=== PATIENT | female | born 1990 | race Two or more races ===

== ENCOUNTER 2023-12-20 14:30 | Outpatient (OUT) | payer OTHER, SELFPAY | END 2023-12-20 14:31 | disposition home or self-care (01) | LOC: PST 14:31 | PROVIDERS: Visit Provider Obstetrics & Gynecology | DX: Z01.818 Encounter for other preprocedural examination (principal); D21.9 Benign neoplasm of connective and other soft tissue, unspecified; R10.2 Pelvic and perineal pain ==

== ENCOUNTER 2023-12-29 10:31 | Outpatient (RCR) | payer OTHER, SELFPAY ==
[2023-12-29 11:22] LABS: HCG Quantitative 17 mIU/mL
[2023-12-31 11:37] LABS: HCG Quantitative 23 mIU/mL
[2024-01-02 11:33] LABS: HCG Quantitative 19 mIU/mL
== END 2024-01-08 23:59 | disposition home or self-care (01) ==
LOC: LAB 10:31
PROVIDERS: Visit Provider Obstetrics & Gynecology
DX: N92.6 Irregular menstruation, unspecified (principal)
CPT/HCPCS: 36415; 84702

== ENCOUNTER 2024-02-15 12:28 | Outpatient (OUT) | payer OTHER, SELFPAY ==
--- OUTSIDE RECORDS SUMMARY | 2024-02-15 12:33 | XMS_ITS | CCD ---
Author Organization [facility] Care Team Providers Care Tuft Machine Operator Name Role Phone Raquel Odell Primary Care Provider YANCY LAMBERT Admitting Unavailable YANCY LAMBERT Attending Unavailable RAQUEL ODELL Primary Care Unavailable SABA DELGADO Admitting Unavailable SABA DELGADO Attending Unavailable RAQUEL ODELL Primary Care Unavailable SABA DELGADO Attending Unavailable SABA DELGADO Referring Unavailable DOYLE MARLEY Attending Unavailable SABA DELGADO Referring Unavailable DOYLE MARLEY Attending Unavailable Medications Current Medications Medication Drug Class(es) Dates Sig (Normalized) Sig (Original) acetaminophen 500 mg oral tablet (2 sources) Start: 09-27-2022 1,000 mg, Oral, EVERY 8 HOURS PRN, Starting on Tue09/27/22 at 2232, Until Discontinued, Other, Pain (1-10) Give in addition to any other pain medication ordered at same time for any pain indication.&nbsp ; Maximum dose of acetaminophen is 4000mg from all sources in 24 hours. Alternate ibuprofen and acetaminophen every 4 hours. Start: 09-27-2022 End: 09-27-2022 acetaminophen (TYLENOL) tabl et 650 mg calcium chloride 0.0014 meq/ ml / potassium chloride 0.004 meq/ml / sodium chloride 0.103 meq/ml / sodium lactate 0.028 meq/ml injectable solution (2 sources) Start: 09-27-2022 IntraVENous, a t 125 mL/hr, CONTINUOUS, Starting on Tue09/27/22 at 2300, Start: 09-27-2022 End: 09-27-2022 lactated ringers IV soln inf usion ibuprofen 800 mg oral tablet (2 sources) Nonsteroidal Anti-inflammatory Drug Start: 09-28-2022 End: 10-02-2022 take 1 tablet by mouth every eight hours as needed for pain ibuprofen (ADVIL;MOTRIN) 800 MG tablet Take 1 tablet by mouth every 8 hours as needed for Pain 60 tablet 1 09/29/2022 10/02/2022 Active lanolin 1000 mg/ml topical cream (1 source) Start: 09-27-2022 Topical, EVERY 1 HOUR PRN, Dry Skin, nipple discomfort, Starting on Tue09/27/22 at 2232, Post-op oxyCODONE hydrochloride 5 mg oral tablet (2 sources) Opioid Agonist Start: 09-29-2022 End: 10-02-2022 take 1 tablet by mouth every six hours as needed for pain oxyCODONE (ROXICODONE) 5 MG immediate release tablet Indications: delivery delivered Take 1 tablet by mouth every 6 hours as needed for Pain for up to 3 days. Max Daily Amount: 20 mg 12 tablet 0 09/29/2022 10/02/2022 Active Start: 09-27-2022 oxyCODONE (AYANNA ICODONE) immediate release tablet 5 mg Vit-Fe Fumarate-FA ( VITAMIN) 27-1 MG TABS tablet (1 source) Start: 09-30-2022 take 1 tablet by mouth once daily Vit-Fe Fumarate-FA ( VITAMIN) 27-1 MG TABS tablet Take 1 tablet by mouth daily 30 tablet 0 09/30/2022 Active 1000 ml sodium chloride 9 mg/ml injection (3 sources) Start: 09-27-2022 IntraVENous, a t 5-250 mL/hr, PRN, if patient receiving piggyback infusions and maintenance fluids are not ordered OR KVO fluids to protect IV site / prevent frequent line interruptions/ long duration, Starting on Tue09/27/22 at 2232 For piggyback infusion, administer at same rate as piggyback for a total of 25 mL. Enter 25 mL into dose field and piggyback rate into rate field of order. If piggyback is infusing at a rate less than 100 mL/hr, enter 25 mL into dose field and 100 mL/hr into rate field of order. For KVO fluids, enter rate of 20 mL/hr or less into rate field of order. Start: 09-27-2022 take 1 dose intraven ously twice daily 5-40 mL, IntraVENous, EVERY 12 HOURS SCHEDULED (2 times per day), First dose on Tue09/27/22 at 2300, Until Discontinued For Line Patency: Peripheral IV = 5 mL; Midline or Central Line = 10 mL/lumen. If following IV push medication, administer flush at same rate as the IV push. Flush volume is determined by type of infusion therapy being given. For non-viscous solutions use: Peripheral IV = 5 mL Midline or Central Line = 10 mL/lumen For viscous solutions (i.e. blood components, parenteral nutrition, contrast media, or after obtaining blood sample) use: Peripheral IV = 10 mL Midline or Central Line = 20 mL/lumen Start: 09-27-2022 take 5-40 mL intrave nously once as needed 5-40 mL, IntraVENous, PRN, Starting on Tue09/27/22 at 2232, Until Discontinued, Line Care, After every IV line use For Line Patency: Peripheral IV = 5 mL; Midline or Central Line = 10 mL/lumen. If following IV push medication, administer flush at same rate as the IV push. Flush volume is determined by type of infusion therapy being given. For non-viscous solutions use: Peripheral IV = 5 mL Midline or Central Line = 10 mL/lumen For viscous solutions (i.e. blood components, parenteral nutrition, contrast media, or after obtaining blood sample) use: Peripheral IV = 10 mL Midline or Central Line = 20 mL/lumen Completed/Discontinued Medications Medication Drug Class(es) Dates Sig (Normalized) Sig (Original) 1 ml carboprost 0.25 mg/ml injection (1 source) Prostaglandin Analog Start: 09-27-2022 250 mcg, IntraMUSCular, PRN, Starting on Tue09/27/22 at 2232, Until Discontinued, bleeding May repeat every 15 minutes up to a cumulative maximum dose of 1000 mcg, at physician's request. Post-op citric acid 66.8 mg/ml / sodium citrate 100 mg/ml oral solution (1 source) Calculi Dissolution Agent, Anti-coagulant Start: 09-27-2022 End: 09-27-2022 citric acid-sodium citrate (BICITRA) solution 30 mL Start: 09-27-2022 End: 09-27-2022 citric acid-sodium citrate ( BICITRA) solution 30 mL 1 ml diphenhydrAMINE hydrochloride 50 mg/ml cartridge (1 source) Histamine-1 Receptor Antagonist Start: 09-27-2022 25 mg, IntraVENous, EVERY 6 HOURS PRN, Starting on Tue09/27/22 at 2232, Until Discontinued, Itching, Hives, docusate sodium 100 mg oral capsule (1 source) Start: 09-27-2022 take 100 mg by mouth twice daily 100 mg, Oral, 2 TIMES DAILY, First dose on Tue09/27/22 at 2300, Until Discontinued Do not crush or break. docusate sodium 50 mg / sennosides, assisted 8.6 mg oral tablet (1 source) Start: 09-27-2022 take 1 tablet by mouth once daily as needed 1 tablet, Oral, DAILY PRN, Starting on Tue09/27/22 at 2232, Until Discontinued, Constipation, 0.4 ml enoxaparin sodium 100 mg/ml prefilled syringe (1 source) Low Molecular Weight Heparin Start: 09-28-2022 inject 40 mg by subcutaneous injection every twenty-four hours 40 mg, SubCUTAneous, EVERY 24 HOURS, First dose on Tue09/28/22 at 0915, Until Discontinued Indication of Use: Prophylaxis-DVT/P E famotidine (PEPCID) 20 mg in sodium chloride (PF) 0.9 % 10 mL injection (1 source) Start: 09-27-2022 End: 09-27-2022 famotidine (PEPCID) 20 mg in sodium chloride (PF) 0.9 % 10 mL injection 1 ml ketorolac tromethamine 30 mg/ml cartridge (1 source) Nonsteroidal Anti-inflammatory Drug, Cyclooxygenase Inhibitor Start: 09-28-2022 End: 09-29-2022 30 mg, IntraVENous, EVERY 6 HOURS, 5 doses, First dose on Tue09/28/22 at 0515, Last dose on Tue09/29/22 at 0515 Give in addition to any other pain medication ordered at same time for any pain indication. Discontinue when able to take PO ibuprofen. F irst dose given in OR - please calculate second dose off of first dose give 1 ml methylergonovine maleate 0.2 mg/ml injection (1 source) Ergot Derivative Start: 09-27-2022 200 mcg, IntraMUSCular, PRN, Starting on Tue09/27/22 at 2232, Until Discontinued, Bleeding PRN for post- hemorrhage, if not hypertensive. 2 ml metoclopramide 5 mg/ml prefilled syringe (1 source) Dopamine-2 Receptor Antagonist Start: 09-27-2022 End: 09-27-2022 metoclopramide (REGLAN) injection 10 mg Start: 09-27-2022 End: 09-27-2022 metoclopramide (REGLAN) inje ction 10 mg miSOPROStol 0.1 mg oral tablet (1 source) Prostaglandin E1 Analog Start: 09-27-2022 800 mcg, Rectal, PRN, 1 dose, Starting on Tue09/27/22 at 2232, Until Discontinued, Post- Hemorrhage Notify Physician prior to administration. Post-op 1 ml nalbuphine hydrochloride 10 mg/ml injection (1 source) Opioid Agonist/Antagonist Start: 09-27-2022 10 mg, IntraVENous, EVERY 4 HOURS PRN, Starting on Tue09/27/22 at 2232, Until Discontinued, or itching, Post-op 1 ml naloxone hydrochloride 0.4 mg/ml injection (1 source) Opioid Antagonist Start: 09-27-2022 0.4 mg, IntraVENous, PRN, Starting on Tue09/27/22 at 2232, Until Discontinued, Opioid Reversal, Post-op 2 ml ondansetron 2 mg/ml injection (1 source) Serotonin-3 Receptor Antagonist Start: 09-27-2022 4 mg, IntraVENous, EVERY 6 HOURS PRN, Starting on Tue09/27/22 at 2232, Until Discontinued, Nausea, nausea, oxytocin (PITOCIN) 30 units in 500 mL infusion (1 source) Start: 09-27-2022 End: 09-27-2022 oxytocin (PITOCIN) 30 units in 500 mL infusion vitamin 27-1 MG tablet 1 tablet (1 source) Start: 09-28-2022 take 1 tablet by mouth once daily 1 tablet, Oral, DAILY, First dose on Tue09/28/22 at 0900, Until Discontinued Begin when normal bowel activity resumes. 200 ml ropivacaine hydrochloride 2 mg/ml injection (1 source) Amide Local Anesthetic Start: 09-27-2022 End: 09-27-2022 ropivacaine (NAROPIN) 0.2% injection 0.2% simethicone 80 mg chewable tablet (1 source) Start: 09-27-2022 take 80 mg by mouth every six hours as needed 80 mg, Oral, EVERY 6 HOURS PRN, Starting on Tue09/27/22 at 2232, Until Discontinued, Cramping, Flatulence, Problems Problem Classification Problem Date Documented Date Episodic/Chronic distress and abnormal forces of labor (2 sources) Failure to progress in labor; Translations: [Other uterine inertia] Onset: 09-27-2022 Episodic Other complications of ; puerperium affecting management of mother (3 sources) Deliveries by ; Translations: [Encounter for delivery without indication] Onset: 09-28-2022 Episodic Other complications of ; puerperium affecting management of mother (1 source) Encounter for delivery without indication; Translations: [Encounter for delivery without indication] Onset: 09-28-2022 Episodic Other and delivery including normal (4 sources) Normal labor; Translations: [Encounter for full-term uncomplicated delivery] Onset: 09-27-2022 Episodic Polyhydramnios and other problems of amniotic cavity (5 sources) Premature rupture of membranes; Translations: [Premature rupture of membranes, unspecified as to length of time between rupture and onset of labor, unspecified weeks of gestation] Onset: 08-19-2022 Episodic Residual codes; unclassified (2 sources) Gestation period, 40 weeks; Translations: [40 weeks gestation of ] Onset: 09-27-2022 Episodic Results Test Name Value Interpretation Reference Range Facil ity US PELVIS TRANSVAGINALon US PELVIS TRANSVAGINAL FINDINGS: Uterus: 9.4 x 6.0 x 4.2 cm Endometrium 9 mm Right Ovary Not seen Left Ovary Not seen Minimal uterine body/fundal anteversion. Posterior heterogeneous hypoechogenic area, 3.5 x 2.5 x 2.0 cm likely intramural fibroid resulting in anterior displacement of the otherwise normal appearing endometrium. No pelvic fluid. Neither ovary visualized. No adnexal mass. IMPRESSION: Posterior uterine body findings most consistent with a 2.0 x 3.5 cm intramural fibroid. TRANSCRIBED BY: ELECTRONICALLY SIGNED BY: Cole Mckeon MD Normal Not Available Hemoglobinon 09-28-2022 Hemoglobin (Bld) [Mass/Vol] 10.7 g/dL Low 11.9-15.1 [facility] Comment on above: Performed By: #### H GB #### [facility] [address] [place] [address] Outdoor Pursuits Instructor: Deven Kumar MD Hemoglobin (Bld) [Mass/Vol] 10.7 g/dL Low 11.9 - 15.1 g/dL [facility] Interpretation and review of laboratory results Abnormal [facility] CBC auto differentialon 09-09 Absolute Eos # 0.05 [place] [facility] Absolute Immature Granulocyte 0.05 [facility] Absolute Lymph # 2.59 [facility] SECO URS [facility] Absolute Richardson # [facility] Basophils Absolute [place] [facility] COURS [facility] Basophils/100 WBC (Bld) 0 % 0 - 2 % [facility] Eosinophils/100 WBC (Bld) 1 % 1 - 4 % [facility] Hematocrit (Bld) [Volume fraction] 35.9 % Low 36.3 - 47.1 % [facility] Hemoglobin (Bld) [Mass/Vol] 11.9 g/dL 11.9 - 15.1 g/dL [facility] Immature granulocytes/100 WBC (Bld) 1 % High 0 [facility] Interpretation and review of laboratory results Abnormal [facility] Lymphocytes/100 WBC (Bld) 27 % 24 - 43 % [facility] MCH (RBC) [Entitic mass] 29.7 pg 25.2 - 33.5 pg [facility] MCHC (RBC) [Mass/Vol] 33.1 g/dL 28.4 - 34.8 g/dL [facility] MCV (RBC) [Entitic vol] 89.5 fL 82.6 - 102.9 fL [facility] Monocytes/100 WBC (Bld) 7 % 3 - 12 % [facility] NRBC Automated 0.0 0.0 per 100 WBC [facility] Platelet distribution width (Bld) [Ratio] 14.5 % High 11.8 - 14.4 % [facility] Platelet mean volume (Bld) [Entitic vol] 11.7 fL 8.1 - 13.5 fL [facility] Platelets (Bld) [#/Vol] 223 10*3/uL [facility] RBC (Bld) [#/Vol] 4.01 10*6/uL 3.95 - 5.1 1 m/uL [facility] Segmented neutrophils/100 WBC (Bld) 64 % 36 - 65 % [facility] Segs Absolute 6.36 [facility] WBC (Bld) [#/Vol] 9.8 10*3/uL [facility] SE COURS [facility] CBC with Diffon 09-27-2022 Abs. Basophil <0.03 Normal 0.00-0.20 [facility] Comment on above: Performed By: #### C DP #### [facility] [address] [place] [address] [place] [address] Outdoor Pursuits Instructor: eDven Kumar MD Abs.Imm.Granulocyte 0.05 k/uL Normal 0.00-0.30 [facility] Comment on above: Performed By: #### C DP #### [facility] [address] [place] [address] [place] [address] Outdoor Pursuits Instructor: Deven Kumar MD Abs.Neutrophil (Seg) 6.36 k/uL Normal 1.50-8.10 [facility] Comment on above: Performed By: #### C DP #### [facility] [address] [place] [address] Outdoor Pursuits Instructor: Deven Kumar MD Basophils/100 WBC (Bld) 0 % Normal 0-2 [facility] Comment on above: Performed By: #### C DP #### [facility] [address] [place] [address] Dr. [place], [facility]83 Outdoor Pursuits Instructor: Deven Kumar MD Eosinophils (Bld) [#/Vol] 0.05 10*3/uL Normal 0.00-0.44 [facility] Comment on above: Performed By: #### C DP #### [address] [place], [facility]83 Outdoor Pursuits Instructor: Deven Kumar MD Eosinophils/100 WBC (Bld) 1 % Normal 1-4 [facility] Comment on above: Performed By: #### C DP #### [address] [place] [address] Outdoor Pursuits Instructor: Deven Kumar MD Erythrocyte distribution width (RBC) [Ratio] 14.5 % High 11.8-14.4 [facility] Comment on above: Performed By: #### C DP #### [address] [place], [facility]83 Outdoor Pursuits Instructor: Deven Kumar MD Hematocrit (Bld) [Volume fraction] 35.9 % Low 36.3-47.1 [facility] Comment on above: Performed By: #### C DP #### [address] [place], [facility]83 Outdoor Pursuits Instructor: Deven Kumar MD Hemoglobin (Bld) [Mass/Vol] 11.9 g/dL Normal 11.9-15.1 [facility] Comment on above: Performed By: #### C DP #### [address] [place], [facility] Outdoor Pursuits Instructor: Deven Kumar MD Immature granulocytes/100 WBC (Bld) 1 % High 0 [facility] Comment on above: Performed By: #### C DP #### [address] [place], [facility]83 Outdoor Pursuits Instructor: Deven Kumar MD Lymphocytes (Bld) [#/Vol] 2.59 10*3/uL Normal 1.10-3.70 [facility] Comment on above: Performed By: #### C DP #### [facility] [address] [place], [facility]83 Outdoor Pursuits Instructor: Deven Kumar MD Lymphocytes/100 WBC (Bld) 27 % Normal 24-43 [facility] Comment on above: Performed By: #### C DP #### [facility] [address] [place], [facility]83 Outdoor Pursuits Instructor: Deven Kumar MD MCH (RBC) [Entitic mass] 29.7 pg Normal 25.2-33.5 [facility] Comment on above: Performed By: #### C DP #### [facility] [address] [place], [facility]83 Outdoor Pursuits Instructor: Deven Kumar MD MCHC (RBC) [Mass/Vol] 33.1 g/dL Normal 28.4-34.8 [facility] Comment on above: Performed By: #### C DP #### [facility] [address] [place], [facility]83 Outdoor Pursuits Instructor: Deven Kumar MD MCV (RBC) [Entitic vol] 89.5 fL Normal 82.6-102.9 [facility] Comment on above: Performed By: #### C DP #### [address] [place], [place] [address] Outdoor Pursuits Instructor: Deven Kumar MD Monocytes (Bld) [#/Vol] 0.69 10*3/uL Normal 0.10-1.20 [facility] Comment on above: Performed By: #### C DP #### [facility] [address] [place], [place] [id number] Outdoor Pursuits Instructor: Deven Kumar MD Monocytes/100 WBC (Bld) 7 % Normal 3-12 [facility] Comment on above: Performed By: #### C DP #### [facility] [address] [place], [place] [id number] Outdoor Pursuits Instructor: Deven Kumar MD Neutrophil (Seg) 64 % Normal 36-65 [facility] Comment on above: Performed By: #### C DP #### [facility] [address] [place], [place] [id number] Outdoor Pursuits Instructor: Deven Kumar MD NRBC Automated 0.0 per 100 WBC Normal 0.0 [facility] Comment on above: Performed By: #### C DP #### [facility] [address] [place], [place] [id number] Outdoor Pursuits Instructor: Deven Kumar MD Platelet mean volume (Bld) [Entitic vol] 11.7 fL Normal 8.1-13.5 [facility] Comment on above: Performed By: #### C DP #### [facility] [address] [place] [address] Dr. [place], [place] [id number] Outdoor Pursuits Instructor: Deven Kumar MD Platelets (Bld) [#/Vol] 223 10*3/uL Normal 138-453 [facility] Comment on above: Performed By: #### C DP #### [address] [place], [place] [id number] Outdoor Pursuits Instructor: Deven Kumar MD RBC (Bld) [#/Vol] 4.01 10*6/uL Normal 3.95-5.11 [facility] Comment on above: Performed By: #### C DP #### [facility] [address] [place], [place] [id number] Outdoor Pursuits Instructor: Deven Kumar MD WBC (Bld) [#/Vol] 9.8 10*3/uL Normal 3.5-11.3 [facility] Comment on above: Performed By: #### C DP #### [facility] [address] [place] [address] Outdoor Pursuits Instructor: Deven Kumar MD DRUG SCREEN MULTI URINEon Amphetamine Screen, Ur Negative NEGATIVE [facility] Comment on above: (Positive cutoff 1000 ng/mL) Barbiturate Screen, Ur Negative NEGATIVE [facility] Comment on above: (Positive cutoff 200 ng/mL) Benzodiazepine Screen, Urine Negative NEGATIVE [facility] Comment on above: (Positive cutoff 200 ng/mL) Buprenorphine Urine Negative NEGATIVE [facility] Comment on above: (Positive cutoff 5 ng/ml) Cannabinoid Scrn, Ur Negative NEGATIVE [facility] Comment on above: (Positive cutoff 50 ng/mL) Cocaine Metabolite, Urine Negative NEGATIVE [facility] Comment on above: (Positive cutoff 300 ng/mL) Fentanyl, Ur Negative NEGATIVE [facility] Comment on above: (Positive cutoff 5 ng/ml) Methadone Screen, Urine Negative NEGATIVE [facility] Comment on above: (Positive cutoff 300 ng/mL) Opiates, Urine Negative [facility] Comment on above: (Positive cutoff 300 ng/mL) Oxycodone Screen, Ur Negative NEGATIVE [facility] Comment on above: (Positive cutoff 100 ng/mL) Phencyclidine, Urine Negative NEGATIVE [facility] Comment on above: (Positive cutoff 25 ng/mL) [facility] Drug Scr, Abuse, Uron 2022 Amphetamine(s),Ur Negative Normal NEG [facility] Comment on above: Result Comment: (Positive cutoff 1000 ng/mL) Performed By: #### D AU #### [address] [place] [address] Outdoor Pursuits Instructor: Deven Kumar MD Barbiturate(s),Ur Negative Normal NEG [facility] Comment on above: Result Comment: (Positive cutoff 200 ng/mL) Performed By: #### D AU #### [address] [place] [address] Outdoor Pursuits Instructor: Deven Kumar MD Benzodiazepine(s) Negative Normal NEG [facility] Comment on above: Result Comment: (Positive cutoff 200 ng/mL) Performed By: #### D AU #### [facility] [address] [place] [address] Dr[place], [place] [id number] Outdoor Pursuits Instructor: Deven Kumar MD Buprenorphrine, Ur Negative Normal NEG [facility] Comment on above: Result Comment: (Positive cutoff 5 ng/ml) Performed By: #### D AU #### [address] [place], [place] [id number] Outdoor Pursuits Instructor: Deven Kumar MD Cannabinoid(s),Ur Negative Normal NEG [facility] Comment on above: Result Comment: (Positive cutoff 50 ng/mL) Performed By: #### D AU #### [address] [place], [place] [id number] Outdoor Pursuits Instructor: Deven Kumar MD Cocaine Metabolite Negative Normal [facility] Comment on above: Result Comment: (Positive cutoff 300 ng/mL) Performed By: #### D AU #### [address] [place], [place] [id number] Outdoor Pursuits Instructor: Deven Kumar MD Fentanyl, Urine Negative Normal [facility] Comment on above: Result Comment: (Positive cutoff 5 ng/ml) Performed By: #### D AU #### [address] [place], [place] [id number] Outdoor Pursuits Instructor: Deven Kumar MD Methadone Ql (U) Negative Normal NEG [facility] Comment on above: Result Comment: (Positive cutoff 300 ng/mL) Performed By: #### D AU #### [address] [place], [place] [phone] Outdoor Pursuits Instructor: Deven Kumar MD Opiate(s), Ur Negative Normal NEG [facility] Comment on above: Result Comment: (Positive cutoff 300 ng/mL) Performed By: #### D AU #### [address] [place], [place] [id number] Outdoor Pursuits Instructor: Deven Kumar MD Oxycodone, Urine Negative Normal NEG [facility] Comment on above: Result Comment: (Positive cutoff 100 ng/mL) Performed By: #### D AU #### [facility] [address] [place] [address] Outdoor Pursuits Instructor: Deven Kumar MD Phencyclidine, Ur Negative Normal [facility] Comment on above: Result Comment: (Positive cutoff 25 ng/mL) Performed By: #### D AU #### [facility] [address] [place] [address] Outdoor Pursuits Instructor: Deven Kumar MD TYPE AND SCREENon 09-27-2022 ABO/Rh Positive [facility] Arm Band Number [id number] [facility] Expiration Date 09/30/2022,2359 [facility] Type + Screenon 09-27-2022 Type + Screen Sample Expiration 09/30/2022,2359 Arm Band Number [id number] ABO/Rh(D) O POSITIVE Antibody Screen NEGATIVE Normal [facility] Comment on above: Performed By: #### T YS #### [address] [place] [address] Outdoor Pursuits Instructor: Deven Kumar MD No Panel Informationon 08-24 GBS, External Result Negative [facility] Work Phone: [facility] Work Phone: Cult,Urineon 08-21-2022 Cult,Urine Specimen Description .CLEAN CATCH URINE Culture NO SIGNIFICANT GROWTH Report Status FINAL 08/21/2022 Normal [facility] Comment on above: Performed By: #### U RC #### [facility] [address] [place] [address] Outdoor Pursuits Instructor: Jesus Hill MD [facility] [facility] [address] [place] [address] [place] [address] Outdoor Pursuits Instructor: Deven Kumar MD US OB 14 PLUS WEEKS SINGLE O R FIRST GESTATIONon 08-20-2022 US OB 14 PLUS WEEKS SINGLE OR FIRST GESTATION EXAMINATION: TRANSABDOMINAL SECOND/THIRD TRIMESTER OBSTETRIC PELVIC ULTRASOUND WITH COLOR DOPPLER FLOW 08/20/2022 1:07 am TECHNIQUE: TRANSABDOMINAL PELVIC ULTRASOUND WITH COLOR DOPPLER FLOW COMPARISON: None HISTORY: ORDERING SYSTEM PROVIDED HISTORY: R/O ROM; cervical length, MASHA, BPP TECHNOLOGIST PROVIDED HISTORY: R/O ROM; cervical length, MASHA, BPP FINDINGS: GENERAL OBSERVATIONS: Single intrauterine gestation. heart rate at 139 beats per minute. Amniotic fluid index measures 17 cm. ANATOMY: Not assessed ESTIMATED AGE: Not assessed MEASUREMENTS: Not assessed IMPRESSION: 1. Single intrauterine gestation. 2. Amniotic fluid index of 17 cm within normal limits. 3. heart rate of 139 beats per minute. Interpreted by: Deven Vaughan MD Signed by: Deven Vaughan MD 08/20/22 Final result Normal [facility] Urinalysis, Routineon 2022 Bilirubin, SemiQt,Ur Negative Normal NEG [facility] Comment on above: Performed By: #### U A, VALENTEICAO #### [facility] [address] [place] [address] Outdoor Pursuits Instructor: Deven Kumar MD Blood, Urine Negative Normal NEG [facility] Comment on above: Performed By: #### U A, UMICAO #### [facility] [address] [place] [address] Outdoor Pursuits Instructor: Deven Kumar MD Clarity (U) Clear Normal CLEAR [facility] Comment on above: Performed By: #### U A, UMICAO #### [facility] [address] [place] [address] Outdoor Pursuits Instructor: Deven Kumar MD Color (U) Yellow Normal YEL [facility] Comment on above: Performed By: #### U A, UMICAO #### [facility] [address] [place] [address] Outdoor Pursuits Instructor: Deven Kumar MD Glucose Ql (U) Negative Normal NEG [facility] Comment on above: Performed By: #### U A, UMICAO #### [facility] [address] [place], [place] [id number] Outdoor Pursuits Instructor: Deven Kumar MD Ketones Ql (U) TRACE Abnormal NEG [facility] Comment on above: Performed By: #### U A, UMICAO #### [facility] [address] [place] [address] [place]. [place], [place] [id number] Outdoor Pursuits Instructor: Deven Kumar MD Leukocyte esterase Test strip Ql (U) MODERATE Abnormal NEG [facility] Comment on above: Performed By: #### U A, UMICAO #### [facility] [address] [place] [address] [place]. [place], [place] [id number] Outdoor Pursuits Instructor: Deven Kumar MD Nitrite,Ur Negative Normal NEG [facility] Comment on above: Performed By: #### U A, UMICAO #### [facility] [address] [place] [address] [place], [place] [id number] Outdoor Pursuits Instructor: Deven Kumar MD PH,Ur 6.0 Normal 5.0-9.0 [facility] Comment on above: Performed By: #### U A, UMICAO #### [facility] [address] [place] [address] [place] [address] Outdoor Pursuits Instructor: Deven Kumar MD Protein Ql (U) Negative Normal NEG [facility] Comment on above: Performed By: #### U A, UMICAO #### [facility] [address] [place] [address] [place] [address] Outdoor Pursuits Instructor: Deven Kumar MD Spec. [place],Ur >1.030 High 1.010-1.[address] [facility] Comment on above: Performed By: #### U A, UMICAO #### [facility] [address] [place] [address] [place]. [place], [place] [phone] Outdoor Pursuits Instructor: Deven Kumar MD Urobilinogen,Ur Normal Normal NORM [facility] Comment on above: Performed By: #### U A, UMICAO #### [facility] [address] [place], [place] [id number] Outdoor Pursuits Instructor: Deven Kumar MD Urinalysis,Microon 3 Epithelial cells LM Ql (Urine sed) 5 TO 10 Normal 0-25 [facility] Comment on above: Performed By: #### U A, UMICAO #### [facility] [address] [place], [place] [id number] Outdoor Pursuits Instructor: Deven Kumar MD Mucus Strands 3+ Abnormal NONE [facility] Comment on above: Performed By: #### U A, UMICAO #### [facility] [address] [place], [place] [id number] Outdoor Pursuits Instructor: Deven Kumar MD Urine RBC's None Normal 0-2 [facility] Comment on above: Performed By: #### U A, UMICAO #### [facility] [address] [place], [place] [phone] Outdoor Pursuits Instructor: Deven Kumar MD Urine WBC's 50 TO 100 Normal 0-5 [facility] Comment on above: Performed By: #### U A, UMICAO #### [facility] [address] [place], [place] [phone] Outdoor Pursuits Instructor: Deven Kumar MD Microscopic Urinalysison Epithelial Cells UA 5 TO 10 [facility] Interpretation and review of laboratory results Abnormal [facility] Mucus, UA 3+ Abnormal None [facility] RBC clumps Auto (Urine sed) [#/Area] None [facility] WBC, UA 50 TO 100 [facility] Urinalysison 08-19-2022 Bilirubin Urine Negative NEGATIVE [facility] Color, UA Yellow Yellow [facility] Glucose Auto test strip (U) [Mass/Vol] Negative NEGATIVE [facility] Interpretation and review of laboratory results Abnormal [facility] Ketones (U) [Mass/Vol] TRACE Abnormal NE[facility]IVE [facility] Leukocyte esterase Auto test strip Ql (U) MODERATE Abnormal NEGATIVE [facility] Nitrite Auto test strip Ql (U) Negative NEGATIVE [facility] Protein (U) [Mass/Vol] 6.0 mg/dL 5.0 - 9.0 [facility] Protein (U) [Mass/Vol] Negative NEGATIVE [facility] Specific [place], UA High 1.010 - 1.020 [facility] Turbidity UA Clear Clear [facility] Urine Hgb Negative NEGATIVE [facility] Urobilinogen, Urine Normal Normal [email or web address] US OB 2nd/3rd Trimesteron OB 2nd/3rd Trimester FINDINGS: Comparison made with prior examination of February 16, 2022 delivery at that time was September 25, 2021. A single, live intrauterine is present with normal cardiac rate of 145 beats per minute. Normal activity and amniotic fluid volume. Amniotic fluid index is 12.0 cm. Morphology is grossly normal. The cervix is long and closed, 3.6 cm. The placenta is posterior Grade 1, not associated with the cervical os. The current sonographic age is 19 weeks and 3 days, based on the following measurements: BPD 4.6 cm (20 weeks, 0 days) Head Circumference 16.8 cm (19 weeks, 3 days) Abdominal Circumference 13.8 cm (19 weeks, 1 days) Femur Length 2.9cm (19 weeks, 0 days) Presentation Cephalic Placenta Posterior Grade I Weight by percentile 29.5% These measurements result in an estimated date of delivery of September 25, 2022. The current estimated weight is 276 grams +/- grams ( pound, 10 ounces). IMPRESSION: Single, live intrauterine , current sonographic age of 19 weeks and 3 days, with an estimated date of delivery of September 25, 2022. 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 Trachomatis, External Res bubba 03-04-2022 C. Trachomatis, External Result Negative [facility] [employer] Work Phone: HIV, External Resulton 03-04 HIV, External Result Non-Reactive [facility] [employer] Phone: Hepatitis B, External Result on 03-04-2022 Hep B, External Result Non-Reactive [employer] Phone: N. Gonorrhoeae, External Res ulton 03-04-2022 N. Gonorrhoeae, External Result Negative [employer] Phone: No Panel Informationon 03-04 ABO, External Result O [employer] Phone: [employer] Phone: [employer] Phone: RPR, External Labon 03-04-20 RPR, External Result Non-Reactive REJI N [employer] Phone: Rh Factor, External Resulton 03-04-2022 Rh Factor, External Result Positive [employer] Phone: Rubella Titer, External Resu lton 03-04-2022 Rubella Titer, External Result immune [employer] Phone: US OB 1ST Trimesteron 2021 US OB 1ST Trimester FINDINGS: A single intrauterine gestational sac is present without significant subchorionic hemorrhage. A single pole is present, cardiac heart rate identified (165 beats per minute). Yolk sac also is seen. Current sonographic age is 8 weeks and 3 days based on the crown-rump length measurement of 1.9 cm. Based on this age, current estimated date of delivery is September 25, 2022. No pelvic fluid or worrisome adnexal mass lesions are seen. IMPRESSION: Findings consistent with an early intrauterine gestational , current sonographic age of 8 weeks and 3 days resulting in an estimated date of delivery of September 25, 2022. 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 Vital Signs Date Time Vital Sign Value Performing Clinician Faci lity 09-29-2022 14:15-0400 Body temperature 98.1 [degF] Saba Delgado APRN - CNM Work Phone: [employer] 09-29-2022 14:15-0400 Diastolic blood pressure 67 mm[Hg] Saba Delgado APRN - CNMarcie Work Phone: [employer] [facility] 09-29-2022 14:15-0400 Heart rate 103 /min Saba Delgado APRN - CNM Work Phone: [employer] 09-29-2022 14:15-0400 Respiratory rate 16 /min Saba Delgado APRN - CNM Work Phone: [employer] 09-29-2022 14:15-0400 Systolic blood pressure 122 mm[Hg] Saba Delgado APRN - CNM Work Phone: [employer] 09-28-2022 00:23-0400 SaO2% (BldA) [Mass fraction] 98 % Saba Delgado APRN - CNMarcie Work Phone: [employer] 09-27-2022 02:20-0400 Body height 154.9 cm Saba Delgado APRN - CNMarcie Work Phone: [employer] 09-27-2022 02:20-0400 Body mass index (BMI) [Ratio] 38.73 kg/m2 Saba Delgado APRN - CNMarcie Work Phone: [employer] 09-27-2022 02:20-0400 Body weight 92.99 kg Saba Delgado APRN - CNM Work Phone: [employer] 08-19-2022 22:36-0500 Diastolic blood pressure 71 mm[Hg] Yancy Pool SPRAGGER - CNM Work Phone: [employer] 08-19-2022 22:36-0500 Heart rate 97 /min Yancy Pool SPRAGGER - CNM Work Phone: [employer] 08-19-2022 22:36-0500 Systolic blood pressure 118 mm[Hg] Yancy Hua SPRAGGER - CNM Work Phone: [facility] Encounters Encounter Date Encounter Type Care Provider Facility Start: 12-15-2023 End: 12-15-2023 ambulatory DOYLE AYAKA Not Available Start: 12-08-2023 End: 12-08-2023 ambulatory DOYLE AYAKA Not Available Start: 11-10-2023 End: 11-10-2023 ambulatory SABA L FLORO Not Available Start: 11-09-2023 End: 11-09-2023 ambulatory SABA L FLORO Not Available Start: 09-27-2022 End: 09-29-2022 [facility] Start: 09-27-2022 End: 09-29-2022 Evaluation and management of inpatient Saba Delgado SPRAGGER CN Work Phone: [facility] Labor and Delivery Comment on above: delivery de livered (Primary Dx) Start: 08-20-2022 End: 08-20-2022 ambulatory [facility] Start: 08-19-2022 End: 08-20-2022 Subsequent hospital visit by physician Yancy Lambert APRN - CN Work Phone: [facility] Labor and Delivery Start: 07-15-2020 End: 07-15-2020 Subsequent hospital visit by physician [facility] Covid Screening Schedule [facility] Covid Screening Comment on above: Arrived Procedures Date Procedure Procedure Detail Performing Clinician Start: 09-28-2022 Blood count hemoglobin Lauren F Walter Pinedo DO Work Phone: Start: 09-27-2022 Antibody screen Saba Delgado SPRAGGER - CNM Work Phone: Start: 09-27-2022 Blood count complete auto&auto difrntl wbc Saba Delgado SPRAGGER - CNM Work Phone: Start: 09-27-2022 End: 09-27-2022 Blood typing serologic abo Saba Delgado SPRAGGER - CNM Work Phone: Start: 08-24-2022 GBS, EXTERNAL RESULT Hi claudine Provider Start: 08-19-2022 Urinalysis microscop ic only Yancy Lambert [facility] Work Phone: Start: 08-19-2022 Urnls dip stick/tabl et rgnt auto w/o microscopy Yancy Moore Hua SPRAGGER [facility] Work Phone: Start: 03-04-2022 ABO, EXTERNAL RESULT Hi storical Provider Start: 03-04-2022 C. TRACHOMATIS, EXTE RNAL RESULT Historical Provider Start: 03-04-2022 HEPATITIS B, EXTERNA L RESULT Historical Provider Start: 03-04-2022 HIV, EXTERNAL RESULT Hi shabanaical Provider Start: 03-04-2022 N. GONORRHOEAE, EXTE RNAL RESULT Historical Provider Start: 03-04-2022 RH FACTOR, EXTERNAL RESULT Historical Provider Start: 03-04-2022 RPR, EXTERNAL RESULT Hi storical Provider Start: 03-04-2022 RUBELLA TITER, EXTER NAL RESULT Historical Provider Plan of Treatment Date Care Activity Detail Author Start: 2022 Influenza vaccination Flu vaccine (# 1) [facility] Start: 2021 Screening for malign ant neoplasm of cervix [facility] Start: 03-11-2020 Influenza vaccination Flu vaccine (# 1) [place], [place] Start: 02-09-2012 Screening for malign ant neoplasm of cervix [facility] Start: 2010 DTaP/Tdap/Td vaccine (1 - Tdap) DTaP/Tdap/Td vaccine (1 - Tdap) [facility] Start: 2009 Hepatitis C screening Hepatitis C sc reen [facility] Start: 2006 HIV screening HIV screen [facility] Start: 2003 Depression Screen Depression Screen [facility] Start: 02-09-1992 Varicella vaccine (1 of 2 - 2-dose childhood series) Varicella vaccine (1 of 2 - 2-dose childhood series) [facility] Start: 1991 COVID-19 Vaccine (#1) COVID-19 Vacci ne (#1) [employer] Start: 1991 Hepatitis C screening Hepatitis C sc [facility] [place] [place] End: 08-19-2022 Bacteria identified in Urine by Culture Urine culture Microbiology Routine One Time for 1 Occurrences starting 08/19/2022 until 08/19/2022 [employer] Phone: Comment on above: One Time for 1 Occur rences starting 08/19/2022 until 08/19/2022 End: 07-15-2020 COVID-19 COVID-19 Lab Routine Once for 1 Occurrences starting 07/15/2020 until 07/15/2020 [place] Comment on above: Once for 1 Occurrenc es starting 07/15/2020 until 07/15/2020 COVID-19 COVID-19 Lab Rou sourav 07/15/2020 9:05 AM EST [place] nonstress test nonst ress test OB Routine Daily until discontinued starting 08/20/2022 [employer] Phone: Comment on above: Daily until disconti nued starting 08/20/2022 Nonrebreather mask oxygen Nonreb reather mask oxygen Respiratory Care Routine As directed - RT (PRN) until discontinued starting 08/19/2022 [employer] Phone: Comment on above: As directed - RT (NM N) until discontinued starting 08/19/2022 Oxygen therapy [[facility] Data Set] Initiate Oxygen Therapy Protocol Respiratory Care Routine As Needed until discontinued starting 09/27/2022 [employer] Phone: Comment on above: As Needed until disc ontinued starting 09/27/2022 End: 09-27-2022 RHOGAM INJECTION ONLY RHOGAM INJECTION ONLY Blood Bank Routine One Time for 1 Occurrences starting 09/27/2022 until 09/27/2022 [employer] Phone: Comment on above: One Time for 1 Occur rences starting 09/27/2022 until 09/27/2022 Spirometry panel Incentive jessica metry Respiratory Care Routine Every 2hr while awake until discontinued starting 09/28/2022 [employer] Phone: Comment on above: Every 2hr while awak e until discontinued starting 09/28/2022 End: 08-19-2022 SVE SVE Point of Care Testing Routine One Time for 1 Occurrences starting 08/19/2022 until 08/19/2022 [employer] Phone: Comment on above: One Time for 1 Occur rences starting 08/19/2022 until 08/19/2022 End: 08-20-2022 US OB 14 PLUS WEEKS SINGLE OR FIRST GESTATION US OB 14 PLUS WEEKS SINGLE OR FIRST GESTATION Imaging STAT Once for 1 Occurrences starting 08/20/2022 until 08/20/2022 [employer] Phone: Comment on above: Once for 1 Occurrenc es starting 08/20/2022 until 08/20/2022 US OB 14 PLUS WEEKS SINGLE OR FIRST GESTATION US OB 14 PLUS WEEKS SINGLE OR FIRST GESTATION Imaging STAT 08/20/2022 1:07 AM EST [employer] Phone: Immunizations Immunization Date Immunization Notes Care Provider Fa cili 09-27-2022 diphtheria, tetanus toxoids and acellular pertussis vaccine, unspecified formulation Saba Delgado [employer] Work Phone: [employer] Phone: 09-27-2022 measles, mumps and rubella virus vaccine Saba Delgado [employer] Work Phone: [employer] Phone: Payers Date Payer Category Payer Unknown [id number] 2022 Unknown [id number] 2014 Unknown [facility] [id number] 2014-Present [phone] [address] [address] [place] [address] [id number] 1991 Unknown [id number] 1991 Unknown [id number] 1991 Unknown [id number] 1991 Unknown [id number] 1991 Unknown [id number] 9 1991 Unknown [id number] Social History Date Type Detail Facility Tobacco smoking stat [facility] Unknown if ever smoked [employer] Start: 1991 [facility]igned [facility] Start: 08-19-2022 Tobacco smoking stat [facility] Ex-smoker [employer] Phone: History of tobacco use Current smoker [employer] Phone: History of tobacco use Cigarette Smoker B ON [employer] Phone: Start: 08-19-2022 Cigarettes smoked current (pack per day) - Reported 0.3 [employer] Phone: History of tobacco use Passive smoker [employer] Phone: Start: 08-19-2022 Tobacco use and exposure Smoke less tobacco non-user [employer] Phone: Start: 08-19-2022 End: 09-28-2022 Alcohol intake Ex-drinker (finding) [employer] Phone: Start: 08-09-2022 End: 09-27-2022 Exposure to SARS-CoV-2 (event) Not sure MARISSA P[facility] Work Phone: Hospital Discharge instructions 09-29-2022 Discharge Instructions Note Date & Type Note Facility 09-29-2022 Hospital Discharg e instructions Jose Perez RN - 09/29/2022 1:09 PM EDT Follow-up with your OB doctor as specified. [facility] OB Department phone: Dr. Adarsh Lambert CNM Dr. Chencho Matta CNM [address] [facility] [address] [facility] [address] [address] [place] [address] Chencho Viveros CNM [address] [facility] [address] [phone] Mona Delgado, MSN, SPRAGGER, CNM [facility] [address] [facility] [address] [address] [facility] [address] Celia Rosario CNM [address] [place] [place] [address] [place] [address] Piedad Wiley CNM [address] [place] [address] [place] [address] [phone] DIET Eat a well balanced diet focusing on foods high in fiber and protein. Drink plenty of fluids especially water. To avoid constipation you may take a mild stool softener as recommended by your doctor or legal officer. ACTIVITY Gradually increase your activity. Resume exercise regimen only after advice by your doctor or legal officer. Avoid lifting anything heavier than a gallon of milk for SIX weeks. Avoid driving until your doctor or legal officer has given their approval. Rise slowly from a lying to sitting and then a standing position. Climb stairs one at a time. Use caution when carrying your baby up and down the stairs. NO SEXUAL Activity for 4-6 weeks or until advised by your doctor; Nothing in vagina: intercourse, tampons, or douching. Be prepared to discuss family planning at your follow-up OB visit. You may feel tired or have a lack of energy. You may continue your vitamin to replenish nutrients post delivery. Nap when baby naps to catch up on sleep. EMOTIONS You may feel richey, sad, teary, & overwhelmed. Contact your OB provider if you feel you may be showing signs of depression, or have thoughts of harming yourself or your infant. If infant will not stop crying, contact another adult for help or place in their crib on their back and take a break. NEVER shake your infant. BLEEDING Vaginal bleeding will decrease in amount over the next few weeks. You will notice that as your activity increases, your flow may increase. This is your body's way of telling you, you need to take things easier and rest more often. Call your care provider if you are saturating more than one maxi pad in an hour & resting does not help. BREAST CARE Take medications as recommended by your doctor or legal officer for pain If you develop a warm, red, tender area on your breast or develop a fever contact your OB provider. For moms: If you become engorged, feeding may be more difficult or painful for 1-2 days. You may find it helpful to hand express some milk so that the can latch on more easily. While , continue to take your vitamins as directed by your doctor or legal officer. Refer to the booklet in the folder/binder for more information. If you feel you need more assistance or have questions, please call Rose Boyce IBCLC, business consultant, at or the OB department to schedule an appointment or phone consultation. For more FREE help, visit the Support Group on Tuesday evenings at 7 pm in the OB department. For NON- moms: You may apply ice packs to your breasts over your bra for twenty minutes at a time for comfort. Avoid stimulation to your breasts, when showering allow the water to strike your back not your breasts. Wear a good fitting bra until your milk dries, such as a sports bra. INCISIONAL CARE / ABDIRAHMAN CARE If you have an acticoat dressing in place after your please leave your dressing in place for one week until you follow up with your provider. They will remove this dressing in the office when you see them. If you have a KAYLIN negative pressure wound dressing please leave the dressing in place for 7 days after delivery. Your health care provider will remove the dressing at your one week incisional check. You may shower with your KAYLIN dressing, however the KAYLIN pump should be disconnected and placed in a safe location where it will not get wet. To disconnect the pump from the dressing, press the orange button to pause the therapy, unscrew the two part connector, and place the pump somewhere safe. While disconnected, ensure the end of the tubing attached to the dressing is facing downward so that water does not enter the tubing. Then re-connect the pump after your shower is complete. If your dressing starts to peel up or becomes soiled prior to your appointment with your provider, you may remove the dressing and clean your incision as directed below. Clean your incision in the shower with mild soap. After shower pat the incision area dry and allow the area open to air. If used, Steri-strips should be completely removed by 2 weeks but you may remove them as they become loose or soiled. If used, [place] should be removed by your care provider. If used/ordered, an abdominal binder may provide support for your incision. Use the abdirahman-bottle after toileting until bleeding stops. Cleanse your perineum from front to back If used, stitches will dissolve in 4-6 weeks. You may use a sitz bath or soak in a clean tub as needed for comfort. Kegel exercises will help restore bladder control. SWELLING Try to keep your legs elevated when you are sitting. When lying down keep your legs elevated. When wearing stocking or socks, make sure they are not too tight. WHEN TO CALL THE DOCTOR If you have a temp of 100.6 or more. If your bleeding has increased and you are saturating a pad in an hour. Your abdomen is tender to touch. You are passing blood clots bigger than the size of a lemon. If you are experiencing extreme weakness or dizziness. If you are having flu-like symptoms such as achy muscles or joints. There is a foul smell or a green color to your vaginal bleeding. If you have pain that cannot be relieved. You have persistent burning or frequency with urination. Call if you have concerns about your well-being. You are unable to sleep, eat, or are having thoughts of harming yourself or your baby. You have swelling, bleeding, drainage, foul odor, redness, or warmth in/around your incision or stitches. You have a red, warm, tender area in your calf. documented in this encounter [facility] [employer] Phone: Hospital course Narrative 09-29-2022 KASIE López CNM - 09/29/2022 10:58 AM EDT Note Date & Type Note Facility 09-29-2022 Hospital course Narrative Obstetrical Discharge Form Gestational Age:40w3d Antepartum complications: none Date of Delivery: 09/27/22 Type of Delivery: P C/S Delivered By: Dr. Watson Assisted By:Haresh Delgado APRN, CNM} Baby: male Anesthesia: epidural Intrapartum complications: FTP Feeding method: both breast and bottle Blood type: O POSITIVE Rubella: No results found for: RUBG T. Pallidium, IGG: No results found for: TREPG Hepatitis B Surface Antigen: No results found for: HEPBSAG HIV: No results found for: HIVAG/AB Results for orders placed or performed during the hospital encounter of 09/27/22 GBS, External Result Result Value Ref Range GBS, External Result negative GBS, External Result Result Value Ref Range GBS, External Result negative C. Trachomatis, External Result Result Value Ref Range C. Trachomatis, External Result negative N. Gonorrhoeae, External Result Result Value Ref Range N. Gonorrhoeae, External Result negative GBS, External Result Result Value Ref Range GBS, External Result negative DRUG SCREEN MULTI URINE Result Value Ref Range Amphetamine Screen, Ur NEGATIVE NEGATIVE Barbiturate Screen, Ur NEGATIVE NEGATIVE Benzodiazepine Screen, Urine NEGATIVE NEGATIVE Cocaine Metabolite, Urine NEGATIVE NEGATIVE Methadone Screen, Urine NEGATIVE NEGATIVE Opiates, Urine NEGATIVE NEGATIVE Phencyclidine, Urine NEGATIVE NEGATIVE Cannabinoid Scrn, Ur NEGATIVE NEGATIVE Oxycodone Screen, Ur NEGATIVE NEGATIVE Fentanyl, Ur NEGATIVE NEGATIVE Buprenorphine Urine NEGATIVE NEGATIVE CBC auto differential Result Value Ref Range WBC 9.8 3.5 - 11.3 k/uL RBC 4.01 3.95 - 5.11 m/uL Hemoglobin 11.9 11.9 - 15.1 g/dL Hematocrit 35.9 (L) 36.3 - 47.1 % MCV 89.5 82.6 - 102.9 fL MCH 29.7 25.2 - 33.5 pg MCHC 33.1 28.4 - 34.8 g/dL RDW 14.5 (H) 11.8 - 14.4 % Platelets 223 138 - 453 k/uL MPV 11.7 8.1 - 13.5 fL NRBC Automated 0.0 0.0 per 100 WBC Seg Neutrophils 64 36 - 65 % Lymphocytes 27 24 - 43 % Monocytes 7 3 - 12 % Eosinophils % 1 1 - 4 % Basophils 0 0 - 2 % Immature Granulocytes 1 (H) 0 % Segs Absolute 6.36 1.50 - 8.10 k/uL Absolute Lymph # 2.59 1.10 - 3.70 k/uL Absolute Richardson # 0.69 0.10 - 1.20 k/uL Absolute Eos # 0.05 0.00 - 0.44 k/uL Basophils Absolute <0.03 0.00 - 0.20 k/uL Absolute Immature Granulocyte 0.05 0.00 - 0.30 k/uL HIV, External Result Result Value Ref Range HIV, External Result non-reactive RPR, External Lab Result Value Ref Range RPR, External Result non-reactive Hepatitis B, External Result Result Value Ref Range Hep B, External Result non-reactive Rubella Titer, External Result Result Value Ref Range Rubella Titer, External Result immune Hemoglobin Result Value Ref Range Hemoglobin 10.7 (L) 11.9 - 15.1 g/dL TYPE AND SCREEN Result Value Ref Range Expiration Date 09/30/2022,2359 Arm Band Number [id number] ABO/Rh O POSITIVE Antibody Screen NEGATIVE ABO, External Result Result Value Ref Range ABO, External Result O Rh Factor, External Result Result Value Ref Range Rh Factor, External Result positive ABO, External Result Result Value Ref Range ABO, External Result O complications: none Discharge Medication: Medication List START taking these medications ibuprofen 800 MG tablet Commonly known as: ADVIL;MOTRIN Take 1 tablet by mouth every 8 hours as needed for Pain oxyCODONE 5 MG immediate release tablet Commonly known as: ROXICODONE Take 1 tablet by mouth every 6 hours as needed for Pain for up to 3 days. Max Daily Amount: 20 mg vitamin 27-1 MG Tabs tablet Take 1 tablet by mouth daily Start taking on: September 30, 2022 Where to Get Your Medications These medications were sent to [facility] [address] [place] [address] - [address] - P [phone] - F [phone] [place] [address] ibuprofen 800 MG tablet oxyCODONE 5 MG immediate release tablet vitamin 27-1 MG Tabs tablet Admit date: 09/27/2022 2:01 AM Discharge Date: 09/29/2022 Discharged to: Home in stable condition Plan: Follow upwith Mona Delgado CNM in 1 wk documented in this encounter [facility] [employer] Phone: History of Present illness Narrative 09-29-2022 KASIE López CNM - 09/29/2022 10:48 AM EDTSKASIE Lanier CNM - 09/28/2022 5:59 AM EDTKASIE Sosa CNM - 09/27/2022 10:08 PM EDT Note Date & Type Note Facility 09-29-2022 History of Present illness Narrative C/S Labor and Delivery Post Progress Note Flatus:+ Bm:no Diet: Tolerating regular diet Ambulation: Ambulates OBJECTIVE: Vitals: VSS ABDOMEN: NT INCISION: C/D NSI GENITAL/URINARY: normal Cor: RRR no Murmurs Pulmonary: clear to auscultation anterior and posterior Extremities: emliy pedal edema DATA: ASSESSMENT: S/P C/S post op day # 2 PLAN: Home today C/S Labor and Delivery Post Progress Note SUBJECTIVE: 1st day s/p for FTP Flatus:Present BM:no Diet: Tolerating regular diet Ambulation: Ambulateswithout difficulty OBJECTIVE: Vitals: BP 127/74 Pulse (!) 108 Temp 97.3 F (36.3 C) (Oral) Resp 16 Ht 5' 1 (1.549 m) Wt 205 lb (93 kg) LMP 12/17/2021 SpO2 98% Unknown BMI 38.73 kg/m Patient Vitals for the past 24 hrs: BP Temp Temp src Pulse Resp SpO2 09/28/22 0023 127/74 -- -- (!) 108 -- 98 % 09/28/228 -- -- -- -- -- 99 % 09/28/223 -- -- -- -- -- 99 % 09/28/22 0008 125/67 -- -- 92 -- 100 % 09/28/222 -- -- -- -- -- 100 % 09/27/222357 -- -- -- -- -- 100 % 09/27/222352 125/77 -- -- 96 -- 100 % 09/27/222347 -- -- -- -- -- 100 % 09/27/222342 -- -- -- -- -- 100 % 09/27/222338 (!) 135/90 -- -- 98 -- -- 09/27/222337 -- -- -- -- -- 100 % 09/27/222332 -- -- -- -- -- 100 % 09/27/222327 -- -- -- -- -- 100 % 09/27/222322 119/70 -- -- 99 -- 100 % 09/27/222317 -- -- -- -- -- 100 % 09/27/222316 -- -- -- -- -- 93 % 09/27/222312 -- -- -- -- -- 95 % 09/27/222307 122/76 -- -- 96 -- 95 % 09/27/222302 -- -- -- -- -- 95 % 09/27/222257 -- -- -- -- -- 96 % 09/27/222252 129/70 -- -- 88 -- 95 % 09/27/222236 116/78 -- -- 79 -- 100 % 09/27/222221 (!) 108/56 97.3 F (36.3 C) Oral 81 16 99 % 09/27/222101 (!) 108/56 -- -- 95 -- -- 09/27/222058 (!) 107/59 -- -- 97 -- -- 09/27/222034 125/70 -- -- 97 -- 98 % 09/27/222029 -- -- -- -- -- 98 % 09/27/222024 -- -- -- -- -- 98 % 09/27/222020 132/74 -- -- (!) 109 -- -- 09/27/222019 132/74 -- -- (!) 109 -- 98 % 09/27/222014 -- -- -- -- -- 94 % 09/27/222013 -- -- -- -- -- 93 % 09/27/222009 -- -- -- -- -- 98 % 09/27/222004 123/68 -- -- 83 -- 97 % 09/27/221999 123/68 -- -- -- 16 98 % 09/27/221954 -- -- -- -- -- 98 % 09/27/221949 123/67 -- -- 93 -- 98 % 09/27/221944 -- -- -- -- -- 98 % 09/27/221939 -- -- -- -- -- 98 % 09/27/221935 116/61 -- -- 88 -- -- 09/27/221924 -- -- -- -- -- 98 % 09/27/221920 116/60 -- -- 87 -- -- 09/27/221919 -- -- -- -- -- 98 % 09/27/221914 -- -- -- -- -- 99 % 09/27/221909 -- -- -- -- -- 100 % 09/27/221905 (!) 108/57 97.5 F (36.4 C) Oral 96 -- -- 09/27/221904 -- -- -- -- -- 99 % 09/27/221899 -- -- -- -- -- 99 % 09/27/221858 -- -- -- -- -- 99 % 09/27/221856 115/62 -- -- 84 -- -- 09/27/221854 -- -- -- -- -- 99 % 09/27/221849 -- -- -- -- -- 98 % 09/27/221836 129/60 -- -- 94 16 -- 09/27/221834 -- -- -- -- -- 100 % 09/27/221829 -- -- -- -- -- 99 % 09/27/221824 -- -- -- -- -- 99 % 09/27/221820 131/63 -- -- 96 18 -- 09/27/221819 -- -- -- -- -- 99 % 09/27/221814 -- -- -- -- -- 99 % 09/27/221809 -- -- -- -- -- 99 % 09/27/221804 120/78 -- -- (!) 106 16 99 % 09/27/221758 -- -- -- -- -- 99 % 09/27/221754 -- -- -- -- -- 99 % 09/27/221749 (!) 100/54 -- -- 74 18 98 % 09/27/221744 -- -- -- -- -- 98 % 09/27/221739 -- -- -- -- -- 97 % 09/27/221735 (!) 97/54 -- -- 78 16 -- 09/27/221724 -- -- -- -- -- 98 % 09/27/221719 (!) 106/51 -- -- 99 16 99 % 09/27/22 171 -- -- -- -- -- 97 % 09/27/221708 -- -- -- -- -- 97 % 09/27/221704 117/78 -- -- 100 16 -- 09/27/22 170 -- -- -- -- -- 99 % 09/27/221658 -- -- -- -- -- 99 % 03/20/23 1654 -- -- -- -- -- 98 % 09/27/22 1649 -- -- -- -- -- 98 % 09/27/22 1644 -- -- -- -- -- 99 % 09/27/22 1639 -- -- -- -- -- 98 % 09/27/22 1635 115/66 -- -- (!) 110 16 -- 09/27/22 1634 -- -- -- -- -- 98 % 09/27/22 1629 -- -- -- -- -- 98 % 09/27/22 1624 -- -- -- -- -- 98 % 09/27/22 1620 123/65 -- -- 92 16 -- 09/27/22 1619 -- -- -- -- -- 98 % 09/27/22 1614 -- -- -- -- -- 98 % 09/27/22 1609 -- -- -- -- -- 98 % 09/27/22 1606 114/61 -- -- 75 18 -- 09/27/22 1604 -- -- -- -- -- 98 % 09/27/22 1559 -- -- -- -- -- 98 % 09/27/22 1554 -- -- -- -- -- 98 % 09/27/22 1553 -- -- -- -- -- 98 % 09/27/22 1551 (!) 112/ -- -- 79 18 99 % 09/27/22 1549 -- -- -- -- -- 98 % 09/27/22 1544 -- -- -- -- -- 98 % 09/27/22 1539 -- -- -- -- -- 98 % 09/27/22 1536 (!) 116/58 -- -- 95 16 -- 09/27/22 1534 -- -- -- -- -- 99 % 09/27/22 1529 -- -- -- -- -- 98 % 09/27/22 1524 -- -- -- -- -- 98 % 09/27/22 1520 (!) 125/58 -- -- 94 18 -- 09/27/22 1519 -- -- -- -- -- 98 % 09/27/22 1505 (!) 123/59 -- -- 91 16 -- 09/27/22 1504 -- -- -- -- -- 98 % 09/27/22 1451 -- -- -- -- -- (!) 88 % 09/27/22 1450 (!) 120/59 -- -- 89 16 95 % 09/27/22 1446 -- -- -- -- -- 96 % 09/27/22 1444 -- -- -- -- -- 93 % 09/27/22 1441 -- -- -- -- -- 95 % 09/27/22 1436 124/60 -- -- 86 18 96 % 09/27/22 1431 -- -- -- -- -- 96 % 09/27/22 1426 -- -- -- -- -- 100 % 09/27/22 1421 -- -- -- -- -- 100 % 09/27/22 1420 115/66 -- -- 93 18 98 % 09/27/22 1416 -- -- -- -- -- 99 % 09/27/22 1411 -- -- -- -- -- 100 % 09/27/22 1406 -- -- -- -- -- 99 % 09/27/22 1405 125/74 -- -- (!) 103 16 -- 09/27/22 1401 -- -- -- -- -- 100 % 09/27/22 1356 -- -- -- -- -- 99 % 09/27/22 1347 -- -- -- -- -- 92 % 09/27/22 1340 -- -- -- -- -- 95 % 09/27/22 1336 115/70 -- -- 78 16 97 % 09/27/22 1335 -- -- -- -- -- 96 % 09/27/22 1330 -- -- -- -- -- 96 % 09/27/22 1325 -- -- -- -- -- 95 % 09/27/22 1321 105/70 98.5 F (36.9 C) Oral 90 16 96 % 09/27/22 1320 -- -- -- -- -- 97 % 09/27/22 1315 -- -- -- -- -- 97 % 09/27/22 1310 -- -- -- -- -- 100 % 09/27/22 1306 ([employer]) 113/ -- -- 86 18 -- 09/27/22 1305 -- -- -- -- -- 99 % 09/27/22 1255 -- -- -- -- -- 99 % 09/27/22 1251 106/63 -- -- 92 16 100 % 09/27/22 1246 -- -- -- -- -- 92 % 09/27/22 1245 -- -- -- -- -- 97 % 09/27/22 1241 -- -- -- -- -- 99 % 09/27/22 1236 108/73 -- -- 91 18 99 % 09/27/22 1231 -- -- -- -- -- 99 % 09/27/22 1221 (!) 108/55 -- -- 96 18 100 % 09/27/22 1216 -- -- -- -- -- 100 % 09/27/22 1211 -- -- -- -- -- 100 % 09/27/22 1206 -- -- -- -- -- 99 % 09/27/22 1205 109/68 -- -- 85 16 -- 09/27/22 1201 -- -- -- -- -- 100 % 09/27/22 1151 116/68 -- -- 97 16 -- 09/27/22 1149 -- -- -- -- -- 100 % 09/27/22 1144 -- -- -- -- -- 100 % 09/27/22 1137 -- -- -- -- -- 100 % 09/27/22 1132 -- -- -- -- -- 99 % 09/27/22 1121 [employer]) 107/59 -- -- 86 18 100 % 09/27/22 1115 -- -- -- -- -- 100 % 09/27/22 1111 -- -- -- -- -- 100 % 09/27/22 1110 121/83 98 F (36.7 C) Oral 95 16 100 % 09/27/22 1108 -- -- -- -- -- 100 % 09/27/22 1106 -- -- -- -- -- 100 % 09/27/22 1101 -- -- -- -- -- 100 % 09/27/22 1056 -- -- -- -- -- 100 % 09/27/22 1051 -- -- -- -- -- 100 % 09/27/22 1050 (!) 112/59 -- -- 70 16 -- 09/27/22 1046 -- -- -- -- -- 100 % 09/27/22 1041 -- -- -- -- -- 100 % 09/27/22 1036 -- -- -- -- -- 98 % 09/27/22 1035 125/67 -- -- 77 16 98 % 09/27/22 1031 -- -- -- -- -- 99 % 09/27/22 1030 118/73 -- -- 85 16 -- 09/27/22 1021 -- -- -- -- -- 99 % 09/27/22 1019 119/78 -- -- 90 18 98 % 09/27/22 1016 -- -- -- -- -- 99 % 09/27/22 1013 123/70 -- -- (!) 103 18 98 % 09/27/22 1011 116/73 -- -- 100 16 99 % 09/27/22 1009 129/82 -- -- (!) 107 16 -- 09/27/22 1007 124/82 -- -- (!) 108 18 -- 09/27/22 1006 -- -- -- -- -- 99 % 09/27/22 1001 -- -- -- -- -- 99 % 09/27/22 0956 -- -- -- -- -- 100 % 09/27/22 0931 128/75 97.9 F (36.6 C) Oral 74 16 -- 09/27/22 0832 120/66 -- -- 87 16 -- 09/27/22 0802 138/60 -- -- 94 16 -- 09/27/22 0732 121/69 -- -- 81 16 -- 09/27/22 0718 (!) 109/55 97.8 F (36.6 C) Oral 88 16 -- 09/27/22 0700 111/70 -- -- 80 16 -- 09/27/22 0600 -- 97.4 F (36.3 C) Oral -- -- -- ABDOMEN: No scars, normal bowel sounds, soft, non-distended, non-tender, no masses palpated, no hepatosplenomegally INCISION: dressing in place, clean, dry, and intact GENITAL/URINARY: External Genitalia: General appearance; normal, Hair distribution; normal, Lesions absent Cor: RRR no Murmurs Pulmonary: clear to auscultation anterior and posterior Extremities: no Clubbing cyanosis or ecchymosis DATA: CBC: Lab Results Component Value Date/Time WBC 9.8 09/27/2022 02:50 AM RBC 4.01 09/27/2022 02:50 AM HGB 11.9 09/27/2022 02:50 AM HCT 35.9 09/27/2022 02:50 AM MCV 89.5 09/27/2022 02:50 AM MCH 29.7 09/27/2022 02:50 AM MCHC 33.1 09/27/2022 02:50 AM RDW 14.5 09/27/2022 02:50 AM PLT 223 09/27/2022 02:50 AM MPV 11.7 09/27/2022 02:50 AM Pending today's hgb ASSESSMENT: Principal Problem: Normal labor Plan: ftp Active Problems: Term Plan: delivered Failure to progress in labor Plan: 40 weeks gestation of Plan delivered delivery delivered S/P C/S post op day # 1 PLAN: Routine instructions and orders Door Assembler Note: I first assisted Dr Watson with primary section for arrest of dilation. I assisted as directed by physician. I independently closed the SQ layer with 4-0 vicryl without difficulty. I then independently closed the skin incision with 3-0 vicryl on a Hosea needle. Hemostasis noted at the end of closure and patient tolerated procedure well. Department of Obstetrics and Gynecology Progress Note SUBJECTIVE: resting in bed watching tv OBJECTIVE: Vitals: 09/27/22192409/27/22 1950 09/27/22195409/27/221999 BP: 123/67 Pulse: 93 Resp: 16 Temp: TempSrc: SpO2: 98% 98% 98% Weight: Height: heart rate: Baseline Heart Rate: 145 Accelerations: present Care Home Variability: moderate Decelerations: absent Contraction frequency: 4-5 minutes Membranes: Ruptured clear fluid Cervix: Dilation: 7 cm Effacement: 90 Station: 0 Position: mid ASSESSMENT & PLAN: Patient has arrest of descent. She has been 7 cm for several hours with no cervical change. Pitocin has been infusing at low rate all day and Dc'd and restarted due to variables. Patient has not made cervical change. Cervix remains at 7/90/0 . Patient is s/p LEEP. Spoke with Dr Watson and report given and decision made mutually to do a primary section. Patient has been ruptured for 18 hours, afebrile and category 1 tracing. Discussion with patient and she is in agreement to proceed with section. CNM at bedside at this time. Updated on unchanged SVE. CNM states to increase pitocin infusion at 1845. CNM reviewed the strip. To room to assess patient. Category 1 EFM tracing. Continue to increase pitocin as long as EFM tracing remains category 1. I also discussed with patient that she is not progressing as I would like to see. She has been 6-7 cm for a while but we have also had the pitocin turned off and rested her for a while. We can continue the pitocin as long as the EFM is satisfactory and remains cat 1. I did discuss with the patient she is also s/p LEEP and sometimes this happens with LEEP procedures the cervix may not dilate. I also did discuss the possibility of a section due to time of ruptured membranes, and slow progress. Patient states she does not want a C/S and she would like more time to see if she gets to 10 . I told her I would give her more time as long as the EFM tracing and she and the baby were ok. I will report to Dr Watson when she calls back Dr. Zuñiga, marine rigger, in unit and was updated on maternal history, labor process including recurrent variable decelerations. Normal orders received and he states to call him if he is needed to attend delivery. Department of Obstetrics and Gynecology Progress Note SUBJECTIVE: not feeling any pain or contractions, resting quietly in bed. Repositioning occurring often, every 20-30 mins OBJECTIVE: Vitals: 09/27/22 1654 09/27/22 1659 09/27/22 1704 09/27/22 1705 BP: 117/78 Pulse: 100 Resp: Temp: TempSrc: SpO2: 98% 99% 99% Weight: Height: Cervix: Dilation: 6-7 Effacement: 90 Station: 0 Position: mid ASSESSMENT & PLAN: Continue routine labor orders Continue repositioning patient Continue pitocin orders at this time Message left for Dr Watson to call me and I will give her updated report and progress on the patient. FHTs normal with moderate variability noted and early decels noted with contractions, variables with contraction and FHR to baseline when contraction has ended. Director Of Accreditation and Haresh Delgado CNM at bedside at this time. MICHELINE performs SVE, 7-8/90-0. CNM at bedside for variable deceleration at 1702 and again at 1706. CNM states to continue to increase pitocin infusion. Pt placed on left side with pillow between her legs. Strip reviewed with CNM. Haresh Delgado CNM states she will come perform SVE. Director Of Accreditation at bedside repositioning patient to right side with pillow between her legs. Contraction palpated at 1644. CNM in unit reviewing strip, states to continue to restart pitocin infusion at 2milli/units. Haresh Delgado CNM in unit and updated on SVE. Strip reviewed with CNM. Orders to start pitocin infusion at 2milli/units at this time. Haresh Delgado CNM at patient bedside reviewing POC. Pt and her verbalize understanding. CNM remains in unit reviewing strip. Haresh Delgado in unit. Made aware pitocin infusion was stopped at 1456 due to continued variable decelerations and all interventions reviewed with CNM. No new orders received at this time. CARROLM states to leave pitocin infusion off for a while and watch FHR. Pt placed in hands and knees at this time with help from additional RN's. Pt tolerated well. Variable deceleration into the 70's noted in hands an knees. Pitocin infusion stopped at this time Additional variable deceleration into the 70's again noted. Pt placed back in semi fowlers and SVE performed. 5-6/90-0. FHR baseline 140, moderate variability and accelerations noted before freelance writer left the room. Director Of Accreditation at bedside to reposition patient. Pt placed on her left side with peanut ball at 1345. Variable deceleration noted into the 70's, pt placed on right side with peanut ball at 1355 Variable deceleration continue with contractions, pt placed in , tailor sitting at 1400. Director Of Accreditation called Haresh Delgado CNM to updated on SVE, contraction pattern and FHR with continued variable decelerations. No orders received at this time by MICHELINE. MICHELINE states she plans to head to the hospital after 1400. Pt updated on POC. MICHELINE phones unit at this time. MICHELINE was able to review strip on her computer and states to increase pitocin infusion if FHR does not decelerate again. Director Of Accreditation phones Haresh Delgado CNM at this time. Updated on FHR with variable decelerations and one late deceleration noted with all interventions that were done. Informed that pitocin infusion has not been increased since 929 due to decelerations. VS, contraction pattern and SVE reviewed. Orders to leave pitocin infusion where it is and continue to perform frequent position changes. Later deceleration noted, pt placed in hands and knees from [id number]. Director Of Accreditation hand held ultrasound to trace FHR, intermittently head in the 140's-150's. Pt reports she had 2 contraptions while in hands and knees. Variable decelerations noted with contractions. SVE performed and patient 4-5/80/-2. Pt positioned to left side with Pillow between her legs. [place] and ultrasound adjusted. Contractions palpated by freelance writer and are tracing inverted on EFM starting at 1040. 0947- M. Breiding RADIO/TV TECHNICIAN at bedside at this time. Pt alert and oriented. supportive at bedside. 0850- Consent forms signed at this time. Director Of Accreditation witnessed 0952- Timeout performed, all agree 0955-epidural placement begins at this time 1006-test dose administered per RADIO/TV TECHNICIAN, no side effects reported from patient 1015-epidural placement complete and patient laid back with right side tilt. Haresh Delgado CNM phones unit back at this time. Update provided on unchanged SVE, contraction pattern, FHR and variable noted with contraction. CNMarcie also updated on pitocin infusion rate and pt's request for an epidural. No further orders received at this time. Director Of Accreditation called Haresh Delgado CNM at this time. No answer. Message left to phone unit back when available. IV fluids for pre epidural placement bolus started at 0912. Anesthesia notified at 0919. M. Ivana MANZANARES states he will be over in roughly 20 minutes. Director Of Accreditation at bedside palpating contractions. [place] adjusted to properly trace contraction pattern. Pt asks questions regarding epidural. Pt educated on epidural placement and POC after placement. Pt verbalizes understanding. Pt currently rates contractions a 4/10 and decides to hold off on epidural placement at present time. RN at bedside receiving report. Pt alert and oriented x3, with SO at bedside. Pt reports she is unsure if she woud like the epidural or not. POC of the day reviewed with patient and her SO. No further questions at present time. Pt denies any further needs. [facility] this [facility]: History of Present illness Narrative 08-20-2022 Itzel Hudson RN - 08/20/2022 2:13 AM Kim Hudson RN - 08/20/2022 1:45 AM Kim Hudson RN - 08/20/2022 12:55 AM Kim Hudson RN - 08/20/2022 12:06 AM EST Note Date & Type Note Facility 08-20-2022 History of Present illness Narrative Pres[facility] called in to [facility] for Macrobid 100 mg po BID x 7 days as provider requested/ordered. Discharge instructions given to pt. Pt agreeable with POC and denies further questions/concerns at this time. Wheelchair offered to pt, pt denies need. Pt and FOB left unit ambulatory at this time. Ultrasound at bedside at this time. Radiology phoned with verification for lead technical architect to be called from Dr. Saavedra with [facility]. Tech states she will call director of retail operations tech at this time. documented in this encounter [employer] Phone: Hospital Discharge instructions 08-20-2022 Discharge Instructions Note Date & Type Note Facility 08-20-2022 Hospital Discharg e instructions Itzel Hudson RN - 08/20/2022 1:41 AM EST OUTPATIENT DISCHARGE Dr. Adarsh Lambert [facility] Dr. Chencho Matta [address] or [place] ACTIVITY LIMITATIONS: ( x )Up and about as desired and tolerated ( )Up to bathroom only ( )Lay on either side ( )Avoid heavy lifting or exercise ( )No sex ( )No nipple stimulation ( )Complet bedrest ( )Avoid using stairs ( x )Increase fluids DRINK AT LEAST eight-8oz. Glasses of water daily. Call your Doctor if: ( x )Contractions are every 5 minutes apart (from start of one to the start of the next contraction) lasting 60 seconds for at least 1 hour, strong enough you can not walk or talk through the contraction and regular. ( x )Bag of water breaks ( x )Vaginal bleeding ( x )Unusual pain occurs ( x )Decreased movement ( x ) labor: If you have 4 contractions in an hour Keep your scheduled follow up appointment. flight superintendent [facility] [place] [facility] in am and take as prescribed IN CASE OF EMERGENCY CONTACT LABOR AND DELIVERY . documented in this encounter [employer] Phone: Evaluation note Note Date & Type Note Facility Evaluation note Diagnosis PROM (premature rupture of membranes)- Primary Premature rupture of membranes in , unspecified as to episode of care documented in this encounter [facility] [employer] Phone: Evaluation note Note Date & Type Note Facility Evaluation note Diagnosis Normal labor- Primary delivery delivered delivery, without mention of indication, delivered, with or without mention of antepartum condition Term Failure to progress in labor Other and unspecified uterine inertia, unspecified as to episode of care 40 weeks gestation of state, incidental delivery delivered delivery, without mention of indication, delivered, with or without mention of antepartum condition documented in this encounter [employer]: Summary Purpose Family History No Family History Records FoundNo Family History Records FoundNo Family History Records Found Advance Directives No Advanced Directives Records FoundLatest Code Status on File Code Status Date Activated Date Inactivated Comments Full Code 08/19/2022 10:51 PM Latest Code Status on File Code Status Date Activated Date Inactivated Comments Full Code 09/27/2022 2:43 AM 09/27/2022 10:32 PM Full Code 08/19/2022 10:51 PM 08/20/2022 4:18 AM Additional Source Comments INFORMATION SOURCE (unrecogn ized section and content) DATE CREATED AUTHOR 05/05/2022 [facility] dical Specialist DATE CREATED AUTHOR AUTHOR'S ORGANIZ ATION 09/30/2022 [facility] DATE CREATED AUTHOR AUTHOR'S ORGANIZ ATION 12/16/2023 [facility] dical Specialists EPIC Care Teams (unrecognized sec tion and content) Tuft Machine Operator Relationship Specialty Start Date End Date Raquel Odell [address] [place] [address] PCP - General Nurse Practitioner 07/14/20 Tuft Machine Operator Relationship Specialty Start Date End Date Raquel Odell [address] [place] [address] PCP - General Nurse Practitioner 07/14/20 Reason for Visit (unrecogniz ed section and content) Reason Comments Rupture of Membranes Pt states she felt a gush around 12 a.m. Specialty Diagnoses / Procedures Referred By Contcharley t Referred To Contact Diagnoses Normal labor Term Failure to progress in labor Saba Delgado APRN - MICHELINE [address] [place] [address] [facility] [address] [place] [address] Referral ID Status Reason Start Date Expiration Date Visits Re quested Visits Authorized [id number] 1 1 Ordered Prescriptions (unrec ognized section and content) Prescription Sig Dispensed Refills Start Date End Da te Vit-Fe Fumarate-FA ( VITAMIN) 27-1 MG TABS tablet Take 1 tablet by mouth daily 30 tablet 0 09/30/2022 ibuprofen (ADVIL;MOTRIN) 800 MG tablet Take 1 tablet by mouth every 8 hours as needed for Pain 60 tablet 1 09/29/2022 10/02/2022 oxyCODONE (ROXICODONE) 5 MG immediate release tabletIndications:Cesarea n delivery delivered Take 1 tablet by mouth every 6 hours as needed for Pain for up to 3 days. Max Daily Amount: 20 mg 12 tablet 0 09/29/2022 10/02/2022 Scheduled Active and Recently Administ ered Medications (unrecognized section and content) Medication Order 09/27/2022 09/28/2022 09/29/2022 cefOXitin (MEFOXIN) 2,000 mg in sodium chloride 0.9 % 50 mL IVPB (mini-bag) (COMPLETED) 2,000 mg, IntraVENous, RETORT FIRER TO O.R., 1 dose, On Tue09/27/22 at 2044, Antimicrobial Indications: Surgical Prophylaxis, Administer within 1 hour of incision., Labor and Delivery 2102 (New Bag - Provider: Bel Matta APRN - RADIO/TV TECHNICIAN) citric acid-sodium citrate (BICITRA) solution 30 mL (COMPLETED) 30 mL, Oral, ONCE, 1 dose, On Tue09/27/22 at 2044, Give prior to epidural placement., Labor and Delivery 2030 (Given - Provider: Carin Arvizu RN) docusate sodium (COLACE) capsule 100 mg 100 mg, Oral, 2 TIMES DAILY, First dose on Tue09/27/22 at 2300, Until Discontinued, Do not crush or break., 0158 (Not Given - Provider: Carin Arvizu RN - Reason: Patient/family refused - Comment: Pt requests to take at a later time)903 (Given - Provider: Suzanna Menjivar RN)2044 (Given - Provider: Sindhu Muñoz, RN) 0814 (Given - Provider: Jose Perez, RN)2100 (Due) enoxaparin (LOVENOX) injection 40 mg 40 mg, SubCUTAneous, EVERY 24 HOURS, First dose on Tue09/28/22 at 0915, Until Discontinued, Indication of Use: Prophylaxis-DVT/PE, 903 (Given - Provider: Suzanna Menjivar RN) 1021 (Given - Provider: Jose Perez RN) famotidine (PEPCID) 20 mg in sodium chloride (PF) 0.9 % 10 mL injection (COMPLETED) 20 mg, IntraVENous, ONCE, 1 dose, On Tue09/27/22 at 2044, Give 60 minutes before surgery., Labor and Delivery 2031 (Given - Provider: Carin Arvizu RN) ketorolac (TORADOL) injection 30 mg 30 mg, IntraVENous, EVERY 6 HOURS, 5 doses, First dose on Tue09/28/22 at 0515, Last dose on Tue09/29/22 at 0515, Give in addition to any other pain medication ordered at same time for any pain indication. Discontinue when able to take PO ibuprofen. First dose given in OR - please calculate second dose off of first dose give, 0457 (Given - Provider: Lynn Pollack RN)1139 (Given - Provider: Suzanna Menjivar RN)1735 (Given - Provider: Suzanna Menjivar, ITZEL)2343 (Given - Provider: Sindhu Muñoz, ITZEL) 0515 (Due) metoclopramide (REGLAN) injection 10 mg (COMPLETED) 10 mg, IntraVENous, ONCE, 1 dose, On Tue09/27/22 at 2044, Give 60 minutes before surgery., Labor and Delivery 2031 (Given - Provider: Carin Arvizu RN) vitamin 27-1 MG tablet 1 tablet 1 tablet, Oral, DAILY, First dose on Tue09/28/22 at 0900, Until Discontinued, Begin when normal bowel activity resumes., 0903 (Given - Provider: Suzanna Menjivar RN) 0814 (Given - Provider: Jose Perez RN) sodium chloride flush 0.9 % injection 5-40 mL 5-40 mL, IntraVENous, EVERY 12 HOURS SCHEDULED (2 times per day), First dose on Tue09/27/22 at 2300, Until Discontinued, For Line Patency: Peripheral IV = 5 mL; Midline or Central Line = 10 mL/lumen. If following IV push medication, administer flush at same rate as the IV push. Flush volume is determined by type of infusion therapy being given. For non-viscous solutions use: Peripheral IV = 5 mL Midline or Central Line = 10 mL/lumen For viscous solutions (i.e. blood components, parenteral nutrition, contrast media, or after obtaining blood sample) use: Peripheral IV = 10 mL Midline or Central Line = 20 mL/lumen, 0201 (Not Given - Provider: Carin Arvizu RN - Reason: IV Fluid Infusing)1146 (Not Given - Provider: Suzanna Menjivar RN - Reason: IV Fluid Infusing)2044 (Given - Provider: Sindhu Muñoz RN) 0900 (Due)2100 (Due) qfceaap-kjbhlk-ocouk pertussis (BOOSTRIX) injection 0.5 mL 0.5 mL, IntraMUSCular, PRIOR TO DISCHARGE, 1 dose, Starting on Tue09/27/22 at 2232, Until Discontinued, If not previously administered during at 27-36 weeks as recommended by CDC., Continuous Medication Order 09/27/2022 09/28/2022 09/29/2022 lactated ringers IV soln infusion (CANCELED) IntraVENous, at 125 mL/hr, CONTINUOUS, Starting on Tue09/27/22 at 0300, Labor and Delivery 0337 (New Bag - Provider: Kristal Sevilla RN)0950 (Rate/Dose Change - Provider: Elva Quintero RN)0952 (NoRateChange - Provider: Bel Matta APRN - RADIO/TV TECHNICIAN)1113 (Rate/Dose Change - Provider: Elva Quintero RN)1130 (Rate/Dose Change - Provider: Elva Quintero RN)1232 (New Bag - Provider: Elva Quintero RN)1437 (Rate/Dose Change - Provider: Elva Quintero RN)1500 (Rate/Dose Change - Provider: Elva Quintero RN)210 (Paused - Provider: KASIE Ruiz CRNA - Comment: Switch to gravity)2105 (Restarted - Provider: KASIE Ruiz CRNA - Comment: 400 ml remaining in bag)2140 (New Bag - Provider: KASIE Ruiz CRNA) lactated ringers IV soln infusion IntraVENous, at 125 mL/hr, CONTINUOUS, Starting on Tue09/27/22 at 2300, 0159 (Not Given - Provider: Carin Arvizu RN - Reason: IV Fluid Infusing - Comment: new bag started in OR) oxytocin (PITOCIN) 30 units in 500 mL infusion (CANCELED) 1-20 juanita-units/min (1-20 mL/hr), IntraVENous, CONTINUOUS, Starting on Tue09/27/22 at 0715, Until Tue09/27/22 at 2232, Begin infusion at 1 juanita-unit/min (1 juanita-unit per min = 1 mL per hour) and increase by 1 juanita-unit/min after 30 minutes. Then increase by 2 juanita-units/min as needed, no faster than every 30 minutes, until labor is achieved. Labor is defined as contractions every 2-3 minutes with cervical changes or [place] units (MVU) greater than 200 in a 10-minute window. Maximum infusion rate: 20 juanita-unit/min. Contact provider if maximum rate does not achieve desired response. Provider may order alternative titration goal or other clinically appropriate goal of titration rate (s). Smaller titration increments of 1 juanita-units/min, not faster than every 30 minutes, may be used when approaching therapeutic goal. 0700 (New Bag - Provider: Kristal Sevilla RN)0705 (Rate/Dose Verify - Provider: Carin Arvizu RN)0730 (Rate/Dose Change - Provider: Elav Quintero RN)0730 (Rate/Dose Verify - Provider: Carin Arvizu RN)0800 (Rate/Dose Change - Provider: Elva Quintero RN)0800 (Rate/Dose Verify - Provider: Carin Arvizu RN)0830 (Rate/Dose Change - Provider: Elva Quintero RN)0830 (Rate/Dose Verify - Provider: Carin Arvizu RN)0900 (Rate/Dose Change - Provider: Elva Quintero RN)0900 (Rate/Dose Verify - Provider: Carin Arvizu RN)0930 (Rate/Dose Change - Provider: Elva Quintero RN)0931 (Rate/Dose Verify - Provider: Carin Arvizu RN)0952 (NoRateChange - Provider: Bel Matta APRN - RADIO/TV TECHNICIAN)1230 (Rate/Dose Change - Provider: Elva Quintero RN)1230 (Rate/Dose Verify - Provider: Carin Arvizu RN)1300 (Rate/Dose Change - Provider: Elva Quintero RN)1304 (Rate/Dose Verify - Provider: Carin Arvizu RN)1330 (Rate/Dose Change - Provider: Elva Quintero RN)1330 (Rate/Dose Verify - Provider: Carin Arvizu RN)1330 (Rate/Dose Change - Provider: Carin Arvizu RN)1332 (Rate/Dose Change - Provider: Carin Arvizu RN)1456 (Stopped - Provider: Elva Quintero RN)1625 (Restarted - Provider: Elva Quintero RN - Comment: per Haresh BRANHAM order)184 (Rate/Dose Change - Provider: Elva Quintero RN - Comment: per Haresh Delgado CN verbal order)2019 (Stopped - Provider: Carin Arvizu RN)2133 (Given - Provider: Bel Matta APRN - RADIO/TV TECHNICIAN - Comment: pitocin infusion was off prior to transport to OR, discontinued at 2019 per stated by OB RN) ropivacaine (NAROPIN) 0.2% injection 0.2% (CANCELED) 10 mL/hr, Epidural, CONTINUOUS, Starting on Tue09/27/22 at 1130, Until Tue09/27/22 at 2232, Until delivery., Labor and Delivery 1010 (Given - Provider: Cristóbal Heath APRN - RADIO/TV TECHNICIAN)1012 (Given - Provider: Cristóbal Heath APRN - RADIO/TV TECHNICIAN)1013 (New Bag - Provider: KASIE Garcia CRNA)1727 (New Bag - Provider: Elva Quintero, ITZEL) PRN Medication Order 09/27/2022 09/28/2022 09/29/2022 0.9 % sodium chloride infusion IntraVENous, at 5-250 mL/hr, PRN, if patient receiving piggyback infusions and maintenance fluids are not ordered OR KVO fluids to protect IV site / prevent frequent line interruptions/ long duration, Starting on Tue09/27/22 at 2232, For piggyback infusion, administer at same rate as piggyback for a total of 25 mL. Enter 25 mL into dose field and piggyback rate into rate field of order. If piggyback is infusing at a rate less than 100 mL/hr, enter 25 mL into dose field and 100 mL/hr into rate field of order. For KVO fluids, enter rate of 20 mL/hr or less into rate field of order., acetaminophen (TYLENOL) tablet 1,000 mg 1,000 mg, Oral, EVERY 8 HOURS PRN, Starting on Tue09/27/22 at 2232, Until Discontinued, Other, Pain (1-10), Give in addition to any other pain medication ordered at same time for any pain indication. Maximum dose of acetaminophen is 4000mg from all sources in 24 hours. Alternate ibuprofen and acetaminophen every 4 hours., 0044 (Given - Provider: Carin Arvizu RN)0904 (Given - Provider: Suzanna Menjivar RN)1735 (Given - Provider: Suzanna Menjivar RN) 0118 (Given - Provider: Sindhu Muñoz RN)0814 (Given - Provider: Jose Perez, ITZEL) acetaminophen (TYLENOL) tablet 650 mg (CANCELED) 650 mg, Oral, EVERY 4 HOURS PRN, Starting on Tue09/27/22 at 0240, Until Tue09/27/22 at 2232, Pain Mild (1-3), Fever, Fever >100.5 F (38 C), Maximum dose of acetaminophen is 4000 mg from all sources in 24 hours., Labor and Delivery 1841 (Given - Provider: Elva Quintero, ITZEL) carboprost (HEMABATE) injection 250 mcg 250 mcg, IntraMUSCular, PRN, Starting on Tue09/27/22 at 2232, Until Discontinued, bleeding, May repeat every 15 minutes up to a cumulative maximum dose of 1000 mcg, at physician's request., Post-op diphenhydrAMINE (BENADRYL) injection 25 mg 25 mg, IntraVENous, EVERY 6 HOURS PRN, Starting on Tue09/27/22 at 2232, Until Discontinued, Itching, Hives, ibuprofen (ADVIL;MOTRIN) tablet 800 mg 800 mg, Oral, EVERY 8 HOURS PRN, Starting on Tu09/28/22 at 0000, Until 10/02/22 at 2359, Other, (Pain 1-10), Give in addition to any other pain medication ordered at same time for any pain indication. After 5 doses of toradol, discontinue Toradol and begin ibuprofen 8 hours after the final dose of Toradol. Alternate ibuprofen and acetaminophen every 4 hours., , 0814 (Given - Provider: Jose Perez RN) lactated ringers bolus (CANCELED) 1,000 mL, IntraVENous, at 1,935.5 mL/hr, Administer over 31 Minutes, PRN, Give prior to epidural placement. May be repeated if a second epidural/spinal procedure is performed., Starting on Tue09/27/22 at 0240, Labor and Delivery 0912 (New Bag - Provider: Elva Quintero RN)0950 (Stopped - Provider: Elva Quintero RN) lansinoh lanolin ointment Topical, EVERY 1 HOUR PRN, Dry Skin, nipple discomfort, Starting on Tue09/27/22 at 2232, Post-op measles, mumps & rubella vaccine (MMR) injection 0.5 mL 0.5 mL, SubCUTAneous, PRN, 1 dose, Starting on Tue09/27/22 at 2232, Until Discontinued, if non immune or equivical, methylergonovine (METHERGINE) injection 200 mcg 200 mcg, IntraMUSCular, PRN, Starting on Tue09/27/22 at 2232, Until Discontinued, Bleeding, PRN for post- hemorrhage, if not hypertensive., miSOPROStol (CYTOTEC) tablet 800 mcg 800 mcg, Rectal, PRN, 1 dose, Starting on Tue09/27/22 at 2232, Until Discontinued, Post- Hemorrhage, Notify Physician prior to administration., Post-op nalbuphine (NUBAIN) injection 10 mg 10 mg, IntraVENous, EVERY 4 HOURS PRN, Starting on Tue09/27/22 at 2232, Until Discontinued, or itching, Post-op naloxone (NARCAN) injection 0.4 mg 0.4 mg, IntraVENous, PRN, Starting on Tue09/27/22 at 2232, Until Discontinued, Opioid Reversal, Post-op ondansetron (ZOFRAN) injection 4 mg 4 mg, IntraVENous, EVERY 6 HOURS PRN, Starting on Tue09/27/22 at 2232, Until Discontinued, Nausea, nausea, oxyCODONE (ROXICODONE) immediate release tablet 10 mg(Linked Group 1) 10 mg, Oral, EVERY 4 HOURS PRN, Starting on Tue09/27/22 at 2232, Until Discontinued, Pain Severe (7-10), 0044 (See Alternative - Provider: Carin Arvizu RN)0712 (See Alternative - Provider: Carin Arvizu RN)0745 (See Alternative - Provider: Suzanna Menjivar RN)1609 (Given - Provider: Suzanna Menjivar RN)2043 (Given - Provider: Sindhu Muñoz RN) 0119 (Given - Provider: Sindhu Muñoz RN)1000 (Given - Provider: Jose Perez RN)1444 (Given - Provider: Jose Perez RN) oxyCODONE (ROXICODONE) immediate release tablet 5 mg(Linked Group 1) 5 mg, Oral, EVERY 4 HOURS PRN, Starting on Tue09/27/22 at 2232, Until Discontinued, Pain Moderate (4-6), 0044 (Given - Provider: Carin Arvizu RN)0712 (Given - Provider: Carin Arvizu RN)0745 (Given - Provider: Suzanna Menjivar RN)1609 (See Alternative - Provider: Suzanna Menjivar RN)2043 (See Alternative - Provider: Sindhu Muñoz RN) 0119 (See Alternative - Provider: Sindhu Muñoz RN)1000 (See Alternative - Provider: Jose Perez RN)1444 (See Alternative - Provider: Jose Perez RN) sennosides-docusate sodium (SENOKOT-S) 8.6-50 MG tablet 1 tablet 1 tablet, Oral, DAILY PRN, Starting on Tue09/27/22 at 2232, Until Discontinued, Constipation, simethicone (MYLICON) chewable tablet 80 mg 80 mg, Oral, EVERY 6 HOURS PRN, Starting on Tue09/27/22 at 2232, Until Discontinued, Cramping, Flatulence, sodium chloride flush 0.9 % injection 5-40 mL 5-40 mL, IntraVENous, PRN, Starting on Tue09/27/22 at 2232, Until Discontinued, Line Care, After every IV line use, For Line Patency: Peripheral IV = 5 mL; Midline or Central Line = 10 mL/lumen. If following IV push medication, administer flush at same rate as the IV push. Flush volume is determined by type of infusion therapy being given. For non-viscous solutions use: Peripheral IV = 5 mL Midline or Central Line = 10 mL/lumen For viscous solutions (i.e. blood components, parenteral nutrition, contrast media, or after obtaining blood sample) use: Peripheral IV = 10 mL Midline or Central Line = 20 mL/lumen, Linked Groups Order Group 1: oxyCODONE (ROXICODONE) immediate release tablet 5 mgJump to med 5 mg, Oral, EVERY 4 HOURS PRN, Starting on Tue09/27/22 at 2232, Until Discontinued, Pain Moderate (4-6), Or oxyCODONE (ROXICODONE) immediate release tablet 10 mgJump to med 10 mg, Oral, EVERY 4 HOURS PRN, Starting on Tue09/27/22 at 2232, Until Discontinued, Pain Severe (7-10), FOR RECORDS PERTAINING TO PATIENTS WHO ARE OR HAVE BEEN ENROLLED IN A CHEMICAL DEPENDENCY/SUBSTANCEABUSE PROGRAM, SOME INFORMATION MAY BE OMITTED. This clinical summary was aggregated from multiple sources. Caution should be exercised in using it in the provision of clinical care. This summary normalizes information from multiple sources, and as a consequence, information in this document may materially change the coding, format and clinical context of patient data. In addition, data may be omitted in some cases. CLINICAL DECISIONS SHOULD BE BASED ON THE PRIMARY CLINICAL RECORDS. [facility]. provides no warranty or guarantee of the accuracy or completeness of information in this document.
--- NOTE | 2024-02-15 13:04 | P.GSHP_ITS ---
History of Present Illness History of Present Illness Chief complaint: pelvic pain, uterine fibroid Narrative: Patient presents for preadmission testing. The patient states she has had intermittent pelvic pain and an ultrasound demonstrated a uterine fibroid. The patient states she has not had any abnormal bleeding or other concerns. Review of Systems ROS Narrative REVIEW OF SYSTEMS: Negative except as stated in HPI, ten or more systems reviewed. Constitutional: No fever, chills, weakness ENT: No sore throat or epistaxis Cardiovascular: No edema, chest pain, palpitations, or activity intolerance Respiratory: No shortness of breath, cough, or wheezing Musculoskeletal: No joint pain or swelling Gastrointestinal: No abdominal pain, constipation, diarrhea, or vomiting Genitourinary: No dysuria or hematuria Neurological: No numbness, tingling, weakness, or headache Psychiatric: No mood changes PFSH PFS Medical History (Updated 02/15/24 @ 12:44 by More Ford NP) Migraine ?G43.909 - Migraine, unspecified, not intractable, without status migrainosus (ICD-10) Heartburn ?R12 - Heartburn (ICD-10) Miscarriage ?O03.9 - Complete or unspecified spontaneous without complication (ICD-10) Uterine fibroid ?D25.9 - Leiomyoma of uterus, unspecified (ICD-10) Anxiety ?F41.9 - Anxiety disorder, unspecified (ICD-10) COVID-19 ?U07.1 - COVID-19 (ICD-10) Heart murmur ?R01.1 - Cardiac murmur, unspecified (ICD-10) 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 - Papillomavirus as the cause of diseases classified elsewhere (ICD- 10) Pelvic pain ?R10.2 - Pelvic and perineal pain (ICD-10) Fibroid ?D21.9 - Benign neoplasm of connective and other soft tissue, unspecified (ICD-10) Surgical History (Updated 12/20/23 @ 14:48 by Tita Harley RN) H/O wisdom tooth extraction ?K08.409 - Partial loss of teeth, unspecified cause, unspecified class (ICD- 10) Hx of tonsillectomy ?Z90.89 - Acquired absence of other organs (ICD-10) H/O section ?Z98.891 - History of uterine scar from previous surgery (ICD-10) H/O cervical biopsy ?Z98.890 - Other specified postprocedural states (ICD-10) Family History (Updated 12/20/23 @ 15:08 by Tita Harley, RN) Other No pertinent family history in first degree relatives Social History (Updated 12/20/23 @ 14:46 by Tita Harley, RN) Within the past year, how often did you have a drink containing alcohol: 2-3 times a week Smoking status: Former smoker Second hand tobacco smoke exposure: No Non-prescribed substance use: denies use 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 Highest level of school completed/degree received: Master's degree Meds Home Medications and Allergies Home Medications ?Medication ?Instructions ?Recorded ?Confirmed ?Type No Known Home Medications 12/20/23 02/15/24 History Allergies Allergy/AdvReac Type Severity Reaction Status Date / Time No Known Drug Allergies Allergy Verified 02/15/24 12:41 Exam Narrative Exam Narrative: Constitutional: Awake, alert, comfortable, well-appearing, nontoxic, interactive, vital signs as charted Head: Normocephalic, atraumatic Neck: Supple, normal appearance, normal range of motion, no meningeal signs, no lymphadenopathy Respiratory: No respiratory distress, breath sounds clear Cardiovascular: Regular rate and rhythm, strong and regular heart tones Abdomen: Nontender, normal bowel sounds, soft, no CVA tenderness Musculoskeletal: Normal gait, no swelling or edema Skin: No rashes or induration, no lesions, only visible skin inspected Neuro: No neurological deficits, normal sensation Psychiatric: Oriented ?3, normal affect Assessment and Plan Assessment and Plan (1) Pelvic pain: (2) Uterine fibroid: Plan D&C hysteroscopy with possible MyoSure scheduled with Dr. Rowley 02/24/2024.
== END 2024-02-15 12:29 | disposition home or self-care (01) ==
LOC: PST 12:29
PROVIDERS: Visit Provider Obstetrics & Gynecology
DX: Z01.818 Encounter for other preprocedural examination (principal); D21.9 Benign neoplasm of connective and other soft tissue, unspecified; R10.2 Pelvic and perineal pain
CPT/HCPCS: G0463

== ENCOUNTER 2024-02-24 07:23 | Day surgery (SDC) | payer OTHER, SELFPAY ==
[2024-02-15 12:55] VITALS: BP 112/70; PULSE 77; TEMP 36.3; O2SAT 98; BMI 35.9
--- OUTSIDE RECORDS SUMMARY | 2024-02-24 07:27 | XMS_ITS | CCD ---
Author Organization [facility] Care Team Providers Care Analytics Specialist Name Role Phone Raquel Odell Primary Care [...] break. docusate sodium 50 mg / sennosides, fdc 8.6 mg oral tablet (1 source) Start: [...] Hemoglobin (Bld) [Mass/Vol] 10.7 g/dL Low 11.9-15.1 [facility] Comment on above: Performed By: #### H GB #### [facility] [address] [place] [address] [employer] Operator: Deven Kumar MD Hemoglobin (Bld) [Mass/Vol] 10.7 g/dL Low 11.9 - 15.1 g/dL [facility] Interpretation and review of laboratory results Abnormal [facility] CBC auto differentialon 09-09 Absolute Eos # 0.05 [facility] Absolute Immature Granulocyte 0.05 [facility] Absolute Lymph # 2.[address] [facility] SECO URS [facility] Absolute [place] # 0.69 [facility] Basophils Absolute [place] [facility] COURS [facility] Basophils/100 WBC (Bld) 0 % 0 - 2 % [facility] Eosinophils/100 WBC (Bld) 1 % 1 - 4 % [facility] Hematocrit (Bld) [Volume fraction] 35.9 % Low 36.3 - 47.1 % [facility] Hemoglobin (Bld) [Mass/Vol] 11.9 g/dL 11.9 - 15.1 g/dL [facility] Immature granulocytes/100 WBC (Bld) 1 % High 0 [facility] Interpretation and review of laboratory results Abnormal [facility] Lymphocytes/100 WBC (Bld) 27 % 24 - 43 % [facility] MCH (RBC) [Entitic mass] 29.7 pg 25.2 - 33.5 pg [facility] MCHC (RBC) [Mass/Vol] 33.1 g/dL 28.4 - 34.8 g/dL [facility] MCV (RBC) [Entitic vol] 89.5 fL 82.6 - 102.9 fL [facility] Monocytes/100 WBC (Bld) 7 % 3 - 12 % [facility] NRBC Automated 0.0 0.0 per [address] [facility] Platelet distribution width (Bld) [Ratio] 14.5 % High 11.8 - 14.4 % [facility] Platelet mean volume (Bld) [Entitic vol] 11.7 fL 8.1 - 13.5 fL [facility] Platelets (Bld) [#/Vol] 223 10*3/uL [facility] RBC (Bld) [#/Vol] 4.01 10*6/uL 3.95 - 5.1 1 m/uL [facility] Segmented neutrophils/100 WBC (Bld) 64 % 36 - 65 % [facility] Segs Absolute 6.36 [facility] WBC (Bld) [#/Vol] 9.8 10*3/uL [facility] SE COURS [facility] CBC with Diffon 09-27-2022 Abs. Basophil <0.03 Normal 0.00-0.20 [facility] Comment on above: Performed By: #### C DP #### [facility] [address] [place] [address] [place] [address] [employer] Operator: Deven Kumar MD Abs.Imm.Granulocyte 0.05 k/uL Normal 0.00-0.30 [facility] Comment on above: Performed By: #### C DP #### [facility] [address] [place] [address] [place] [address] [employer] Operator: Deven Kumar MD Abs.Neutrophil (Seg) 6.36 k/uL Normal 1.50-8.10 [facility] Comment on above: Performed By: #### C DP #### [facility] [address] [place] [address] [employer] Up Operator: Deven Kumar MD Basophils/100 WBC (Bld) 0 % Normal 0-2 [facility] Comment on above: Performed By: #### C DP #### [facility] [address] [place] [address] Dr[place], [facility] [employer] Operator: Deven Kumar MD Eosinophils (Bld) [#/Vol] 0.05 10*3/uL Normal 0.00-0.44 [facility] Comment on above: Performed By: #### C DP #### [address] [place], [facility] [employer] Operator: Deven Kumar MD Eosinophils/100 WBC (Bld) 1 % Normal 1-4 [facility] Comment on above: Performed By: #### C DP #### [address] [place] [address] [employer] Operator: Deven Kumar MD Erythrocyte distribution width (RBC) [Ratio] 14.5 % High 11.8-14.4 [facility] Comment on above: Performed By: #### C DP #### [address] [place], [facility] [employer] Operator: Deven Kumar MD Hematocrit (Bld) [Volume fraction] 35.9 % Low 36.3-47.1 [facility] Comment on above: Performed By: #### C DP #### [address] [place], [facility] [employer] Operator: Deven Kumar MD Hemoglobin (Bld) [Mass/Vol] 11.9 g/dL Normal 11.9-15.1 [facility] Comment on above: Performed By: #### C DP #### [address] [place], [facility] [employer] Operator: Deven Kumar MD Immature granulocytes/100 WBC (Bld) 1 % High 0 [facility] Comment on above: Performed By: #### C DP #### [address] [place], [facility] [employer] Operator: Deven Kumar MD Lymphocytes (Bld) [#/Vol] 2.59 10*3/uL Normal 1.10-3.70 [facility] Comment on above: Performed By: #### C DP #### [facility] [address] [place], [facility] [employer] Operator: Deven Kumar MD Lymphocytes/100 WBC (Bld) 27 % Normal 24-43 [facility] Comment on above: Performed By: #### C DP #### [facility] [address] [place], [facility] [employer] Operator: Deven Kumar MD MCH (RBC) [Entitic mass] 29.7 pg Normal 25.2-33.5 [facility] Comment on above: Performed By: #### C DP #### [facility] [address] [place], [facility] [employer] Operator: Deven Kumar MD MCHC (RBC) [Mass/Vol] 33.1 g/dL Normal 28.4-34.8 [facility] Comment on above: Performed By: #### C DP #### [facility] [address] [place], [facility] [employer] Operator: Deven Kumar MD MCV (RBC) [Entitic vol] 89.5 fL Normal 82.6-102.9 [facility] Comment on above: Performed By: #### C DP #### [address] [place], [place] [address] [employer] Operator: Deven Kumar MD Monocytes (Bld) [#/Vol] 0.69 10*3/uL Normal 0.10-1.20 [facility] Comment on above: Performed By: #### C DP #### [facility] [address] [place], [place] [id number] [employer] Operator: Deven Kumar MD Monocytes/100 WBC (Bld) 7 % Normal 3-12 [facility] Comment on above: Performed By: #### C DP #### [facility] [address] [place], [place] [address] [employer] Operator: Deven Kumar MD Neutrophil (Seg) 64 % Normal 36-65 [facility] Comment on above: Performed By: #### C DP #### [facility] [address] [place], [place] [id number] [employer] Operator: Deven Kumar MD NRBC Automated 0.0 per 100 WBC Normal 0.0 [facility] Comment on above: Performed By: #### C DP #### [facility] [address] [place], [place] [id number] [employer] Operator: Deven Kumar MD Platelet mean volume (Bld) [Entitic vol] 11.7 fL Normal 8.1-13.5 [facility] Comment on above: Performed By: #### C DP #### [facility] [address] [place] [address] [place], [place] [id number] [employer] Operator: Deven Kumar MD Platelets (Bld) [#/Vol] 223 10*3/uL Normal 138-453 [facility] Comment on above: Performed By: #### C DP #### [address] [place], [place] [address] [employer] Operator: Deven Kumar MD RBC (Bld) [#/Vol] 4.01 10*6/uL Normal 3.95-5.11 [facility] Comment on above: Performed By: #### C DP #### [facility] [address] [place], [place] [id number] [employer] Operator: Deven Kumar MD WBC (Bld) [#/Vol] 9.8 10*3/uL Normal 3.5-11.3 [facility] Comment on above: Performed By: #### C DP #### [facility] [address] [place] [address] [employer] Operator: Deven Kumar MD DRUG SCREEN MULTI URINEon Amphetamine Screen, Ur Negative NEGATIVE [facility] Comment on above: (Positive cutoff 1000 ng/mL) Barbiturate Screen, Ur Negative NEGATIVE [facility] Comment on above: (Positive cutoff 200 ng/mL) Benzodiazepine Screen, Urine Negative NEGATIVE [facility] Comment on above: (Positive cutoff 200 ng/mL) Buprenorphine Urine Negative NEGATIVE [facility] Comment on above: (Positive cutoff 5 ng/ml) Cannabinoid Scrn, Ur Negative NEGATIVE [facility] Comment on above: (Positive cutoff 50 ng/mL) Cocaine Metabolite, Urine Negative NEGATIVE [facility] Comment on above: (Positive cutoff 300 ng/mL) Fentanyl, Ur Negative NEGATIVE [facility] Comment on above: (Positive cutoff 5 ng/ml) Methadone Screen, Urine Negative NEGATIVE [facility] Comment on above: (Positive cutoff 300 ng/mL) Opiates, Urine Negative NEGATIVE [facility] Comment on above: (Positive cutoff 300 ng/mL) Oxycodone Screen, Ur Negative NEGATIVE [facility] Comment on above: (Positive cutoff 100 ng/mL) Phencyclidine, Urine Negative NEGATIVE [facility] Comment on above: (Positive cutoff 25 ng/mL) [facility] Drug Scr, Abuse, Uron 2022 Amphetamine(s),Ur Negative Normal NEG [facility] Comment on above: Result Comment: (Positive cutoff 1000 ng/mL) Performed By: #### D AU #### [address] [place] [address] [employer] Operator: Deven Kumar MD Barbiturate(s),Ur Negative Normal NEG [facility] Comment on above: Result Comment: (Positive cutoff 200 ng/mL) Performed By: #### D AU #### [address] [place] [address] [employer] Operator: Deven Kumar MD Benzodiazepine(s) Negative Normal NEG [facility] Comment on above: Result Comment: (Positive cutoff 200 ng/mL) Performed By: #### D AU #### [facility] [address] [place] [address] [place], [place] [id number] [employer] Operator: Deven uKmar MD Buprenorphrine, Ur Negative Normal NEG [facility] Comment on above: Result Comment: (Positive cutoff 5 ng/ml) Performed By: #### D AU #### [address] [place], [place] [address] [employer] Operator: Deven Kumar MD Cannabinoid(s),Ur Negative Normal NEG [facility] Comment on above: Result Comment: (Positive cutoff 50 ng/mL) Performed By: #### D AU #### [address] [place], [place] [address]83 [employer] Operator: Deven Kumar MD Cocaine Metabolite Negative Normal [facility] Comment on above: Result Comment: (Positive cutoff 300 ng/mL) Performed By: #### D AU #### [address] [place], [place] [id number] [employer] Operator: Deven Kumar MD Fentanyl, Urine Negative Normal [facility] Comment on above: Result Comment: (Positive cutoff 5 ng/ml) Performed By: #### D AU #### [address] [place], [place] [address]383 [employer] Operator: Deven Kumar MD Methadone Ql (U) Negative Normal NEG [facility] Comment on above: Result Comment: (Positive cutoff 300 ng/mL) Performed By: #### D AU #### [address] [place], [place] [address] [employer] Operator: Deven Kumar MD Opiate(s), Ur Negative Normal NEG [facility] Comment on above: Result Comment: (Positive cutoff 300 ng/mL) Performed By: #### D AU #### [address] [place], [place] [address]283 [employer] Operator: Deven Kumar MD Oxycodone, Urine Negative Normal NEG [facility] Comment on above: Result Comment: (Positive cutoff 100 ng/mL) Performed By: #### D AU #### [facility] [address] [place] [address] [employer] Up Operator: Deven Kumar MD Phencyclidine, Ur Negative Normal [facility] Comment on above: Result Comment: (Positive cutoff 25 ng/mL) Performed By: #### D AU #### [facility] [address] [place] [address] [employer] Up Operator: Deven Kumar MD TYPE AND SCREENon 09-27-2022 ABO/Rh Positive [facility] Arm Band Number [id number] [facility] Expiration Date 09/30/2022,2359 [facility] Type + Screenon 09-27-2022 Type + Screen Sample Expiration 09/30/2022,2359 Arm Band Number [id number] ABO/Rh(D) O POSITIVE Antibody Screen NEGATIVE Normal [facility] Comment on above: Performed By: #### T YS #### [address] [place] [address] [employer] Up Operator: Deven Kumar MD No Panel Informationon 08-24 GBS, External Result Negative [facility] Work Phone: [facility] Work Phone: Cult,Urineon 08-21-2022 Cult,Urine Specimen Description .CLEAN CATCH URINE Culture NO SIGNIFICANT GROWTH Report Status FINAL 08/21/2022 Normal [facility] Comment on above: Performed By: #### U RC #### [facility] [address] [place] [address] [employer] Up Operator: Jesus Hill MD [facility] [address] [place] [address] [place] [address] [employer] Up Operator: Deven Kumar MD US OB 14 PLUS [...] Deven Vaughan MD 08/20/22 Final result Normal [facility] Urinalysis, Routineon 2022 Bilirubin, SemiQt,Ur Negative Normal NEG [facility] Comment on above: Performed By: #### U A, VALENTEICAO #### [facility] [address] [place] [address] [employer] Set Up Operator: Deven Kumar MD Blood, Urine Negative Normal NEG [facility] Comment on above: Performed By: #### U A, UMICAO #### [facility] [address] [place] [address] [employer] Up Operator: Deven Kumar MD Clarity (U) Clear Normal CLEAR [facility] Comment on above: Performed By: #### U A, UMICAO #### [facility] [address] [place] [address] [employer] Up Operator: Deven Kumar MD Color (U) Yellow Normal YEL [facility] Comment on above: Performed By: #### U A, UMICAO #### [facility] [address] [place] [address] [employer] Up Operator: Deven Kumar MD Glucose Ql (U) Negative Normal NEG [facility] Comment on above: Performed By: #### U A, UMICAO #### [facility] [address] [place], [place] [phone] [employer] Up Operator: Deven Kumar MD Ketones Ql (U) TRACE Abnormal NEG [facility] Comment on above: Performed By: #### U A, UMICAO #### [facility] [address] [place] [address] [place], [place] [phone] [employer] Operator: Deven Kumar MD Leukocyte esterase Test strip Ql (U) MODERATE Abnormal NEG [facility] Comment on above: Performed By: #### U A, UMICAO #### [facility] [address] [place] [address] [place], [place] [address]447683 [employer] Operator: Deven Kumar MD Nitrite,Ur Negative Normal NEG [facility] Comment on above: Performed By: #### U A, UMICAO #### [facility] [address] [place] [address] [place], [place] [address] [employer] Operator: Deven Kumar MD PH,Ur 6.0 Normal 5.0-9.0 [facility] Comment on above: Performed By: #### U A, UMICAO #### [facility] [address] [place] [address] [place] [address] [employer] Operator: Deven Kumar MD Protein Ql (U) Negative Normal NEG [facility] Comment on above: Performed By: #### U A, UMICAO #### [facility] [address] [place] [address] [place] [address] [employer] Operator: Deven Kumar MD Spec. [place],Ur >1.030 High 1.010-1.020 [facility] Comment on above: Performed By: #### U A, UMICAO #### [facility] [address] [place] [address] [place], [place] 5777483 [employer] Operator: Deven Kumar MD Urobilinogen,Ur Normal Normal NORM [facility] Comment on above: Performed By: #### U A, UMICAO #### [facility] [address] [place], [place] [phone] [employer] Up Operator: Deven Kumar MD Urinalysis,Microon 3 Epithelial cells LM Ql (Urine sed) 5 TO 10 Normal 0-25 [facility] Comment on above: Performed By: #### U A, UMICAO #### [facility] [address] [place], [place] [address] [employer] Up Operator: Deven Kumar MD Mucus Strands 3+ Abnormal NONE [facility] Comment on above: Performed By: #### U A, UMICAO #### [facility] [address] [place], [place] [address] [employer] Up Operator: Deven Kumar MD Urine RBC's None Normal 0-2 [facility] Comment on above: Performed By: #### U A, UMICAO #### [facility] [address] [place], [place] [phone] [employer] Up Operator: Deven Kumar MD Urine WBC's 50 TO 100 Normal 0-5 [facility] Comment on above: Performed By: #### U A, UMICAO #### [facility] [address] [place], [place] [phone] [employer] Up Operator: Deven Kumar MD Microscopic Urinalysison Epithelial Cells UA 5 TO 10 [facility] Interpretation and review of laboratory results Abnormal [facility] Mucus, UA 3+ Abnormal None [facility] RBC clumps Auto (Urine sed) [#/Area] None [facility] WBC, UA 50 TO 100 [facility] Urinalysison 08-19-2022 Bilirubin Urine Negative NEGATIVE [facility] Color, UA Yellow Yellow [facility] Glucose Auto test strip (U) [Mass/Vol] Negative NEGATIVE [facility] Interpretation and review of laboratory results Abnormal [facility] Ketones (U) [Mass/Vol] TRACE Abnormal NEGATIVE [facility] [employer] Leukocyte esterase Auto test strip Ql (U) MODERATE Abnormal NEGATIVE [facility] Nitrite Auto test strip Ql (U) Negative NEGATIVE [facility] Protein (U) [Mass/Vol] 6.0 mg/dL 5.0 - 9.0 [facility] [employer] Protein (U) [Mass/Vol] Negative NEGATIVE [facility] [employer] Specific [place], UA High 1.010 - 1.020 B ON [facility] Turbidity UA Clear Clear [facility] Urine Hgb Negative NEGATIVE [facility] Urobilinogen, Urine Normal Normal [facility] US OB 2nd/3rd Trimesteron OB 2nd/3rd [...] by Cole Mckeon on 05/04/2022 1555 Normal [facility] Senior Security Architect C. Trachomatis, External Res bubba 03-04-2022 C. Trachomatis, External Result Negative [facility] [employer] Work Phone: HIV, External Resulton 03-04 HIV, External Result Non-Reactive [employer] Phone: Hepatitis B, External Result on 03-04-2022 Hep B, External Result Non-Reactive [employer] Phone: N. Gonorrhoeae, External Res ulton 03-04-2022 N. Gonorrhoeae, External Result Negative [employer] Phone: No Panel Informationon 03-04 ABO, External Result O [employer] Phone: [employer] Phone: [employer] Phone: RPR, External Labon 03-04-20 RPR, External Result Non-Reactive [employer]JI N [employer] Phone: Rh Factor, External Resulton 03-04-2022 Rh Factor, External Result Positive [employer] Phone: Rubella Titer, External Resu lton 03-04-2022 Rubella Titer, External Result immune [employer] Phone: US OB 1ST Trimesteron 2021 US [...] by Cole Mckeon on 02/16/2022 1436 Normal [facility] Senior Security Architect Vital Signs Date Time Vital Sign Value Performing Clinician Faci lity 09-29-2022 14:15-0400 Body temperature 98.1 [degF] Saba Delgado APRN - CNM Work Phone: [employer] 09-29-2022 14:15-0400 Diastolic blood pressure 67 mm[Hg] Saba Delgado APRN - CNMarcie Work Phone: [facility] 09-29-2022 14:15-0400 Heart rate 103 /min Saba Delgado APRN - CNM Work Phone: [employer] 09-29-2022 14:15-0400 Respiratory rate 16 /min Saba Delgado APRN - CNM Work Phone: [employer] 09-29-2022 14:15-0400 Systolic blood pressure 122 mm[Hg] Saba Delgado APRN - CNM Work Phone: [employer] 09-28-2022 00:23-0400 SaO2% (BldA) [Mass fraction] 98 % Saba Delgado APRN - CNMarcie Work Phone: [employer] 09-27-2022 02:20-0400 Body height 154.9 cm Saba Delgado APRN - CNMarcie Work Phone: [employer] 09-27-2022 02:20-0400 Body mass index (BMI) [Ratio] 38.73 kg/m2 Saba Delgado APRN - CNMarcie Work Phone: [employer] 09-27-2022 02:20-0400 Body weight 92.99 kg Saba Delgado APRN - CNM Work Phone: [employer] 08-19-2022 22:36-0500 Diastolic blood pressure 71 mm[Hg] Yancy Pool ELECTRICAL FOREMAN - CNM Work Phone: [employer] 08-19-2022 22:36-0500 Heart rate 97 /min Yancy Pool ELECTRICAL FOREMAN - CNM Work Phone: [employer] 08-19-2022 22:36-0500 Systolic blood pressure 118 mm[Hg] Yancy Hua ELECTRICAL FOREMAN - CNM Work Phone: [facility] Encounters Encounter Date Encounter Type Care Provider Facility Start: 12-15-2023 End: 12-15-2023 ambulatory DOYLE AYAKA Not Available Start: 12-08-2023 End: 12-08-2023 ambulatory DOYLE AYAKA Not Available Start: 11-10-2023 End: 11-10-2023 ambulatory SABA L FLORO Not Available Start: 11-09-2023 End: 11-09-2023 ambulatory SABA L FLORO Not Available Start: 09-27-2022 End: 09-29-2022 [facility] Start: 09-27-2022 End: 09-29-2022 Evaluation and management of inpatient Saba Delgado ELECTRICAL FOREMAN CN Work Phone: [facility] Labor and Delivery Comment on above: delivery de livered (Primary Dx) Start: 08-20-2022 End: 08-20-2022 ambulatory [facility] Start: 08-19-2022 End: 08-20-2022 Subsequent hospital visit by physician Yancy Lambert APRN - CN Work Phone: [facility] Start: 07-15-2020 End: 07-15-2020 Subsequent hospital visit by physician [facility] Covid Screening Schedule [facility] Covid Screening Comment on above: Arrived Procedures Date Procedure Procedure Detail Performing Clinician Start: 09-28-2022 Blood count hemoglobin Lauren F Walter Pinedo DO Work Phone: Start: 09-27-2022 Antibody screen Saba Delgado ELECTRICAL FOREMAN - CNM Work Phone: Start: 09-27-2022 Blood count complete auto&auto difrntl wbc Saba Delgado ELECTRICAL FOREMAN - CNM Work Phone: Start: 09-27-2022 End: 09-27-2022 Blood typing serologic abo Saba Delgado ELECTRICAL FOREMAN - CNM Work Phone: Start: 08-24-2022 GBS, EXTERNAL RESULT Hi claudine Provider Start: 08-19-2022 Urinalysis microscop ic only Yancy Lambert [facility] Work Phone: Start: 08-19-2022 Urnls dip stick/tabl et rgnt auto w/o microscopy Yancy Moore Hua ELECTRICAL FOREMAN [facility] Work Phone: Start: 03-04-2022 ABO, EXTERNAL [...] 2022 Influenza vaccination Flu vaccine (# 1) [facility] Start: 2021 Screening for malign ant neoplasm of cervix [facility] Start: 03-11-2020 Influenza vaccination Flu vaccine (# 1) [place] Start: 02-09-2012 Screening for malign ant neoplasm of cervix [facility] Start: 2010 DTaP/Tdap/Td vaccine (1 - Tdap) DTaP/Tdap/Td vaccine (1 - Tdap) [facility] Start: 2009 Hepatitis C screening Hepatitis C sc reen [facility] Start: 2006 HIV screening HIV screen [facility] Start: 2003 Depression Screen Depression Screen [facility] Start: 02-09-1992 Varicella vaccine (1 of 2 - 2-dose childhood series) Varicella vaccine (1 of 2 - 2-dose childhood series) [facility] Start: 1991 COVID-19 Vaccine (#1) COVID-19 Vacci ne (#1) [employer] Start: 1991 Hepatitis C screening Hepatitis C sc enmanuel [email or web address] [place] End: 08-19-2022 Bacteria identified in Urine by Culture Urine culture Microbiology Routine One Time for 1 Occurrences starting 08/19/2022 until 08/19/2022 [employer] Phone: Comment on above: One Time for 1 Occur rences starting 08/19/2022 until 08/19/2022 End: 07-15-2020 COVID-19 COVID-19 Lab Routine Once for 1 Occurrences starting 07/15/2020 until 07/15/2020 [email or web address] Comment on above: Once for 1 Occurrenc es starting 07/15/2020 until 07/15/2020 COVID-19 COVID-19 Lab Rou sourav 07/15/2020 9:05 AM EST [place] nonstress test nonst ress test OB Routine Daily until discontinued starting 08/20/2022 [employer] Phone: Comment on above: Daily until disconti nued starting 08/20/2022 Nonrebreather mask oxygen Nonreb reather mask oxygen Respiratory Care Routine As directed - RT (PRN) until discontinued starting 08/19/2022 [employer] Phone: Comment on above: As directed - RT (CO N) until discontinued starting 08/19/2022 Oxygen therapy [[facility] Data Set] Initiate Oxygen Therapy Protocol Respiratory Care Routine As Needed until discontinued starting 09/27/2022 [employer] Phone: Comment on above: As Needed until disc ontinued starting 09/27/2022 End: 09-27-2022 RHOGAM INJECTION ONLY RHOGAM INJECTION ONLY Blood Bank Routine One Time for 1 Occurrences starting 09/27/2022 until 09/27/2022 [employer] Phone: Comment on above: One Time for 1 Occur rences starting 09/27/2022 until 09/27/2022 Spirometry panel Incentive jessica metry Respiratory Care Routine Every 2hr while awake until discontinued starting 09/28/2022 [employer] Phone: Comment on above: Every 2hr while awak e until discontinued starting 09/28/2022 End: 08-19-2022 SVE SVE Point of Care Testing Routine One Time for 1 Occurrences starting 08/19/2022 until 08/19/2022 [employer] Phone: Comment on above: One Time for 1 Occur rences starting 08/19/2022 until 08/19/2022 End: 08-20-2022 US OB 14 PLUS WEEKS SINGLE OR FIRST GESTATION US OB 14 PLUS WEEKS SINGLE OR FIRST GESTATION Imaging STAT Once for 1 Occurrences starting 08/20/2022 until 08/20/2022 [employer] Phone: Comment on above: Once for 1 Occurrenc es starting 08/20/2022 until 08/20/2022 US OB 14 PLUS WEEKS SINGLE OR FIRST GESTATION US OB 14 PLUS WEEKS SINGLE OR FIRST GESTATION Imaging STAT 08/20/2022 1:07 AM EST [employer] Phone: Immunizations Immunization Date Immunization Notes Care Provider Fa cili 09-27-2022 diphtheria, tetanus toxoids and acellular pertussis vaccine, unspecified formulation Saba Delgado [employer] Work Phone: [employer] Phone: 09-27-2022 measles, mumps and rubella virus vaccine Saba Delgado [employer] Work Phone: [employer] Phone: Payers Date Payer Category Payer Unknown [id number] 2022 Unknown [id number] 2014 Unknown [facility] [id number] 2014-Present [phone] [address] [address] [place] [address] [id number] 1991 Unknown [id number] 1991 Unknown [id number] 1991 Unknown [id number] 9 1991 Unknown [id number] 9 1991 Unknown [id number] 9 1991 Unknown [id number] 9 Social History Date Type Detail Facility Tobacco smoking stat [facility] Unknown if ever smoked [place] [facility] Start: 1991 Sex Assigned At [facility] Start: 08-19-2022 Tobacco smoking stat [facility] Ex-smoker [employer] Phone: History of tobacco use Current smoker [employer] Phone: History of tobacco use Cigarette Smoker [employer] Phone: Start: 08-19-2022 Cigarettes smoked current (pack per day) - Reported 0.3 [employer] Phone: History of tobacco use Passive smoker [employer] Phone: Start: 08-19-2022 Tobacco use and exposure Smoke less tobacco non-user [employer] Phone: Start: 08-19-2022 End: 09-28-2022 Alcohol intake Ex-drinker (finding) [employer] Phone: Start: 08-09-2022 End: 09-27-2022 Exposure to SARS-CoV-2 (event) Not sure MARISSA PYLE [facility] Work Phone: Hospital Discharge instructions 09-29-2022 Discharge Instructions Note Date & Type Note Facility 09-29-2022 Hospital Discharg e instructions Jose Perez RN - 09/29/2022 1:09 PM EDT Follow-up with your OB doctor as specified. [facility] OB Department phone: Dr. Adarsh Lambert CNM Dr. Chencho Matta CNM [address] [facility] [address] [facility] [address] [place] [address] [place] [address] Chencho Viveros CNM [address] [facility] [address] [phone] Mona Delgado, MSN, ELECTRICAL FOREMAN, CNM [facility] [address] [place] [address] [address] [facility] [address] Celia Rosario CNM [address] [place] [address] [place] [address] Piedad Wiley CNM [address] [place] [address] [place] [address] [phone] DIET Eat a well balanced diet focusing on foods high in fiber and protein. Drink plenty of fluids especially water. To avoid constipation you may take a mild stool softener as recommended by your doctor or highway technician. ACTIVITY Gradually increase your activity. Resume exercise regimen only after advice by your doctor or highway technician. Avoid lifting anything heavier than a gallon of milk for SIX weeks. Avoid driving until your doctor or highway technician has given their approval. Rise slowly from [...] have thoughts of harming yourself or your . If will not stop crying, contact another adult for help or place infant in their crib on their back and [...] medications as recommended by your doctor or highway technician for pain If you develop a warm, [...] vitamins as directed by your doctor or highway technician. Refer to the booklet in the folder/binder for more information. If you feel you need more assistance or have questions, please call Rose Boyce IBCLC, senior safety management consultant, at or the OB department to [...] they become loose or soiled. If used, [place] should be removed by your care provider. [...] your calf. documented in this encounter MARISSA [employer] Phone: Hospital course Narrative 09-29-2022 KASIE López [...] # 2.59 1.10 - 3.70 k/uL Absolute [place] # 0.69 0.10 - 1.20 k/uL Absolute [...] Range Expiration Date 09/30/2022,2359 Arm Band Number [id number] ABO/Rh O POSITIVE Antibody Screen NEGATIVE ABO, [...] Your Medications These medications were sent to [facility] [address] [place] [address] - [address] - P [phone] - F [phone] [place] [address] ibuprofen 800 MG tablet oxyCODONE 5 MG immediate release tablet vitamin 27-1 MG Tabs tablet Admit date: 09/27/2022 2:01 AM Discharge Date: 09/29/2022 Discharged to: Home in stable condition Plan: Follow upwith Mona Delgado CNM in 1 wk documented in this encounter [employer] Phone: History of Present illness Narrative 09-29-2022 [...] clear to auscultation anterior and posterior Extremities: emily pedal edema DATA: ASSESSMENT: S/P C/S post [...] -- -- -- 100 % 09/27/22 1306 (Family Pet) 113/ -- -- 86 18 -- 09/27/22 [...] -- -- -- 99 % 09/27/[address] [employer]) 107/59 -- -- 86 18 100 % [...] # 1 PLAN: Routine instructions and orders Clinical Counselor Note: I first assisted Dr Watson with [...] rate: Baseline Heart Rate: 145 Accelerations: present Halfway Variability: moderate Decelerations: absent Contraction frequency: 4-5 [...] Watson when she calls back Dr. Zuñiga, prepress technician, in unit and was updated on maternal [...] FHR to baseline when contraction has ended. School Bus Dispatcher and Haresh Delgado CNM at bedside at this time. MICHELINE performs SVE, 7-8/90-0. CNM at bedside for variable deceleration at 1702 and again at 1706. CNM states to continue to increase pitocin infusion. Pt placed on left side with pillow between her legs. Strip reviewed with CNM. Haresh Delgado CNM states she will come perform SVE. School Bus Dispatcher at bedside repositioning patient to right side [...] 140, moderate variability and accelerations noted before typewriter mechanic left the room. School Bus Dispatcher at bedside to reposition patient. Pt placed on her left side with peanut ball at 1345. Variable deceleration noted into the 70's, pt placed on right side with peanut ball at 1355 Variable deceleration continue with contractions, pt placed in , tailor sitting at 1400. School Bus Dispatcher called Hraesh Delgado CNM to updated on SVE, contraction [...] infusion if FHR does not decelerate again. School Bus Dispatcher phones Haresh Delgado CNM at this time. [...] pt placed in hands and knees from [id number]. School Bus Dispatcher hand held ultrasound to trace FHR, intermittently head in the 140's-150's. Pt reports she had 2 contraptions while in hands and knees. Variable decelerations noted with contractions. SVE performed and patient 4-5/80/-2. Pt positioned to left side with Pillow between her legs. [place] and ultrasound adjusted. Contractions palpated by typewriter mechanic and are tracing inverted on EFM starting at 1040. 0947- M. Breiding STACKER at bedside at this time. Pt alert and oriented. supportive at bedside. 0850- Consent forms signed at this time. School Bus Dispatcher witnessed 0952- Timeout performed, all agree 0955-epidural placement begins at this time 1006-test dose administered per STACKER, no side effects reported from patient 1015-epidural placement complete and patient laid back with right side tilt. Haresh Delgado CNM phones unit back at this time. Update provided on unchanged SVE, contraction pattern, FHR and variable noted with contraction. CNMarcie also updated on pitocin infusion rate and pt's request for an epidural. No further orders received at this time. School Bus Dispatcher called Haresh Delgado CNM at this time. No answer. Message left to phone unit back when available. IV fluids for pre epidural placement bolus started at 0912. Anesthesia notified at 0919. M. Ivana MANZANARES states he will be over in roughly 20 minutes. School Bus Dispatcher at bedside palpating contractions. [place] adjusted to properly trace contraction pattern. Pt [...] further needs. documented in this encounter [facility]: History of Present illness Narrative 08-20-2022 [...] this time. Radiology phoned with verification for internet technology manager to be called from Dr. Saavedra with [facility]. Tech states she will call investigations director tech at this time. documented in this encounter [employer] Phone: Hospital Discharge instructions 08-20-2022 Discharge Instructions Note Date & Type Note Facility 08-20-2022 Hospital Discharg e instructions Itzel Hudson RN - 08/20/2022 1:41 AM EST OUTPATIENT DISCHARGE Dr. Adarsh Lambert [facility] Dr. Chencho Matta [address] [place] ACTIVITY LIMITATIONS: ( x )Up and about [...] hour Keep your scheduled follow up appointment. 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 documented in this encounter [employer] Phone: Evaluation note Note Date & Type Note Facility Evaluation note Diagnosis PROM (premature rupture of membranes)- Primary Premature rupture of membranes in , unspecified as to episode of care documented in this encounter MARISSA [employer] Phone: Evaluation note Note Date & Type [...] of antepartum condition documented in this encounter [employer] Phone: Summary Purpose Family History No Family [...] section and content) DATE CREATED AUTHOR 05/05/2022 [facility] dical Specialist DATE CREATED AUTHOR AUTHOR'S ORGANIZ ATION 09/30/2022 [facility] [place] [facility] DATE CREATED AUTHOR AUTHOR'S ORGANIZ ATION 12/16/2023 [facility] dical Specialists EPIC Care Teams (unrecognized sec tion and content) Analytics Specialist Relationship Specialty Start Date End Date Raquel Odell [address] [place] [address] PCP - General Nurse Practitioner 07/14/20 Analytics Specialist Relationship Specialty Start Date End Date Raquel Odell [address] [place] [address] PCP - General Nurse Practitioner 07/14/20 Reason for Visit (unrecogniz ed section and content) Reason Comments Rupture of Membranes Pt states she felt a gush around 12 a.m. Specialty Diagnoses / Procedures Referred By Contcharley t Referred To Contact Diagnoses Normal labor Term Failure to progress in labor Saba Delgado APRN - MICHELINE [address] [place] [address] [facility] [address] [place] [address] Referral ID Status Reason Start Date Expiration Date Visits Re quested Visits Authorized [id number] 1 1 Ordered Prescriptions (unrec ognized section [...] mL IVPB (mini-bag) (COMPLETED) 2,000 mg, IntraVENous, PHYSICIAN ANESTHESIOLOGIST TO O.R., 1 dose, On Tue09/27/22 at 2044, Antimicrobial Indications: Surgical Prophylaxis, Administer within 1 hour of incision., Labor and Delivery 2102 (New Bag - Provider: Bel Matta APRN - STACKER) citric acid-sodium citrate (BICITRA) solution 30 mL [...] Provider: Sindhu Muñoz RN) 0900 (Due)2100 (Due) cjfgtwc-wkahev-yxiqu pertussis (BOOSTRIX) injection 0.5 mL 0.5 mL, [...] (NoRateChange - Provider: Bel Matta APRN - STACKER)1113 (Rate/Dose Change - Provider: Elva Quintero RN)1130 [...] every 2-3 minutes with cervical changes or [place] units (MVU) greater than 200 in a [...] Carin Arvizu RN)0730 (Rate/Dose Change - Provider: Elva Quintero RN)0730 (Rate/Dose Verify - Provider: Carin [...] (NoRateChange - Provider: Bel Matta APRN - STACKER)1230 (Rate/Dose Change - Provider: Elva Quintero RN)1230 [...] (Given - Provider: Bel Matta APRN - STACKER - Comment: pitocin infusion was off prior to transport to OR, discontinued at 2019 per stated by OB RN) ropivacaine (NAROPIN) 0.2% injection 0.2% (CANCELED) 10 mL/hr, Epidural, CONTINUOUS, Starting on Tue09/27/22 at 1130, Until Tue09/27/22 at 2232, Until delivery., Labor and Delivery 1010 (Given - Provider: Cristóbal Heath APRN - STACKER)1012 (Given - Provider: Cristóbal Heath APRN - STACKER)1013 (New Bag - Provider: KASIE Garcia CRNA)1727 [...] BE BASED ON THE PRIMARY CLINICAL RECORDS. [facility] [employer] [facility]. provides no warranty or guarantee of the accuracy or completeness of information in this document.
[2024-02-24 07:30] VITALS: BP 124/66; PULSE 109; TEMP 36.1; O2SAT 99; BMI 36.4
[2024-02-24 07:38] LABS: Basophils Percent Auto 0.3 % (0.2-2.0); Eosinophils Absolute Auto 0.1 10^3/uL (0.0-0.7); Eosinophils Percent Auto 1.4 % (0.9-7.0); Hematocrit 39.3 % (36.0-48.0); Hemoglobin 13.1 g/dL (12.0-16.0); Immature Granulocytes Abs Auto 0.02 10^3/uL (0.00-0.03); Immature Granulocytes Pct Auto 0.3 % (0.0-0.5); Lymphocytes Absolute Auto 2.9 10^3/uL (1.2-3.8); Lymphocytes Percent Auto 37.2 % (20.5-60.0); Mean Corpuscular HGB Conc 33.3 g/dL (29.9-35.2); Mean Corpuscular Hemoglobin 30.5 pg (26.7-34.0); Mean Corpuscular Volume 91.6 fL (81.0-99.0); Mean Platelet Volume 11.1 fL (9.5-13.5); Monocytes Absolute Auto 0.6 10^3/uL (0.3-0.8); Monocytes Percent Auto 8.1 % (1.7-12.0); Neutrophils Absolute Auto 4.1 10^3/uL (1.4-6.5); Neutrophils Percent Auto 52.7 % (43.0-75.0); Platelet Count 265 10^3/uL (150-450); Red Blood Count 4.29 10^6/uL (4.20-5.40); Red Cell Distribution Width 12.6 % (11.0-15.0); White Blood Count 7.8 10^3/uL (4.0-11.0)
[2024-02-24] MEDS: LACTATED RINGER'S SOLUTION 1,000 ML 50 ML IV (07:54)
[2024-02-24 08:08] LABS: HCG Quantitative <1 mIU/mL
--- NOTE | 2024-02-24 11:32 | PM.ONB ---
Brief Operative Note Date of procedure: 02/24/24 Pre-op diagnosis general: menorrhagia, thickend endometrium Post-op diagnosis: same as pre-op Procedure: NAME OF PROCEDURE: [ D&c hysteroscopy with myosure] PROCEDURE: The patient was taken back to the Operating Room where she was prepped and draped in normal sterile fashion after being placed under general anesthesia without difficulty. She was also placed in the dorsal lithotomy position. A weighted speculum was placed in the patient?s vagina. The anterior lip of the cervix was identified and grasped with a single tooth tenaculum. The patient?s uterus was then sounded roughly to [? 8] cm. The patient was then gently dilated using Hegar dilators. The hysteroscope was passed through the patient?s cervix into the uterus. Both ostia were identified. fluffy appearing endometrium. No gross evidence of malignancy, no gross evidence of polyps or fibroids. The myosure apparatus was placed through the scope, The myosure was engaged and endometrial curretting were removed along with endometrial polyp, The hysteroscope was then removed from the uterus. The endometrial curettings were sent out to pathology. The single tooth tenaculum was then removed from the patient's anterior lip of the cervix where excellent hemostasis was noted. All instruments were removed from the patient?s vagina. The patient tolerated the procedure well. Sponge, lap and needle counts were correct times two. The patient was taken to the Recovery Room in stable condition.Room in stable condition. Anesthesia: MAC Surgeon: Roger Rowley Estimated blood loss (mL): 5 Pathology: other (endometrial currettings) Condition: stable Disposition: PACU Urinary Catheter Management Urinary Catheter Management Urethral: Cath placed during this visit: no
[2024-02-24 11:37] VITALS: BP 101/69; PULSE 69; O2SAT 95
[2024-02-24 11:50] VITALS: BP 101/69; PULSE 68; O2SAT 95
[2024-02-24 12:19] VITALS: BP 110/62; PULSE 76; O2SAT 98
[2024-02-24 12:50] VITALS: BP 113/80; PULSE 79; O2SAT 99
== END 2024-02-24 13:00 | disposition home or self-care (01) ==
PROVIDERS: Visit Provider Obstetrics & Gynecology
PROC: (CPT 952; principal; 2024-02-24 08:45)
DX: D21.9 Benign neoplasm of connective and other soft tissue, unspecified (principal); R10.2 Pelvic and perineal pain; R93.89 Abnormal findings on diagnostic imaging of other specified body structures; N92.0 Excessive and frequent menstruation with regular cycle; N84.0 Polyp of corpus uteri; K21.9 Gastro-esophageal reflux disease without esophagitis
CPT/HCPCS: 58558; 36415; 84702; 85025; 88305; J1100; J2250; J2405; J2704; J3010

== ENCOUNTER 2024-03-29 15:35 | Outpatient (OUT) | payer OTHER, SELFPAY ==
--- OUTSIDE RECORDS SUMMARY | 2024-03-29 15:44 | XMS_ITS | CCD ---
Author Organization [facility] Care Team Providers Care Data Consultant Name Role Phone Raquel Odell Primary Care Provider [phone] YANCY LAMBERT Admitting Unavailable YANCY LAMBERT Attending Unavailable RAQUEL ODELL Primary Care Unavailable SABA DELGADO Admitting Unavailable SABA DELGADO Attending Unavailable RAQUEL ODELL Primary Care Unavailable SABA DELGADO Attending Unavailable SABA DELGADO Referring Unavailable DOYLE MARLEY Attending Unavailable SABA DELGADO Referring Unavailable DOYLE MARLEY Attending Unavailable KAMILLE SABA Attending Unavailable Medications Current Medications Medication Drug [...] less into rate field of order. Start: 03-20-2023 take 1 dose intraven ously twice daily [...] break. docusate sodium 50 mg / sennosides, fpc 8.6 mg oral tablet (1 source) Start: [...] Hemoglobin (Bld) [Mass/Vol] 10.7 g/dL Low 11.9-15.1 [facility] Comment on above: Performed By: #### H GB #### [facility] [address] [place] [address] Process Area Supervisor: Deven Kumar MD Hemoglobin (Bld) [Mass/Vol] 10.7 g/dL Low 11.9 - 15.1 g/dL [facility] Interpretation and review of laboratory results Abnormal [facility] CBC auto differentialon 09-09 Absolute Eos # 0.05 [facility] Absolute Immature Granulocyte 0.05 [facility] Absolute Lymph # 2.59 [facility] SECO [facility] Absolute [facility] [place] # 0.69 [facility] RS [facility] Basophils Absolute [facility] Basophils/100 WBC (Bld) 0 % 0 - 2 % [facility] Eosinophils/100 WBC (Bld) 1 % 1 - 4 % [facility] Hematocrit (Bld) [Volume fraction] 35.9 % Low 36.3 - 47.1 % [facility] Hemoglobin (Bld) [Mass/Vol] 11.9 g/dL 11.9 - 15.1 g/dL [facility] Immature granulocytes/100 WBC (Bld) 1 % High 0 [facility] Interpretation and review of laboratory results Abnormal [facility] Lymphocytes/100 WBC (Bld) 27 % 24 - 43 % [facility] MCH (RBC) [Entitic mass] 29.7 pg 25.2 - 33.5 pg [facility] MCHC (RBC) [Mass/Vol] 33.1 g/dL 28.4 - 34.8 g/dL [facility] MCV (RBC) [Entitic vol] 89.5 fL 82.6 - 102.9 fL [facility] Monocytes/100 WBC (Bld) 7 % 3 - 12 % [facility] NRBC Automated 0.0 0.0 per 100 WBC [facility] Platelet distribution width (Bld) [Ratio] 14.5 % High 11.8 - 14.4 % [facility] Platelet mean volume (Bld) [Entitic vol] 11.7 fL 8.1 - 13.5 fL [facility] Platelets (Bld) [#/Vol] 223 10*3/uL [facility] RBC (Bld) [#/Vol] 4.01 10*6/uL 3.95 - 5.1 1 m/uL [facility] Segmented neutrophils/100 WBC (Bld) 64 % 36 - 65 % [facility] Segs Absolute 6.36 [facility] WBC (Bld) [#/Vol] 9.8 10*3/uL [facility] CBC with Diffon 09-27-2022 Abs. Basophil <0.03 Normal 0.00-0.20 [facility] Comment on above: Performed By: #### C DP #### [facility] [address] [place], [facility] Process Area Supervisor: Deven Kumar MD Abs.Imm.Granulocyte 0.05 k/uL Normal 0.00-0.30 [facility] Comment on above: Performed By: #### C DP #### [facility] [address] [place], [facility] Process Area Supervisor: Deven Kumar MD Abs.Neutrophil (Seg) 6.36 k/uL Normal 1.50-8.10 [facility] Comment on above: Performed By: #### C DP #### [facility] [address] [place] [address] Process Area Supervisor: Deven Kumar MD Basophils/100 WBC (Bld) 0 % Normal 0-2 [facility] Comment on above: Performed By: #### C DP #### [facility] [address] [place] [address] Process Area Supervisor: Deven Kumar MD Eosinophils (Bld) [#/Vol] 0.05 10*3/uL Normal 0.00-0.44 [facility] Comment on above: Performed By: #### C DP #### [facility] [address] [place] [address] Process Area Supervisor: Deven Kumar MD Eosinophils/100 WBC (Bld) 1 % Normal 1-4 [facility] Comment on above: Performed By: #### C DP #### [address] [place], [facility] Process Area Supervisor: Deven Kumar MD Erythrocyte distribution width (RBC) [Ratio] 14.5 % High 11.8-14.4 [facility] Comment on above: Performed By: #### C DP #### [address] [place], [facility] Process Area Supervisor: Deven Kumar MD Hematocrit (Bld) [Volume fraction] 35.9 % Low 36.3-47.1 [facility] Comment on above: Performed By: #### C DP #### [address] [place], [facility] Process Area Supervisor: Deven Kumar MD Hemoglobin (Bld) [Mass/Vol] 11.9 g/dL Normal 11.9-15.1 [facility] Comment on above: Performed By: #### C DP #### [address] [place], [facility] Process Area Supervisor: Deven Kumar MD Immature granulocytes/100 WBC (Bld) 1 % High 0 [facility] Comment on above: Performed By: #### C DP #### [address] [place] [address] Process Area Supervisor: Deven Kumar MD Lymphocytes (Bld) [#/Vol] 2.59 10*3/uL Normal 1.10-3.70 [facility] Comment on above: Performed By: #### C DP #### [facility] [address] [place] [address] Process Area Supervisor: Deven Kumar MD Lymphocytes/100 WBC (Bld) 27 % Normal 24-43 [facility] Comment on above: Performed By: #### C DP #### [facility] [address] [place], [facility] Process Area Supervisor: Deven Kumar MD MCH (RBC) [Entitic mass] 29.7 pg Normal 25.2-33.5 [facility] Comment on above: Performed By: #### C DP #### [address] [place], [facility] Process Area Supervisor: Deven Kumar MD MCHC (RBC) [Mass/Vol] 33.1 g/dL Normal 28.4-34.8 [facility] Comment on above: Performed By: #### C DP #### [address] [place], [place] [id number] Process Area Supervisor: Deven Kumar MD MCV (RBC) [Entitic vol] 89.5 fL Normal 82.6-102.9 [facility] Comment on above: Performed By: #### C DP #### [address] [place], [facility] Process Area Supervisor: Deven Kumar MD Monocytes (Bld) [#/Vol] 0.69 10*3/uL Normal 0.10-1.20 [facility] Comment on above: Performed By: #### C DP #### [address] [place] [address] Process Area Supervisor: Deven Kumar MD Monocytes/100 WBC (Bld) 7 % Normal 3-12 [facility] Comment on above: Performed By: #### C DP #### [facility] [address] [place], [place] [id number] Process Area Supervisor: Deven Kumar MD Neutrophil (Seg) 64 % Normal 36-65 [facility] Comment on above: Performed By: #### C DP #### [facility] [address] [place] [address] [place], [place] [id number] Process Area Supervisor: Deven Kumar MD NRBC Automated 0.0 per 100 WBC Normal 0.0 [facility] Comment on above: Performed By: #### C DP #### [facility] [address] [place], [place] [id number] Process Area Supervisor: Deven Kumar MD Platelet mean volume (Bld) [Entitic vol] 11.7 fL Normal 8.1-13.5 [facility] Comment on above: Performed By: #### C DP #### [address] [place], [place] [id number] Process Area Supervisor: Deven Kumar MD Platelets (Bld) [#/Vol] 223 10*3/uL Normal 138-453 [facility] Comment on above: Performed By: #### C DP #### [address] [place], [place] [id number] Process Area Supervisor: Deven Kumar MD RBC (Bld) [#/Vol] 4.01 10*6/uL Normal 3.95-5.11 [facility] Comment on above: Performed By: #### C DP #### [facility] [address] [place] [address] [place], [place] [id number] Process Area Supervisor: Deven Kumar MD WBC (Bld) [#/Vol] 9.8 10*3/uL Normal 3.5-11.3 [facility] Comment on above: Performed By: #### C DP #### [facility] [address] [place], [place] [id number] Process Area Supervisor: Deven Kumar MD DRUG SCREEN MULTI URINEon Amphetamine Screen, Ur Negative NEGATIVE [facility] Comment on above: (Positive cutoff 1000 ng/mL) Barbiturate Screen, Ur Negative NEGATIVE [facility] Comment on above: (Positive cutoff 200 ng/mL) Benzodiazepine Screen, Urine Negative NEGATIVE [facility] Comment on above: (Positive cutoff 200 ng/mL) Buprenorphine Urine Negative NEGATIVE [facility] Comment on above: (Positive cutoff 5 ng/ml) Cannabinoid Scrn, Ur Negative NEGATIVE [facility] Comment on above: (Positive cutoff 50 ng/mL) Cocaine Metabolite, Urine Negative NEGATIVE [facility] Comment on above: (Positive cutoff 300 ng/mL) Fentanyl, Ur Negative NEGATIVE [facility] Comment on above: (Positive cutoff 5 ng/ml) Methadone Screen, Urine Negative NEGATIVE [facility] Comment on above: (Positive cutoff 300 ng/mL) Opiates, Urine Negative NEGATIVE [facility] Comment on above: (Positive cutoff 300 ng/mL) Oxycodone Screen, Ur Negative NEGATIVE [facility] Comment on above: (Positive cutoff 100 ng/mL) Phencyclidine, Urine Negative NEGATIVE [facility] Comment on above: (Positive cutoff 25 ng/mL) [facility] Drug Scr, Abuse, Uron 2022 Amphetamine(s),Ur Negative Normal NEG [facility] Comment on above: Result Comment: (Positive cutoff 1000 ng/mL) Performed By: #### D AU #### [address] [place] [address] Process Area Supervisor: Deven Kumar MD Barbiturate(s),Ur Negative Normal NEG [facility] Comment on above: Result Comment: (Positive cutoff 200 ng/mL) Performed By: #### D AU #### [facility] [address] [place] [address] [place] [address] Process Area Supervisor: Deven Kumar MD Benzodiazepine(s) Negative Normal NEG [facility] Comment on above: Result Comment: (Positive cutoff 200 ng/mL) Performed By: #### D AU #### [facility] [address] [place] [address] [place] [address] Process Area Supervisor: Deven Kumar MD Buprenorphrine, Ur Negative Normal NEG [facility] Comment on above: Result Comment: (Positive cutoff 5 ng/ml) Performed By: #### D AU #### [address] [place], [place] [id number] Process Area Supervisor: Dveen Kumar MD Cannabinoid(s),Ur Negative Normal NEG [facility] Comment on above: Result Comment: (Positive cutoff 50 ng/mL) Performed By: #### D AU #### [address] [place] [address] Process Area Supervisor: Deven Kumar MD Cocaine Metabolite Negative [facility] Comment on above: Result Comment: (Positive cutoff 300 ng/mL) Performed By: #### D AU #### [address] [place] [address] Process Area Supervisor: Deven Kumar MD Fentanyl, Urine Negative Normal [facility] Comment on above: Result Comment: (Positive cutoff 5 ng/ml) Performed By: #### D AU #### [address] [place] [address] Process Area Supervisor: Deven Kumar MD Methadone Ql (U) Negative Normal NEG [facility] Comment on above: Result Comment: (Positive cutoff 300 ng/mL) Performed By: #### D AU #### [facility] [address] [place] [address] [place] [address] Process Area Supervisor: Deven Kumar MD Opiate(s), Ur Negative Normal NEG [facility] Comment on above: Result Comment: (Positive cutoff 300 ng/mL) Performed By: #### D AU #### [address] [place], [place] [address]83 Process Area Supervisor: Deven Kumar MD Oxycodone, Urine Negative Normal NEG [facility] Comment on above: Result Comment: (Positive cutoff 100 ng/mL) Performed By: #### D AU #### [facility] [address] [place] [address] [place] [address] Process Area Supervisor: Deven Kumar MD Phencyclidine, Ur Negative Normal NEG [facility] Comment on above: Result Comment: (Positive cutoff 25 ng/mL) Performed By: #### D AU #### [facility] [address] [place] [address] [place] [address] Process Area Supervisor: Deven Kumar MD TYPE AND SCREENon 09-27-2022 ABO/Rh Positive [facility] Arm Band Number [id number] [facility] Expiration Date 09/30/2022,2359 [facility] Type + Screenon 09-27-2022 Type + Screen Sample Expiration 09/30/2022,2359 Arm Band Number [id number] ABO/Rh(D) O POSITIVE Antibody Screen NEGATIVE Normal [facility] Comment on above: Performed By: #### T YS #### [address] [place] [address] Process Area Supervisor: Deven Kumar MD No Panel Informationon 08-24 GBS, External Result Negative [facility] Work Phone: [facility] Work Phone: Cult,Urineon 08-21-2022 Cult,Urine Specimen Description .CLEAN CATCH URINE Culture NO SIGNIFICANT GROWTH Report Status FINAL 08/21/2022 Normal [facility] Comment on above: Performed By: #### U RC #### [facility] [place] [address] Process Area Supervisor: Jesus Hill MD [facility] [address] [place] [address] [place] [address] Process Area Supervisor: Deven Kumar MD OB 14 PLUS WEEKS SINGLE O R [...] Deven Vaughan MD 08/20/22 Final result Normal [facility] Urinalysis, Routineon 2022 Bilirubin, SemiQt,Ur Negative Normal NEG [facility] Comment on above: Performed By: #### U AEMEKA #### [facility] [address] [place] [address] Process Area Supervisor: Deven Kumar MD Blood, Urine Negative Normal [facility] Comment on above: Performed By: #### U AEMEKA #### [facility] [address] [place] [address] Process Area Supervisor: Deven Kumar MD Clarity (U) Clear Normal CLEAR [facility] Comment on above: Performed By: #### U A, GENEVIEVEO #### [facility] [address] [place] [address] Process Area Supervisor: Deven Kumar MD Color (U) Yellow Normal YEL [facility] Comment on above: Performed By: #### U AGENEVIEVEO #### [facility] [address] [place] [address] Process Area Supervisor: Deven Kumar MD Glucose Ql (U) Negative Normal NEG [facility] Comment on above: Performed By: #### U A, UMICAO #### [facility] [address] [place] [address] [place] [address] Process Area Supervisor: Deven Kumar MD Ketones Ql (U) TRACE Abnormal NEG [facility] Comment on above: Performed By: #### U A, UMICAO #### [facility] [address] [place] [address] [place], [place] [id number] Process Area Supervisor: Deven Kumar MD Leukocyte esterase Test strip Ql (U) MODERATE Abnormal NEG [facility] Comment on above: Performed By: #### U A, UMICAO #### [facility] [address] [place] [address] [place] [address] Process Area Supervisor: Deven Kumar MD Nitrite,Ur Negative Normal NEG [facility] Comment on above: Performed By: #### U A, UMICAO #### [facility] [address] [place] [address] [place] [address] Process Area Supervisor: Deven Kumar MD PH,Ur 6.0 Normal 5.0-9.0 [facility] Comment on above: Performed By: #### U A, UMICAO #### [facility] [address] [place] [address] [place] [address] Process Area Supervisor: Deven Kumar MD Protein Ql (U) Negative Normal NEG [facility] Comment on above: Performed By: #### U A, UMICAO #### [facility] [address] [place] [address] [place], [place] [id number] Process Area Supervisor: Deven Kumar MD Spec. [place],Ur >1.030 High 1.010-1.020 [facility] Comment on above: Performed By: #### U A, UMICAO #### [facility] [address] [place] [address] [place] [address] Process Area Supervisor: Deven Kumar MD Urobilinogen,Ur Normal Normal NORM [facility] Comment on above: Performed By: #### U A, UMICAO #### [facility] [address] [place], [place] [id number] Process Area Supervisor: Deven Kumar MD Urinalysis,Microon 3 Epithelial cells LM Ql (Urine sed) 5 TO 10 Normal 0-25 [facility] Comment on above: Performed By: #### U A, UMICAO #### [facility] [address] [place], [place] [id number] Process Area Supervisor: Deven Kumar MD Mucus Strands 3+ Abnormal NONE [facility] Comment on above: Performed By: #### U A, UMICAO #### [facility] [address] [place], [place] 36[address]83 Process Area Supervisor: Deven Kumar MD Urine RBC's None Normal 0-2 [facility] Comment on above: Performed By: #### U A, UMICAO #### [facility] [address] [place] [address] [place], [place] [address]83 Process Area Supervisor: Deven Kumar MD Urine WBC's 50 TO 100 Normal 0-5 [facility] Comment on above: Performed By: #### U A, UMICAO #### [facility] [address] [place] [address] [place], [place] [phone] Process Area Supervisor: Deven Kumar MD Microscopic Urinalysison Epithelial Cells UA 5 TO 10 [facility] Interpretation and review of laboratory results Abnormal [facility] Mucus, UA 3+ Abnormal None [facility] RBC clumps Auto (Urine sed) [#/Area] None [facility] WBC, UA 50 TO 100 [facility] Urinalysison 08-19-2022 Bilirubin Urine Negative NEGATIVE [facility] Color, UA Yellow Yellow [facility] Glucose Auto test strip (U) [Mass/Vol] Negative NEGATIVE [facility] Interpretation and review of laboratory results Abnormal [facility] Ketones (U) [Mass/Vol] TRACE Abnormal NEGATIVE [facility] Leukocyte esterase Auto test strip Ql (U) MODERATE Abnormal NEGATIVE [facility] Nitrite Auto test strip Ql (U) Negative NEGATIVE [facility] Protein (U) [Mass/Vol] 6.0 mg/dL 5.0 - 9.0 [facility] Protein (U) [Mass/Vol] Negative NEGATIVE [facility] Specific [place], UA High 1.010 - 1.020 B ON [facility] Turbidity UA Clear Clear [facility] Urine Hgb Negative NEGATIVE [facility] Urobilinogen, Urine Normal Normal [facility] US OB 2nd/3rd Trimesteron OB 2nd/3rd [...] on 05/04/2022 1555 Normal [facility] C. Trachomatis, External Res bubba 03-04-2022 C. Trachomatis, External Result Negative [facility] [employer] Work Phone: HIV, External Resulton 03-04 HIV, External Result Non-Reactive REJI N Pass[facility] Phone: Hepatitis B, External Result on 03-04-2022 Hep B, External Result Non-Reactive [facility] Phone: N. Gonorrhoeae, External Res ulton 03-04-2022 N. Gonorrhoeae, External Result Negative [facility] Phone: No Panel Informationon 03-04 ABO, External Result O [facility] Phone: [facility] Phone: [facility] Phone: RPR, External Labon 03-04-20 RPR, External Result Non-Reactive [facility] [employer] Phone: Rh Factor, External Resulton 03-04-2022 Rh Factor, External Result Positive [facility] Phone: Rubella Titer, External Resu lton 03-04-2022 Rubella Titer, External Result immune [facility] Phone: US OB 1ST Trimesteron 2021 US [...] on 02/16/2022 1436 Normal [facility] Vital Signs Date Time Vital Sign Value Performing Clinician Faci lity 09-29-2022 14:15-0400 Body temperature 98.1 [degF] Saba Floro [employer] - [employer]ie Work Phone: [facility] 09-29-2022 14:15-0400 Diastolic blood pressure 67 mm[Hg] Saba Montenegro [employer] Work Phone: [facility] 09-29-2022 14:15-0400 Heart rate 103 /min Saba Delgado APRN - [employer] Work Phone: [facility] 09-29-2022 14:15-0400 Respiratory rate 16 /min Saba Delgado APRN - [employer] Work Phone: [facility] 09-29-2022 14:15-0400 Systolic blood pressure 122 mm[Hg] Saba Delgado APRN - [employer] Work Phone: [facility] 09-28-2022 00:23-0400 SaO2% (BldA) [Mass fraction] 98 % Saba Delgado APRN - [employer] Work Phone: [facility] 09-27-2022 02:20-0400 Body height 154.9 cm Saba Montenegro CNM Work Phone: [facility] 09-27-2022 02:20-0400 Body mass index (BMI) [Ratio] 38.73 kg/m2 Saba Montenegro [employer] Work Phone: [facility] 09-27-2022 02:20-0400 Body weight 92.99 kg Saba Montenegro [employer] Work Phone: [facility] 08-19-2022 22:36-0500 Diastolic blood pressure 71 mm[Hg] Yancy Pool [employer] SAL[employer] CONSULTANT - CNM Work Phone: [facility] 08-19-2022 22:36-0500 Heart rate 97 /min Yancy Pool [employer] CONS[employer]ANT - CNM Work Phone: [facility] 08-19-2022 22:36-0500 Systolic blood pressure 118 mm[Hg] Yancy Hua [employer] SAL[employer] CONSULTANT - CNM Work Phone: [facility] Encounters Encounter Date Encounter Type Care Provider Facility Start: 03-05-2024 End: 03-05-2024 ambulatory KAMILLE SABA Not Available Start: 12-15-2023 End: 12-15-2023 ambulatory DOYLE AYAKA Not Available Start: 12-08-2023 End: 12-08-2023 ambulatory DOYLE AYAKA Not Available Start: 11-10-2023 End: 11-10-2023 ambulatory SABA VALDIVIAO Not Available Start: 11-09-2023 End: 11-09-2023 ambulatory SABA VALDIVIAO Not Available Start: 09-27-2022 End: 09-29-2022 Evaluation and management of inpatient SABA DELGADO [facility] Start: 09-27-2022 End: 09-29-2022 Evaluation and management of inpatient Saba Delgado [employer] - CNM Work Phone: [facility] Labor and Delivery Comment on above: delivery de livered (Primary Dx) Start: 08-20-2022 End: 08-20-2022 ambulatory [facility]Y LAMBERT [facility] Start: 08-19-2022 End: 08-20-2022 Subsequent hospital visit by physician Yancy Lambert APRN - CNM Work Phone: [facility] Labor and Delivery Start: 07-15-2020 End: 07-15-2020 Subsequent hospital visit by physician [facility] Covid Screening Schedule [facility] Covid Screening Comment on above: Arrived Procedures Date Procedure Procedure Detail Performing Clinician Start: 09-28-2022 Blood count hemoglobin Lauren F Walter Pinedo DO Work Phone: Start: 09-27-2022 Antibody screen Saba Delgado [employer]ANT - CNM Work Phone: Start: 09-27-2022 Blood count complete auto&auto difrntl wbc Saba Delgado [employer] CON[employer]ANT - CNM Work Phone: Start: 09-27-2022 End: 09-27-2022 Blood typing serologic abo Saba Delgado [facility] Work Phone: Start: 08-24-2022 GBS, EXTERNAL RESULT Hi claudine Provider Start: 08-19-2022 Urinalysis microscop ic only Yancy Lambert [facility] Work Phone: Start: 08-19-2022 Urnls dip stick/tabl et rgnt auto w/o microscopy Yancy Lambert [facility] Work Phone: Start: 03-04-2022 ABO, EXTERNAL RESULT Hi storical Provider Start: 03-04-2022 C. TRACHOMATIS, EXTE RNAL RESULT Historical Provider Start: 03-04-2022 HEPATITIS B, EXTERNA L RESULT Historical Provider Start: 03-04-2022 [facility] Start: 03-04-2022 N. GONORRHOEAE, EXTE RNAL RESULT Historical Provider Start: 03-04-2022 RH FACTOR, EXTERNAL RESULT Historical Provider Start: 03-04-2022 RPR, EXTERNAL RESULT Hi [facility] Provider Start: 03-04-2022 RUBELLA TITER, EXTER NAL RESULT Historical Provider Plan of Treatment Date Care Activity Detail Author Start: 2022 Influenza vaccination Flu vaccine (# 1) [facility] Start: 2021 Screening for malign ant neoplasm of cervix [facility] Start: 03-11-2020 Influenza vaccination Flu vaccine (# 1) [place], [place] Start: 02-09-2012 Screening for malign ant neoplasm of cervix [facility] Start: 2010 DTaP/Tdap/Td vaccine (1 - Tdap) DTaP/Tdap/Td vaccine (1 - Tdap) [facility] Start: 2009 Hepatitis C screening Hepatitis C sc reen [facility] Start: 2006 HIV screening HIV screen [facility] Start: 2003 Depression Screen Depression Screen [facility] Start: 02-09-1992 Varicella vaccine (1 of 2 - 2-dose childhood series) Varicella vaccine (1 of 2 - 2-dose childhood series) [facility] Start: 1991 COVID-19 Vaccine (#1) COVID-19 Vacci ne (#1) [facility] Start: 1991 Hepatitis C screening Hepatitis C sc [place], [place] End: 08-19-2022 Bacteria identified in Urine by Culture Urine culture Microbiology Routine One Time for 1 Occurrences starting 08/19/2022 until 08/19/2022 [facility] Phone: Comment on above: One Time for 1 Occur rences starting 08/19/2022 until 08/19/2022 End: 07-15-2020 COVID-19 COVID-19 Lab Routine Once for 1 Occurrences starting 07/15/2020 until 07/15/2020 [place], [place] Comment on above: Once for 1 Occurrenc es starting 07/15/2020 until 07/15/2020 COVID-19 COVID-19 Lab Rou sourav 07/15/2020 9:05 AM EDMOND [place] nonstress test nonst ress test OB Routine Daily until discontinued starting 08/20/2022 [facility] Phone: Comment on above: Daily until disconti nued starting 08/20/2022 Nonrebreather mask oxygen Nonreb reather mask oxygen Respiratory Care Routine As directed - RT (PRN) until discontinued starting 08/19/2022 [facility] Phone: Comment on above: As directed - RT (WV N) until discontinued starting 08/19/2022 Oxygen therapy [[facility] Data Set] Initiate Oxygen Therapy Protocol Respiratory Care Routine As Needed until discontinued starting 09/27/2022 [facility] Phone: Comment on above: As Needed until disc ontinued starting 09/27/2022 End: 09-27-2022 RHOGAM INJECTION ONLY RHOGAM INJECTION ONLY Blood Bank Routine One Time for 1 Occurrences starting 09/27/2022 until 09/27/2022 [facility] Phone: Comment on above: One Time for 1 Occur rences starting 09/27/2022 until 09/27/2022 Spirometry panel Incentive jessica metry Respiratory Care Routine Every 2hr while awake until discontinued starting 09/28/2022 [facility] Phone: Comment on above: Every 2hr while awak e until discontinued starting 09/28/2022 End: 08-19-2022 SVE SVE Point of Care Testing Routine One Time for 1 Occurrences starting 08/19/2022 until 08/19/2022 [facility] Phone: Comment on above: One Time for 1 Occur rences starting 08/19/2022 until 08/19/2022 End: 08-20-2022 US OB 14 PLUS WEEKS SINGLE OR FIRST GESTATION US OB 14 PLUS WEEKS SINGLE OR FIRST GESTATION Imaging STAT Once for 1 Occurrences starting 08/20/2022 until 08/20/2022 [facility] Phone: Comment on above: Once for 1 Occurrenc es starting 08/20/2022 until 08/20/2022 US OB 14 PLUS WEEKS SINGLE OR FIRST GESTATION US OB 14 PLUS WEEKS SINGLE OR FIRST GESTATION Imaging STAT 08/20/2022 1:07 AM EST [facility] Phone: Immunizations Immunization Date Immunization Notes Care Provider Jesus toribio 09-27-2022 diphtheria, tetanus toxoids and acellular pertussis vaccine, unspecified formulation Saba Delgado [employer] Work Phone: [facility] Phone: 09-27-2022 measles, mumps and rubella virus vaccine Saba Az[facility]qua[facility] - Maaguzi Work Phone: [facility] Phone: Payers Date Payer Category Payer Unknown [id number] 2022 Unknown [id number] [facility] [id number] 2014-Present [phone] [address] [address] [place] [address] [id number] 1991 Unknown [id number] 1991 Unknown [id number] 1991 Unknown [id number] 9 1991 Unknown [id number] 9 1991 Unknown [id number] 9 1991 Unknown [id number] 9 1990 Unknown [id number] 9 Social History Date Type Detail Facility Tobacco smoking stat [facility] Unknown if ever smoked [facility] [place] Start: 1990 Sex Assigned At Not on file M [place], [place] Start: 08-19-2022 Tobacco smoking stat [facility] Ex-smoker [facility] Phone: History of tobacco use Current smoker [facility] Phone: History of tobacco use Cigarette Smoker B ON [facility] Phone: Start: 08-19-2022 Cigarettes smoked current (pack per day) - Reported 0.3 [facility] Phone: History of tobacco use Passive smoker [facility] Phone: Start: 08-19-2022 Tobacco use and exposure Smoke less tobacco non-user [facility] Phone: Start: 08-19-2022 End: 09-28-2022 Alcohol intake Ex-drinker (finding) [facility] [employer] Work Phone: Start: 08-09-2022 End: 09-27-2022 Exposure to SARS-CoV-2 (event) Not sure [facility] [employer] Phone: Hospital Discharge instructions 09-29-2022 Discharge Instructions Note Date & Type Note Facility 09-29-2022 Hospital Discharg e instructions Jose Perez RN - 09/29/2022 1:09 PM EDT Follow-up with your OB doctor as specified. [facility] OB Department phone: Dr. Adarsh Lambert CNM Dr. Chencho Matta CN [address] [facility] [address] [facility] [address] [place] [address] Chencho Viveros CN [address] [facility] [address] [phone] Mona Delgado, MSN, BRIDAL STYLIST SALES CONSULTANT, CNM N[facility] [address] [facility] [address] [address] [facility] [address] [facility] [address] Celia Rosario CN [address] [place] [address] Piedad Wiley CNM [address] [place] [address] [phone] DIET Eat a well balanced diet focusing on foods high in fiber and protein. Drink plenty of fluids especially water. To avoid constipation you may take a mild stool softener as recommended by your doctor or branch billing payroll clerk. ACTIVITY Gradually increase your activity. Resume exercise regimen only after advice by your doctor or branch billing payroll clerk. Avoid lifting anything heavier than a gallon of milk for SIX weeks. Avoid driving until your doctor or branch billing payroll clerk has given their approval. Rise slowly from [...] of harming yourself or your . If infant will not stop crying, contact [...] medications as recommended by your doctor or branch billing payroll clerk for pain If you develop a warm, red, tender area on your breast or develop a fever contact your OB provider. For moms: If you become engorged, feeding may be more difficult or painful for 1-2 days. You may find it helpful to hand express some milk so that the infant can latch on more easily. While , continue to take your vitamins as directed by your doctor or branch billing payroll clerk. Refer to the booklet in the folder/binder for more information. If you feel you need more assistance or have questions, please call Rose Boyce IBCLC, market intelligence consultant, at or the OB department to [...] they become loose or soiled. If used, [place] should be removed by your care provider. [...] in your calf. documented in this encounter [facility] Phone: Hospital course Narrative 09-29-2022 KASIE López [...] # 2.59 1.10 - 3.70 k/uL Absolute [facility] [place] # 0.69 0.10 - 1.20 k/uL Absolute [...] Range Expiration Date 09/30/2022,2359 Arm Band Number [id number] ABO/Rh O POSITIVE Antibody Screen NEGATIVE ABO, [...] Your Medications These medications were sent to [facility] [address] [place] [address] [address] - P [phone] - F [phone] [address] ibuprofen 800 MG tablet oxyCODONE 5 MG immediate release tablet vitamin 27-1 MG Tabs tablet Admit date: 09/27/2022 2:01 AM Discharge Date: 09/29/2022 Discharged to: Home in stable condition Plan: Follow upwith Mona Delgado CNM in 1 wk documented in this encounter [facility] Phone: History of Present illness Narrative 09-29-2022 [...] -- -- -- -- -- 99 % 09/28/2212 -- -- -- -- -- 99 % [...] -- -- -- -- 99 % 09/27/22 182 131/63 -- -- 96 18 -- 09/27/221819 -- -- -- -- -- 99 % 09/27/221814 -- -- -- -- -- 99 % 09/27/221809 -- -- -- -- -- 99 % 09/27/22 180 120/78 -- -- (!) 106 16 99 % 09/27/221758 -- -- -- -- -- 99 % 09/27/221754 -- -- -- -- -- 99 % 09/27/221749 (!) 100/54 -- -- 74 18 98 % 09/27/221744 -- -- -- -- -- 98 % 09/27/221739 -- -- -- -- -- 97 % 09/27/22 173 (!) 97/54 -- -- 78 16 -- 09/27/22 172 -- -- -- -- -- 98 % 09/27/22 172 (!) 106/51 -- -- 99 16 99 % 09/27/22 171 -- -- -- -- -- 97 % 09/27/22 170 -- -- -- -- -- 97 % 09/27/22 1705 117/78 -- -- 100 16 -- 09/27/22 1704 -- -- -- -- -- 99 % 09/27/22 1659 -- -- -- -- -- 99 % 09/27/22 1654 -- -- -- -- -- 98 [...] -- -- 98 % 09/27/22 1551 (!) 112/58 -- -- 79 18 99 % 09/27/22 [...] -- -- -- 100 % 09/27/22 1306 (!) 113 -- -- 86 18 -- 09/27/22 1305 [...] -- -- 99 % 09/27/22 1221 (!) 108 -- -- 96 18 100 % 09/27/22 [...] -- -- -- 99 % 09/27/22 1121 (!) 10759 -- -- 86 18 100 % 09/27/22 [...] -- -- 100 % 09/27/22 1050 (!) 112 -- -- 70 16 -- 09/27/22 1046 [...] # 1 PLAN: Routine instructions and orders Dairy Products Maker Note: I first assisted Dr Watson with [...] resting in bed watching tv OBJECTIVE: Vitals: 09/27/22 19209/27/22194909/27/22195409/27/221999 BP: 123/67 Pulse: 93 Resp: 16 Temp: TempSrc: SpO2: 98% 98% 98% Weight: Height: heart rate: Baseline Heart Rate: 145 Accelerations: present Snf Variability: moderate Decelerations: absent Contraction frequency: 4-5 [...] were ok. I will report to Dr aWtson when she calls back Dr. Zuñiga, accounts payable bookkeeper, in unit and was updated on maternal [...] FHR to baseline when contraction has ended. Fur Feeder and Haresh Delgado CNM at bedside at this time. CNM performs SVE, 7-8/90-0. CNM at bedside for variable deceleration at 1702 and again at 1706. CNM states to continue to increase pitocin infusion. Pt placed on left side with pillow between her legs. Strip reviewed with CNM. Haresh Delgado CNM states she will come perform SVE. Fur Feeder at bedside repositioning patient to right side with pillow between her legs. Contraction palpated at 1644. CARROLM in unit reviewing strip, states to continue to restart pitocin infusion at 2milli/units. Haresh Delgado CNM in unit and updated on SVE. Strip reviewed with CNM. Orders to start pitocin infusion at 2milli/units at this time. Haresh Delgado CNM at patient bedside reviewing POC. Pt and her verbalize understanding. MICHELINE remains in unit reviewing strip. Haresh Delgado in unit. Made aware pitocin infusion was stopped at 1456 due to continued variable decelerations and all interventions reviewed with CNM. No new orders received at this time. MICHELINE states to leave pitocin infusion off for [...] 140, moderate variability and accelerations noted before bond writer left the room. Fur Feeder at bedside to reposition patient. Pt placed on her left side with peanut ball at 1345. Variable deceleration noted into the 70's, pt placed on right side with peanut ball at 1355 Variable deceleration continue with contractions, pt placed in , tailor sitting at 1400. Fur Feeder called Haresh Delgado CNM to updated on [...] infusion if FHR does not decelerate again. Fur Feeder phones Haresh Delgado CNM at this time. [...] pt placed in hands and knees from [id number]. Fur Feeder hand held ultrasound to trace FHR, intermittently head in the 140's-150's. Pt reports she had 2 contraptions while in hands and knees. Variable decelerations noted with contractions. SVE performed and patient 4-5/80/-2. Pt positioned to left side with Pillow between her legs. [place] and ultrasound adjusted. Contractions palpated by bond writer and are tracing inverted on EFM starting at 1040. 0947- M. Breiding MASONRY CONTRACTOR ADMINISTRATOR at bedside at this time. Pt alert and oriented. supportive at bedside. 0850- Consent forms signed at this time. Fur Feeder witnessed 0952- Timeout performed, all agree 0955-epidural placement begins at this time 1006-test dose administered per MASONRY CONTRACTOR ADMINISTRATOR, no side effects reported from patient 1015-epidural placement complete and patient laid back with right side tilt. Haresh Delgado CNM phones unit back at this time. Update provided on unchanged SVE, contraction pattern, FHR and variable noted with contraction. MICHELINE also updated on pitocin infusion rate and pt's request for an epidural. No further orders received at this time. Fur Feeder called Haresh Delgado CNM at this time. No answer. Message left to phone unit back when available. IV fluids for pre epidural placement bolus started at 0912. Anesthesia notified at 0919. M. Ivana MANZANARES states he will be over in roughly 20 minutes. Fur Feeder at bedside palpating contractions. [place] adjusted to properly trace contraction pattern. Pt [...] further needs. documented in this encounter [facility] [employer] Work Phone: History of Present illness Narrative 08-20-2022 [...] this time. Radiology phoned with verification for eeg technician to be called from Dr. Saavedra with [facility]. Tech states she will call subscription clerk tech at this time. documented in this encounter [facility] Phone: Hospital Discharge instructions 08-20-2022 Discharge Instructions Note Date & Type Note Facility 08-20-2022 Hospital Discharg e instructions Itzel Hudson RN - 08/20/2022 1:41 AM EST OUTPATIENT DISCHARGE Dr. Adarsh Lambert [facility] Dr. Chencho Matta [address] [place] ACTIVITY LIMITATIONS: ( x )Up and about [...] hour Keep your scheduled follow up appointment. technical support assistant Sydneybisincere from [facility] pharmacy in am and take as prescribed IN CASE OF EMERGENCY CONTACT LABOR AND DELIVERY . documented in this encounter [facility] Phone: Evaluation note Note Date & Type Note Facility Evaluation note Diagnosis PROM (premature rupture of membranes)- Primary Premature rupture of membranes in , unspecified as to episode of care documented in this encounter [facility] Phone: Evaluation note Note Date & Type [...] of antepartum condition documented in this encounter [facility] Phone: Summary Purpose Family History No Family [...] section and content) DATE CREATED AUTHOR 05/05/2022 [facility] dical Specialist DATE CREATED AUTHOR AUTHOR'S ORGANIZ ATION 09/30/2022 [facility] DATE CREATED AUTHOR AUTHOR'S ORGANIZ ATION 03/06/2024 [facility] dical Specialists EPIC Care Teams (unrecognized sec tion and content) Data Consultant Relationship Specialty Start Date End Date Raquel Odell [address] [place] [address] PCP - General Nurse Practitioner 07/14/20 Data Consultant Relationship Specialty Start Date End Date Raquel Odell [address] [facility] [place] [address] PCP - General Nurse Practitioner 07/14/20 Reason for Visit (unrecogniz ed section and content) Reason Comments Rupture of Membranes Pt states she felt a gush around 12 a.m. Specialty Diagnoses / Procedures Referred By Contac t Referred To Contact Diagnoses Normal labor Term Failure to progress in labor Saba Delgado APRN - CNMarcie [address] [place] [address] [facility] [address] [place] [address] Referral ID Status Reason Start Date Expiration Date Visits Re quested Visits Authorized [id number] 1 1 Ordered Prescriptions (unrec ognized section [...] mL IVPB (mini-bag) (COMPLETED) 2,000 mg, IntraVENous, DIRECTOR DATA PROCESSING TO O.R., 1 dose, On 09/27/22 at 2045, Antimicrobial Indications: Surgical Prophylaxis, Administer within 1 hour of incision., Labor and Delivery 2102 (New Bag - Provider: Bel Matta APRN - MASONRY CONTRACTOR ADMINISTRATOR) citric acid-sodium citrate (BICITRA) solution 30 mL [...] Pt requests to take at a later time)09 (Given - Provider: Suzanna Menjivar RN)2044 (Given - Provider: Sindhu Muñoz, RN) 0814 (Given - Provider: Jose Perez, ITZEL)2100 (Due) enoxaparin (LOVENOX) injection 40 mg 40 [...] Menjivar RN)1735 (Given - Provider: Suzanna Menjivar RN)2343 (Given - Provider: Sindhu Muñoz, ITZEL) 0515 (Due) metoclopramide (REGLAN) injection 10 mg (COMPLETED) 10 mg, IntraVENous, ONCE, 1 dose, On Tue09/27/22 at 2045, Give 60 minutes before surgery., Labor and [...] Suzanna Menjivar RN - Reason: IV Fluid Infusing)2043 (Given - Provider: Sindhu Muñoz RN) 0900 (Due)2100 (Due) vhjkzgh-czntik-mfuoa pertussis (BOOSTRIX) injection 0.5 mL 0.5 mL, [...] Kristal Sevilla RN)0950 (Rate/Dose Change - Provider: Elav Quintero RN)0952 (NoRateChange - Provider: Bel Matta APRN - MASONRY CONTRACTOR ADMINISTRATOR)1113 (Rate/Dose Change - Provider: Elva Quintero RN)1130 (Rate/Dose Change - Provider: Elva Quintero RN)1232 (New Bag - Provider: Elva Quintero RN)1437 (Rate/Dose Change - Provider: Elva Quintero RN)1500 (Rate/Dose Change - Provider: Elva Quintero RN)2104 (Paused - Provider: Bel Matta APRN - [place] - Comment: Switch to gravity)2105 (Restarted - Provider: Bel Matta APRN - MASONRY CONTRACTOR ADMINISTRATOR - Comment: 400 ml remaining in bag)2140 [...] every 2-3 minutes with cervical changes or Alder units (MVU) greater than 200 in a [...] (NoRateChange - Provider: Bel Matta APRN - MASONRY CONTRACTOR ADMINISTRATOR)1230 (Rate/Dose Change - Provider: Elva Quintero RN)1230 [...] Provider: Elva Quintero RN - Comment: per V. Floro CNM order)184 (Rate/Dose Change - Provider: Elva Quintero RN - Comment: per V. Floro CNM verbal order)2019 (Stopped - Provider: Carin Arvizu RN)213 (Given - Provider: Bel Matta APRN - MASONRY CONTRACTOR ADMINISTRATOR - Comment: pitocin infusion was off prior to transport to OR, discontinued at 2019 per stated by OB RN) ropivacaine (NAROPIN) 0.2% injection 0.2% (CANCELED) 10 mL/hr, Epidural, CONTINUOUS, Starting on Tue09/27/22 at 1130, Until Tue09/27/22 at 2232, Until delivery., Labor and Delivery 1010 (Given - Provider: Cristóbal Heath APRN - MASONRY CONTRACTOR ADMINISTRATOR)1012 (Given - Provider: KASIE Garcia CRNA)1013 (New Bag - Provider: KASIE Garcia CRNA)1727 (New Bag - Provider: Elva Quintero RN) PRN Medication Order 09/27/2022 09/28/2022 09/29/2022 0.9 [...] Carin Arvizu RN)0904 (Given - Provider: Suzanna Menjivar, ITZEL)1735 (Given - Provider: Suzanna Menjivar RN) 0118 (Given - Provider: Sindhu Muñoz RN)0814 (Given - Provider: Jose Perez RN) acetaminophen (TYLENOL) tablet 650 mg (CANCELED) 650 [...] Oral, EVERY 8 HOURS PRN, Starting on 09/28/22 at 0000, Until 10/02/22 at 2359, Other, [...] Delivery 0912 (New Bag - Provider: Elva Quintero, ITZEL)0950 (Stopped - Provider: Elva Quintero, ITZEL) lansinoh lanolin ointment Topical, EVERY 1 HOUR [...] Sindhu Muñoz RN)1000 (Given - Provider: Jose Perez, ITZEL)1444 (Given - Provider: Jose Perez, ITZEL) oxyCODONE (ROXICODONE) immediate release tablet 5 mg(Linked Group 1) 5 mg, Oral, EVERY 4 HOURS PRN, Starting on Tue09/27/22 at 2232, Until Discontinued, Pain Moderate (4-6), 0044 (Given - Provider: Carin Arvizu RN)0712 (Given - Provider: Carin Arvizu RN)0745 (Given - Provider: Suzanna Menjivar RN)1609 (See Alternative - Provider: Suzanna Menjivar RN)2042 (See Alternative - Provider: Sindhu Muñoz, ITZEL) 0119 (See Alternative - Provider: Sindhu Muñoz, ITZEL)1000 (See Alternative - Provider: Jose Perez, ITZEL)1444 (See Alternative - Provider: Jose Perez, ITZEL) sennosides-docusate sodium (SENOKOT-S) 8.6-50 MG tablet 1 [...] BE BASED ON THE PRIMARY CLINICAL RECORDS. [facility]. provides no warranty or guarantee of the accuracy or completeness of information in this document.
[2024-03-29 16:22] LABS: HCG Quantitative 78 mIU/mL
== END 2024-03-29 15:36 | disposition home or self-care (01) ==
LOC: LAB 15:36
PROVIDERS: Visit Provider Midwife
DX: Z32.01 Encounter for pregnancy test, result positive (principal)
CPT/HCPCS: 36415; 84702

== ENCOUNTER 2024-03-31 07:36 | Outpatient (OUT) | payer OTHER, SELFPAY ==
[2024-03-31 08:54] LABS: HCG Quantitative 154 mIU/mL
== END 2024-03-31 07:37 | disposition home or self-care (01) ==
LOC: LAB 07:37
PROVIDERS: Visit Provider Midwife
DX: Z32.01 Encounter for pregnancy test, result positive (principal)
CPT/HCPCS: 36415; 84702

== ENCOUNTER 2024-04-02 15:25 | Outpatient (OUT) | payer OTHER, SELFPAY ==
[2024-04-02 16:08] LABS: HCG Quantitative 370 mIU/mL
== END 2024-04-02 15:26 | disposition home or self-care (01) ==
LOC: LAB 15:25
PROVIDERS: Visit Provider Midwife
DX: Z32.01 Encounter for pregnancy test, result positive (principal)
CPT/HCPCS: 36415; 84702

== ENCOUNTER 2024-07-18 15:37 | Outpatient (OUT) | payer OTHER, SELFPAY ==
--- NOTE | 2024-07-18 15:43 | US_ITS ---
[address] [address] Patient Name: MOHAN MTZ MRN: [id number] date: 1990 Sex: F Assigned Patient Location: US Current Patient Location: Accession/Order Number: [id number] Exam Date: 07/18/2024 16:05 Report Date: 07/19/2024 07:22 At the request of: AMY SAAVEDRA Procedure: US OB anatomy EXAMINATION: US OB anatomy HISTORY: anatomic survey COMPARISON: No relevant comparison available. TECHNIQUE: Transabdominal sonographic examination was performed for obstetrical and evaluation. FINDINGS: Number: 1 Heart Rate: 149.17 bpm H.B. /min Amniotic Fluid Volume: Subjectively normal position: Cephalic presentation, variable lie Placental Location: ANTERIOR, grade 0, the placental edge is 6.9 cm from the internal os. A nonspecific 9 mm hypoechogenic lesion is identified at the placental myometrial junction, nonspecific Cervix Length: 3.96 cm , closed Normal anatomy: Lateral ventricles, cerebellum, posterior fossa, nose, lips, orbits, four-chamber heart, RVOT, LVOT, diaphragm, stomach, kidneys, abdominal cord insertion, bladder, umbilical arteries, three-vessel cord, extremities Suboptimal visualization: Spine secondary to position BIOMETRY: BPD: 4.81 cm; 20 weeks 4 days; 66.70 % HC: 17.32 cm; 19 weeks 6 days; 29.30 % AC: 14.74 cm; 20 weeks 0 days; 40 % FL: 3.18 cm; 19 weeks 6 days; 33.30 % EFW:324.64 g; 36 %, 11 ounces FL/AC: 21.59 FL/BPD: 66.17 HC/AC: 1.17 GESTATIONAL AGE: Age by EDC: 20 weeks 1 day MONIQUE by EDC: 2024-12-04 Age by current US: 20 weeks 1 day MONIQUE by current US: 2024-12-04 US/US OB anatomy IMPRESSION: Suboptimal visualization of the spine 9 mm hypoechoic lesion at the placental myometrial junction, nonspecific *Reference: [facility] Practice Guideline for the performance of Obstetric Ultrasound Examinations, April 10, 2007. Electronically authenticated by: CANDIDA JOSÉ Date: 07/19/2024 07:22
== END 2024-07-18 15:38 | disposition home or self-care (01) ==
LOC: US 15:38
PROVIDERS: Visit Provider Midwife
DX: O26.92 Pregnancy related conditions, unspecified, second trimester (principal); Z3A.20 20 weeks gestation of pregnancy
CPT/HCPCS: 76805

== ENCOUNTER 2024-08-15 08:47 | Outpatient (OUT) | payer OTHER, SELFPAY ==
--- OUTSIDE RECORDS SUMMARY | 2024-08-15 08:54 | XMS_ITS | CCD ---
Author Organization [facility] Care Team Providers Care Professional Services Specialist Name Role Phone Raquel Sharpe Primary Care Provider [phone] POOL YANCY E Admitting Unavailable POOL, YANCY Teresa Attending Unavailable RAQUEL SHARPE Primary Care Unavailable FLORO, AMY Admitting Unavailable FLORO, AMY Attending Unavailable ANNEMARIERAQUEL JANE Primary Care Unavailable Unavailable Primary Care Provider Unavailabl e FLORO, AMY L Attending Unavailable FLORO, AMY L Referring Unavailable HALLEY, ROGER Attending Unavailable FLORO, AMY L Referring Unavailable HALLEY, ROGER Attending Unavailable JAYANTNEL DARDEN Attending Unavailable FLORO, AMY L Referring Unavailable FLORO, AMY L Attending Unavailable FLORO, AMY L Attending Unavailable FLORO, AMY L Referring Unavailable FLORO, AMY L Attending Unavailable FLORO, AMY L Attending Unavailable Medications Current Medications Medication Drug [...] break. docusate sodium 50 mg / sennosides, snf 8.6 mg oral tablet (1 source) Start: [...] at 2232, Until Discontinued, Cramping, Flatulence, Problems Active Problems Problem Classification Problem Date Documented Date Episodic/Chronic distress and abnormal forces of labor (2 sources) Failure to progress in labor; Translations: [Other uterine inertia] Onset: 09-27-2022 Episodic Menstrual disorders (8 sources) Amenorrhea; Translations: [Amenorrhea, unspecified] 07-07-2024 Chronic Other and unspecified benign neoplasm (20 sources) Leiomyoma; Translations: [Benign neoplasm of connective and other soft tissue, unspecified] Onset: 12-15-2023 12-15-2023 Episodic Other complications of ; puerperium affecting management of mother (3 sources) Deliveries by ; Translations: [Encounter for delivery without indication] Onset: 09-28-2022 Episodic Other complications of ; puerperium affecting management of mother (1 source) Encounter for delivery without indication; Translations: [Encounter for delivery without indication] Onset: 09-28-2022 Episodic Other complications of (2 sources) Finding related to ; Translations: [ related conditions, unspecified, second trimester] 06-13-2024 Episodic Other and delivery including normal (20 sources) Normal labor; Translations: [Encounter for full-term [...] weeks gestation of ] Onset: 09-27-2022 Episodic Past or Other Problems Problem Classification Problem Date Documented Da te Episodic/Chronic Abdominal pain (20 sources) Pain in female pelvis; Translations: [Pelvic and perineal pain] Onset: 12-15-2023 12-15-2023 Episodic Other aftercare (2 sources) Surgical follow-up; Translations: [Encounter for follow-up examination after completed treatment for conditions other than malignant neoplasm] 03-05-2024 Episodic Results Test Name Value Interpretation Reference Range Facility Laboratoryon 06-22-2024 clinical biostatistics director review Ty (Unsp spec) [Interp] SEE NOTE [facility] Comment on above: A portion of [place] [facility] [place] results and submitted clinical information reviewed by Aminata Roy, Ph.D., [facility]. METHODOLOGY Fragile X testing is performed using fluorescent polymerase chain reaction (PCR) assays. Using flanking primers, the FMR1 CGG repeat region is co-amplified with the amelogenin gene, which is located on both the X and Y chromosomes to confirm gender information. A triplet-primed PCR reaction is also performed to detect CGG repeat expansions that are too large to be amplified using the flanking primers. Samples that are positive for an FMR1 CGG repeat expansion are further analyzed by a methylation PCR assay to provide information on the size and methylation status of the FMR1 CGG repeat. The SMN1 copy number is detected by quantitative PCR. The g.07169B>G variant ([id number]), assessed by quantitative PCR, is reported when the SMN1 copy is equal to two. SMN2 copy number is assessed by quantitative PCR when SMN1 copy number is equal to zero or one, or when SMN1 is equal to two in the presence of the g.82111O>G variant. All other gene variations are detected by multiplex-PCR amplification of specific gene regions, followed by nucleotide sequence analysis on a massively parallel sequencing platform. Although rare, false positive or false negative results may occur. All results should be interpreted in the context of clinical findings, relevant history, and other laboratory data. Visit [email or web address] for additional clinical information and references. Health care providers, please contact your local [facility] [employer] [facility] [employer] genetic counselor or call [phone] ( [phone] for assistance with the interpretation of these results. These tests were developed and their analytical performance characteristics have been determined by [facility]. They have not been cleared or approved by the FDA. These assays have been validated pursuant to the CLIA regulations and are used for clinical purposes. Narrative diagnostic [place] [facility] [place] (Bld/Tiss) [Interp] SEE NOTE [facility] Comment on above: NEGATIVE FOR ALL VARIANTS TESTED (SEE BELOW) Laboratory - Molecular patho logyon 06-22-2024 FMR1 gene CGG repeats [facility] [place] (Bld/Tiss) SEE NOTE [facility] Comment on above: Fragile X: FEMALE, 20 and 30 CGG repeats in the FMR1 gene detected (NEGATIVE) Genetic variant assessment [facility] [place] (Bld/Tiss) SEE NOTE [facility] Comment on above: DISEASES / VARIANTS TESTED DISEASE (GENE) [REFERENCE SEQUENCE] - VARIANTS ALPHA-THALASSEMIA (HBA1 and HBA2) [NM 984773.3 and NM 345932.4] -alpha3.7, -alpha4.2, -alpha20.5, --SEA, --MED, -MERCED, --TOGOLESE, [facility] (c.427T>C) BETA HEMOGLOBINOPATHIES (INCLUDING SICKLE CELL DISEASE) (HBB) [NM 245621.4] c.*111A>G, c.*110T>C, Hb D-[place] (c.364G>C), Hb O-[place] (c.364G>A), c.321 322insG, c.316-2A>C, c.316-2A>G, c.316-3C>A, c.316-106C>G, c.316-146T>G, c.316-197C>T, c.315+1G>A, c.287 288insA, c.251delG, c.230delC, c.216 217insA, c.203 204delTG, c.143 144insA, c.146 147insATCT, c.135delC, c.130G>T, c.126 129delCTTT (c.124 127delTTCT), c.118C>T, c.114G>A, c.112delT, c.93-1G>C, c.93-1G>A, c.93-21G>A, c.92+6T>C, c.92+5G>A, c.92+5G>C, c.92+5G>T, c.92+2T>A, c.92+2T>C, c.92+1G>A, c.92+1G>T, Hb Cordon (c.92G>C), c.92G>A, c.84 85insC, c.79G>T, HBE (c.79G>A), c.75T>A, c.59A>G, c.52A>T (LYS17*), c.51delC, c.48G>A, c.47G>A (Trp15), c.46delT, c.36delT, c.27 28insG, c.25 26delAA, c.20delA, HBS (c.20A>T), HBC (c.19G>A), c.17 18delCT, c.2T>C, c.2T>G, c.1A>G, c.-78A>C, c.-78A>G, c.-79A>G, c.-80T>A, c.-81A>G, c.-136C>G, c.-137C>A, c.-137C>G, c.-137C>T, c.-138C>T, c.-138C>A, c.-140C>T, c.-151C>T PEREZ SYNDROME (BLM) [NM 612514.3] 6190mdq7/ins7 (c.2207 2212delATCTGAinsTAGATTC) TOM DISEASE (ASPA) [NM 846166.2] IVS2-2A>G (c.433-2A>G), Y231* (c.693C>A), E285A (c.854A>C), A305E (c.914C>A) CYSTIC FIBROSIS (CFTR) [NM 822052.3] M1V (c.1A>G), CFTRdele2,3, Q39X (c.115C>T), 296+2T>A (c.164+2T>A), E60X (c.178G>T), P67L (c.200C>T), R75X (c.223C>T), G85E (c.254G>A), 394delTT (c.262delTT), G91R (c.271G>A), 405+1G>A (c.273+1G>A), 406-1G>A (c.274-1G>A), E92K (c.274G>A), E92X (c.274G>T), Q98X (c.292C>T), 444delA (c.313delA), 457TAT>G (c.325delTATinsG), D110H (c.328G>C), R117C (c.349C>T), R117H (c.350G>A), Y122X (c.366T>A), 574delA (c.442delA), 621+1G>T (c.489+1G>T), 663delT (c.531delT), G178R (c.532G>A), 711+1G>T (c.579+1G>T), 711+3A>G (c.579+3A>G), 711+5G>A (c.579+5G>A), 712-1G>T (c.580-1G>T), H199Y (c.595C>T), P205S (c.613C>T), L206W (c.617T>G), Q220X (c.658C>T), 271zfj06 (c.961has33), 935delA (c.803delA), 936delTA (c.805delAT), X343goa (c.933delCTT), 1078delT (c.948delT), G330X (c.988G>T), R334W (c.1000C>T), I336K (c.1007T>A), T338I (c.1013C>T), S341P (c.1021T>C), 1154insTC (c.1022insTC), 1161delC (c.1029delC), R347P (c.1040G>C), R347H(c.1040G>A), R352Q (c.1055G>A), 1213delT (c.1081delT), 1248+1G>A (c.1116+1G>A), 1259insA (c.1127insA), 1288insTA (c.1153insAT), W401X (c.1202G>A or c.1203G>A), 1341+1G>A (c.1209+1G>A), 0775uha5 (c.1329insAGAT), A455E (c.1364C>A), 1525-1G>A (c.1393-1G>A), S466X (c.1397C>A or c.1397C>G), L467P (c.1400T>C), 1548delG (c.1418delG), G480C (c.1438G>T), S489X (c.1466C>A), S492F (c.1475C>T), 1609delCA (c.1477delCA), Q493X (c.1477C>T), Z813ozu (c.1519delATC), Q021blv (c.1521delCTT), 1677delTA (c.1545delTA), V520F (c.1558G>T), C524X (c.1572C>A), Q525X (c.1573C>T), 1717-1G>A (c.1585-1G>A), 1717-8G>A (c.1585-8G>A), G542X (c.1624G>T), S549R (c.1645A>C or c.1647T>G), S549N (c.1646G>A), G551D (c.1652G>A), Q552X (c.1654C>T), R553X (c.1657C>T), A559T (c.1675G>A), R560K (c.1679G>A), R560T (c.1679G>C), 1811+1.6kbA>G (c.1679+1.6kbA>G), 1812-1G>A (c.1680-1G>A), P574H (c.1721C>A), D579G (c.1736A>G), E585X (c.1753G>T), 1898+1G>T (c.1766+1G>T), 1898+1G>A (c.1766+1G>A), 1898+3A>G (c.1766+3A>G), 1898+5G>T (c.1766+5G>T), 2043delG (c.1911delG), 2154mla9>A (c.4119zbp5kbjV), 2231wks30mww4 (c.2789oac09mykXRZPN), 2108delA (c.1975delA), 2143delT (c.2012delT), 2183AA>G (c.2051delAAinsG), 2184insA (c.2051insA), 2184delA (c.2052delA), R709X (c.2125C>T), K710X (c.2128A>T), 2307insA (c.2175insA), L732X (c.2195T>G), 2347delG (c.2215delG), R764X (c.2290C>T), 2585delT (c.2453delT), E822X (c.2464G>T), 2622+1G>A (c.2490+1G>A), E831X (c.2491G>T),W846X (c.2537G>A or c.2538G>A), R851X (c.2551C>T), 2711delT (c.2583delT), 2789+5G>A (c.2657+5G>A), Q890X (c.2668C>T), 2869insG (c.2737insG), L927P (c.2780T>C), S945L (c.2834C>T), 3007delG (c.2875delG), G970R (c.2908G>C), 3120G>A (c.2988G>A), 3120+1G>A (c.2988+1G>A), 3121-1G>A (c.2989-1G>A), 3171delC (c.3039delC), 0083enf3 (c.3067delATAGTG), 3272-26A>G (c.3140-26A>G), J3950W (c.3194T>C), N9970X (c.3196C>T), Y5117C (c.3197G>A), U3329K (c.3230T>C), C5060E (c.3266G>A), E1024W (c.3276C>A or c.3276C>G), H3457B (c.3278T>C), E3906L (c.3302T>A), I7582H (c.3310G>T), L7410C (c.3382A>T), A0786D (c.3435G>A), F3061I (c.3472C>T), D7471Y (c.3484C>T), 3659delC (c.3528delC), 4395vca7 (c.3535delACCA), K9259W (c.3587C>G), D6974A (c.3611G>A or c.3612G>A), 3791delC (c.3659delC), 3821delT (c.3691delT), H6429K (c.3700A>G), A2748X (c.3712C>T), 3849+10kbC>T (c.3717+99980J>T), U8718Q (c.3731G>A), 3876delA (c.3744delA), U1611G (c.3752G>A), M3498H (c.3764C>A), 3905insT (c.3773insT), U2075B (c.3846G>A), P0325F (c.3848G>T), 4005+1G>A ( (more content not included)... SMN1 gene targeted mutation analysis [employer] Doc (Bld/Tiss) 2 COPIES [facility] No Panel Informationon 06-22 2+0 RISK VARIANT Not detected [facility] NEGATIVE SUMMARY STATEMENT SEE NOTE [facility] Comment on above: This carrier test in cludes sequencing and targeted analysis of the specific variants listed. In some cases, this individual's risk to have a child affected with the diseases tested is reduced based on a negative result. Sensitivity and utility of testing depends largely upon the individual's ethnic background. While negative results may indicate a reduced carrier risk for some or all diseases tested, this risk cannot be eliminated. Please refer to the Residual Risk Table(s) for selected residual carrier risks after a negative result. Race C [facility] RESIDUAL RISK TABLE SEE NOTE [facility] Comment on above: RESIDUAL CARRIER RIS K TABLE - FOR USE ONLY AFTER RESULTS ARE NEGATIVE (ASSUMES FAMILY HISTORY IS NEGATIVE) Disease Ethnicity Detection Prior Risk Rate % Risk After Negative Result Alpha- Thalassemia Mediterranean, Up to 94 Varies Reduced [facility] Ethnicity Aime Marmolejo Asian Indian Beta-Hemoglobinopathies (Including Sickle Cell Disease) Mediterranean, 99 Varies Reduced [facility] , Ethnicity Aime [place], Perez Syndrome Ashkenazi Oriental Orthodox 99 Tom Disease Ashkenazi Oriental Orthodox >97 <07/11,801 Non-Ashkenazi 50 Not Oriental Orthodox known Cystic Fibrosis Ashkenazi Oriental Orthodox 95 08/03461 Non- 90 08/04 Kyrgyz 88 1 78 1292 Kyrgyz 53 Dihydrolipoamide Dehydrogenase Deficiency Ashkenazi Oriental Orthodox >95 1107 <07/12,121 Familial Dysautonomia Ashkenazi [employer] >99 1 <3,001 F[facility]ial [facility]insulinism [facility] 90 Fanconi Anemia [facility] 99 07/19, Fragile X Females 99 08/04, Gaucher Disease Ashkenazi [employer] Orthodox 95 07/25 Glycogen Storage Disease Type Ia Ashkenazi [employer] 95 1,261 51 1 Rocael Syndrome 2 [facility] 07/20,601 Maple Syrup Urine Disease Ashkenazi [employer] 95 07/11,921 Mucolipidosis Type IV Ashkenazi [employer] Orthodox 95 07/11,761 Nemaline Myopathy [facility] >95 <07/13,341 Brandi-Pick Disease Types A&B Ashkenazi Oriental Orthodox 97 1115 1 07/13,801 Phillip-Sachs Disease [facility] 98 08/06 07/11,301 LuxembourgerNarberth 70 08/10 General Population 46 1300 1/555 Usher Syndrome, Type IF Ashkenazi Oriental Orthodox >75 1147 <585 Usher Syndrome, Type IIIA Ashkenazi [employer] Orthodox >95 120 <07/12,381 Walker-Warburg Syndrome Ashkenazi [employer] Orthodox 99 07/17,801 SMA INTERPRETATION Negative [facility] Comment on above: INTERPRETATION: This analysis identified two (2) copies of the SMN1 gene. The g.14140I>G variant was not detected (NEGATIVE). The revised carrier risk for an individual with two (2) copies of the SMN1 gene and the absence of the g.00462P>G variant is dependent on ethnicity and is provided in the table below (Cassandra et al., 2012. PMID: 26488927; Brennan et al., 2017. PMID: 99343125). LIMITATIONS OF ANALYSIS: This negative result does not rule out carrier status or a diagnosis of spinal muscular atrophy (SMA). This testing cannot identify all individuals who have two copies of the SMN1 gene on one chromosome and none on the opposite chromosome (silent carriers), nor does it rule out other pathogenic/likely pathogenic variants in the SMN1 gene. The risk for pathogenic/likely pathogenic variants that cause SMA other than the loss of at least exon 7 depends greatly on family history, clinical presentation and ethnicity. SMA RESIDUAL RISK RISK BELOW [facility] Comment on above: Revised carrier risk for individuals with no family history of SMA Carrier Population Detection Carrier Revised Risk/ Ethnicity Rate Risk Variant Absent 95% 1:47 1:921 Ashkenazi 93% 1:67 1:918 Oriental Orthodox 94% 1:59 1:907 90% 1:72 1:375 Kyrgyz 93% 1:68 1:906 MULTIPLE TESTING PRIORITIES; ROUTINE TESTING TO FOLLOW. [employer] Organization Information Site ID: [id number] Name: [facility] [employer] [facility] [employer], Address: [address] [place] [address] Director: Nayely Bertrand MD,PhD,NANI [facility] Laboratoryon 05-23-2024 Chr X and Y aneuploidy Dosage of chromosome-specific cfDNA Ql (cfDNA) No aneuploidy [facility] Narrative diagnostic report [facility] Ty (Bld/Tiss) [Interp] SEE NOTE [facility] Comment on above: This specimen showed an expected representation of chromosome 21, 18, and 13 material. See Limitations below. Laboratory - Miscellaneous t estson 05-23-2024 Laboratory comment Ty (Report) SEE NOTE [facility] Comment on above: QNatal(R) Advanced i s a cell-free DNA screening test that screens for increased risk of certain chromosomal abnormalities that may cause defects, including Trisomy 21 (Down syndrome), Trisomy 18, Trisomy 13, and certain sex chromosome abnormalities (i.e., 45,X, 47,XXY, 47,XXX, and 47,XYY), as well as sex. In addition, if selected as an option, QNatal(R) Advanced can screen for certain microdeletions (i.e., 22q, 5p, 1p36, 15q, 11q, 8q, and 4p) that may cause defects. This test does not assess the risk of abnormalities such as neural tube defects or ventral wall defects and should not be considered in isolation from other clinical findings and laboratory test results. QNatal(R) Advanced has been validated in donohue pregnancies for the trisomies and sex chromosome abnormalities listed above, as well as for microdeletions, and for the determination of sex. Sex chromosome aneuploidy analysis is only performed in donohue pregnancies. This screening test has also been validated in twin pregnancies for the trisomies listed above and for microdeletions, but not for the sex chromosome abnormalities due to limited data. This screening test has not been validated in higher order pregnancies (more than two) because limited data is available. Sex chromosomal aneuploidy results issued for pregnancies confirmed to be of multiple gestations are not valid and should be disregarded. Microdeletion screening is limited to the specified microdeletion regions (see Methodology ). The Y chromosome is analyzed for the determination of sex. The sensitivity and specificity of sex determination analysis may be less than that of the Trisomy 21, 18, and 13 analysis and this determination can be confounded by vanishing twin syndrome in pregnancies that were originally multiple gestation pregnancies. It should be noted that QNatal(R) Advanced is a quantitative analysis of maternal and placental cfDNA. As a result, the accuracy of screening results may be affected by the presence of chromosome abnormalities or microdeletions that are maternal or confined placental in origin. Sensitivity Specific ity T21 >99.9% >99.9% T18 >99.9% >99.9% T13 >99.9% >99.9% Accuracy Y >99.9% Performance of the [facility]Natal Advanced laboratory-developed test (LDT) has been determined based on internal analytical assessment. Reference Lab Test Method SEE NOTE [facility] Comment on above: Circulating cell-eric e (cf) DNA was isolated from plasma followed by detection on a massively parallel sequencing platform. Bioinformatic analysis was performed to determine the representation of chromosomes 21, 18, 13, X and Y in circulating cell-free DNA. The representation of sequences from the critical regions involved in 1p36 microdeletion syndrome (1p36), Umanzor-Hirschhorn syndrome (4p), Cri-du-chat syndrome (5p), Alan-Giedion syndrome (8q), Teresa syndrome (11q), Prader Willi syndrome/Angelman syndrome (15q), and DiGeorge syndrome (22q) is evaluated for the detection of microdeletions if requested. Performance characteristics refer to the analytical performance of this screening test. This screening test is performed pursuant to a license agreement with [employer]. [facility] Advanced is a laboratory developed test that has been developed and validated, pursuant to the Clinical Laboratory Improvements Amendments of 1988 (CLIA), and as such it has not been reviewed by FDA. Service comment (Unsp spec) [Interp] SEE NOTE [facility] Comment on above: Laboratory testing supervised and results monitored by Luis M Aceves, Ph.D., [facility], [facility], [facility]. Laboratory - Molecular patho logyon 05-23-2024 Cell-free DNA./Cell-free DNA.total Dosage of chromosome-specific cfDNA Ty (cfDNA) 7.80% [facility] Chr 13 trisomy Dosage of chromosome-specific cfDNA Ql (cfDNA) Negative [facility] Chr 18 trisomy Dosage of chromosome-specific cfDNA Ql (cfDNA) Negative [facility] Chr 21 trisomy Dosage of chromosome-specific cfDNA Ql (cfDNA) Negative [facility] Chr X and Y aneuploidy Dosage of chromosome-specific cfDNA (cfDNA) [Interp] SEE NOTE [facility] Comment on above: No apparent abnormal ity was detected. See Limitations below. Microdels risk Sequencing Ql (cfDNA) [Interp] Not detected [facility] Microdels risk Sequencing Ql (cfDNA) [Interp] SEE NOTE [facility] Comment on above: No apparent abnormal ity was detected. See Limitations below. Y chromosome Sequencing (cfDNA) [Interp] SEE NOTE [facility] Comment on above: Consistent with a ma le fetus. Y chromosome Sequencing Ql (cfDNA) Detected [facility] No Panel Informationon 05-23 ABNORMAL DEANNA? NO [facility] ABNORMAL US? NO [facility] ADVANCED MATERNAL AGE? NO [facility] Gestational age in days 1 [facility] Gestational age in weeks 11 [facility] Number of fetuses by US 1 [facility] SPLIT 05/16/2024 [facility] [id number] [employer] Organization Information Site ID: [id number] Name: [employer] [facility] [employer], Address: [address] [place] [phone] Director: Nayely Bertrand MD,PhD,NANI [facility] CBC panel Auto (Bld)on 05-17 Erythrocyte distribution width (RBC) [Ratio] 12.8 % 11.0 - 15.0 % [facility] Hematocrit (Bld) [Volume fraction] 40.9 % 35.0 - 45.0 % [facility] Hemoglobin (Bld) [Mass/Vol] 13.5 g/dL 11.7 - 15.5 g/dL [facility] MCH (RBC) [Entitic mass] 30.1 pg 27.0 - 33.0 pg [facility] MCHC (RBC) [Mass/Vol] 33 g/dL 32.0 - 36.0 g/dL [facility] Comment on above: For adults, a slight decrease in the calculated MCHC value (in the range of 30 to 32 g/dL) is most likely not clinically significant; however, it should be interpreted with caution in correlation with other red cell parameters and the patient's clinical condition. MCV (RBC) [Entitic vol] 91.3 fL 80.0 - 100.0 fL [facility] Platelet mean volume (Bld) [Entitic vol] 11.2 fL 7.5 - 12.5 fL [facility] Platelets (Bld) [#/Vol] 263 10*3/uL [facility] RBC (Bld) [#/Vol] 4.48 10*6/uL [facility] WBC (Bld) [#/Vol] 5.9 10*3/uL [facility] Performing Organization Information Site ID: [id number] Name: [facility] Address: [address] [place] [phone] Director: Alisa Harris [facility] Laboratory - Blood bankon ABO group Nom (Bld) O [facility] Blood group antibody screen Ql Detected [facility] Comment on above: Reference range No antibodies detected This assay is a screening test for the detection of red blood cell antibodies. The test is not to be used for pretransfusion screening or for the medical management of an alloimmunized . Rh Nom (Bld) Positive [facility] Comment on above: For additional information, please refer to http://education.ParcelPoint/faq/WQA257 (This link is being provided for informational/ educational purposes only.) Laboratory - Chemistry and C hemistry - challengeon 05-17-2024 TSH Qn 0.72 m[IU]/L mIU/L [facility] Comment on above: Reference Range > or = 20 Years 0.40-4.50 Ranges First trimester 0.26-2.66 Second trimester 0.55-2.73 Third trimester 0.43-2.91 Laboratory - Hematology and Cell countson 05-17-2024 HbA1c (Bld) [Mass fraction] 5.1 % [facility] Comment on above: For the purpose of s creening for the presence of diabetes: <5.7% Consistent with the absence of diabetes 5.7-6.4% Consistent with increased risk for diabetes (prediabetes) > or =6.5% Consistent with diabetes This assay result is consistent with a decreased risk of diabetes. Currently, no consensus exists regarding use of hemoglobin A1c for diagnosis of diabetes in children. According to [place] Diabetes Association (ADA) guidelines, hemoglobin A1c <7.0% represents optimal control in non- diabetic patients. Different metrics may apply to specific patient populations. Standards of Medical Care in Diabetes(ADA). Laboratory - Microbiology an d Antimicrobial susceptibilityon 05-17-2024 HBV surface Ag IA Ql Non-Reactive NON-REACTIVE [facility] Comment on above: For additional information, please refer to [email or web address].Changba/faq/[email or web address] (This link is being provided for informational/ educational purposes only.) HCV Ab IA Ql Non-Reactive NON-REACTIVE [facility] Comment on above: HCV antibody was non-reactive. There is no laboratory evidence of HCV infection. In most cases, no further action is required. However, if recent HCV exposure is suspected, a test for HCV RNA (test code 44292) is suggested. For additional information please refer to [email or web address].Changba/faq/[email or web address] (This link is being provided for informational/ educational purposes only.) HIV 1+2 Ab+HIV1 p24 Ag IA Ql Non-Reactive NON-REACTIVE [facility] Comment on above: HIV-1 antigen and HI V-1/HIV-2 antibodies were not detected. There is no laboratory evidence of HIV infection. PLEASE NOTE: This information has been disclosed to you from records whose confidentiality may be protected by state law. If your state requires such protection, then the state law prohibits you from making any further disclosure of the information without the specific written consent of the person to whom it pertains, or as otherwise permitted by law. A general authorization for the release of medical or other information is NOT sufficient for this purpose. For additional information please refer to http://BostInno.[email or web address]/faq/ROP973 (This link is being provided for informational/ educational purposes only.) The performance of this assay has not been clinically validated in patients less than 2 years old. Reagin Ab RPR Ql (S) Non-Reactive NON-REACTIVE [facility] Rubella virus IgG Qn (S) 9.23 [IU]/mL Index [facility] Comment on above: Index Interpretation ----- <0.90 Not consistent with immunity 0.90-0.99 Equivocal > or = 1.00 Consistent with immunity The presence of rubella IgG antibody suggests immunization or past or current infection with rubella virus. No Panel Informationon 05-17 PATIENT UNABLE TO VOID; ADVISED TO RETURN FOR COLLECTION. [employer] Organization Information Site ID: QPT Name: [employer] [facility] Address: [facility] [place] , [address] [place] [id number] Director: Milton Landers MD [facility] HCG ( test) Ql (U)o n 05-01-2024 Interpretation and review of laboratory results Abnormal [facility] [employer] Preg Test, Ur Positive [facility] US OB < 14 WEEKS EARLYon US OB < 14 WEEKS EARLY TITLE OF EXAM: OB Ultrasound: REASON FOR EXAM: Dating. TECHNIQUE: Grayscale imaging is performed. Measurements: heart rate: 120 bpm Sac: 1.6 cm CRL: 0.4 cm GA for sonogram: 6.1 wk (05.6-06.6) MONIQUE: 12/11/2024 Maternal Anatomy: Uterus: Size: LxHxW: 10.0 x 8.1 x 5.5 cm Cervix Length: 4.1 cm Ovaries: LxHxW (cm) Vol (cc) Right: 4.2 x 3.2 x 2.9 20.4 CLINICAL SUMMARY: Early intrauterine is seen with positive cardiac activity. heart is observed with a heart rate of 120 BPM. Yolk sac is identified. Gestational sac noted within fundus of uterus. Tech note: Right ovary anechoic ben 2.2 x 2.4 x 2.1 cm IMPRESSION: 1. Early IUP, viable. Select sono age for dates : 6.1 weeks. 2. Sliver pelvic free fluid, nonspecific. 3. Followup ultrasound 20-22 weeks GA for growth/anatomy. 4. Small right ovarian cyst. Question CLC. This report is generated using voice recognition reporting (Petrotechnicse). On occasion, iXpertcribe erroneously drops words from the report or replaces the spoken word with a similar sounding word. Please call with any questions/concerns regarding the report. Dictated and transcribed 04/19/24/dpd This report has been electronically signed and approved by the interpreting radiologist. Electronically Signed Chava Toussaint II, M.D. 2024-04-19 14:27:55 Normal Not Available [facility] PREG QUANT HCGon 024 HCG QUANTITATIVE 370 mIU/mL [facility] Comment on above: 5-50 0.2-1 WEEK 50-500 1-2 WEEKS 100-5,000 2-3 WEEKS 500-10,000 3-4 WEEKS 1,000-50,000 4-5 WEEKS 10,000-100,000 5-6 WEEKS 15,000-200,000 6-8 WEEKS 10,000-100,000 2-3 MONTHS [facility] PREG QUANT HCGon 024 HCG QUANTITATIVE 154 mIU/mL [facility] Comment on above: 5-50 0.2-1 WEEK 50-500 1-2 WEEKS 100-5,000 2-3 WEEKS 500-10,000 3-4 WEEKS 1,000-50,000 4-5 WEEKS 10,000-100,000 5-6 WEEKS 15,000-200,000 6-8 WEEKS 10,000-100,000 2-3 MONTHS [facility] PREG QUANT HCGon 024 HCG QUANTITATIVE 78 mIU/mL [facility] Comment on above: 5-50 0.2-1 WEEK 50-500 1-2 WEEKS 100-5,000 2-3 WEEKS 500-10,000 3-4 WEEKS 1,000-50,000 4-5 WEEKS 10,000-100,000 5-6 WEEKS 15,000-200,000 6-8 WEEKS 10,000-100,000 2-3 MONTHS [facility] US PELVIS TRANSVAGINALon US PELVIS TRANSVAGINAL FINDINGS: [...] Hemoglobin (Bld) [Mass/Vol] 10.7 g/dL Low 11.9-15.1 [facility] Comment on above: Performed By: #### H GB #### [facility] [address] [place] [address] [employer] Center Technician: Deven Kumar MD Hemoglobin (Bld) [Mass/Vol] 10.7 g/dL Low 11.9 - 15.1 g/dL [facility] Interpretation and review of laboratory results Abnormal [facility] CBC auto differentialon 09-09 Absolute Eos # 0.05 [facility] [facility] Absolute Immature Granulocyte 0.05 [facility] Absolute Lymph # 2.59 [facility] Absolute Oktibbeha # 0.69 [facility] Basophils Absolute [facility] Basophils/100 WBC (Bld) 0 % 0 - 2 % [facility] Eosinophils/100 WBC (Bld) 1 % 1 - 4 % [facility] Hematocrit (Bld) [Volume fraction] 35.9 % Low 36.3 - 47.1 % [facility] Hemoglobin (Bld) [Mass/Vol] 11.9 g/dL 11.9 - 15.1 g/dL [facility] Immature granulocytes/100 WBC (Bld) 1 % High 0 [facility] Interpretation and review of laboratory results Abnormal [facility] Lymphocytes/100 WBC (Bld) 27 % 24 - 43 % [facility] MCH (RBC) [Entitic mass] 29.7 pg 25.2 - 33.5 pg [facility] MCHC (RBC) [Mass/Vol] 33.1 g/dL 28.4 - 34.8 g/dL [facility] MCV (RBC) [Entitic vol] 89.5 fL 82.6 - 102.9 fL [facility] Monocytes/100 WBC (Bld) 7 % 3 - 12 % [facility] NRBC Automated 0.0 0.0 per 100 WBC [facility] Platelet distribution width (Bld) [Ratio] 14.5 % High 11.8 - 14.4 % [facility] Platelet mean volume (Bld) [Entitic vol] 11.7 fL 8.1 - 13.5 fL [facility] Platelets (Bld) [#/Vol] 223 10*3/uL [facility] RBC (Bld) [#/Vol] 4.01 10*6/uL 3.95 - 5.1 1 m/uL [facility] Segmented neutrophils/100 WBC (Bld) 64 % 36 - 65 % [facility] Segs Absolute 6.36 [facility] WBC (Bld) [#/Vol] 9.8 10*3/uL [facility] CBC with Diffon 09-27-2022 Abs. Basophil <0.03 Normal 0.00-0.20 [facility] Comment on above: Performed By: #### C DP #### [address] [place] [address] [employer] Technician: Deven Kumar MD Abs.Imm.Granulocyte 0.05 k/uL Normal 0.00-0.30 [facility] Comment on above: Performed By: #### C DP #### [address] [place], [place] [id number] [employer] Technician: Deven Kumar MD Abs.Neutrophil (Seg) 6.36 k/uL Normal 1.50-8.10 [facility] Comment on above: Performed By: #### C DP #### [address] [place], [place] [id number] [employer] Technician: Deven Kumar MD Basophils/100 WBC (Bld) 0 % Normal 0-2 [facility] Comment on above: Performed By: #### C DP #### [facility] [address] [place] [address] [place], [place] [phone] [employer] Technician: Deven Kumar MD Eosinophils (Bld) [#/Vol] 0.05 10*3/uL Normal 0.00-0.44 [facility] Comment on above: Performed By: #### C DP #### [address] [place], [place] [phone] [employer] Technician: Deven Kumar MD Eosinophils/100 WBC (Bld) 1 % Normal 1-4 [facility] Comment on above: Performed By: #### C DP #### [facility] [address] [place], [place] [id number] [employer] Technician: Deven Kumar MD Erythrocyte distribution width (RBC) [Ratio] 14.5 % High 11.8-14.4 [facility] Comment on above: Performed By: #### C DP #### [facility] [address] [place], [place] [id number] [employer] Technician: Deven Kumar MD Hematocrit (Bld) [Volume fraction] 35.9 % Low 36.3-47.1 [facility] Comment on above: Performed By: #### C DP #### [facility] [address] [place] [address] [employer] Technician: Deven Kumar MD Hemoglobin (Bld) [Mass/Vol] 11.9 g/dL Normal 11.9-15.1 [facility] Comment on above: Performed By: #### C DP #### [facility] [address] [place], [place] [phone] [employer] Technician: Deven Kumar MD Immature granulocytes/100 WBC (Bld) 1 % High 0 [facility] Comment on above: Performed By: #### C DP #### [facility] [address] [place], [place] [phone] [employer] Technician: Deven Kumar MD Lymphocytes (Bld) [#/Vol] 2.59 10*3/uL Normal 1.10-3.70 [facility] Comment on above: Performed By: #### C DP #### [facility] [address] [place], [place] [phone] [employer] Technician: Deven Kumar MD Lymphocytes/100 WBC (Bld) 27 % Normal 24-43 [facility] Comment on above: Performed By: #### C DP #### [facility] [address] [place], [place] 1858283 [employer] Technician: Deven Kumar MD MCH (RBC) [Entitic mass] 29.7 pg Normal 25.2-33.5 [facility] Comment on above: Performed By: #### C DP #### [facility] [address] [place] [facility] [employer] Technician: Deven Kumar MD MCHC (RBC) [Mass/Vol] 33.1 g/dL Normal 28.4-34.8 [facility] Comment on above: Performed By: #### C DP #### [address] [place], [facility] [employer] Technician: Deven Kumar MD MCV (RBC) [Entitic vol] 89.5 fL Normal 82.6-102.9 [facility] Comment on above: Performed By: #### C DP #### [address] [place], [facility] [employer] Technician: Deven Kumar MD Monocytes (Bld) [#/Vol] 0.69 10*3/uL Normal 0.10-1.20 [facility] Comment on above: Performed By: #### C DP #### [address] [place] [facility] [employer] Technician: Deven Kumar MD Monocytes/100 WBC (Bld) 7 % Normal 3-12 [facility] Comment on above: Performed By: #### C DP #### [facility] [address] [place], [place] 643[address] [employer] Technician: Deven Kumar MD Neutrophil (Seg) 64 % Normal 36-65 [facility] Comment on above: Performed By: #### C DP #### [facility] [address] [place] [address] [place] [place], [place] [phone] [employer] Technician: Deven Kumar MD NRBC Automated 0.0 per 100 WBC Normal 0.0 [facility] Comment on above: Performed By: #### C DP #### [facility] [address] [place] [id number] [employer] Technician: Deven Kumar MD Platelet mean volume (Bld) [Entitic vol] 11.7 fL Normal 8.1-13.5 [facility] Comment on above: Performed By: #### C DP #### [facility] [address] [place] [phone] [employer] Technician: Deven Kumar MD Platelets (Bld) [#/Vol] 223 10*3/uL Normal 138-453 [facility] Comment on above: Performed By: #### C DP #### [address] [place] [address] [employer] Technician: Deven Kumar MD RBC (Bld) [#/Vol] 4.01 10*6/uL Normal 3.95-5.11 [facility] Comment on above: Performed By: #### C DP #### [address] [place] [phone] [employer] Technician: Deven Kumar MD WBC (Bld) [#/Vol] 9.8 10*3/uL Normal 3.5-11.3 [facility] Comment on above: Performed By: #### C DP #### [facility] [address] [place] [address] Dr[place] [phone] [employer] Technician: Deven Kumar MD DRUG SCREEN MULTI URINEon Amphetamine Screen, Ur Negative NEGATIVE [facility] [employer] Comment on above: (Positive cutoff 1000 ng/mL) Barbiturate Screen, Ur Negative NEGATIVE [facility] [facility] Comment on above: (Positive cutoff 200 ng/mL) Benzodiazepine Screen, Urine Negative NEGATIVE [facility] [employer] Comment on above: (Positive cutoff 200 ng/mL) Buprenorphine Urine Negative NEGATIVE [facility] [place] [employer] Comment on above: (Positive cutoff 5 ng/ml) Cannabinoid Scrn, Ur Negative NEGATIVE [facility] Comment on above: (Positive cutoff 50 ng/mL) Cocaine Metabolite, Urine Negative NEGATIVE [facility] Comment on above: (Positive cutoff 300 ng/mL) Fentanyl, Ur Negative NEGATIVE [facility] Comment on above: (Positive cutoff 5 ng/ml) Methadone Screen, Urine Negative NEGATIVE [facility] Comment on above: (Positive cutoff 300 ng/mL) Opiates, Urine Negative NEGATIVE [facility] Comment on above: (Positive cutoff 300 ng/mL) Oxycodone Screen, Ur Negative NEGATIVE [facility] Comment on above: (Positive cutoff 100 ng/mL) Phencyclidine, Urine Negative NEGATIVE [facility] Comment on above: (Positive cutoff 25 ng/mL) [facility] Drug Scr, Abuse, Uron 2022 Amphetamine(s),Ur Negative Normal NEG [facility] Comment on above: Result Comment: (Positive cutoff 1000 ng/mL) Performed By: #### D AU #### [address] [place] [id number] [employer] Technician: Deven Kmuar MD Barbiturate(s),Ur Negative Normal NEG [facility] Comment on above: Result Comment: (Positive cutoff 200 ng/mL) Performed By: #### D AU #### [address] [place] [id number] [employer] Technician: Deven Kumar MD Benzodiazepine(s) Negative Normal NEG [facility] Comment on above: Result Comment: (Positive cutoff 200 ng/mL) Performed By: #### D AU #### [address] [place] [address] [employer] Technician: Deven Kumar MD Buprenorphrine, Ur Negative Normal NEG [facility] Comment on above: Result Comment: (Positive cutoff 5 ng/ml) Performed By: #### D AU #### [address] [place] [address] [employer] Technician: Deven Kumar MD Cannabinoid(s),Ur Negative Normal NEG [facility] Comment on above: Result Comment: (Positive cutoff 50 ng/mL) Performed By: #### D AU #### [facility] [address] [place] [address] [place], [place] [phone] [employer] Technician: Deven Kumar MD Cocaine Metabolite Negative Normal [facility] Comment on above: Result Comment: (Positive cutoff 300 ng/mL) Performed By: #### D AU #### [address] [place], [place] 1606283 [employer] Technician: Deven Kumar MD Fentanyl, Urine Negative Normal NEG [facility] Comment on above: Result Comment: (Positive cutoff 5 ng/ml) Performed By: #### D AU #### [address] [place], [place] [phone] [employer] Technician: Deven Kumar MD Methadone Ql (U) Negative Normal NEG [facility] Comment on above: Result Comment: (Positive cutoff 300 ng/mL) Performed By: #### D AU #### [address] [place], [place] [phone] [employer] Technician: Deven Kumar MD Opiate(s), Ur Negative Normal NEG [facility] Comment on above: Result Comment: (Positive cutoff 300 ng/mL) Performed By: #### D AU #### [address] [place], [place] [phone] [employer] Technician: Deven Kumar MD Oxycodone, Urine Negative Normal NEG [facility] Comment on above: Result Comment: (Positive cutoff 100 ng/mL) Performed By: #### D AU #### [address] [place], [place] [phone] [employer] Technician: Deven Kumar MD Phencyclidine, Ur Negative Normal [facility] Comment on above: Result Comment: (Positive cutoff 25 ng/mL) Performed By: #### D AU #### [facility] [address] [place] [address] [employer] Technician: Deven Kumar MD TYPE AND SCREENon 09-27-2022 ABO/Rh Positive [facility] Arm Band Number [id number] [facility] Expiration Date 09/30/2022,2359 [facility] Type + Screenon 09-27-2022 Type + Screen Sample Expiration 09/30/2022,2359 Arm Band Number [id number] ABO/Rh(D) O POSITIVE Antibody Screen NEGATIVE Normal [facility] Comment on above: Performed By: #### T YS #### [address] [place] [address] [employer] Technician: Deven Kumar MD No Panel Informationon 08-24 GBS, External Result Negative [facility] Work Phone: [facility] Work Phone: Cult,Urineon 08-21-2022 Cult,Urine Specimen Description .CLEAN CATCH URINE Culture NO SIGNIFICANT GROWTH Report Status FINAL 08/21/2022 [facility] Comment on above: Performed By: #### U RC #### [facility] [address] [place] [address] [employer] Center Technician: Jesus Hill MD [address] [place] [address] [employer] Technician: Deven Kumar MD US OB 14 PLUS [...] Deven Vaughan MD 08/20/22 Final result Normal [facility] Urinalysis, Routineon 2022 Bilirubin, SemiQt,Ur Negative Normal NEG [facility] Comment on above: Performed By: #### U A, UMICAO #### [facility] [address] [place] [address] [place], [place] 1307583 [employer] Technician: Deven Kumar MD Blood, Urine Negative Normal NEG [facility] Comment on above: Performed By: #### U A, UMICAO #### [facility] [address] [place] [address] [place], [place] 1990883 [employer] Technician: Deven Kumar MD Clarity (U) Clear Normal CLEAR [facility] Comment on above: Performed By: #### U A, UMICAO #### [facility] [address] [place] [address] [place], [place] 1127683 [employer] Technician: Deven Kumar MD Color (U) Yellow Normal YEL [facility] Comment on above: Performed By: #### U A, UMICAO #### [facility] [address] [place] [address] [place] [address] [employer] Technician: Deven Kumar MD Glucose Ql (U) Negative Normal NEG [facility] Comment on above: Performed By: #### U A, UMICAO #### [facility] [address] [place] [address] [place] [address] [employer] Technician: Deven Kumar MD Ketones Ql (U) TRACE Abnormal NEG [facility] Comment on above: Performed By: #### U A, UMICAO #### [facility] [address] [place] [address] [place], [place] [phone] [employer] Technician: Deven Kumar MD Leukocyte esterase Test strip Ql (U) MODERATE Abnormal NEG [facility] Comment on above: Performed By: #### U A, UMICAO #### [facility] [address] [place] [address] Dr[place], [place] [phone] [employer] Technician: Deven Kumar MD Nitrite,Ur Negative Normal NEG [facility] Comment on above: Performed By: #### U A, UMICAO #### [facility] [address] [place] [address] [place], [place] 8085383 [employer] Technician: Deven Kumar MD PH,Ur 6.0 Normal 5.0-9.0 [facility] Comment on above: Performed By: #### U A, UMICAO #### [address] [place] [address] [employer] Technician: Deven Kumar MD Protein Ql (U) Negative Normal NEG [facility] Comment on above: Performed By: #### U A, UMICAO #### [facility] [address] [place] [address] [place], [place] 1985883 [employer] Technician: Deven Kumar MD Spec. [place],Ur >1.030 High 1.010-1.020 [facility] Comment on above: Performed By: #### U A, UMICAO #### [facility] [address] [place] [address] [place] [address] [employer] Technician: Deven Kumar MD Urobilinogen,Ur Normal Normal NORM [facility] Comment on above: Performed By: #### U A, UMICAO #### [facility] [address] [place] [address] [place] [address] [employer] Technician: Deven Kumar MD Urinalysis,Microon 3 Epithelial cells LM Ql (Urine sed) 5 TO 10 Normal 0-25 [facility] Comment on above: Performed By: #### U A, UMICAO #### [facility] [address] [place] [address] [employer] Technician: Deven Kumar MD Mucus Strands 3+ Abnormal NONE [facility] Comment on above: Performed By: #### U A, UMICAO #### [facility] [address] [place], [place] [phone] [employer] Technician: Deven Kumar MD Urine RBC's None Normal 0-2 [facility] Comment on above: Performed By: #### U A, UMICAO #### [facility] [address] [place], [place] 5896383 [employer] Technician: Deven Kumar MD Urine WBC's 50 TO 100 Normal 0-5 [facility] Comment on above: Performed By: #### U A, UMICAO #### [facility] [address] [place] [address] [employer] Technician: Deven Kumar MD Microscopic Urinalysison Epithelial Cells UA 5 TO 10 [facility] Interpretation and review of laboratory results Abnormal [facility] Mucus, UA 3+ Abnormal None [facility] RBC clumps Auto (Urine sed) [#/Area] None [facility] WBC, UA 50 TO 100 [facility] Urinalysison 08-19-2022 Bilirubin Urine Negative NEGATIVE [facility] Color, UA Yellow Yellow [facility] Glucose Auto test strip (U) [Mass/Vol] Negative NEGATIVE [facility] Interpretation and review of laboratory results Abnormal [facility] Ketones (U) [Mass/Vol] TRACE Abnormal NEGATIVE [facility] Leukocyte esterase Auto test strip Ql (U) MODERATE Abnormal NEGATIVE [facility] Nitrite Auto test strip Ql (U) Negative NEGATIVE [facility] Protein (U) [Mass/Vol] 6.0 mg/dL 5.0 - 9.0 [facility] Protein (U) [Mass/Vol] Negative NEGATIVE [facility] Specific [place], UA High 1.010 - 1.020 B ON [employer] [facility] Turbidity UA Clear Clear [facility] Urine Hgb Negative NEGATIVE [facility]ENTER[facility] Urobilinogen, Urine Normal Normal [facility] US OB 2nd/3rd Trimesteron OB 2nd/3rd [...] by Cole Mckeon on 05/04/2022 1555 Normal [facility] Prosthodontist C. Trachomatis, External Res [facility] 03-04-2022 C. Trachomatis, External Result Negative [facility] Work Phone: HIV, External Resulton 03-04 HIV, External Result Non-Reactive [employer] [employer] Work Phone: Hepatitis B, External Result on 03-04-2022 Hep B, External Result Non-Reactive [facility] Work Phone: N. Gonorrhoeae, External Res [facility] 03-04-2022 N. Gonorrhoeae, External Result Negative [facility] [employer] Work Phone: No Panel Informationon 03-04 ABO, External Result O [employer] Work Phone: [employer] Work Phone: [employer] Work Phone: RPR, External Labon 03-04-20 RPR, External Result Non-Reactive [facility] [place] Work Phone: Rh Factor, External Resulton 03-04-2022 Rh Factor, External Result Positive [employer] Work Phone: Rubella Titer, External Resu lton 03-04-2022 Rubella Titer, External Result immune [employer] Work Phone: US OB 1ST Trimesteron 2021 US [...] by Cole Mckeon on 02/16/2022 1436 Normal [facility] Specialist Vital Signs Date Time Vital Sign Value Performing Clinician Facility 07-16-2024 14:58-0500 Body mass index (BMI) [Ratio] 36.28 kg/m2 [facility] 07-16-2024 14:58-0500 Body weight 87.09 kg Amy Delgado [facility] Work Phone: [facility] 07-16-2024 14:58-0500 Diastolic blood pressure 80 mm[Hg] Amy Delgado [facility] Work Phone: [facility] 07-16-2024 14:58-0500 Systolic blood pressure 120 mm[Hg] Amy Floro CNM Work Phone: [facility] 06-13-2024 15:33-0500 Body mass index (BMI) [Ratio] 36.28 kg/m2 Amy Floro CNM Work Phone: [facility] 06-13-2024 15:33-0500 Body weight 87.09 kg Amy Floro CNM Work Phone: [facility] 06-13-2024 15:33-0500 Diastolic blood pressure 80 mm[Hg] Amy Floro CNM Work Phone: [facility] 06-13-2024 15:33-0500 Systolic blood pressure 120 mm[Hg] Amy Floro CNM Work Phone: [facility] 05-16-2024 08:28-0500 Body mass index (BMI) [Ratio] 36.47 kg/m2 Amy Floro CNM Work Phone: [facility] 05-16-2024 08:28-0500 Body weight 87.54 kg Amy Floro CNM Work Phone: [facility] 05-16-2024 08:28-0500 Diastolic blood pressure 70 mm[Hg] Amy Floro CNM Work Phone: [facility] 05-16-2024 08:28-0500 Systolic blood pressure 112 mm[Hg] Amy Floro CNM Work Phone: [facility] 03-05-2024 09:27-0400 Body height 154.9 cm Nel HUTCHINSON Work Phone: [facility] 03-05-2024 09:27-0400 Body mass index (BMI) [Ratio] 36.11 kg/m2 Nel HUTCHINSON Work Phone: [facility] 03-05-2024 09:27-0400 Body weight 86.69 kg Nel HUTCHINSON Work Phone: [facility] 03-05-2024 09:27-0400 Diastolic blood pressure 74 mm[Hg] Nel HUTCHINSON Work Phone: [facility] 03-05-2024 09:27-0400 Systolic blood pressure 116 mm[Hg] Nel HUTCHINSON Work Phone: [facility] 09-29-2022 14:15-0400 Body temperature 98.1 [degF] Amy Delgado APRN - CNM Work Phone: [employer] 09-29-2022 14:15-0400 Diastolic blood pressure 67 mm[Hg] Amy Delgado APRN - CNM Work Phone: [employer] 09-29-2022 14:15-0400 Heart rate 103 /min Amy Delgado APRN - CNM Work Phone: [employer] 09-29-2022 14:15-0400 Respiratory rate 16 /min Amy Delgado APRN - CNM Work Phone: [employer] 09-29-2022 14:15-0400 Systolic blood pressure 122 mm[Hg] Amy Delgado APRN - CNM Work Phone: [employer] 09-28-2022 00:23-0400 SaO2% (BldA) [Mass fraction] 98 % Amy Delgado APRN - CNM Work Phone: [employer] 09-27-2022 02:20-0400 Body height 154.9 cm Amy Delgado APRN - CNM Work Phone: [employer] 09-27-2022 02:20-0400 Body mass index (BMI) [Ratio] 38.73 kg/m2 Amy Delgado APRN - CNM Work Phone: [employer] 09-27-2022 02:20-0400 Body weight 92.99 kg Amy Delgado APRN - CNM Work Phone: [employer] 08-19-2022 22:36-0500 Diastolic blood pressure 71 mm[Hg] Yancy Lambert APRN - CNM Work Phone: [facility] 08-19-2022 22:36-0500 Heart rate 97 /min Yancy Lambert APRN - CNM Work Phone: [facility] 08-19-2022 22:36-0500 Systolic blood pressure 118 mm[Hg] Yancy Burna [employer] - CNMarcie Work Phone: [facility] Encounters Encounter Date Encounter Type Care Provider Facility Start: 07-16-2024 End: 07-16-2024 Subsequent care visit Amy Delgado CNM Work Phone: [facility] Comment on above: Encounter for superv ision of other normal , second trimester (Primary Dx); History of section; Fibroid Start: 07-16-2024 End: 07-16-2024 ambulatory AMY L FLORO Not Available Start: 07-16-2024 End: 07-16-2024 Bamboo flowsheet Amy Shila Valdiviao CNM Work Phone: [facility] Start: 07-16-2024 End: 07-16-2024 Bamboo flowsheet Amy Shila Floro CNM Work Phone: [facility] Start: 06-18-2024 End: 06-18-2024 Telephone encounter Amy Delgado CNM Work Phone: [facility] Start: 06-13-2024 End: 06-13-2024 ambulatory AMY L FLORO Not Available Start: 06-13-2024 End: 06-13-2024 Subsequent care visit Amy Delgado CNM Work Phone: [facility] Comment on above: History of section (Primary Dx); Encounter for supervision of other normal , second trimester; related condition in second trimester Start: 06-13-2024 End: 06-13-2024 Bamboo flowsheet Amy Shila Floro CNM Work Phone: [facility] Start: 06-13-2024 End: 06-13-2024 Bamboo flowsheet Amy Delgado CNM Work Phone: [facility] Start: 05-16-2024 End: 05-16-2024 Bamboo flowsheet Amy Delgado CNM Work Phone: [facility] Start: 05-16-2024 End: 05-16-2024 Bamboo flowsheet Amy Delgado CNM Work Phone: [facility] Start: 05-16-2024 End: 05-16-2024 Subsequent care visit Amy Delgado CNM Work Phone: [facility] Comment on above: History of section (Primary Dx); Encounter for supervision of other normal , first trimester; examination or test, positive result; Amenorrhea Start: 05-16-2024 End: 05-16-2024 ambulatory AMY Shila VALDIVIAO Not Available Start: 04-18-2024 End: 04-18-2024 Initial care visit Amy Delgado CNM Work Phone: [facility] Comment on above: GA: 7w1d Start: 04-18-2024 End: 04-18-2024 ambulatory AMY L FLORO Not Available Start: 04-02-2024 End: 04-02-2024 Clinisync Result Encounter Amy Valdiviao CNM Work Phone: [facility] Unsolicited Start: 04-02-2024 End: 04-02-2024 Clinisync Result Encounter Amy Valdiviao CNM Work Phone: [facility] Unsolicited Start: 03-31-2024 End: 03-31-2024 Clinisync Result Encounter Amy Valdiviao CNM Work Phone: [facility] Unsolicited Start: 03-31-2024 End: 03-31-2024 Clinisync Result Encounter Amy Valdiviao CNM Work Phone: [facility] Unsolicited Start: 03-29-2024 End: 03-29-2024 Clinisync Result Encounter Amy Delgado CNM Work Phone: [facility] Unsolicited Start: 03-29-2024 End: 03-29-2024 Clinisync Result Encounter Amy Delgado CNM Work Phone: [facility] Unsolicited Start: 03-13-2024 End: 03-13-2024 Postop follow up visit related to original px Roger Halley DO Work Phone: [facility] Comment on above: Status post D&C Start: 03-05-2024 End: 03-05-2024 Bamboo flowsheet Nel HUTCHINSON Work Phone: [facility] Start: 03-05-2024 End: 03-05-2024 Bamboo flowsheet Nel Saba PA Work Phone: [facility] Start: 03-05-2024 End: 03-05-2024 Postop follow up visit related to original px Nel Saba PA Work Phone: [facility] Comment on above: Postoperative examin ation Start: 03-05-2024 End: 03-05-2024 ambulatory NEL SABA Not Available Start: 12-15-2023 Preprocedural examin ation done Nel HUTCHINSON Work Phone: [facility] Start: 12-15-2023 End: 12-15-2023 ambulatory ROGER AHLLEY Not Available Start: 12-08-2023 End: 12-08-2023 ambulatory ROGER HALLEY Not Available Start: 11-10-2023 End: 11-10-2023 ambulatory AMY L FLORO Not Available Start: 11-09-2023 End: 11-09-2023 ambulatory AMY L FLORO Not Available Start: 09-27-2022 End: 09-29-2022 Evaluation and management of inpatient AMYYANNICK DELGADO [facility] Start: 09-27-2022 End: 09-29-2022 Evaluation and management of inpatient Amy Delgado [employer] - CNM Work Phone: [facility] Labor and Delivery Comment on above: delivery de livered (Primary Dx) Start: 08-20-2022 End: 08-20-2022 ambulatory YANCY LAMBERT [facility] Start: 08-19-2022 End: 08-20-2022 Subsequent hospital visit by physician Yancy Lambert [employer] - CNM Work Phone: [facility] Labor [facility] Delivery Start: 07-15-2020 End: 07-15-2020 Subsequent hospital visit by physician [facility] Covid Screening Schedule [facility] Covid Screening Comment on above: Arrived Procedures Date Procedure Procedure Detail Performing Clinician Start: 05-16-2024 QNATAL(R) ADVANCED Bety Valdiviao CNM Work Phone: Start: 05-16-2024 QHERIT(TM) EXPANDED CARRIER SCREEN Amy Valdiviao CNM Work Phone: Start: 05-16-2024 Antibody screen rbc each serum technique Amy Valdiviao CNM Work Phone: Start: 05-16-2024 Hemoglobin glycosyla francine a1c Amy Valdiviao CNM Work Phone: Start: 05-16-2024 Iaad ia hepatitis b surface antigen Amy Valdiviao CNM Work Phone: Start: 05-16-2024 TSH W/REFLEX TO FT4 Mona yannick Valdiviao CNM Work Phone: Start: 05-01-2024 Urine test visual color cmprsn meths Amy Valdiviao CNM Work Phone: Start: 04-02-2024 [facility] PREG QUANT HCG Greer kei L Floro CNM Work Phone: Start: 03-31-2024 [facility] PREG QUANT HCG Bety kei L Floro CNM Work Phone: Start: 03-29-2024 [facility] PREG QUANT HCG Bety kei L Floro CNM Work Phone: Start: 09-28-2022 Blood count hemoglobin Lauren Pinedo DO Work Phone: Start: 09-27-2022 Antibody screen Amy Delgado [facility] Work Phone: Start: 09-27-2022 Blood count complete auto&auto difrntl wbc Amy Delgado [facility] Work Phone: Start: 09-27-2022 End: 09-27-2022 Blood typing serologic abo Amy Delgado [facility] Work Phone: Start: 08-24-2022 GBS, EXTERNAL RESULT Hi claudine Provider Start: 08-19-2022 Urinalysis microscop ic only Yancy Lambert [facility] Work Phone: Start: 08-19-2022 Urnls dip stick/tabl et rgnt auto w/o microscopy Yancy Moore Hua [facility] Work Phone: Start: 03-04-2022 ABO, EXTERNAL RESULT Hi storical Provider Start: 03-04-2022 C. TRACHOMATIS, EXTE RNAL RESULT Historical Provider Start: 03-04-2022 HEPATITIS B, EXTERNA L RESULT Historical Provider Start: 03-04-2022 HIV, EXTERNAL RESULT Hi storical Provider Start: 03-04-2022 N. GONORRHOEAE, EXTE RNAL RESULT Historical Provider Start: 03-04-2022 RH FACTOR, EXTERNAL RESULT Historical Provider Start: 03-04-2022 RPR, EXTERNAL RESULT Hi storical Provider Start: 03-04-2022 RUBELLA TITER, EXTER NAL RESULT Historical Provider H/O: section History of section Amy Delgado [facility] Work Phone: H/O: section History of section Amy Delgado [facility] Work Phone: H/O: section History of section Amy Delgado [facility] Work Phone: H/O: surgery Status post D&C Roger Rowley DO Work Phone: Plan of Treatment Date Care Activity Detail Author Start: 08-15-2024 End: 08-15-2024 Patient encounter procedure 08/15/2024 10:30 AM EST Routine [facility] [address] [place] [id number] Amy Delgado, [facility] [address] [place], [place] [id number] [facility] Start: 07-16-2024 End: 07-16-2024 Patient encounter procedure [facility] Comment on above: Arrived Start: 06-13-2024 End: 06-13-2025 US for US OB 14+ weeks anatomy scan Imaging Routine related condition in second trimester Expected: 06/13/2024, Expires: 06/13/2025 [facility] Work Phone: Comment on above: Expected: 06/13/2024 , Expires: 06/13/2025 Start: 05-16-2024 End: 05-16-2024 Patient encounter procedure 05/16/2024 8:30 AM EST Routine [facility] [address] [place] [id number] Amy Delgado, [facility] [address] [place] [id number] Encounter for supervision of other normal , first trimester; examination or test, positive result; Amenorrhea [facility] Comment on above: Encounter for superv ision of other normal , first trimester; examination or test, positive result; Amenorrhea Start: 05-01-2024 End: 05-01-2025 Bacteria identified in Urine by Culture Urine culture Microbiology Routine Amenorrhea examination or test, positive result Expected: 05/01/2024 (Approximate), Expires: 05/01/2025 [facility] Comment on above: Expected: 05/01/2024 (Approximate), Expires: 05/01/2025 Start: 05-01-2024 End: 05-01-2025 DRUG TOX MONITORIGN 6 W/ CONF,URINE DRUG TOX MONITORIGN 6 W/ CONF,URINE Lab Routine Amenorrhea examination or test, positive result Expected: 05/01/2024 (Approximate), Expires: 05/01/2025 [facility] Work Phone: Comment on above: Expected: 05/01/2024 (Approximate), Expires: 05/01/2025 Start: 05-01-2024 End: 05-01-2025 Neisseria gonorrhoeae DNA [Presence] in Cervical mucus by SRINIVAS with probe detection C. trachomatis / N. gonorrhoeae, DNA probe Pathology and Cytology Routine Amenorrhea examination or test, positive result Expected: 05/01/2024 (Approximate), Expires: 05/01/2025 [facility] Comment on above: Expected: 05/01/2024 (Approximate), Expires: 05/01/2025 Start: 05-01-2024 End: 05-01-2025 URINALYSIS MICROSCOPIC URINALYSIS MICROSCOPIC Lab Routine Amenorrhea examination or test, positive result Expected: 05/01/2024 (Approximate), Expires: 05/01/2025 [facility] Comment on above: Expected: 05/01/2024 (Approximate), Expires: 05/01/2025 Start: 03-13-2024 End: 03-13-2024 Patient encounter procedure 03/13/2024 8:10 AM EDT Office Visit [facility] [address] [place] [address] Roger Rowley DO [address] [place], [place] [id number] [facility] Start: 03-05-2024 End: 03-05-2024 Patient encounter procedure 03/05/2024 9:30 AM EDT Office Visit [facility] [address] [place] [address] Nel Saba PA [address] [place], [place] [id number] Arrived [facility] Comment on above: Arrived Start: 2022 Influenza vaccination Flu vaccine (# 1) [facility] Start: 2021 Screening for malign ant neoplasm of cervix [facility] Start: 03-11-2020 Influenza vaccination Flu vaccine (# 1) [place], [place] Start: 02-09-2012 Screening for malign ant neoplasm of cervix [facility] Start: 2010 DTaP/Tdap/Td vaccine (1 - Tdap) DTaP/Tdap/Td vaccine (1 - Tdap) [facility] Start: 2009 Hepatitis C screening Hepatitis C sc reen [facility] Start: 2006 HIV screening HIV screen [facility] Start: 2003 Depression Screen Depression Screen [facility] Start: 02-09-1992 Varicella vaccine (1 of 2 - 2-dose childhood series) Varicella vaccine (1 of 2 - 2-dose childhood series) [facility] Start: 1991 COVID-19 Vaccine (#1) COVID-19 Vacci ne (#1) [facility] Start: 1991 Hepatitis C screening Hepatitis C sc reen [place], [place] End: 08-19-2022 Bacteria identified in Urine by Culture Urine culture Microbiology Routine One Time for 1 Occurrences starting 08/19/2022 until 08/19/2022 [facility] [employer] Phone: Comment on above: One Time for 1 Occur rences starting 08/19/2022 until 08/19/2022 End: 07-15-2020 COVID-19 COVID-19 Lab Routine Once for 1 Occurrences starting 07/15/2020 until 07/15/2020 [place], [place] Comment on above: Once for 1 Occurrenc es starting 07/15/2020 until 07/15/2020 COVID-19 COVID-19 Lab Rou sourav 07/15/2020 9:05 AM EST [place], [place] nonstress test nonst ress test OB Routine Daily until discontinued starting 08/20/2022 [facility] [employer] Phone: Comment on above: Daily until disconti nued starting 08/20/2022 Nonrebreather mask oxygen Nonrebreather mask oxygen Respiratory Care Routine As directed - RT (PRN) until discontinued starting 08/19/2022 [employer] Phone: Comment on above: As directed - RT ([place] N) until discontinued starting 08/19/2022 Oxygen therapy [[facility] Data Set] Initiate Oxygen Therapy Protocol Respiratory Care Routine As Needed until discontinued starting 09/27/2022 [employer] Phone: Comment on above: As Needed until disc ontinued starting 09/27/2022 End: 09-27-2022 RHOGAM INJECTION ONLY RHOGAM INJECTION ONLY Blood Bank Routine One Time for 1 Occurrences starting 09/27/2022 until 09/27/2022 [employer] Phone: Comment on above: One Time for 1 Occur rences starting 09/27/2022 until 09/27/2022 Spirometry panel Incentive jessica metry Respiratory Care Routine Every 2hr while awake until discontinued starting 09/28/2022 [employer] Phone: Comment on above: Every 2hr while awak e until discontinued starting 09/28/2022 End: 08-19-2022 SVE SVE Point of Care Testing Routine One Time for 1 Occurrences starting 08/19/2022 until 08/19/2022 [employer] Phone: Comment on above: One Time for 1 Occur rences starting 08/19/2022 until 08/19/2022 End: 08-20-2022 US OB 14 PLUS WEEKS SINGLE OR FIRST GESTATION US OB 14 PLUS WEEKS SINGLE OR FIRST GESTATION Imaging STAT Once for 1 Occurrences starting 08/20/2022 until 08/20/2022 [employer] Phone: Comment on above: Once for 1 Occurrenc es starting 08/20/2022 until 08/20/2022 US OB 14 PLUS WEEKS SINGLE OR FIRST GESTATION US OB 14 PLUS WEEKS SINGLE OR FIRST GESTATION Imaging STAT 08/20/2022 1:07 AM EST [employer] Phone: Immunizations Immunization Date Immunization Notes Care Provider Jesus toribio 09-27-2022 diphtheria, tetanus toxoids and acellular pertussis vaccine, unspecified formulation Amy Delgado [facility] Work Phone: [facility] [employer] Work Phone: 09-27-2022 measles, mumps and rubella virus vaccine Amy Delgado [employer] - [facility] Work Phone: [facility] [employer] Work Phone: Payers Date Payer Category Payer Private Health Insurance [id number] 2023 Unknown [id number] 2023 Unknown [id number] 2022 Unknown [id number] 2014 Unknown [facility] [id number] 2014-Present [phone] [address] [address] [place] [address] [id number] 1991 Unknown [id number] 1991 Unknown [id number] 1991 Unknown [id number] .9 1991 Unknown [id number] .1259 1991 Unknown [id number] .1259 1991 Unknown [id number] [id number] .9 1991 Unknown [id number] [id number] .9 1991 Unknown [id number] .1258 1991 Unknown [id number] [id number] .1258 1991 Unknown [id number] .1258 1991 Unknown [id number] .1258 1991 Unknown [id number] .1259 Social History Date Type Detail Facility Tobacco smoking stat [facility] Sex Assigned At Not on file [facility] [employer] Start: 08-19-2022 Tobacco smoking stat [facility] Ex-smoker [employer] Phone: History of tobacco use Current smoker [employer] Phone: History of tobacco use Cigarette Smoker B [employer] Phone: Start: 08-19-2022 End: 04-18-2024 Cigarettes smoked current (pack per day) - Reported 0.3 [employer] Phone: History of tobacco use Passive smoker [employer] Phone: Start: 08-19-2022 End: 11-09-2023 Tobacco use and exposure Smokeless tobacco non-user [employer] Phone: Start: 08-19-2022 End: 05-01-2024 Alcohol intake Ex-drinker (finding) [employer] Phone: Start: 08-09-2022 End: 09-27-2022 Exposure to SARS-CoV-2 (event) Not sure MARISSA BARRERA [employer] Work Phone: Start: 11-09-2023 [facility] Start: 12-15-2023 End: 04-18-2024 Tobacco use panel [facility] Start: 03-13-2024 [facility] Clinical Notes 08-20-2022 to 07-16-2024 Amy Delgado CNM - 07/16/2024 3:00 PM ESTTelephone Encounter - Paulette Carvajal - 06/18/2024 1:21 PM ESTTelephone Encounter - Paulette Carvajal - 06/18/2024 1:21 PM JASPER Mayberry - 03/05/2024 9:30 AM EDT Note Date & Type Note Facility 07-16-2024 History of Present illness Narrative Subjective No chief complaint on file. Nicholas Matta is a 34 y.o. at 19w6d with a working estimated date of delivery of 12/04/2024, by Last Menstrual Period who presents for a routine visit. She denies vaginal bleeding, leakage of fluid, decreased movements, or contractions. OB History Para Term AB Living 3 1 1 1 1 SAB IAB Ectopic Multiple Live Births 1 1 # Outcome Date GA Lbr Maicol/2nd Weight Sex Type Anes PTL Lv 3 Current 2A Term 09/27/22 40w3d 7 lb 3.9 oz M CS-LTranv EPI N PRABHU Complications: Failure to Progress in First Stage 2B 1 AB Her is complicated by: loss, The following portions of the chart were reviewed this encounter and updated as appropriate: Objective Physical Exam weight: 192 lb Expected Total Weight Gain: 11 lb-19 lb Pregravid BMI: 36.49 BP: 120/80 Urine protein Urine glucose Labs: reviewed Imaging Assessment/Plan Diagnoses and all orders for this visit: Encounter for supervision of other normal , second trimester History of section Fibroid Continue vitamin. Labs reviewed. Rhogam Follow up in 2 weeks for a routine visit. documented in this encounter [facility] 06-18-2024 Telephone encounter Note Pt states that her US order needs faxed to [facility] 2. Patient is requesting her lab results from from last week. [facility] 06-18-2024 Miscellaneous Notes Pt states that her US order needs faxed to [facility] 2. Patient is requesting her lab results from from last week. documented in this encounter [facility] 06-13-2024 History of Present illness Narrative Subjective No chief complaint on file. Nicholas Matta is a 34 y.o. at 15w1d with a working estimated date of delivery of 12/04/2024, by Last Menstrual Period who presents for a routine visit. She denies vaginal bleeding, leakage of fluid, decreased movements, or contractions. OB History Para Term AB Living 3 1 1 1 1 SAB IAB Ectopic Multiple Live Births 1 1 # Outcome Date GA Lbr Maicol/2nd Weight Sex Type Anes PTL Lv 3 Current 2A Term 09/27/22 40w3d 7 lb 3.9 oz M CS-LTranv EPI N PRABHU Complications: Failure to Progress in First Stage 2B 1 AB Her is complicated by: headaches The following portions of the chart were reviewed this encounter and updated as appropriate: Objective Physical Exam weight: 192 lb Expected Total Weight Gain: 11 lb-19 lb Pregravid BMI: 36.49 BP: 120/80 Urine protein-negative Urine glucose-negative Labs: reviewed Imaging Assessment/Plan Diagnoses and all orders for this visit: History of section Encounter for supervision of other normal , second trimester related condition in second trimester - US OB 14+ weeks anatomy scan; Future Patient has a history of headaches even when not . She had them with her last as well. I did recommend she take Magnesium 400 mg daily and tylenol. If neither of those help she will let me know and we will try Fioricet Continue vitamin. Labs reviewed. Rhogam GTT . Follow up in 2 weeks for a routine visit. documented in this encounter [facility] 05-16-2024 History of Present illness Narrative Subjective No chief complaint on file. Nicholas Matta is a 34 y.o. at 11w1d with a working estimated date of delivery of 12/04/2024, by Last Menstrual Period who presents for a routine visit. She denies vaginal bleeding, leakage of fluid, decreased movements, and contractions. OB History Para Term AB Living 3 1 1 1 1 SAB IAB Ectopic Multiple Live Births 1 1 # Outcome Date GA Lbr Maicol/2nd Weight Sex Type Anes PTL Lv 3 Current 2A Term 09/27/22 40w3d 7 lb 3.9 oz M CS-LTranv EPI N PRABHU Complications: Failure to Progress in First Stage 2B 1 AB Her is complicated by: history of loss, The following portions of the chart were reviewed this encounter and updated as appropriate: Objective Physical Exam weight: 193 lb, Pregravid BMI: 36.49 Expected Total Weight Gain: 11 lb-19 lb BP: 112/70 Labs Imaging Assessment/Plan Diagnoses and all orders for this visit: History of section Encounter for supervision of other normal , first trimester - Ambulatory referral to Obstetrics / Gynecology - QNATAL(R) ADVANCED; Future - QHERIT(TM) EXPANDED CARRIER SCREEN; Future examination or test, positive result - Ambulatory referral to Obstetrics / Gynecology Amenorrhea - Ambulatory referral to Obstetrics / Gynecology Urine protein-negative Urine glucose-negative Continue vitamin. Labs reviewed. Order placed for anatomy scan at 20 weeks. Follow up in 4 weeks for a routine visit. documented in this encounter [facility] 04-18-2024 History of Present illness Narrative Subjective Nicholas Matta is a 34 y.o. at 7w1d with a working estimated date of delivery of 12/04/2024, by Last Menstrual Period who presents for an initial visit. This is planned. 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 OB History Para Term AB Living 2 1 1 1 SAB IAB Ectopic Multiple Live Births 1 1 # Outcome Date GA Lbr Maicol/2nd Weight Sex Type Anes PTL Lv 2 Current 1A Term 09/27/22 40w3d 7 lb 3.9 oz M CS-LTranv EPI N PRABHU Complications: Failure to Progress in First Stage 1B Her is complicated by: recent miscarriage, D&C hysteroscopy 03/03 Patient referred by Gynecology History Last Pap 11/09/23 The following portions of the chart were reviewed this encounter and updated as appropriate: Review of Systems Objective Physical Exam Expected Total Weight Gain: Could not be calculated Pregravid BMI: Could not be calculated Urine protein-negative Urine glucose-negative Labs Assessment/Plan Diagnoses and all orders for this visit: examination or test, positive result - Hepatitis B surface antigen - Rubella antibody, IgG - CBC - Antibody screen - RPR - Hemoglobin A1c - TSH W/REFLEX TO FT4; Future - HIV-1 and HIV-2 antibodies - ABO/Rh - DRUG TOX MONITORIGN 6 W/ CONF,URINE; Future - Hepatitis C antibody - Urine culture; Future - URINALYSIS MICROSCOPIC; Future - C. trachomatis / N. gonorrhoeae, DNA probe; Future - Ambulatory referral to Obstetrics / Gynecology; Future Encounter for supervision of other normal , first trimester - Ambulatory referral to Obstetrics / Gynecology; Future Amenorrhea - POCT , urine - Hepatitis B surface antigen - Rubella antibody, IgG - CBC - Antibody screen - RPR - Hemoglobin A1c - TSH W/REFLEX TO FT4; Future - HIV-1 and HIV-2 antibodies - ABO/Rh - DRUG TOX MONITORIGN 6 W/ CONF,URINE; Future - Hepatitis C antibody - Urine culture; Future - URINALYSIS MICROSCOPIC; Future - C. trachomatis / N. gonorrhoeae, DNA probe; Future - Ambulatory referral to Obstetrics / Gynecology; Future Blue education folder given. Patient educated on safe medication list. Genetic testing information given. Discussed the do's and don'ts in the blue folder. We discussed labs and what we draw and what we are testing for. Patient is also informed that we do a urine drug test. Patient also given office phone number and [facility] number to call in case of an emergency or after hours needs. PVU and all questions answered. We did discuss place of delivery. Patient should plan to go to [facility] for all services unless an emergency and they need to go to the closest ER. We can make other arrangements possibly if patient would like to deliver at another facility but I did explain I am now at [place] 100% of the time and would like to do all deliveries there. documented in this encounter [facility] 03-13-2024 History of Present illness Narrative Reason for Appointment: Patient ID: Nicholas Matta is a 34 y.o. female who presents for Telehealth (Fertility and pathology review from D&C hysteroscopy) Patient presents today via telephone call for a telehealth appointment. Patients Phone #: [phone] (mobile) Current Medications: currently has no medications in their medication list. Medical History: Active Ambulatory Problems Diagnosis Date Noted Pre-op evaluation 12/15/2023 Fibroid 12/15/2023 Pelvic pain in female 12/15/2023 Resolved Ambulatory Problems Diagnosis Date Noted No Resolved Ambulatory Problems Past Medical History: Diagnosis Date HPV in female Intramural uterine fibroid No family history on file. Social History Tobacco Use Smoking status: Never Smokeless tobacco: Never Substance Use Topics Alcohol use: Not Currently Drug use: Never Past Surgical History: Procedure Laterality Date CERVICAL BIOPSY W/ LOOP ELECTRODE EXCISION 2018 SECTION, LOW TRANSVERSE DILATION AND CURETTAGE OF UTERUS 02/24/2024 with myosure No Known Allergies Vitals: Estimated body mass index is 36.11 kg/m as calculated from the following: Height as of 03/05/24: 5' 1 . Weight as of 03/05/24: 191 lb 1.9 oz. BP: Patient's last menstrual period was 02/28/2024. Assessment/Plan Encounter Diagnosis Name Primary? Status post D&C Pt was called and reviewed pathology from surgery with pt in great detail. Discussed fertility with pt and pt will call office if desires fertility meds in future. Today's telehealth visit consisted of spending 7 minutes talking to patient on the phone. Documented by Dariela Colon LPN on behalf of: Roger Rowley DO documented in this encounter [facility] 03-05-2024 History of Present illness Narrative Reason for Appointment: Patient ID: Nicholas Matta is a 34 y.o. female who presents for Post-op Visit Patient presents today for 1 Week Post Op Follow Up appointment. 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 SURGICAL HISTORY Past Surgical History: Procedure Laterality Date CERVICAL BIOPSY W/ LOOP ELECTRODE EXCISION 2019 SECTION, LOW TRANSVERSE DILATION AND CURETTAGE OF UTERUS 02/24/2024 with myosure REVIEW OF SYSTEMS Review of Systems: Review of Systems Constitutional: Negative. HENT: Negative. Eyes: Negative. Respiratory: Negative. Cardiovascular: Negative. Gastrointestinal: Negative. Genitourinary: Negative. Musculoskeletal: Negative. Skin: Negative. Neurological: Negative. All other systems reviewed and are negative. Hematological: Negative. Endocrine: Negative. Allergic/Immunologic: Negative. OBJECTIVE Objective: Physical Exam Constitutional: Appearance: Normal appearance. She is normal weight. HENT: Head: Normocephalic. Cardiovascular: Rate and Rhythm: Normal rate. Pulses: Normal pulses. Pulmonary: Effort: Pulmonary effort is normal. Breath sounds: Normal breath sounds. Abdominal: Palpations: Abdomen is soft. Musculoskeletal: General: Normal range of motion. Neurological: General: No focal deficit present. Mental Status: She is alert and oriented to person, place, and time. Psychiatric: Mood and Affect: Mood normal. Behavior: Behavior normal. Thought Content: Thought content normal. Judgment: Judgment normal. Vitals and nursing note reviewed. Vitals: Estimated body mass index is 36.11 kg/m as calculated from the following: Height as of this encounter: 5' 1 . Weight as of this encounter: 191 lb 1.9 oz. BP: 116/74 Patient's last menstrual period was 02/28/2024. ASSESSMENT & PLAN ICD-10-CM 1. Postoperative examination Z09 Post Op Follow Up: Patient presents today for a postop follow up after having a D&C Hysteroscopy performed at [facility] with Dr. Rowley. Pathology results were not back at this time. We will reach out to pt with results. Patient doing well, all restrictions have been lifted. Follow Up: Patient is to return to the office for annual exam unless needed otherwise. Documented by JASPER Finch on behalf of: JASPER Finch documented in this encounter [facility] 09-29-2022 Hospital Discharge instructions Jose Perez RN - 09/29/2022 1:09 PM EDT Follow-up with your OB doctor as specified. [facility] OB Department phone: Dr. Adarsh Lambert [facility] Dr. Chencho Matta CN [address] [facility] [address] [facility] [address] [address] Chencho Viveros [facility] [address] [facility] [address] [phone] Mona Delgado, MSN, ELECTRIC FAN ASSEMBLER, CNM [facility] [address] [facility] [address] [address] [facility] [id number] Celia Rosario CNM [address] [place] [address] [place] [address] Piedad Wiley CNM [address] [place] [address] [place] [address] [phone] DIET Eat a well balanced diet focusing on foods high in fiber and protein. Drink plenty of fluids especially water. To avoid constipation you may take a mild stool softener as recommended by your doctor or radio engineering teacher. ACTIVITY Gradually increase your activity. Resume exercise regimen only after advice by your doctor or radio engineering teacher. Avoid lifting anything heavier than a gallon of milk for SIX weeks. Avoid driving until your doctor or radio engineering teacher has given their approval. Rise slowly from [...] and take a break. NEVER shake your . BLEEDING Vaginal bleeding will decrease in amount [...] medications as recommended by your doctor or radio engineering teacher for pain If you develop a warm, [...] vitamins as directed by your doctor or radio engineering teacher. Refer to the booklet in the folder/binder for more information. If you feel you need more assistance or have questions, please call Rose Boyce IBCLC, networks computer consultant, at or the OB department to [...] as a sports bra. INCISIONAL CARE / HUE CARE If you have an acticoat dressing [...] provide support for your incision. Use the hue-bottle after toileting until bleeding stops. Cleanse your [...] in your calf. documented in this encounter [facility] [employer] Phone: 09-29-2022 Hospital course Narrative Obstetrical Discharge Form [...] # 2.59 1.10 - 3.70 k/uL Absolute [place] # 0.69 0.10 - 1.20 k/uL Absolute [...] Range Expiration Date 09/30/2022,2359 Arm Band Number [id number] ABO/Rh O POSITIVE Antibody Screen NEGATIVE ABO, [...] Your Medications These medications were sent to [facility] [address] [place] [address] [address] - P [phone] - F [phone] [address] [place] [id number] ibuprofen 800 MG tablet oxyCODONE 5 MG immediate release tablet vitamin 27-1 MG Tabs tablet Admit date: 09/27/2022 2:01 AM Discharge Date: 09/29/2022 Discharged to: Home in stable condition Plan: Follow upwith Mona Delgado CNM in 1 wk documented in this encounter [facility] [employer] Phone: 09-29-2022 History of Present illness Narrative C/S [...] BP Temp Temp src Pulse Resp SpO2 09/28/223 127/74 -- -- (!) 108 -- 98 % 09/28/2217 -- -- -- -- -- 99 % [...] -- 79 -- 100 % 09/27/222221 (!) 108 97.3 F (36.3 C) Oral 81 16 99 % 03/20/23 2102 (!) 108/56 -- -- 95 -- -- [...] -- -- -- -- 98 % 09/27/22 183 129/60 -- -- 94 16 -- 09/27/22 183 -- -- -- -- -- 100 % 09/27/22 183 -- -- -- -- -- 99 % 09/27/22 182 -- -- -- -- -- 99 % [...] -- -- -- 97 % 09/27/22 170 117/78 -- -- 100 16 -- 09/27/22 170 -- -- -- -- -- 99 % 09/27/221658 -- -- -- -- -- 99 % 09/27/221653 -- -- -- -- -- 98 % 03/20/23 1649 -- -- -- -- -- 98 [...] -- -- 98 % 09/27/22 1551 (!) 112 -- -- 79 18 99 % 09/27/22 [...] -- -- 99 % 09/27/22 1121 (!) 107/59 -- -- 86 18 100 % [...] # 1 PLAN: Routine instructions and orders Wage And Hour Investigator Note: I first assisted Dr Watson with [...] resting in bed watching tv OBJECTIVE: Vitals: 09/27/22192409/27/22194909/27/22195409/27/221999 BP: 123/67 Pulse: 93 Resp: 16 Temp: TempSrc: SpO2: 98% 98% 98% Weight: Height: heart rate: Baseline Heart Rate: 145 Accelerations: present Patcher Variability: moderate Decelerations: absent Contraction frequency: 4-5 [...] Watson when she calls back Dr. Zuñiga, wax pattern repairer, in unit and was updated on maternal [...] FHR to baseline when contraction has ended. Skirt Maker and Haresh Dlegado CNM at bedside at this time. MICHELINE performs SVE, 7-8/90-0. CNM at bedside for variable deceleration at 1702 and again at 1706. CNM states to continue to increase pitocin infusion. Pt placed on left side with pillow between her legs. Strip reviewed with CNM. Haresh Delgado CNM states she will come perform SVE. Skirt Maker at bedside repositioning patient to right side with pillow between her legs. Contraction palpated at 1644. CNM in unit reviewing strip, states to continue to restart pitocin infusion at 2milli/units. Haresh Delgado CNM in unit and updated on SVE. Strip reviewed with CNM. Orders to start pitocin infusion at 2milli/units at this time. Haresh Delgaod CNM at patient bedside reviewing POC. Pt [...] 140, moderate variability and accelerations noted before news writer left the room. Skirt Maker at bedside to reposition patient. Pt placed on her left side with peanut ball at 1345. Variable deceleration noted into the 70's, pt placed on right side with peanut ball at 1355 Variable deceleration continue with contractions, pt placed in , tailor sitting at 1400. Skirt Maker called Haresh Delgado CNM to updated on [...] infusion if FHR does not decelerate again. Skirt Maker phones Haresh Delgado CNM at this time. [...] pt placed in hands and knees from 5089-5946. Skirt Maker hand held ultrasound to trace FHR, intermittently head in the 140's-150's. Pt reports she had 2 contraptions while in hands and knees. Variable decelerations noted with contractions. SVE performed and patient 4-5/80/-2. Pt positioned to left side with Pillow between her legs. [place] and ultrasound adjusted. Contractions palpated by news writer and are tracing inverted on EFM starting at 1040. 0947- M. Ivana LIVESTOCK SALES REPRESENTATIVE at bedside at this time. Pt alert and oriented. supportive at bedside. 0850- Consent forms signed at this time. Skirt Maker witnessed 0952- Timeout performed, all agree 0955-epidural placement begins at this time 1006-test dose administered per LIVESTOCK SALES REPRESENTATIVE, no side effects reported from patient 1015-epidural placement complete and patient laid back with right side tilt. Haresh Delgado CNM phones unit back at this time. Update provided on unchanged SVE, contraction pattern, FHR and variable noted with contraction. CNMarcie also updated on pitocin infusion rate and pt's request for an epidural. No further orders received at this time. Skirt Maker called Haresh Delgado CNM at this time. No answer. Message left to phone unit back when available. IV fluids for pre epidural placement bolus started at 0912. Anesthesia notified at 0919. MDeshawn Heath LIVESTOCK SALES REPRESENTATIVE states he will be over in roughly 20 minutes. Skirt Maker at bedside palpating contractions. [place] adjusted to properly trace contraction pattern. Pt [...] further needs. documented in this encounter [facility] [employer] Phone: 08-20-2022 History of Present illness Narrative Prescription [...] this time. Radiology phoned with verification for planetarium sky show technician to be called from Dr. Saavedra with [facility]. Tech states she will call concrete gun operator tech at this time. documented in this encounter [facility] [employer] Phone: 08-20-2022 Hospital Discharge instructions Itzel Hudson RN - 08/20/2022 1:41 AM EST OUTPATIENT DISCHARGE Dr. Adarsh Lambert [facility] Dr. Chencho Matta [facility] [address] [facility] [address] [place] ACTIVITY LIMITATIONS: ( x )Up and about [...] hour Keep your scheduled follow up appointment. checkout supervisor Macrobid from [facility] pharmacy in am and take as prescribed IN CASE OF EMERGENCY CONTACT LABOR AND DELIVERY . documented in this encounter [facility] [employer] Phone: Evaluation note Diagnosis PROM (premature rupture of membranes)- Primary Premature rupture of membranes in , unspecified as to episode of care documented in this encounter [employer] Phone: evaluation note* Diagnosis Normal labor- Primary delivery delivered delivery, without mention of indication, delivered, with or without mention of antepartum condition Term Failure to progress in labor Other and unspecified uterine inertia, unspecified as to episode of care 40 weeks gestation of state, incidental delivery delivered delivery, without mention of indication, delivered, with or without mention of antepartum condition documented in this encounter [facility] PYLE [employer] Phone: evaluation note* Diagnosis History of section- Primary Other postprocedural status Encounter for supervision of other normal , second trimester related condition in second trimester documented [facility]* Diagnosis Postoperative examination Follow-up examination, following unspecified surgery documented in this encounter [facility]* Diagnosis Status post D&C Other postprocedural status documented in this encounter [facility]* Diagnosis examination or test, positive result- Primary Encounter for supervision of other normal , first trimester Amenorrhea Absence of menstruation documented in this encounter [facility]* Diagnosis History of section- Primary Other postprocedural status Encounter for supervision of other normal , first trimester examination or test, positive result Amenorrhea Absence of menstruation documented in this encounter [facility] HealthcareEvaluation note* Diagnosis Encounter for supervision of other normal , second trimester- Primary History of section Other postprocedural status Fibroid Leiomyoma of uterus, unspecified documented in this encounter [facility] HealthcareReason for visit Narrative* Maternity Services (Routine) - Closed Specialty Diagnoses / Procedures Referred By Diogo house Referred To Contact Obstetrics and Gynecology Diagnoses Encounter for supervision of other normal , first trimester examination or test, positive result Amenorrhea Procedures [place] OFFICE/OUTPATIENT [facility] HIGH MDM 60 MINUTES Amy Delgado CNM [address] [place] [address] Phone: tel: fax: Amy Delgado CNM [address] [place] [address] Phone: tel: fax: Referral ID Status Reason Start Date Expiration Date V isits Requested Visits Authorized [id number] Closed Specialty Services Required 05/01/2024 10/28/2024 1 1 [facility] Healthcare Summary Purpose Family History No Family History [...] section and content) DATE CREATED AUTHOR 05/05/2022 [facility] dical Specialist DATE CREATED AUTHOR AUTHOR'S ORGANIZ ATION 09/30/2022 [facility] DATE CREATED AUTHOR AUTHOR'S ORGANIZ ATION 07/22/2024 [facility] dical Specialists EPIC Care Teams (unrecognized sec tion and content) Professional Services Specialist Relationship Specialty Start Date End Date Annemarie Raquel Gonsalez [address] [place] [phone] PCP - General Nurse Practitioner 07/14/20 Professional Services Specialist Relationship Specialty Start Date End Date AnnemarieRaquel jane [address] [place] [id number] PCP - General Nurse Practitioner 07/14/20 Reason for Visit (unrecogniz ed section and content) Reason Comments Rupture of Membranes Pt states she felt a gush around 12 a.m. Specialty Diagnoses / Procedures Referred By Diogo house Referred To Contact Diagnoses Normal labor Term Failure to progress in labor Amy Delgado APRN - MICHELINE [address] [place] [address] [facility] [address] [place] [address] Referral ID Status Reason Start Date Expiration Date Visits Re quested Visits Authorized [id number] 1 1 Reason Comments Post-op Visit Reason Comments Telehealth Fertility and pathol ogy review from D&C hysteroscopy Reason Comments Initial Visit Ordered Prescriptions (unrec ognized section and content) Prescription Sig Dispensed Refills Start Date End Da te Vit-Fe Fumarate-FA ( VITAMIN) 27-1 MG TABS tablet Take 1 tablet by mouth daily 30 tablet 0 09/30/2022 ibuprofen (ADVIL;MOTRIN) 800 MG tablet Take 1 tablet by mouth every 8 hours as needed for Pain 60 tablet 1 09/29/2022 10/02/2022 oxyCODONE (ROXICODONE) 5 MG immediate release tabletIndications:Jared n delivery delivered Take 1 tablet by mouth every 6 hours as needed for Pain for up to 3 days. Max Daily Amount: 20 mg 12 tablet 0 09/29/2022 10/02/2022 Scheduled Active and Recently Administ ered Medications (unrecognized section and content) Medication Order 09/27/2022 09/28/2022 09/29/2022 cefOXitin (MEFOXIN) 2,000 mg in sodium chloride 0.9 % 50 mL IVPB (mini-bag) (COMPLETED) 2,000 mg, IntraVENous, RETAIL STORE CLERK TO O.R., 1 dose, On Tue09/27/22 at 2044, Antimicrobial Indications: Surgical Prophylaxis, Administer within 1 hour of incision., Labor and Delivery 2102 (New Bag - Provider: Bel Matta ELECTRIC FAN ASSEMBLER - LIVESTOCK SALES REPRESENTATIVE) citric acid-sodium citrate (BICITRA) solution 30 mL (COMPLETED) 30 mL, Oral, ONCE, 1 dose, On Tue09/27/22 at 2044, Give prior to epidural placement., Labor and Delivery 2030 (Given - Provider: Carin Arivzu, ITZEL) docusate sodium (COLACE) capsule 100 mg 100 mg, Oral, 2 TIMES DAILY, First dose on Tue09/27/22 at 2300, Until Discontinued, Do not crush or break., 0158 (Not Given - Provider: Carin Arvizu RN - Reason: Patient/family refused - Comment: Pt requests to take at a later time)09 (Given - Provider: Suzanna Menjivar RN)204 (Given - Provider: Sindhu Muñoz RN) 0814 (Given - Provider: Jose Perez, ITZEL)2100 (Due) enoxaparin (LOVENOX) injection 40 mg 40 mg, SubCUTAneous, EVERY 24 HOURS, First dose on Tue09/28/22 at 0915, Until Discontinued, Indication of Use: Prophylaxis-DVT/PE, 09 (Given - Provider: Suzanna Menjivar RN) 1021 (Given - Provider: Jose Perez, ITZEL) famotidine (PEPCID) 20 mg in sodium chloride [...] Suzanna Menjivar RN)2343 (Given - Provider: Sindhu Muñoz RN) 0515 (Due) metoclopramide (REGLAN) injection 10 mg [...] Suzanna Menjivar RN - Reason: IV Fluid Infusing)204 (Given - Provider: Sindhu Muñoz RN) 0900 (Due)2100 (Due) sksqbgy-exdesz-asnhu pertussis (BOOSTRIX) injection 0.5 mL 0.5 mL, [...] Provider: Elva Quintero RN)0952 (NoRateChange - Provider: KASIE Ruiz CRNA)1113 (Rate/Dose Change - Provider: Elva Quintero RN)1130 [...] every 2-3 minutes with cervical changes or [place] units (MVU) greater than 200 in a [...] Quintero RN)0931 (Rate/Dose Verify - Provider: Carin Arvziu RN)0952 (NoRateChange - Provider: Bel Matta APRN - LIVESTOCK SALES REPRESENTATIVE)1230 (Rate/Dose Change - Provider: Elva Quintero RN)1230 (Rate/Dose Verify - Provider: Carin Arviuz RN)1300 (Rate/Dose Change - Provider: Elva Quintero [...] verbal order)2019 (Stopped - Provider: Carin Arvizu RN)2132 (Given - Provider: Bel Matta APRN - LIVESTOCK SALES REPRESENTATIVE - Comment: pitocin infusion was off prior to transport to OR, discontinued at 2019 per stated by OB RN) ropivacaine (NAROPIN) 0.2% injection 0.2% (CANCELED) 10 mL/hr, Epidural, CONTINUOUS, Starting on Tue09/27/22 at 1130, Until Tue09/27/22 at 2232, Until delivery., Labor and Delivery 1010 (Given - Provider: Cristóbal Heath APRN - LIVESTOCK SALES REPRESENTATIVE)1012 (Given - Provider: Cristóbal Heath APRN - LIVESTOCK SALES REPRESENTATIVE)1013 (New Bag - Provider: Cristóbal Heath APRN - LIVESTOCK SALES REPRESENTATIVE)1727 (New Bag - Provider: Elva Quintero RN) [...] Arvizu RN)0904 (Given - Provider: Suzanna Menjivar, RN)1735 (Given - Provider: Suzanna Menjivar, RN) 0118 (Given - Provider: Sindhu Muñoz, ITZEL)0814 (Given - Provider: Jose Perez RN) acetaminophen (TYLENOL) tablet 650 mg (CANCELED) 650 mg, Oral, EVERY 4 HOURS PRN, Starting on Tue09/27/22 at 0240, Until Tue09/27/22 at 2232, Pain Mild (1-3), Fever, Fever >100.5 F (38 C), Maximum dose of acetaminophen is 4000 mg from all sources in 24 hours., Labor and Delivery 1841 (Given - Provider: Elva Quintero RN) carboprost (HEMABATE) injection 250 mcg 250 mcg, [...] Oral, EVERY 8 HOURS PRN, Starting on Tue09/28/22 at 0000, Until 10/02/22 at 2359, Other, [...] Muñoz RN) 0119 (Given - Provider: Sindhu Muñoz, ITZEL)1000 (Given - Provider: Jose Perez RN)1444 (Given [...] Oral, EVERY 4 HOURS PRN, Starting on 09/27/22 at 2232, Until Discontinued, Pain Moderate (4-6), Or oxyCODONE (ROXICODONE) immediate release tablet 10 mgJump to med 10 mg, Oral, EVERY 4 HOURS PRN, Starting on 09/27/22 at 2232, Until Discontinued, Pain Severe (7-10), [...] BE BASED ON THE PRIMARY CLINICAL RECORDS. [facility] [employer] provides no warranty or guarantee of the accuracy or completeness of information in this document.
--- NOTE | 2024-08-15 08:57 | US_ITS ---
[address] [address] Patient Name: MOHAN MTZ MRN: [id number] date: 1990 Sex: F Assigned Patient Location: US Current Patient Location: US Accession/Order Number: [id number] Exam Date: 08/15/2024 09:00 Report Date: 08/15/2024 13:01 At the request of: AMY SAAVEDRA Procedure: US OB incomplete anatomy EXAM: US OB incomplete anatomy HISTORY: Related Condition Second Trimester COMPARISON: Ultrasound OB anatomy 07/18/2024 TECHNIQUE: Transabdominal ultrasound FINDINGS: Heart rate: 160 bpm Amniotic fluid: Subjectively normal Anatomy: Adequate visualization of the spine; no appreciable abnormality. Other: Stable 1.2 x 1.0 x 0.7 cm hypoechoic area within the anterior myometrium; nonspecific but suspected represent a leiomyoma. GA: 24 weeks 1 day MONIQUE: 12/04/2024 US/US OB incomplete anatomy IMPRESSION: 1. Single live intrauterine . 2 adequate visualization of the spine; no appreciable metallic. 2. Stable small hypoechoic structure within anterior myometrium suspected to represent a leiomyoma. Electronically authenticated by: EULA LOMBARDO Date: 08/15/2024 13:01
== END 2024-08-15 08:48 | disposition home or self-care (01) ==
LOC: US 08:49
PROVIDERS: Visit Provider Midwife
DX: O26.92 Pregnancy related conditions, unspecified, second trimester (principal); Z3A.24 24 weeks gestation of pregnancy
CPT/HCPCS: 76815

== ENCOUNTER 2024-10-10 12:32 | Outpatient (OUT) | payer OTHER, SELFPAY ==
[2024-10-10 13:36] LABS: Anion Gap 13.8; Carbon Dioxide 26.3 mmol/L (21.0-32.0); Chloride 104 mmol/L (98-107); Glucose 81 mg/dL (74-106); Potassium 4.1 mmol/L (3.5-5.1); Sodium 140 mmol/L (136-145)
[2024-10-10 13:37] LABS: Alanine Aminotransferase 14 U/L (14-59); Albumin Globulin Ratio 0.7; Albumin Level 2.6 g/dL (3.4-5.0); Alkaline Phosphatase 80 U/L (46-116); Aspartate Amino Transferase 14 U/L (15-37); BUN Creatinine Ratio 11.1; Bilirubin Total 0.4 mg/dL (0.2-1.0); Calcium 8.7 mg/dL (8.5-10.1); Estimated GFR (African America >60 (>=60 mL/min/1.73m^2); Estimated GFR (Non-African Ame >60 (>=60 mL/min/1.73m^2); Globulin 3.9 g/dL; Total Protein 6.5 g/dL (6.4-8.2)
== END 2024-10-10 12:33 | disposition home or self-care (01) ==
LOC: LAB 12:33
PROVIDERS: Visit Provider Internal Medicine Interventional Cardiology
DX: R06.02 Shortness of breath (principal)
CPT/HCPCS: 36415; 80053

== ENCOUNTER 2024-10-30 13:44 | Outpatient (OUT) | payer OTHER, SELFPAY ==
--- NOTE | 2024-10-30 14:00 | CA_ITS ---
Patient Name: MOHAN MTZ MR#: [id number] : 1990 Exam Date: 10/30/2024 Ordering Doctor: DR JOHNATHAN RENNER M.D. ECHOCARDIOGRAM REPORT PROCEDURE: CA ECHO DOPPLER COMPLETE INDICATIONS: Shortness of breath COMPARISON: None. DESCRIPTION: COMPLETE ECHOCARDIOGRAM Real-time transthoracic echocardiography with 2D, M-mode, spectral and color flow Doppler performed. QUALITY: Technical quality was adequate. LEFT VENTRICLE: Normal chamber size. Normal left ventricular wall thickness. Global left ventricular systolic function is normal. LV EF: Estimated left ventricular ejection fraction is 60-65%. DIASTOLIC: Normal diastolic function. ATRIAL SEPTUM: LEFT ATRIUM: Normal chamber size. RIGHT ATRIUM: Normal chamber size. RIGHT VENTRICLE: Normal chamber size. Normal right ventricular systolic function. TRICUSPID VALVE: Normal mobility and thickness. No stenosis with trivial regurgitation. No evidence of pulmonary hypertension. RVSP 21 mmHg MITRAL VALVE: Normal mobility and thickness. No evidence of mitral valve stenosis. No mitral regurgitation. AORTIC VALVE: Normal trileaflet appearance. No visible sclerosis. Normal leaflet mobility. No evidence of aortic valve stenosis. No aortic regurgitation. AORTIC ROOT: Normal diameter and appearance, measuring 2.5 cm. PULMONIC VALVE: Normal thickness and mobility. No stenosis. Trivial regurgitation. PERICARDIUM: No pericardial effusion. IVC: Collapses with inspirations. Normal size. PLEURA: CONCLUSION: 1. Normal left ventricular size and systolic function. LVEF is estimated at 60 to 65%. 2. Normal right ventricular size and systolic function. 3. Normal diastolic function. 4. No significant valvular dysfunction. 5. Normal right-sided pressures. Adult Echocardiography Procedure Report Left Ventricle LVEDD (3.7 - 5.6 cm): 4.36 cm LVESD (2.2 - 4.0 cm): 3.11 cm LVIVS thickness (0.6 - 1.2 cm): 0.74 cm LVPW thickness (0.5 - 1.0 cm): 0.92 cm e': 0.11 m/s E - e': 5.08 LVOT Max Gradient: 2.33 mm[Hg] LVOT Area (cm2): 0.76 m/s Peak Velocity (LVOT): 0.76 m/s Mean Velocity (LVOT): 0.49 m/s LVOT Diameter 1.93 cm Left Ventricular Ejection Fraction: 60-65 % Left Atrium LA Volume Index (2D A2C): 12.53 ml/m2 Left Atrium Systolic Dimension: 3.49 cm Mitral Valve MV E to A Ratio: 1.14 Mitral Valve A-Wave Peak Velocity: 0.51 m/s Mitral Valve E-Wave Peak Velocity: 0.58 m/s Right Ventricle RV Internal Diastolic Dimension: 2.69 cm Aorta AO Root Diam: 2.54 cm Aortic Valve AoV Area (Peak Tadeo): 2.31 cm2, 2.31 cm2 AoV Area (VTI): 2.37 cm2, 2.37 cm2 Peak Velocity(Antegrade Flow): 0.97 m/s, 0.97 m/s Peak Gradient(Antegrade Flow): 3.74 mm[Hg], 3.74 mm[Hg] Mean Velocity(Antegrade Flow): 0.69 m/s, 0.68 m/s Mean Gradient(Antegrade Flow): 2.16 mm[Hg], 2.11 mm[Hg] Velocity Time Integral: 13.70 cm, 13.70 cm Tricuspid Valve Peak Velocity (Regurgitant Flow): 2.15 m/s Pulmonic Valve Peak Velocity: 0.99 m/s Peak Gradient: 4.33 mm[Hg], 3.48 mm[Hg] Right Atrium Right Atrium Systolic Pressure: 15.79 ml, 15.79 ml Dictated by: Johnathan Renner M.D. on 10/30/2024 at 18:41 Approved by: Johnathan Renner M.D. on 10/30/2024 at 18:44
== END 2024-10-30 13:45 | disposition home or self-care (01) ==
LOC: CARD 13:44
PROVIDERS: Visit Provider Internal Medicine Interventional Cardiology
DX: R06.02 Shortness of breath (principal)
CPT/HCPCS: 93306

== ENCOUNTER 2024-11-28 05:21 | Inpatient (IN) | payer OTHER, SELFPAY ==
[2024-11-28] VITALS (30 sets, daily range): BP systolic 106–140; BP diastolic 51–83; PULSE 64–104; TEMP 36.3–36.8; O2SAT 96–99
--- OUTSIDE RECORDS SUMMARY | 2024-11-28 05:24 | XMS_ITS | CCD ---
Author Organization [facility] Care Team Providers Care Respiratory Therapy Technician Name Role Phone Raquel Sharpe Primary Care Provider POOL, YANCY Moore Admitting Unavailable POOL, YANCY E Attending Unavailable RAQUEL SHARPE Primary Care Unavailable FLORO, AMY Admitting Unavailable FLORO, AMY Attending Unavailable CASSRAQUEL Primary Care Unavailable Unavailable Primary Care Provider Unavailabl e FLORO, AYM Attending Unavailable FLORO, AMY Referring Unavailable FLORO, AMY Referring Unavailable MOUKAJOHNATHAN FELIPE Attending Unavailable FLORO, AMY L Attending Unavailable FLORO, AMY L Attending Unavailable FLORO, AMY L Attending Unavailable FLORO, AMY L Attending Unavailable FLORO, AMY L Attending Unavailable FLORO, AMY L Attending Unavailable AYAKA, ROGER Attending Unavailable FLORO, AMY L Referring Unavailable AYAKA, ROGER Attending Unavailable JAYANT, NEL Attending Unavailable FLORO, AMY L Referring Unavailable [...] 09-27-2022 lactated ringers IV soln inf usion docusate sodium 100 mg oral capsule (12 sources) Start: 09-13-2024 End: 09-13-2025 take 1 capsule by mouth in the morning docusate sodium (Colace) 100 MG capsule Indications: Anemia affecting in third trimester Take 1 capsule (100 mg) by mouth in the morning and 1 capsule (100 mg) before bedtime. 60 capsule 11 09/13/2024 09/13/2025 Active Start: 09-27-2022 take 100 mg by mouth twice daily 100 mg, Oral, 2 TIMES DAILY, First dose on Tue09/27/22 at 2300, Until Discontinued Do not crush or break. ferrous sulfate 325 mg delayed release oral tablet (11 sources) Start: 09-13-2024 End: 09-13-2025 take 1 tablet by mouth in the morning ferrous sulfate (Fe Tabs) 325 (65 Fe) MG EC tablet Indications: Anemia affecting in third trimester Take 1 tablet (325 mg) by mouth in the morning and 1 tablet (325 mg) before bedtime. Do not crush, chew, or split.. 60 tablet 11 09/13/2024 09/13/2025 Active ibuprofen 800 mg oral tablet (2 sources) [...] 2232, Until Discontinued, Itching, Hives, docusate sodium 50 mg / sennosides, long-term 8.6 mg oral tablet (1 source) Start: [...] Problem Classification Problem Date Documented Date Episodic/Chronic Cardiac dysrhythmias (5 sources) Tachycardia, unspecified; Translations: [Tachycardia] Onset: 10-09-2024 10-23-2024 Episodic distress and abnormal forces of labor (2 sources) Failure to progress in labor; Translations: [Other uterine inertia] Onset: 09-27-2022 Episodic Menstrual disorders (8 sources) Amenorrhea; Translations: [Amenorrhea, unspecified] 07-07-2024 Chronic Other complications of ; puerperium affecting management [...] conditions, unspecified, second trimester] 06-13-2024 Episodic Other complications of (1 source) related conditions, unspecified, second trimester; Translations: [ related conditions, unspecified, second trimester] Onset: 09-26-2024 Episodic Other lower respiratory disease (2 sources) Shortness of breath; Translations: [Shortness of breath] Onset: 10-10-2024 Episodic Other and delivery including normal (20 [...] weeks gestation of ] Onset: 09-27-2022 Episodic Residual codes; unclassified (2 sources) 32 weeks gestation of ; Translations: [32 weeks gestation of ] Onset: 10-10-2024 Episodic Past or Other Problems Problem Classification Problem Date Documented Da te Episodic/Chronic Abdominal pain (20 sources) Pain in female pelvis; Translations: [Pelvic and perineal pain] Onset: 12-15-2023 12-15-2023 Episodic Other aftercare (2 sources) Surgical follow-up; Translations: [Encounter for follow-up examination after completed treatment for conditions other than malignant neoplasm] 03-05-2024 Episodic Other and unspecified benign neoplasm (20 sources) Leiomyoma; Translations: [Benign neoplasm of connective and other soft tissue, unspecified] Onset: 12-15-2023 12-15-2023 Episodic Results Test Name Value Interpretation Reference Range Facility 36on 11-14-2024 36 Regarding testing results: MD Samina Ramirez MA Echo, holter and blood testing are normal. No further cardiac testing, follow up with OB as planned. Follow up with us in 1 year. Spoke with patient and made her aware. She verbalized understanding. Normal [facility] 36on 10-26-2024 36 Spoke with patient a nd informed her of normal Holter monitor report per Dr. Moya. She verbalized understanding. Patient is scheduled for echo next week and I advised we will call with results. Normal [facility] 36on 10-15-2024 36 Regarding lab result s from 10/10/2024: MD Samina Ramirez MA Blood test is within normal limits. LM on patient's VM letting her know. Normal [facility] Telephoneon 10-15-2024 Telephone [id number] Dakota Matta A 1990 F Date Provider Department Center 10/15/2024 SAMINA [place] Family History Problem Relation Age of Onset Other Mother Other Father Other Sister Other Brother Family Status - Relation Status Age at Mother Alive Father Alive Sister Alive Brother Alive Normal [facility] Office Visiton 10-10-2024 Follow-up visit [id number] Dakota Matta A 1990 F Date Provider Department Center 10/10/2024 [facility] MOYA Family History Problem Relation Age of Onset Other Mother Other Father Other Sister Other Brother Family Status - Relation Status Age at Mother Alive Father Alive Sister Alive Brother Alive Level of Service:13715 [place] OFFICE/OUTPATIENT NEW MODERATE MDM 45 MINUTES Normal [facility] US PREG TRANSABD FU PER FETU on 09-26-2024 US PREG TRANSABD FU PER FETU US PREG TRANSABD FU PER FETU US PREG [...] Antoine Mahoney MD on 09/26/2024 10:12 AM [facility] US OB INCOMPLETE ANATOMYon 0 08-15-2024 [place] [address] Ultrasound Report Signed Patient: NICHOLAS MATTA MR#: [id number] : 1990 Acct:[id number] Age/Sex: 34 / F ADM Date: 08/15/24 Loc: US Attending Dr: AMY DELGADO APRN, CNM Ordering Physician: AMY DELGADO APRN, CNM Date of Service: 08/15/24 Procedure(s): US OB incomplete anatomy Accession Number(s): [id number] cc: AMY DELGADO APRN, CNM; Physician,Non-Staff M.DDeshawn The [address] [address] Patient Name: NICHOLAS MATTA MRN: [id number] date: 1990 Sex: F Assigned Patient Location: US Current Patient Location: US Accession/Order Number: [id number] Exam Date: 08/15/2024 09:00 Report Date: 08/15/2024 13:01 At the request of: AMY DELGADO Procedure: US OB incomplete anatomy EXAM: US OB incomplete anatomy HISTORY: Related Condition Second Trimester COMPARISON: Ultrasound OB anatomy 07/18/2024 TECHNIQUE: Transabdominal ultrasound FINDINGS: Heart rate: 160 bpm Amniotic fluid: Subjectively normal Anatomy: Adequate visualization of the spine; no appreciable abnormality. Other: Stable 1.2 x 1.0 x 0.7 cm hypoechoic area within the anterior myometrium; nonspecific but suspected represent a leiomyoma. GA: 24 weeks 1 day MONIQUE: 12/04/2024 US/US OB incomplete anatomy IMPRESSION: 1. Single live intrauterine . 2 adequate visualization of the spine; no appreciable metallic. 2. Stable small hypoechoic structure within anterior myometrium suspected to represent a leiomyoma. Electronically authenticated by: EULA RAHMAN Date: 08/15/2024 13:01 Dictated By: Eula Rahman M.D. Signed By: 08/15/24 1304 DD/ 1301 TD/TT: Framework Developer: [facility] Radiology, Radiologist, MD - 08/15/2024 [place] [address] Ultrasound Report Signed Patient: NICHOLAS MATTA MR#: [id number] : 1990 Acct:[id number] Age/Sex: 34 / F ADM Date: 08/15/24 Loc: US Attending Dr: AMY DELGADO APRN, CNM Ordering Physician: AMY DELGADO APRN, CNM Date of Service: 08/15/24 Procedure(s): US OB incomplete anatomy Accession Number(s): [id number] cc: AMY DELGADO APRN, CNM; Physician,Non-Staff M.DDeshawn The [place] [id number] Patient Name: NICHOLAS MATTA MRN: [facility]:[id number] date: 1990 Sex: F Assigned Patient Location: US Current Patient Location: US Accession/Order Number: [id number] Exam Date: 08/15/2024 09:00 Report Date: 08/15/2024 13:01 At the request of: AMY DELGADO Procedure: US OB incomplete anatomy EXAM: US OB incomplete anatomy HISTORY: Related Condition Second Trimester COMPARISON: Ultrasound OB anatomy 07/18/2024 TECHNIQUE: Transabdominal ultrasound FINDINGS: Heart rate: 160 bpm Amniotic fluid: Subjectively normal Anatomy: Adequate visualization of the spine; no appreciable abnormality. Other: Stable 1.2 x 1.0 x 0.7 cm hypoechoic area within the anterior myometrium; nonspecific but suspected represent a leiomyoma. GA: 24 weeks 1 day MONIQUE: 12/04/2024 US/US OB incomplete anatomy IMPRESSION: 1. Single live intrauterine . 2 adequate visualization of the spine; no appreciable metallic. 2. Stable small hypoechoic structure within anterior myometrium suspected to represent a leiomyoma. Electronically authenticated by: EULA RAHMAN Date: 08/15/2024 13:01 Dictated By: Eula Rahman M.D. Signed By: 08/15/24 1304 DD/ 1301 TD/TT: Framework Developer: [facility] [employer] Radiology Study observation (narrative) [facility] US OB INCOMPLETE ANATOMYOrde red By: Radiologist Radiology on 08-15-2024 [facility] Work Phone: Laboratoryon 06-22-2024 director behavioral health review Ty (Unsp spec) [Interp] SEE NOTE [facility] Comment on above: A portion of the testing was performed at [facility]. Laboratory results and submitted clinical information reviewed by Aminata Roy, Ph.D., [facility]. METHODOLOGY Fragile X testing is performed using [...] number is detected by quantitative PCR. The g.05299T>G variant ([id number]), assessed by quantitative PCR, is reported when the SMN1 copy is equal to two. SMN2 copy number is assessed by quantitative PCR when SMN1 copy number is equal to zero or one, or when SMN1 is equal to two in the presence of the g.72638R>G variant. All other gene variations are detected by multiplex-PCR amplification of specific gene regions, followed by nucleotide sequence analysis on a massively parallel sequencing platform. Although rare, false positive or false negative results may occur. All results should be interpreted in the context of clinical findings, relevant history, and other laboratory data. Visit [email or web address] for additional clinical information and references. Health care providers, please contact your local [facility]' genetic counselor or call [phone] ( ) for assistance with the interpretation of these results. These tests were developed and their analytical performance characteristics have been determined by [facility]. They have not been cleared or approved by the FDA. These assays have been validated pursuant to the CLIA regulations and are used for clinical purposes. Narrative diagnostic report [facility] (Bld/Tiss) [Interp] SEE NOTE [facility] Comment on above: NEGATIVE FOR ALL VARIANTS TESTED (SEE BELOW) Laboratory - Molecular patho logyon 06-22-2024 FMR1 gene CGG repeats [facility] (Bld/Tiss) SEE NOTE [facility] Comment on above: Fragile X: FEMALE, 20 and 30 CGG repeats in the FMR1 gene detected (NEGATIVE) Genetic variant assessment [facility] (Bld/Tiss) SEE NOTE [facility] Comment on above: DISEASES / VARIANTS TESTED DISEASE (GENE) [REFERENCE SEQUENCE] - VARIANTS ALPHA-THALASSEMIA (HBA1 and HBA2) [NM 264144.3 and NM 188988.4] -alpha3.7, -alpha4.2, -alpha20.5, --SEA, --MED, -MERCED, --JOCELYNN, [place] (c.427T>C) BETA HEMOGLOBINOPATHIES (INCLUDING SICKLE CELL DISEASE) (HBB) [NM 140357.4] c.*111A>G, c.*110T>C, Hb D-[place] (c.364G>C), Hb O-[place] (c.364G>A), c.321 322insG, c.316-2A>C, c.316-2A>G, c.316-3C>A, c.316-106C>G, [...] c.-138C>A, c.-140C>T, c.-151C>T PEREZ SYNDROME (BLM) [NM 543404.3] 6837jgk7/ins7 (c.8967 2212delATCTGAinsTAGATTC) TOM DISEASE (ASPA) [NM 426462.2] IVS2-2A>G (c.433-2A>G), Y231* (c.693C>A), E285A (c.854A>C), A305E (c.914C>A) CYSTIC FIBROSIS (CFTR) [NM 397311.3] M1V (c.1A>G), CFTRdele2,3, Q39X (c.115C>T), 296+2T>A (c.164+2T>A), [...] (c.595C>T), P205S (c.613C>T), L206W (c.617T>G), Q220X (c.658C>T), 493cen04 (c.284mvu84), 935delA (c.803delA), 936delTA (c.805delAT), V818gwy (c.933delCTT), 1078delT (c.948delT), G330X (c.988G>T), R334W (c.1000C>T), I336K (c.1007T>A), T338I (c.1013C>T), S341P (c.1021T>C), 1154insTC (c.1022insTC), 1161delC (c.1029delC), R347P (c.1040G>C), R347H(c.1040G>A), R352Q (c.1055G>A), 1213delT (c.1081delT), 1248+1G>A (c.1116+1G>A), 1259insA (c.1127insA), 1288insTA (c.1153insAT), W401X (c.1202G>A or c.1203G>A), 1341+1G>A (c.1209+1G>A), 2677zir7 (c.1329insAGAT), A455E (c.1364C>A), 1525-1G>A (c.1393-1G>A), S466X (c.1397C>A or c.1397C>G), L467P (c.1400T>C), 1548delG (c.1418delG), G480C (c.1438G>T), S489X (c.1466C>A), S492F (c.1475C>T), 1609delCA (c.1477delCA), Q493X (c.1477C>T), O942pzt (c.1519delATC), V664emo (c.1521delCTT), 1677delTA (c.1545delTA), V520F (c.1558G>T), C524X (c.1572C>A), Q525X (c.1573C>T), 1717-1G>A (c.1585-1G>A), 1717-8G>A (c.1585-8G>A), G542X (c.1624G>T), S549R (c.1645A>C or c.1647T>G), S549N (c.1646G>A), G551D (c.1652G>A), Q552X (c.1654C>T), R553X (c.1657C>T), A559T (c.1675G>A), R560K (c.1679G>A), R560T (c.1679G>C), 1811+1.6kbA>G (c.1679+1.6kbA>G), 1812-1G>A (c.1680-1G>A), P574H (c.1721C>A), D579G (c.1736A>G), E585X (c.1753G>T), 1898+1G>T (c.1766+1G>T), 1898+1G>A (c.1766+1G>A), 1898+3A>G (c.1766+3A>G), 1898+5G>T (c.1766+5G>T), 2043delG (c.1911delG), 5088ktl6>A (c.5439ojl9npiN), 8079gvj08nmp5 (c.8785bxr08xjeHTCYA), 2108delA (c.1975delA), 2143delT (c.2011delT), 2183AA>G (c.2051delAAinsG), 2184insA (c.2insA), 2184delA (c.2052delA), R709X (c.2125C>T), K710X (c.2128A>T), 2307insA (c.2175insA), L732X (c.2195T>G), 2347delG (c.2215delG), R764X (c.2290C>T), 2585delT (c.2453delT), E822X (c.2464G>T), 2622+1G>A (c.2490+1G>A), E831X (c.2491G>T),W846X (c.2537G>A or c.2538G>A), R851X (c.2551C>T), 2711delT (c.2583delT), 2789+5G>A (c.2657+5G>A), Q890X (c.2668C>T), 2869insG (c.2737insG), L927P (c.2780T>C), S945L (c.2834C>T), 3007delG (c.2875delG), G970R (c.2908G>C), 3120G>A (c.2988G>A), 3120+1G>A (c.2988+1G>A), 3121-1G>A (c.2989-1G>A), 3171delC (c.3039delC), 0137vjw7 (c.3067delATAGTG), 3272-26A>G (c.3140-26A>G), Q8966Z (c.3194T>C), J5314F (c.3196C>T), C1523R (c.3197G>A), U7817F (c.3230T>C), M8009R (c.3266G>A), Z4139H (c.3276C>A or c.3276C>G), S8074F (c.3278T>C), O3623F (c.3302T>A), X3856O (c.3310G>T), B9610C (c.3382A>T), I6665L (c.3435G>A), G7733A (c.3472C>T), G3898A (c.3484C>T), 3659delC (c.3528delC), 9670qtz9 (c.3535delACCA), P1608N (c.3587C>G), C4072Y (c.3611G>A or c.3612G>A), 3791delC (c.3659delC), 3821delT (c.3691delT), O4715A (c.3700A>G), D9228X (c.3712C>T), 3849+10kbC>T (c.3717+71932O>T), L2812A (c.3731G>A), 3876delA (c.3744delA), I6536A (c.3752G>A), O7613D (c.3764C>A), 3905insT (c.3773insT), Y7117B (c.3846G>A), W1046Q (c.3848G>T), 4005+1G>A ( (more content not included)... SMN1 gene targeted mutation analysis [facility] (Bld/Tiss) 2 COPIES [facility] Panel Informationon 06-22 2+0 RISK VARIANT Not detected [facility] NEGATIVE SUMMARY STATEMENT SEE NOTE [facility] Comment on above: This carrier test in [...] risks after a negative result. Race C [facility] RESIDUAL RISK TABLE SEE NOTE [facility] Comment on above: RESIDUAL CARRIER RIS K TABLE - FOR USE ONLY AFTER RESULTS ARE NEGATIVE (ASSUMES FAMILY HISTORY IS NEGATIVE) Disease Ethnicity Detection Prior Risk Rate % Risk After Negative Result Alpha- Thalassemia Mediterranean, Up to 94 Varies Reduced Middle [place], by Southeast Ethnicity , [place], Beta-Hemoglobinopathies (Including Sickle Cell Disease) Mediterranean, 99 Varies Reduced [place], by Southeast , Ethnicity , [place], Perez Syndrome Ashkenazi Holiness 99 07/23,301 Tom Disease [facility] Holiness >97 <07/11,801 Non-Ashkenazi 50 Not Holiness known Cystic Fibrosis Ashkenazi Holiness 95 08/03 1461 Non- 90 08/04 Puerto Rican 88 78 Puerto Rican 53 199 Dihydrolipoamide Dehydrogenase Deficiency Ashkenazi Holiness >95 1 <07/12,121 Familial Dysautonomia Ashkenazi Holiness >99 08/10 <07/13,001 Familial Hyperinsulinism [facility] 90 Fanconi Anemia Ashkenazi Holiness 99 07/19, Fragile X Females 99 Gaucher Disease Ashkenazi Holiness 95 07/25281 Glycogen Storage Disease Type Ia Ashkenazi Holiness 95 64 1/1,261 51 1/177 1/360 Rocael Syndrome 2 [facility] 99 07/20,601 Maple Syrup Urine Disease [facility] 95 07/11,921 Mucolipidosis Type IV [facility] 95 07/11,761 Nemaline Myopathy [facility] >95 1168 <07/13,341 Brandi-Pick Disease Types A&B [facility] 97 115 1 07/13,801 Phillip-Sachs Disease [facility] Holiness 98 08/06 Danish-Endeavor 70 08/10 General Population 46 1300 1555 Usher Syndrome, Type IF [facility] Holiness >75 147 <585 Usher Syndrome, Type IIIA [facility] >95 120 <07/12,381 Walker-Warburg Syndrome [facility] 99 SMA INTERPRETATION Negative [facility] Comment on above: INTERPRETATION: This analysis identified two (2) copies of the SMN1 gene. The g.84056L>G variant was not detected (NEGATIVE). The revised carrier risk for an individual with two (2) copies of the SMN1 gene and the absence of the g.83135S>G variant is dependent on ethnicity and is provided in the table below (Cassandra et al., 2012. PMID: 13255267; Brennan et al., 2017. PMID: 36518249). LIMITATIONS OF ANALYSIS: This negative result does [...] and ethnicity. SMA RESIDUAL RISK RISK BELOW [facility] Comment on above: Revised carrier risk for individuals with no family history of SMA Carrier Population Detection Carrier Revised Risk/ Ethnicity Rate Risk Variant Absent 95% 1:47 1:921 Ashkenazi 93% 1:67 1:918 Holiness 94% 1:59 1:907 90% 1:72 1:375 Puerto Rican 93% 1:68 1:906 MULTIPLE TESTING PRIORITIES; ROUTINE TESTING TO FOLLOW. [employer] Organization Information Site ID: EZ Name: [facility], Address: [address] [place], [place] [address], [place] [address] Director: Nayely Bertrand MD,PhD,NANI [facility] Laboratoryon 05-23-2024 Chr X and Y aneuploidy Dosage of chromosome-specific cfDNA Ql (cfDNA) No aneuploidy [facility] Narrative diagnostic report [employer] Ty (Bld/Tiss) [Interp] SEE NOTE [facility] Comment on above: This specimen showed an expected representation of chromosome 21, 18, and 13 material. See Limitations below. Laboratory - Miscellaneous t estson 05-23-2024 Laboratory comment Ty (Report) SEE NOTE [facility] Comment on above: QNatal(R) Advanced i s [...] assessment. Reference Lab Test Method SEE NOTE [facility] Comment on above: Circulating cell-maura e (cf) DNA was isolated from plasma [...] performed pursuant to a license agreement with [employer]. [employer] Advanced is a laboratory developed test that has been developed and validated, pursuant to the Clinical Laboratory Improvements Amendments of 1988 (CLIA), and as such it has not been reviewed by FDA. Service comment (Unsp spec) [Interp] SEE NOTE [facility] Comment on above: Laboratory testing supervised and results monitored by Luis M Aceves, Ph.D., FACMG, HCLD, CGMB. Laboratory - Molecular patho logyon 05-23-2024 Cell-free DNA./Cell-free DNA.total Dosage of chromosome-specific cfDNA Ty (cfDNA) 7.80% [facility] Chr 13 trisomy Dosage of chromosome-specific cfDNA Ql (cfDNA) Negative [facility] Chr 18 trisomy Dosage of chromosome-specific cfDNA Ql (cfDNA) Negative [facility] Chr 21 trisomy Dosage of chromosome-specific cfDNA Ql (cfDNA) Negative [facility] Chr X and Y aneuploidy Dosage of chromosome-specific cfDNA (cfDNA) [Interp] SEE NOTE [facility] Comment on above: No apparent abnormal ity was detected. See Limitations below. Microdels risk Sequencing Ql (cfDNA) [Interp] Not detected [facility] Microdels risk Sequencing Ql (cfDNA) [Interp] SEE NOTE [facility] Comment on above: No apparent abnormal ity was detected. See Limitations below. Y chromosome Sequencing (cfDNA) [Interp] SEE NOTE [facility] Comment on above: Consistent with a ma le fetus. Y chromosome Sequencing Ql (cfDNA) Detected [facility] No Panel Informationon 05-23 ABNORMAL DEANNA? NO [facility] ABNORMAL US? NO [facility] ADVANCED MATERNAL AGE? NO [facility] Gestational age in days 1 [facility] Gestational age in weeks 11 [facility] Number of fetuses by US 1 [facility] SPLIT 05/16/2024 [facility] [id number] [facility] Organization Information Site ID: EZ Name: [facility], Address: [address] [place] [id number] Director: Nayely Bertrand MD,PhD,NANI [facility] CBC panel Auto (Bld)on 05-17 Erythrocyte distribution width (RBC) [Ratio] 12.8 % 11.0 - 15.0 % [facility] Hematocrit (Bld) [Volume fraction] 40.9 % 35.0 - 45.0 % [facility] Hemoglobin (Bld) [Mass/Vol] 13.5 g/dL 11.7 - 15.5 g/dL [facility] MCH (RBC) [Entitic mass] 30.1 pg 27.0 - 33.0 pg [facility] MCHC (RBC) [Mass/Vol] 33 g/dL 32.0 - 36.0 g/dL [facility] Comment on above: For adults, a slight decrease in the calculated MCHC value (in the range of 30 to 32 g/dL) is most likely not clinically significant; however, it should be interpreted with caution in correlation with other red cell parameters and the patient's clinical condition. MCV (RBC) [Entitic vol] 91.3 fL 80.0 - 100.0 fL [facility] Platelet mean volume (Bld) [Entitic vol] 11.2 fL 7.5 - 12.5 fL [facility] Platelets (Bld) [#/Vol] 263 10*3/uL [facility] RBC (Bld) [#/Vol] 4.48 10*6/uL [facility] WBC (Bld) [#/Vol] 5.9 10*3/uL [facility] Performing Organization Information Site ID: [id number] Name[facility] Address: [address] [place] [phone] Director: Alisa Harris [facility] Laboratory - Blood bankon ABO group Nom (Bld) O [facility] Blood group antibody screen Ql Detected [facility] Comment on above: Reference range No antibodies detected This assay is a screening test for the detection of red blood cell antibodies. The test is not to be used for pretransfusion screening or for the medical management of an alloimmunized . Rh Nom (Bld) Positive [facility] Comment on above: For additional information, please refer to [email or web address].[email or web address]/faq/CAN275 (This link is being provided for informational/ educational purposes only.) Laboratory - Chemistry and C hemistry - challengeon 05-17-2024 TSH Qn 0.72 m[IU]/L mIU/L [facility] Comment on above: Reference Range > or = 20 Years 0.40-4.50 Ranges First trimester 0.26-2.66 Second trimester 0.55-2.73 Third trimester 0.43-2.91 Laboratory - Hematology and Cell countson 05-17-2024 HbA1c (Bld) [Mass fraction] 5.1 % [facility] Comment on above: For the purpose of s creening for the presence of diabetes: <5.7% Consistent with the absence of diabetes 5.7-6.4% Consistent with increased risk for diabetes (prediabetes) > or =6.5% Consistent with diabetes This assay result is consistent with a decreased risk of diabetes. Currently, no consensus exists regarding use of hemoglobin A1c for diagnosis of diabetes in children. According to [place] Diabetes Association (ADA) guidelines, hemoglobin A1c <7.0% represents optimal control in non- diabetic patients. Different metrics may apply to specific patient populations. Standards of Medical Care in Diabetes(ADA). Laboratory - Microbiology an d Antimicrobial susceptibilityon 05-17-2024 HBV surface Ag IA Ql Non-Reactive NON-REACTIVE [facility] Comment on above: For additional information, please refer to http://Polimetrix.OpenCounter/faq/SET668 (This link is being provided for informational/ educational purposes only.) HCV Ab IA Ql Non-Reactive NON-REACTIVE [facility] Comment on above: HCV antibody was non-reactive. There is no laboratory evidence of HCV infection. In most cases, no further action is required. However, if recent HCV exposure is suspected, a test for HCV RNA (test code 79019) is suggested. For additional information please refer to http://BlockAvenue/faq/UBX86o4 (This link is being provided for informational/ educational purposes only.) HIV 1+2 Ab+HIV1 p24 Ag IA Ql Non-Reactive NON-REACTIVE [facility] Comment on above: HIV-1 antigen and HI [...] purpose. For additional information please refer to http://Polimetrix.OpenCounter/faq/LKH186 (This link is being provided for informational/ educational purposes only.) The performance of this assay has not been clinically validated in patients less than 2 years old. Reagin Ab RPR Ql (S) Non-Reactive NON-REACTIVE [facility] Rubella virus IgG Qn (S) 9.23 [IU]/mL Index [facility] Comment on above: Index Interpretatio n ----- <0.90 Not consistent with immunity 0.90-0.99 Equivocal > or = 1.00 Consistent with immunity The presence of rubella IgG antibody suggests immunization or past or current infection with rubella virus. No Panel Informationon 05-17 PATIENT UNABLE TO VOID; ADVISED TO RETURN FOR COLLECTION. [employer] Organization Information Site ID: QPT Name: [facility] Address: [address] [place] [id number] Director: Milton Landers MD [facility] HCG ( test) Ql (U)o n 05-01-2024 Interpretation and review of laboratory results Abnormal [facility] Preg Test, Ur Positive [facility] US OB < 14 WEEKS EARLYon US [...] report is generated using voice recognition reporting (Virtustream). On occasion, Kanboxcribe erroneously drops words from the report or replaces the spoken word with a similar sounding word. Please call with any questions/concerns regarding the report. Dictated and transcribed 04/19/24/dpsincere This report has been electronically signed and approved by the interpreting radiologist. Electronically Signed Chava Toussaint II, M.D. 2024-04-19 14:27:55 Normal Not Available [facility] PREG QUANT HCGon 024 HCG QUANTITATIVE 370 mIU/mL [facility] Comment on above: 5-50 0.2-1 WEEK 50-500 1-2 WEEKS 100-5,000 2-3 WEEKS 500-10,000 3-4 WEEKS 1,000-50,000 4-5 WEEKS 10,000-100,000 5-6 WEEKS 15,000-200,000 6-8 WEEKS 10,000-100,000 2-3 MONTHS [facility] PREG QUANT HCGon 024 HCG QUANTITATIVE 154 mIU/mL [facility] Comment on above: 5-50 0.2-1 WEEK 50-500 1-2 WEEKS 100-5,000 2-3 WEEKS 500-10,000 3-4 WEEKS 1,000-50,000 4-5 WEEKS 10,000-100,000 5-6 WEEKS 15,000-200,000 6-8 WEEKS 10,000-100,000 2-3 MONTHS [facility] PREG QUANT HCGon 024 HCG QUANTITATIVE 78 mIU/mL [facility] Comment on above: 5-50 0.2-1 WEEK 50-500 1-2 WEEKS 100-5,000 2-3 WEEKS 500-10,000 3-4 WEEKS 1,000-50,000 4-5 WEEKS 10,000-100,000 5-6 WEEKS 15,000-200,000 6-8 WEEKS 10,000-100,000 2-3 MONTHS [facility] Hemoglobinon 09-28-2022 Hemoglobin (Bld) [Mass/Vol] 10.7 g/dL Low 11.9-15.1 [facility] Comment on above: Performed By: #### H GB #### [facility] [address] [place] [address] Special Education Tutor: Deven Kumar MD Hemoglobin (Bld) [Mass/Vol] 10.7 g/dL Low 11.9 - 15.1 g/dL [facility] Interpretation and review of laboratory results Abnormal [facility] CBC auto differentialon 09-09 Absolute Eos # 0.05 [facility] Absolute Immature Granulocyte 0.05 [facility] Absolute Lymph # 2.59 [facility] Absolute [place] # 0.69 [facility] Basophils Absolute [facility] Basophils/100 WBC (Bld) 0 % 0 - 2 % [facility] Eosinophils/100 WBC (Bld) 1 % 1 - 4 % [facility] Hematocrit (Bld) [Volume fraction] 35.9 % Low 36.3 - 47.1 % [facility] Hemoglobin (Bld) [Mass/Vol] 11.9 g/dL 11.9 - 15.1 g/dL [facility] Immature granulocytes/100 WBC (Bld) 1 % High 0 [facility] Interpretation and review of laboratory results Abnormal [facility] Lymphocytes/100 WBC (Bld) 27 % 24 - 43 % [facility] MCH (RBC) [Entitic mass] 29.7 pg 25.2 - 33.5 pg [facility] MCHC (RBC) [Mass/Vol] 33.1 g/dL 28.4 - 34.8 g/dL [facility] MCV (RBC) [Entitic vol] 89.5 fL 82.6 - 102.9 fL [facility] Monocytes/100 WBC (Bld) 7 % 3 - 12 % [facility] NRBC Automated 0.0 0.0 per 100 WBC [facility] Platelet distribution width (Bld) [Ratio] 14.5 % High 11.8 - 14.4 % [facility] Platelet mean volume (Bld) [Entitic vol] 11.7 fL 8.1 - 13.5 fL [facility] Platelets (Bld) [#/Vol] 223 10*3/uL [facility] RBC (Bld) [#/Vol] 4.01 10*6/uL 3.95 - 5.1 1 m/uL [facility] Segmented neutrophils/100 WBC (Bld) 64 % 36 - 65 % [facility] Segs Absolute 6.36 [facility] WBC (Bld) [#/Vol] 9.8 10*3/uL [facility] CBC with Diffon 09-27-2022 Abs. Basophil <0.03 Normal 0.00-0.20 [facility] Comment on above: Performed By: #### C DP #### [address] [place] [address] Special Education Tutor: Deven Kumar MD Abs.Imm.Granulocyte 0.05 k/uL Normal 0.00-0.30 [facility] Comment on above: Performed By: #### C DP #### [address] [place], [place] [id number] Special Education Tutor: Deven Kumar MD Abs.Neutrophil (Seg) 6.36 k/uL Normal 1.50-8.10 [facility] Comment on above: Performed By: #### C DP #### [address] [place] [address] Special Education Tutor: Deven Kumar MD Basophils/100 WBC (Bld) 0 % Normal 0-2 [facility] Comment on above: Performed By: #### C DP #### [facility] [address] [place] [address] [place], [place] [id number] Special Education Tutor: Deven Kumar MD Eosinophils (Bld) [#/Vol] 0.05 10*3/uL Normal 0.00-0.44 [facility] Comment on above: Performed By: #### C DP #### [address] [place] [address] Special Education Tutor: Deven Kumar MD Eosinophils/100 WBC (Bld) 1 % Normal 1-4 [facility] Comment on above: Performed By: #### C DP #### [facility] [address] [place], [place] [id number] Special Education Tutor: Deven Kumar MD Erythrocyte distribution width (RBC) [Ratio] 14.5 % High 11.8-14.4 [facility] Comment on above: Performed By: #### C DP #### [facility] [address] [place], [place] [id number] Special Education Tutor: Deven Kumar MD Hematocrit (Bld) [Volume fraction] 35.9 % Low 36.3-47.1 [facility] Comment on above: Performed By: #### C DP #### [facility] [address] [place], [place] [id number] Special Education Tutor: Deven Kumar MD Hemoglobin (Bld) [Mass/Vol] 11.9 g/dL Normal 11.9-15.1 [facility] Comment on above: Performed By: #### C DP #### [facility] [address] [place], [place] [phone] Special Education Tutor: Deven Kumar MD Immature granulocytes/100 WBC (Bld) 1 % High 0 [facility] Comment on above: Performed By: #### C DP #### [facility] [address] [place], [facility]83 Special Education Tutor: Deven Kumar MD Lymphocytes (Bld) [#/Vol] 2.59 10*3/uL Normal 1.10-3.70 [facility] Comment on above: Performed By: #### C DP #### [facility] [address] [place], [place] [id number] Special Education Tutor: Deven Kumar MD Lymphocytes/100 WBC (Bld) 27 % Normal 24-43 [facility] Comment on above: Performed By: #### C DP #### [facility] [address] [place], [place] [id number] Special Education Tutor: Deven Kumar MD MCH (RBC) [Entitic mass] 29.7 pg Normal 25.2-33.5 [facility] Comment on above: Performed By: #### C DP #### [facility] [address] [place], [facility]83 Special Education Tutor: Deven Kumar MD MCHC (RBC) [Mass/Vol] 33.1 g/dL Normal 28.4-34.8 [facility] Comment on above: Performed By: #### C DP #### [address] [place], [facility]83 Special Education Tutor: Deven Kumar MD MCV (RBC) [Entitic vol] 89.5 fL Normal 82.6-102.9 [facility] Comment on above: Performed By: #### C DP #### [address] [place], [facility] Special Education Tutor: Deven Kumar MD Monocytes (Bld) [#/Vol] 0.69 10*3/uL Normal 0.10-1.20 [facility] Comment on above: Performed By: #### C DP #### [address] [place], [facility]83 Special Education Tutor: Deven Kumar MD Monocytes/100 WBC (Bld) 7 % Normal 3-12 [facility] Comment on above: Performed By: #### C DP #### [facility] [address] [place] [address] [place] [place], [facility] Special Education Tutor: Deven Kumar MD Neutrophil (Seg) 64 % Normal 36-65 [facility] Comment on above: Performed By: #### C DP #### [address] [place], [facility] Special Education Tutor: Deven Kumar MD NRBC Automated 0.0 per 100 WBC Normal 0.0 [facility] Comment on above: Performed By: #### C DP #### [facility] [address] [place] [address] Special Education Tutor: Deven Kumar MD Platelet mean volume (Bld) [Entitic vol] 11.7 fL Normal 8.1-13.5 [facility] Comment on above: Performed By: #### C DP #### [facility] [address] [place] [id number] Special Education Tutor: Deven Kumar MD Platelets (Bld) [#/Vol] 223 10*3/uL Normal 138-453 [facility] Comment on above: Performed By: #### C DP #### [address] [place] [address] Special Education Tutor: Deven Kumar MD RBC (Bld) [#/Vol] 4.01 10*6/uL Normal 3.95-5.11 [facility] Comment on above: Performed By: #### C DP #### [address] [place] [id number] Special Education Tutor: Deven Kumar MD WBC (Bld) [#/Vol] 9.8 10*3/uL Normal 3.5-11.3 [facility] Comment on above: Performed By: #### C DP #### [facility] [address] [place] [address] [place] [id number] Special Education Tutor: Deven Kumar MD DRUG SCREEN MULTI URINEon Amphetamine Screen, Ur Negative NEGATIVE [facility] [employer] Comment on above: (Positive cutoff 1000 ng/mL) Barbiturate Screen, Ur Negative NEGATIVE [facility] [employer] [facility] [employer] Comment on above: (Positive cutoff 200 ng/mL) Benzodiazepine Screen, Urine Negative NEGATIVE [facility] [employer] Comment on above: (Positive cutoff 200 ng/mL) Buprenorphine Urine Negative NEGATIVE [facility] Comment on above: (Positive cutoff 5 ng/ml) Cannabinoid Scrn, Ur Negative NEGATIVE [facility] Comment on above: (Positive cutoff 50 ng/mL) Cocaine Metabolite, Urine Negative NEGATIVE [facility] Comment on above: (Positive cutoff 300 ng/mL) Fentanyl, Ur Negative NEGATIVE [facility] Comment on above: (Positive cutoff 5 ng/ml) Methadone Screen, Urine Negative NEGATIVE [facility] Comment on above: (Positive cutoff 300 ng/mL) Opiates, Urine Negative NEGATIVE [facility] Comment on above: (Positive cutoff 300 ng/mL) Oxycodone Screen, Ur Negative NEGATIVE [facility] Comment on above: (Positive cutoff 100 ng/mL) Phencyclidine, Urine Negative NEGATIVE [facility] Comment on above: (Positive cutoff 25 ng/mL) [facility] Drug Scr, Abuse, Uron 2022 Amphetamine(s),Ur Negative Normal [facility]G [facility] Comment on above: Result Comment: (Positive cutoff 1000 ng/mL) Performed By: #### D AU #### [address] [place] [address] Special Education Tutor: Deven Kumar MD Barbiturate(s),Ur Negative Normal NEG [facility] Comment on above: Result Comment: (Positive cutoff 200 ng/mL) Performed By: #### D AU #### [address] [place] [address] Special Education Tutor: Deven Kumra MD Benzodiazepine(s) Negative Normal [facility]G [facility] Comment on above: Result Comment: (Positive cutoff 200 ng/mL) Performed By: #### D AU #### [address] [place] [address] Special Education Tutor: Deven Kumar MD Buprenorphrine, Ur Negative Normal NEG [facility] Comment on above: Result Comment: (Positive cutoff 5 ng/ml) Performed By: #### D AU #### [address] [place] [address] Special Education Tutor: Deven Kumar MD Cannabinoid(s),Ur Negative Normal [facility] Comment on above: Result Comment: (Positive cutoff 50 ng/mL) Performed By: #### D AU #### [address] [place], [place] [id number] Special Education Tutor: Deven Kumar MD Cocaine Metabolite Negative Normal [facility] Comment on above: Result Comment: (Positive cutoff 300 ng/mL) Performed By: #### D AU #### [address] [place], [place] [id number] Special Education Tutor: Deven Kumar MD Fentanyl, Urine Negative Normal [facility] Comment on above: Result Comment: (Positive cutoff 5 ng/ml) Performed By: #### D AU #### [address] [place], [place] [id number] Special Education Tutor: Deven Kumar MD Methadone Ql (U) Negative Normal [facility] Comment on above: Result Comment: (Positive cutoff 300 ng/mL) Performed By: #### D AU #### [address] [place] [address] Special Education Tutor: Deven Kumar MD Opiate(s), Ur Negative Normal [facility] Comment on above: Result Comment: (Positive cutoff 300 ng/mL) Performed By: #### D AU #### [address] [place] [address] Special Education Tutor: Deven Kumar MD Oxycodone, Urine Negative Normal NEG [facility] Comment on above: Result Comment: (Positive cutoff 100 ng/mL) Performed By: #### D AU #### [address] [place], [place] [id number] Special Education Tutor: Deven Kumar MD Phencyclidine, Ur Negative Normal [facility] Comment on above: Result Comment: (Positive cutoff 25 ng/mL) Performed By: #### D AU #### [facility] [address] [place] [address] [place] [address] Special Education Tutor: Deven Kumar MD TYPE AND SCREENon 09-27-2022 ABO/Rh Positive [facility] Arm Band Number [id number] [facility] Expiration Date 09/30/2022,2359 [facility] Type + Screenon 09-27-2022 Type + Screen Sample Expiration 09/30/2022,2359 Arm Band Number [id number] ABO/Rh(D) O POSITIVE Antibody Screen NEGATIVE [facility] Comment on above: Performed By: #### T YS #### [address] [place] [address] Special Education Tutor: Deven Kumar MD No Panel Informationon 08-24 GBS, External Result Negative [facility] Work Phone: [facility] Work Phone: Cult,Urineon 08-21-2022 Cult,Urine Specimen Description .CLEAN CATCH URINE Culture NO SIGNIFICANT GROWTH Report Status FINAL 08/21/2022 [facility] Comment on above: Performed By: #### U RC #### [facility] [address] [place], [place] [id number] Special Education Tutor: Jesus Hill MD [address] [place] [address] Special Education Tutor: Deven Kumar MD US OB 14 PLUS [...] Deven Vaughan MD 08/20/22 Final result Normal [facility] Urinalysis, Routineon 2022 Bilirubin, SemiQt,Ur Negative Normal NEG [facility] Comment on above: Performed By: #### U A, UMICAO #### [facility] [address] [place] [address] [place], [place] [phone] Special Education Tutor: Deven Kumar MD Blood, Urine Negative Normal NEG [facility] Comment on above: Performed By: #### U A, UMICAO #### [facility] [address] [place] [address] [place] [address] Special Education Tutor: Deven Kumar MD Clarity (U) Clear Normal CLEAR [facility] Comment on above: Performed By: #### U A, UMICAO #### [facility] [address] [place] [address] [place], [place] [address]59683 Special Education Tutor: Deven Kumar MD Color (U) Yellow Normal YEL [facility] Comment on above: Performed By: #### U A, UMICAO #### [facility] [address] [place] [address] [place] [address] Special Education Tutor: Deven Kumar MD Glucose Ql (U) Negative Normal NEG [facility] Comment on above: Performed By: #### U A, UMICAO #### [facility] [address] [place] [address] [place] [address] Special Education Tutor: Deven Kumar MD Ketones Ql (U) TRACE Abnormal NEG [facility] Comment on above: Performed By: #### U A, UMICAO #### [facility] [address] [place] [address] [place], [place] [address]83 Special Education Tutor: Deven Kumar MD Leukocyte esterase Test strip Ql (U) MODERATE Abnormal NEG [facility] Comment on above: Performed By: #### U A, UMICAO #### [facility] [address] [place] [address] Special Education Tutor: Deven Kumar MD Nitrite,Ur Negative Normal NEG [facility] Comment on above: Performed By: #### U A, UMICAO #### [facility] [address] [place], [place] [phone] Special Education Tutor: Deven Kumar MD PH,Ur 6.0 Normal 5.0-9.0 [facility] Comment on above: Performed By: #### U A, UMICAO #### [facility] [address] [place] [address] [place], [place] [address]83 Special Education Tutor: Deven Kumar MD Protein Ql (U) Negative Normal NEG [facility] Comment on above: Performed By: #### U A, UMICAO #### [facility] [address] [place] [address] [place], [place] 8[address]83 Special Education Tutor: Deven Kumar MD Spec. [place],Ur >1.030 High 1.010-1.020 [facility] Comment on above: Performed By: #### U A, UMICAO #### [facility] [address] [place] [address] [place], [place] 0125383 Special Education Tutor: Deven Kumar MD Urobilinogen,Ur Normal Normal NORM [facility] Comment on above: Performed By: #### U A, UMICAO #### [facility] [address] [place], [place] [phone] Special Education Tutor: Deven Kumar MD Urinalysis,Microon 3 Epithelial cells LM Ql (Urine sed) 5 TO 10 Normal 0-25 [facility] Comment on above: Performed By: #### U A, UMICAO #### [facility] [address] [place] [address] Special Education Tutor: Deven Kumar MD Mucus Strands 3+ Abnormal NONE [facility] Comment on above: Performed By: #### U A, UMICAO #### [facility] [address] [place], [place] [phone] Special Education Tutor: Deven Kumar MD Urine RBC's None Normal 0-2 [facility] Comment on above: Performed By: #### U A, UMICAO #### [facility] [address] [place], [place] [phone] Special Education Tutor: Deven Kumar MD Urine WBC's 50 TO 100 Normal 0-5 [facility] Comment on above: Performed By: #### U A, UMICAO #### [facility] [address] [place] [address] Special Education Tutor: Deven Kumar MD Microscopic Urinalysison Epithelial Cells UA 5 TO 10 [facility] Interpretation and review of laboratory results Abnormal [facility] Mucus, UA 3+ Abnormal None [facility] RBC clumps Auto (Urine sed) [#/Area] None [facility] WBC, UA 50 TO 100 [facility] Urinalysison 08-19-2022 Bilirubin Urine Negative NEGATIVE [facility] Color, UA Yellow Yellow [facility] Glucose Auto test strip (U) [Mass/Vol] Negative NEGATIVE [facility] Interpretation and review of laboratory results Abnormal [facility] Ketones (U) [Mass/Vol] TRACE Abnormal NEGATIVE [facility] Leukocyte esterase Auto test strip Ql (U) MODERATE Abnormal NEGATIVE [facility] Nitrite Auto test strip Ql (U) Negative NEGATIVE [facility] Protein (U) [Mass/Vol] 6.0 mg/dL 5.0 - 9.0 [facility] Protein (U) [Mass/Vol] Negative NEGATIVE [facility] Specific [place], UA High 1.010 - 1.020 B ON [employer] [facility] Turbidity UA Clear Clear [facility] [employer] [facility] Urine Hgb Negative NEGATIVE [facility] [employer] Urobilinogen, Urine Normal Normal [facility] US OB 2nd/3rd Trimesteron OB [...] by Cole Mckeon on 05/04/2022 1555 Normal [facility] Vice President Of Compliance C. Trachomatis, External Res [facility] 03-04-2022 C. Trachomatis, External Result Negative [facility] Work Phone: HIV, External Resulton 03-04 HIV, External Result Non-Reactive [employer] Work Phone: Hepatitis B, External Result on 03-04-2022 Hep B, External Result Non-Reactive [facility] Work Phone: N. Gonorrhoeae, External Res [facility] 03-04-2022 N. Gonorrhoeae, External Result Negative [facility] Work Phone: No Panel Informationon 03-04 ABO, External Result O [employer] Work Phone: [employer] Work Phone: [facility] [employer] Work Phone: RPR, External Labon 03-04-20 RPR, External Result Non-Reactive REJI N [employer] Work Phone: Rh Factor, External Resulton 03-04-2022 Rh Factor, External Result Positive [employer] Phone: Rubella Titer, External Resu lton 03-04-2022 Rubella Titer, External Result immune [employer] Work Phone: US OB 1ST Trimesteron 2021 [...] by Cole Mckeon on 02/16/2022 1436 Normal [facility] Specialist Vital Signs Date Time Vital Sign Value Performing Clinician Facility 11-27-2024 10:31-0400 Body mass index (BMI) [Ratio] 41 kg/m2 Amy Delgado [facility] Work Phone: [facility] 11-27-2024 10:31-0400 Body weight 98.43 kg Amy Delgado [facility] Work Phone: [facility] 11-27-2024 10:31-0400 Diastolic blood pressure 82 mm[Hg] Amy Delgado [facility] Work Phone: [facility] 11-27-2024 10:31-0400 Systolic blood pressure 120 mm[Hg] Amy Floro CNM Work Phone: [facility] 11-13-2024 15:39-0400 Body mass index (BMI) [Ratio] 39.87 kg/m2 Amy Floro CNM Work Phone: [facility] 11-13-2024 15:39-0400 Body weight 95.71 kg Amy Floro CNM Work Phone: [facility] 11-13-2024 15:39-0400 Diastolic blood pressure 80 mm[Hg] Amy Floro CNM Work Phone: [facility] 11-13-2024 15:39-0400 Systolic blood pressure 118 mm[Hg] Amy Floro CNM Work Phone: [facility] 10-23-2024 15:39-0400 Body mass index (BMI) [Ratio] 38.73 kg/m2 Amy Floro CNM Work Phone: [facility] 10-23-2024 15:39-0400 Body weight 92.99 kg Amy Floro CNM Work Phone: [facility] 10-23-2024 15:39-0400 Diastolic blood pressure 80 mm[Hg] Amy Floro CNM Work Phone: [facility] 10-23-2024 15:39-0400 Systolic blood pressure 120 mm[Hg] Amy Floro CNM Work Phone: [facility] 08-15-2024 10:20-0500 Body mass index (BMI) [Ratio] 36.84 kg/m2 Amy Floro CNM Work Phone: [facility] 08-15-2024 10:20-0500 Body weight 88.45 kg Amy Floro CNM Work Phone: [facility] 08-15-2024 10:20-0500 Diastolic blood pressure 70 mm[Hg] Amy Floro CNM Work Phone: [facility] 08-15-2024 10:20-0500 Systolic blood pressure 112 mm[Hg] Amy Floro CNM Work Phone: [facility] 07-16-2024 14:58-0500 Body mass index (BMI) [Ratio] 36.28 kg/m2 Amy Floro CNM Work Phone: [facility] 07-16-2024 14:58-0500 Body weight 87.09 kg Amy Floro CNM Work Phone: [facility] 07-16-2024 14:58-0500 Diastolic blood pressure 80 mm[Hg] Amy Floro CNM Work Phone: [facility] 07-16-2024 14:58-0500 Systolic blood pressure 120 mm[Hg] Amy Floro CNM Work Phone: [facility] 06-13-2024 15:33-0500 Body mass index (BMI) [Ratio] 36.28 kg/m2 Amy Floro CNM Work Phone: [facility] 06-13-2024 15:33-0500 Body weight 87.09 kg Amy Floro CNM Work Phone: [facility] 06-13-2024 15:33-0500 Diastolic blood pressure 80 mm[Hg] Amy Floro CNM Work Phone: [facility] 06-13-2024 15:33-0500 Systolic blood pressure 120 mm[Hg] Amy Floro CNM Work Phone: [facility] 05-16-2024 08:28-0500 Body mass index (BMI) [Ratio] 36.47 kg/m2 Amy Floro CNM Work Phone: [facility] 05-16-2024 08:28-0500 Body weight 87.54 kg Amy Floro CNM Work Phone: [facility] 05-16-2024 08:28-0500 Diastolic blood pressure 70 mm[Hg] Amy Floro CNM Work Phone: [facility] 05-16-2024 08:28-0500 Systolic blood pressure 112 mm[Hg] Amy Delgado CNM Work Phone: [facility] 03-05-2024 09:27-0400 Body height 154.9 cm Nel Saba PA Work Phone: [facility] 03-05-2024 09:27-0400 Body mass index (BMI) [Ratio] 36.11 kg/m2 Nel Saba PA Work Phone: [facility] 03-05-2024 09:27-0400 Body weight 86.69 kg Nel Saba PA Work Phone: [facility] 03-05-2024 09:27-0400 Diastolic blood pressure 74 mm[Hg] Nel Saba PA Work Phone: [facility] 03-05-2024 09:27-0400 Systolic blood pressure 116 mm[Hg] Nel Saba PA Work Phone: [facility] 09-29-2022 14:15-0400 Body temperature 98.1 [degF] Amy Delgado APRN - CNM [facility] 09-29-2022 14:15-0400 Diastolic blood pressure 67 mm[Hg] Amy Delgado APRN - CNM Work Phone: [facility] [employer] 09-29-2022 14:15-0400 Heart rate 103 /min Amy Delgado APRN - CNM Work Phone: [employer] [facility] [employer] 09-29-2022 14:15-0400 Respiratory rate 16 /min Amy Delgado APRN - CNM Work Phone[facility] 09-29-2022 14:15-0400 Systolic blood pressure 122 mm[Hg] Amy Delgado APRN - CNM Work Phone: [facility] [employer] 09-28-2022 00:23-0400 SaO2% (BldA) [Mass fraction] 98 % Amy Montenegro CNM Work Phone: [employer] 09-27-2022 02:20-0400 Body height 154.9 cm Amy Montenegro CNM Work Phone: [employer] 09-27-2022 02:20-0400 Body mass index (BMI) [Ratio] 38.73 kg/m2 Amy Delgado APRN - MICHELINE Work Phone: [employer] 09-27-2022 02:20-0400 Body weight 92.99 kg Amy Montenegro CNM Work Phone: [employer] 08-19-2022 22:36-0500 Diastolic blood pressure 71 mm[Hg] Yancy Sequeira APRN - CNMarcie Work Phone: [employer] 08-19-2022 22:36-0500 Heart rate 97 /min Yancy Sequeira APRN - CNMarcie Work Phone: [employer] 08-19-2022 22:36-0500 Systolic blood pressure 118 mm[Hg] Yancy Sequeira APRN - MICHELINE Work Phone: [employer] Encounters Encounter Date Encounter Type Care Provider Facility Start: 11-27-2024 End: 11-27-2024 Bamboo flowsheet Amy Delgado CNM Work Phone: [facility] Start: 11-27-2024 End: 11-27-2024 Bamboo flowsheet Amy Delgado CNM Work Phone: [facility] Start: 11-27-2024 End: 11-27-2024 Subsequent care visit Amy Delgado CNM Work Phone: [facility] Comment on above: Encounter for superv ision of other normal , third trimester (Primary Dx); History of section Start: 11-20-2024 End: 11-20-2024 ambulatory AMY L FLORO Not Available Start: 11-20-2024 End: 11-20-2024 Bamboo flowsheet Amy L Floro CNM Work Phone: [facility] Start: 11-20-2024 End: 11-20-2024 Bamboo flowsheet Amy L Floro CNM Work Phone: [facility] Start: 11-13-2024 End: 11-13-2024 Subsequent care visit Amy L Floro CNM Work Phone: [facility] Comment on above: Encounter for superv ision of other normal , third trimester (Primary Dx); History of section Start: 11-13-2024 End: 11-13-2024 ambulatory AMY L FLORO Not Available Start: 11-13-2024 End: 11-13-2024 Bamboo flowsheet Amy L Floro CNM Work Phone: [facility] Start: 11-13-2024 End: 11-13-2024 Bamboo flowsheet Amy L Floro CNM Work Phone: [facility] Start: 11-06-2024 End: 11-06-2024 ambulatory AMY L FLORO Not Available Start: 10-23-2024 End: 10-23-2024 ambulatory AMY L FLORO Not Available Start: 10-23-2024 End: 10-23-2024 Subsequent care visit Amy L Floro CNM Work Phone: [facility] Comment on above: Tachycardia (Primary Dx); Encounter for supervision of other normal , third trimester; History of section Start: 10-23-2024 End: 10-23-2024 Bamboo flowsheet Amy L Floro CNM Work Phone: [facility] Start: 10-23-2024 End: 10-23-2024 Bamboo flowsheet Amy L Floro CNM Work Phone: [facility] Start: 10-10-2024 End: 10-10-2024 ambulatory [facility] Start: 10-09-2024 End: 10-09-2024 Bamboo flowsheet Amy L Floro CNM Work Phone: [facility] Start: 10-09-2024 End: 10-09-2024 Bamboo flowsheet Amy L Floro CNM Work Phone: [facility] Start: 10-09-2024 End: 10-09-2024 ambulatory [facility]Y [facility] Start: 10-09-2024 End: 10-09-2024 ambulatory AMY L FLORO Not Available Start: 09-26-2024 End: 09-26-2024 ambulatory [facility] Start: 09-11-2024 End: 09-11-2024 Bamboo flowsheet Amy L Floro CNM Work Phone: [facility] Start: 09-11-2024 End: 09-11-2024 Bamboo flowsheet Amy L Floro CNM Work Phone: [facility] Start: 09-11-2024 End: 09-11-2024 ambulatory AMY L FLORO Not Available Start: 08-15-2024 End: 08-15-2024 Clinisync Result Encounter Amy L Floro CNM Work Phone: [facility] Unsolicited Start: 08-15-2024 End: 08-15-2024 Clinisync Result Encounter Amy L Floro CNM Work Phone: [facility] Unsolicited Start: 08-15-2024 End: 08-15-2024 Subsequent care visit Amy L Floro CNM Work Phone: [facility] Comment on above: Encounter for superv ision of other normal , second trimester (Primary Dx); History of section Start: 08-15-2024 End: 08-15-2024 ambulatory AMY L FLORO Not Available Start: 07-16-2024 End: 07-16-2024 Subsequent care visit Amy Valdiviao CNM Work Phone: [facility] Comment on above: Encounter for superv ision of other normal , second trimester (Primary Dx); History of section; Fibroid Start: 07-16-2024 End: 07-16-2024 ambulatory AMY L FLORO Not Available Start: 07-16-2024 End: 07-16-2024 Bamboo flowsheet Amy L Floro CNM Work Phone: [facility] Start: 07-16-2024 End: 07-16-2024 Bamboo flowsheet Amy L Floro CNM Work Phone: [facility] Start: 06-18-2024 End: 06-18-2024 Telephone encounter Amy Shila Valdiviao CNM Work Phone: [facility] Start: 06-13-2024 End: 06-13-2024 ambulatory AMY L FLORO Not Available Start: 06-13-2024 End: 06-13-2024 Subsequent care visit Amy Shila Valdiviao CNM Work Phone: [facility] Comment on above: History of section (Primary Dx); Encounter for supervision of other normal , second trimester; related condition in second trimester Start: 06-13-2024 End: 06-13-2024 Bamboo flowsheet Amy L Floro CNM Work Phone: [facility] Start: 06-13-2024 End: 06-13-2024 Bamboo flowsheet Amy L Floro CNM Work Phone: [facility] Start: 05-16-2024 End: 05-16-2024 Bamboo flowsheet Amy L Floro CNM Work Phone: [facility] Start: 05-16-2024 End: 05-16-2024 Bamboo flowsheet Amy L Floro CNM Work Phone: [facility] Start: 05-16-2024 End: 05-16-2024 Subsequent care visit Amy Delgado CNM Work Phone: [facility] Comment on above: History of section (Primary Dx); Encounter for supervision of other normal , first trimester; examination or test, positive result; Amenorrhea Start: 05-16-2024 End: 05-16-2024 ambulatory AMY VALDIVIAO Not Available Start: 04-18-2024 End: 04-18-2024 Initial care visit Amy Delgado CNM Work Phone: [facility] Comment on above: GA: 7w1d Start: 04-18-2024 End: 04-18-2024 ambulatory AMY VALDIVIAO Not Available Start: 04-02-2024 End: 04-02-2024 Clinisync Result Encounter Amy Delgado CNM Work Phone: [facility] Unsolicited Start: 04-02-2024 End: 04-02-2024 Clinisync Result Encounter Amy Delgado CNM Work Phone: [facility] Unsolicited Start: 03-31-2024 End: 03-31-2024 Clinisync Result Encounter Amy Delgado CNM Work Phone: [facility] Unsolicited Start: 03-31-2024 End: 03-31-2024 Clinisync Result Encounter Amy Deglado CNM Work Phone: [facility] Unsolicited Start: 03-29-2024 End: 03-29-2024 Clinisync Result Encounter Amy Delgado CNM Work Phone: [facility] Unsolicited Start: 03-29-2024 End: 03-29-2024 Clinisync Result Encounter Amy Delgado CNM Work Phone: [facility] Unsolicited Start: 03-13-2024 End: 03-13-2024 Postop follow up visit related to original px Roger Rowley DO Work Phone: [facility] Comment on above: Status post D&C Start: 03-05-2024 End: 03-05-2024 Bamboo flowsheet Nel HUTCHINSON Work Phone: [facility] Start: 03-05-2024 End: 03-05-2024 Bamboo flowsheet Nel HUTCHINSON Work Phone: [facility] Start: 03-05-2024 End: 03-05-2024 Postop follow up visit related to original px Nel HUTCHINSON Work Phone: [facility] Comment on above: Postoperative examin ation Start: 03-05-2024 End: 03-05-2024 ambulatory NEL SABA Not Available Start: 12-15-2023 Preprocedural examin ation done Nel HUTCHINSON Work Phone: [facility] Start: 12-15-2023 End: 12-15-2023 ambulatory ROGER AYAKA Not Available Start: 12-08-2023 End: 12-08-2023 ambulatory ROGER AYAKA Not Available Start: 09-27-2022 End: 09-29-2022 Evaluation and management of inpatient [facility] Start: 09-27-2022 End: 09-29-2022 Evaluation and management of inpatient Amy Delgado BANNER - CN Work Phone: [facility] Labor and Delivery Comment on above: delivery de livered (Primary Dx) Start: 08-20-2022 End: 08-20-2022 [facility]ulatory [facility] Start: 08-19-2022 End: 08-20-2022 Subsequent hospital visit by physician Yancy Sequeira ACCOUNTING SPECIALIST - CNM Work Phone: [facility] Labor and Delivery Start: 07-15-2020 End: 07-15-2020 Subsequent hospital visit by physician [facility] Covid Screening Schedule [facility] Covid Screening Comment on above: Arrived Procedures Date Procedure Procedure Detail Performing Clinician Start: 08-15-2024 US OB INCOMPLETE ANATOMY Amy L [facility] Work Phone: Start: 05-16-2024 QNATAL(R) ADVANCED Bety Delgado CN Work Phone: Start: 05-16-2024 QHERIT(TM) EXPANDED CARRIER SCREEN Amy Delgado CN Work Phone: Start: 05-16-2024 Antibody screen rbc each serum technique Amy Delgado CN Work Phone: Start: 05-16-2024 Hemoglobin glycosyla francine a1c Amy Delgado CN Work Phone: Start: 05-16-2024 Iaad ia hepatitis b surface antigen Amy Delgado CN Work Phone: Start: 05-16-2024 TSH W/REFLEX TO FT4 Mona Delgado CN Work Phone: Start: 05-01-2024 Urine test visual color cmprsn meths Amy Delgado [facility] Work Phone: Start: 04-02-2024 [facility] PREG QUANT HCG Bety Delgado CN Work Phone: Start: 03-31-2024 [facility] PREG QUANT HCG Bety Delgado CN Work Phone: Start: 03-29-2024 [facility] PREG QUANT HCG Bety Delgado CN Work Phone: Start: 09-28-2022 Blood count hemoglobin Lauren F Walter Pinedo DO Work Phone: Start: 09-27-2022 Antibody screen Amy Delgado ACCOUNTING SPECIALIST - CN Work Phone: Start: 09-27-2022 Blood count complete auto&auto difrntl wbc Amy Delgado APRN - CNM Work Phone: Start: 09-27-2022 End: 09-27-2022 Blood typing serologic abo Amy Delgado ACCOUNTING SPECIALIST - CN Work Phone: Start: 08-24-2022 GBS, EXTERNAL RESULT Hi storical Provider Start: 08-19-2022 Urinalysis microscop ic only Yancy Sequeira ACCOUNTING SPECIALIST - CN Work Phone: Start: 08-19-2022 Urnls dip stick/tabl et rgnt auto w/o microscopy Yancy Sequeira ACCOUNTING SPECIALIST - CN Work Phone: Start: 03-04-2022 ABO, EXTERNAL RESULT Hi storical Provider Start: 03-04-2022 C. TRACHOMATIS, EXTE RNAL RESULT Historical Provider MD Start: 03-04-2022 HEPATITIS B, EXTERNA L RESULT Historical Provider MD Start: 03-04-2022 HIV, EXTERNAL RESULT Hi storical Provider Start: 03-04-2022 N. GONORRHOEAE, EXTE RNAL RESULT Historical Provider MD Start: 03-04-2022 RH FACTOR, EXTERNAL RESULT Historical Provider Start: 03-04-2022 RPR, EXTERNAL RESULT Hi storical Provider Start: 03-04-2022 RUBELLA TITER, EXTER NAL RESULT Historical Provider H/O: section History of section Amy Valdiviao CN Work Phone: H/O: section History of section Amy Shila Valdiviao CN Work Phone: H/O: section History of section Amy Shila Valdiviao CN Work Phone: H/O: section History of section Amy Shila Valdiviao CN Work Phone: H/O: section History of section Amy Shila Valdiviao CN Work Phone: H/O: section History of section Amy Shila Valdiviao CN Work Phone: H/O: section History of section Amy Shila Valdiviao CN Work Phone: H/O: surgery Status post D&C Roger Rowley DO Work Phone: Plan of Treatment Date Care Activity Detail Author Start: 12-05-2024 End: 12-05-2024 ambulatory 12/05/2024 2:30 PM EDT Visit [facility] [address] [facility] [place] [address] Amy Delgado, CNM [address] [facility] [place] [address] [facility] Start: 11-27-2024 End: 11-27-2024 Patient encounter procedure [facility] Comment on above: Arrived Start: 11-20-2024 End: 11-20-2024 Patient encounter procedure 11/20/2024 3:30 PM EDT Routine [facility] [address] [facility] [place] [place] [address] Amy Delgado, CNM [address] [facility] [place] [address] [facility] Start: 11-13-2024 End: 11-13-2024 Patient encounter procedure 11/13/2024 3:30 PM EDT Routine [facility] [address] [facility] [place] [place] [address] Amy Delgado, CNM [address] [facility] [place] [address] Arrived [facility] Comment on above: Arrived Start: 11-06-2024 End: 11-06-2024 Patient encounter procedure 11/06/2024 3:45 PM EDT Routine [facility] [address] [facility] [place] [address] [place] [address] Amy Delgado, CNM [address] [facility] [place] [address] [facility] Start: 10-09-2024 End: 10-09-2024 Patient encounter procedure 10/09/2024 11:30 AM EDT Routine [facility] [address] [facility] [place] [place] [address] Amy Delgado, CNM [address] [facility] [place] [address] Arrived [facility] Comment on above: Arrived Start: 09-11-2024 End: 09-11-2024 Patient encounter procedure [facility] Comment on above: Arrived Start: 08-15-2024 End: 08-15-2024 Patient encounter procedure 08/15/2024 10:30 AM EST Routine [facility] [address] [place] [id number] Amy Delgado, [address] [id number] [facility] Start: 07-16-2024 End: 07-16-2024 [...] 8:30 AM EST Routine [facility] [address] [place] [id number] Amy Delgado, [address] [id number] Encounter for supervision of other normal , [...] Expected: 05/01/2024 (Approximate), Expires: 05/01/2025 [facility] Work Phone: Comment on above: Expected: 05/01/2024 (Approximate), Expires: 05/01/2025 Start: 05-01-2024 End: 05-01-2025 Neisseria gonorrhoeae DNA [Presence] in Cervical mucus by SRINIVAS with probe detection C. trachomatis / N. gonorrhoeae, DNA probe Pathology and Cytology Routine Amenorrhea examination or test, positive result Expected: 05/01/2024 (Approximate), Expires: 05/01/2025 [facility] Comment on above: Expected: 05/01/2024 (Approximate), Expires: 05/01/2025 Start: 05-01-2024 End: 05-01-2025 URINALYSIS MICROSCOPIC URINALYSIS MICROSCOPIC Lab Routine Amenorrhea examination or test, positive result Expected: 05/01/2024 (Approximate), Expires: 05/01/2025 [facility] Comment on above: Expected: 05/01/2024 (Approximate), Expires: 05/01/2025 Start: 03-13-2024 End: 03-13-2024 Patient encounter procedure 03/13/2024 8:10 AM EDT Office Visit [facility] [address] [place] [address] Roger Rowley DO [address] [place] [address] [facility] Start: 03-05-2024 End: 03-05-2024 Patient encounter procedure 03/05/2024 9:30 AM EDT Office Visit [facility] OB [address] [place] [address] Nel Saba PA [address] [place] [address] Arrived [facility] Comment on above: Arrived Start: 2022 Influenza vaccination Flu vaccine (# 1) [facility] Start: 2021 Screening for malign ant neoplasm of cervix [facility] Start: 03-11-2020 Influenza vaccination Flu vaccine (# 1) [place] Start: 02-09-2012 Screening for malign ant neoplasm of cervix [facility] Start: 2010 DTaP/Tdap/Td vaccine (1 - Tdap) DTaP/Tdap/Td vaccine (1 - Tdap) [facility] Start: 2009 Hepatitis C screening Hepatitis C [facility] Start: 2006 HIV screening HIV screen [facility] Start: 2003 Depression Screen Depression Screen [facility] Start: 02-09-1992 Varicella vaccine (1 of 2 - 2-dose childhood series) Varicella vaccine (1 of 2 - 2-dose childhood series) [facility] Start: 1991 COVID-19 Vaccine (#1) COVID-19 Vacci ne (#1) [facility] Start: 1991 Hepatitis C screening Hepatitis C sc [place], [place] End: 08-19-2022 Bacteria identified in Urine by Culture Urine culture Microbiology Routine One Time for 1 Occurrences starting 08/19/2022 until 08/19/2022 [facility] Work Phone: Comment on above: One Time for 1 Occur rences starting 08/19/2022 until 08/19/2022 End: 07-15-2020 COVID-19 COVID-19 Lab Routine Once for 1 Occurrences starting 07/15/2020 until 07/15/2020 [place] Comment on above: Once for 1 Occurrenc es starting 07/15/2020 until 07/15/2020 COVID-19 COVID-19 Lab Rou sourav 07/15/2020 9:05 AM EST [place] nonstress test nonst ress test OB Routine Daily until discontinued starting 08/20/2022 [employer] Phone: Comment on above: Daily until disconti nued starting 08/20/2022 Nonrebreather mask oxygen Nonrebreather mask oxygen Respiratory Care Routine As directed - RT (PRN) until discontinued starting 08/19/2022 [employer] Phone: Comment on above: As directed - RT ([place] N) until discontinued starting 08/19/2022 Oxygen therapy [[facility] Data Set] Initiate Oxygen Therapy Protocol Respiratory Care Routine As Needed until discontinued starting 09/27/2022 [employer] Phone: Comment on above: As Needed until disc ontinued starting 09/27/2022 End: 09-27-2022 RHOGAM INJECTION ONLY RHOGAM INJECTION ONLY Blood Bank Routine One Time for 1 Occurrences starting 09/27/2022 until 09/27/2022 [employer] Phone: Comment on above: One Time for 1 Occur rences starting 09/27/2022 until 09/27/2022 Spirometry panel Incentive jessica metry Respiratory Care Routine Every 2hr while awake until discontinued starting 09/28/2022 [employer] Phone: Comment on above: Every 2hr while awak e until discontinued starting 09/28/2022 End: 08-19-2022 SVE SVE Point of Care Testing Routine One Time for 1 Occurrences starting 08/19/2022 until 08/19/2022 [employer] Phone: Comment on above: One Time for 1 Occur rences starting 08/19/2022 until 08/19/2022 End: 08-20-2022 US OB 14 PLUS WEEKS SINGLE OR FIRST GESTATION US OB 14 PLUS WEEKS SINGLE OR FIRST GESTATION Imaging STAT Once for 1 Occurrences starting 08/20/2022 until 08/20/2022 [employer] Phone: Comment on above: Once for 1 Occurrenc es starting 08/20/2022 until 08/20/2022 US OB 14 PLUS WEEKS SINGLE OR FIRST GESTATION US OB 14 PLUS WEEKS SINGLE OR FIRST GESTATION Imaging STAT 08/20/2022 1:07 AM EST [employer] Work Phone: Immunizations Immunization Date Immunization Notes Care Provider Jesus toribio 09-27-2022 diphtheria, tetanus toxoids and acellular pertussis vaccine, unspecified formulation Amy Delgado ACCOUNTING SPECIALIST [employer] Work Phone: [employer] Work Phone: 09-27-2022 measles, mumps and rubella virus vaccine Amy Delgado ACCOUNTING SPECIALIST [employer] Work Phone: [employer] Work Phone: Payers Date Payer Category Payer Private Health Insurance [id number] 2023 Unknown [id number] 2023 Unknown [id number] 2022 Unknown [id number] 2014 Unknown [facility] [id number] 2014-Present [phone] [address] [address] [place] [address] [id number] 1991 Unknown [id number] 1991 Unknown [id number] 1991 Unknown [id number] 1991 Unknown [id number] 1991 Unknown [id number] 1991 Unknown [id number] 1991 Unknown [id number] .9 1990 Unknown [id number] 2.16.840.1.274925.3.579.2 .9 1991 Unknown [id number] 2.16.840.1.490489.3.579.2 .9 1991 Unknown [id number] 2.16840.1.396677.3.579.2 .9 1991 Unknown [id number] 2.16840.1.001408.3.579.2 .1258 1991 Unknown [id number] 2.16840.1.553918.3.579.2 .9 1991 Unknown [id number] 2.16840.1.743683.3.579.2 .1258 1991 Unknown [id number] 2.16.840.1.109183.3.579.2 .9 1991 Unknown [id number] 2.16840.1.250991.3.579.2 .9 1991 Unknown [id number] 2.16840.1.305597.3.579.2 .9 1991 Unknown [id number] 2.16.840.1.427326.3.579.2 .9 1991 Unknown [id number] 2.16840.1.242670.3.579.2 .9 1991 Unknown [id number] 2.16.840.1.715943.3.579.2 .1259 Social History Date Type Detail Facility [facility] smoked [place], [place] Start: 1990 Sex Assigned At Not on file M [place] Start: 08-19-2022 Tobacco [facility] [employer] Phone: History of tobacco use Current smoker [employer] Phone: History of tobacco use Cigarette Smoker [facility] Phone: Start: 08-19-2022 End: 04-18-2024 Cigarettes smoked current (pack per day) - Reported 0.3 [employer] Phone: History of tobacco use Passive smoker [employer] Phone: Start: 08-19-2022 End: 11-09-2023 Tobacco use and exposure Smokeless tobacco non-user [employer] Phone: Start: 08-19-2022 End: 05-01-2024 Alcohol intake Ex-drinker (finding) [employer] Phone: Start: 08-09-2022 End: 09-27-2022 Exposure to SARS-CoV-2 (event) Not sure [employer] Phone: Start: 11-09-2023 Tobacco smoking stat [facility] Never smoked tobacco [facility] Start: 12-15-2023 End: 04-18-2024 Tobacco use panel [facility] Start: 03-13-2024 [facility] Clinical Notes 08-20-2022 to 11-27-2024 Amy Delgado, CARROL - 11/27/2024 10:30 AM Delta Delgado CNM - 11/13/2024 3:30 PM Delta Delgado CNM - 10/23/2024 3:30 PM Delta Delgado CNM - 08/15/2024 10:30 AM EST Note Date & Type Note Facility 11-27-2024 History of Present illness Narrative Subjective No [...] a routine visit. documented in this encounter [facility] 11-13-2024 History of Present illness Narrative Subjective No chief complaint on file. Nicholas Matta is a 34 y.o. at 37w0d with a working estimated date of delivery [...] 2B 1 AB Her is complicated by: anemia, history of section, dizziness and heavy In her chest. Saw MFM and cardiology Objective Physical Exam Weight: 211 lb Expected Total Weight Gain: 11 lb-19 lb Pregravid BMI: 36.49 BP: 118/80 Urine protein-negative Urine glucose-negative Assessment/Plan Diagnoses and all orders for this visit: Encounter for supervision of other normal , third trimester History of section Continue vitamin. Labs reviewed. GBS negative Expected mode of delivery repeat section Follow up in 1 week for a routine visit. documented in this encounter [facility] 10-23-2024 History of Present illness Narrative Subjective No chief complaint on file. Nicholas Matta is a 34 y.o. at 34w0d with a working estimated date of delivery [...] AB Her is complicated by: history of C/S, heart palpitations seeing cardiology Objective Physical Exam weight: 205 lb Expected Total Weight Gain: 11 lb-19 lb Pregravid BMI: 36.49 Urine protein-negative Urine glucose-negative Assessment/Plan Diagnoses and all orders for this visit: Tachycardia Encounter for supervision of other normal , third trimester History of section Continue vitamin. Labs reviewed. GBS at 36 weeks Expected mode of delivery Follow up in 1 week for a routine visit. documented in this encounter [facility] 10-10-2024 Note [place] [facility] - [facility] Subjective Nicholas Matta is a 34 y.o. year old [...] denies syncope, leg edema. She follows with TEST CENTER ADMINISTRATOR regarding the . Review of Systems Cardiovascular: [...] then she can follow up with her AGRICULTURAL SCIENTIST physician as planned. No follow-ups on file. Johnathan Moya MD [facility] 08-15-2024 History of Present illness Narrative Subjective No chief complaint on file. Nicholas Matta is a 34 y.o. at 24w1d with a working estimated date of delivery [...] AB Her is complicated by: history of loss and previous C/S The following portions of the chart were reviewed this encounter and updated as appropriate: Objective Physical Exam weight: 195 lb Expected Total Weight Gain: 11 lb-19 lb Pregravid BMI: 36.49 BP: 112/70 Urine protein-negative Urine glucose-negative Labs: reviewed Imaging Assessment/Plan There are no diagnoses linked to this encounter. Continue vitamin. Labs reviewed. Rhogam not needed, O+ positive GTT at 28 weeks Follow up in 2 weeks for a routine visit. documented in this encounter [facility] 07-16-2024 History of Present illness Narrative Subjective [...] a routine visit. documented in this encounter [facility] 06-18-2024 Telephone encounter Note Pt states that her US order needs faxed to [facility] 2. Patient is requesting her lab results from from last week. [facility] 06-18-2024 Miscellaneous Notes Pt states that her US order needs faxed to [facility] 2. Patient is requesting her lab results from from last week. documented in this encounter [facility] 06-13-2024 History of Present illness Narrative Subjective [...] a routine visit. documented in this encounter [facility] 05-16-2024 History of Present illness Narrative Subjective [...] a routine visit. documented in this encounter [facility] 04-18-2024 History of Present illness Narrative Subjective Nicholas Matta is a 34 y.o. at 7w1d with a working estimated date of delivery of 12/04/2024, by Last Menstrual Period who presents for an initial visit. This is planned. No care steam cleaner to display OB History Para Term AB [...] also given office phone number and [facility] number to call in case of an emergency or after hours needs. PVU and all questions answered. We did discuss place of delivery. Patient should plan to go to [facility] for all services unless an emergency and they need to go to the closest ER. We can make other arrangements possibly if patient would like to deliver at another facility but I did explain I am now at [place] 100% of the time and would like to do all deliveries there. documented in this encounter [facility] 03-13-2024 History of Present illness Narrative Reason for Appointment: Patient ID: Nicholas Matta is a 34 y.o. female who presents for Telehealth (Fertility and pathology review from D&C hysteroscopy) Patient presents today via telephone call for a telehealth appointment. Patients Phone #: [phone] (mobile) Current Medications: currently has no medications [...] Roger Rowley DO documented in this encounter [facility] 03-05-2024 History of Present illness Narrative Reason [...] having a D&C Hysteroscopy performed at [facility] with Dr. Rowley. Pathology results were not back at this time. We will reach out to pt with results. Patient doing well, all restrictions have been lifted. Follow Up: Patient is to return to the office for annual exam unless needed otherwise. Documented by JASPER Finch on behalf of: JASPER Finch documented in this encounter [facility] 09-29-2022 Hospital Discharge instructions Jose Perez RN - 09/29/2022 1:09 PM EDT Follow-up with your OB doctor as specified. [facility] OB Department phone: Dr. Adarsh Sequeira CNM Dr. Chencho Matta CNM [address] [facility] [address] Chencho Viveros CN [address] [facility] [address] [phone] Mona Delgado, MSN, ACCOUNTING SPECIALIST, CNM [facility] [address] [facility] [address] [address] [facility] [address] Celia Rosario CNM [address] [place] [address] [place] [address] Piedad Wiley CNM [address] [place] [address] [place] [address] [phone] DIET Eat a well balanced diet focusing on foods high in fiber and protein. Drink plenty of fluids especially water. To avoid constipation you may take a mild stool softener as recommended by your doctor or laboratory operations coordinator. ACTIVITY Gradually increase your activity. Resume exercise regimen only after advice by your doctor or laboratory operations coordinator. Avoid lifting anything heavier than a gallon of milk for SIX weeks. Avoid driving until your doctor or laboratory operations coordinator has given their approval. Rise slowly from [...] medications as recommended by your doctor or laboratory operations coordinator for pain If you develop a warm, [...] vitamins as directed by your doctor or laboratory operations coordinator. Refer to the booklet in the folder/binder for more information. If you feel you need more assistance or have questions, please call Rose Boyce IBCLC, construction safety consultant, at or the OB department to [...] your calf. documented in this encounter [facility] Phone: 09-29-2022 Hospital course Narrative Obstetrical Discharge [...] # 2.59 1.10 - 3.70 k/uL Absolute [place] # 0.69 0.10 - 1.20 k/uL Absolute [...] Range Expiration Date 09/30/2022,2359 Arm Band Number [id number] ABO/Rh O POSITIVE Antibody Screen NEGATIVE ABO, [...] Your Medications These medications were sent to [facility] [address] [place] [address] [address] - P [phone] - F [phone] [facility] [address] ibuprofen 800 MG tablet oxyCODONE 5 MG immediate release tablet vitamin 27-1 MG Tabs tablet Admit date: 09/27/2022 2:01 AM Discharge Date: 09/29/2022 Discharged to: Home in stable condition Plan: Follow upwith Mona Delgado CNM in 1 wk documented in this encounter [facility] Phone: 09-29-2022 History of Present illness Narrative [...] -- -- (!) 108 -- 98 % 09/28/22 0018 -- -- -- -- -- 99 % 09/28/22 0013 -- -- -- -- -- 99 % [...] 09/27/221836 129/60 -- -- 94 16 -- 09/27/22 -- -- -- -- -- 100 % 09/27/22 183 -- -- -- -- -- 99 % 09/27/22 182 -- -- -- -- -- 99 % 09/27/22 182 131/63 -- -- 96 18 -- 09/27/22 182 -- -- -- -- -- 99 % 09/27/22 181 -- -- -- -- -- 99 % 09/27/22 181 -- -- -- -- -- 99 % 09/27/22 180 120/78 -- -- (!) 106 16 99 % 09/27/22 175 -- -- -- -- -- 99 % 09/27/22 175 -- -- -- -- -- 99 % 09/27/22 175 (!) 100/54 -- -- 74 18 98 % 09/27/22 174 -- -- -- -- -- 98 % 09/27/22 174 -- -- -- -- -- 97 % [...] -- -- -- -- -- 98 % 09/27/221648 -- -- -- -- -- 98 % 09/27/221643 -- -- -- -- -- 99 % 09/27/22 163 -- -- -- -- -- 98 % 09/27/22 163 115/66 -- -- (!) 110 16 -- [...] -- -- 98 % 09/27/22 1536 (!) 11658 -- -- 95 16 -- 09/27/22 1534 [...] -- -- 100 % 09/27/22 1306 (!) 113/55 -- -- 86 18 -- 09/27/22 1305 [...] # 1 PLAN: Routine instructions and orders Service Parts Driver Note: I first assisted Dr Watson with [...] in bed watching tv OBJECTIVE: Vitals: 09/27/22 1925 09/27/22 1950 03/[id number]/27/221999 BP: 123/67 Pulse: 93 Resp: 16 Temp: TempSrc: SpO2: 98% 98% 98% Weight: Height: heart rate: Baseline Heart Rate: 145 Accelerations: present Topography Technician Variability: moderate Decelerations: absent Contraction frequency: 4-5 [...] Watson when she calls back Dr. Zuñiga, network director, in unit and was updated on maternal [...] FHR to baseline when contraction has ended. Associate Product Integrity Engineer and Haresh Delgado CNM at bedside at this time. MICHELINE performs SVE, 7-8/90-0. CNM at bedside for variable deceleration at 1702 and again at 1706. CNM states to continue to increase pitocin infusion. Pt placed on left side with pillow between her legs. Strip reviewed with CNMarcie. Haresh Delgado CNM states she will come perform SVE. Associate Product Integrity Engineer at bedside repositioning patient to right side [...] No new orders received at this time. CNM states to leave pitocin infusion off for [...] 140, moderate variability and accelerations noted before loan underwriter left the room. Associate Product Integrity Engineer at bedside to reposition patient. Pt placed on her left side with peanut ball at 1345. Variable deceleration noted into the 70's, pt placed on right side with peanut ball at 1355 Variable deceleration continue with contractions, pt placed in , tailor sitting at 1400. Associate Product Integrity Engineer called Haresh Delgado CNM to updated on SVE, contraction pattern and FHR with continued variable decelerations. No orders received at this time by MICHELINE. CARROLM states she plans to head to the hospital after 1400. Pt updated on POC. CNM phones unit at this time. MICHELINE was able to review strip on her computer and states to increase pitocin infusion if FHR does not decelerate again. Associate Product Integrity Engineer phones Haresh Delgado CNM at this time. [...] pt placed in hands and knees from 3452-5391. Associate Product Integrity Engineer hand held ultrasound to trace FHR, intermittently head in the 140's-150's. Pt reports she had 2 contraptions while in hands and knees. Variable decelerations noted with contractions. SVE performed and patient 4-5/80/-2. Pt positioned to left side with Pillow between her legs. Mchenry and ultrasound adjusted. Contractions palpated by loan underwriter and are tracing inverted on EFM starting at 1040. 0947- MDeshawn Heath LOG RAFTER at bedside at this time. Pt alert and oriented. supportive at bedside. 0850- Consent forms signed at this time. Associate Product Integrity Engineer witnessed 0952- Timeout performed, all agree 0955-epidural placement begins at this time 1006-test dose administered per LOG RAFTER, no side effects reported from patient 1015-epidural placement complete and patient laid back with right side tilt. Haresh Delgado CNM phones unit back at this time. Update provided on unchanged SVE, contraction pattern, FHR and variable noted with contraction. CNMarcie also updated on pitocin infusion rate and pt's request for an epidural. No further orders received at this time. Associate Product Integrity Engineer called Haresh Delgado CNM at this time. No answer. Message left to phone unit back when available. IV fluids for pre epidural placement bolus started at 0912. Anesthesia notified at 0919. MDeshawn Heath LOG RAFTER states he will be over in roughly 20 minutes. Associate Product Integrity Engineer at bedside palpating contractions. Mchenry adjusted to properly trace contraction pattern. Pt [...] any further needs. documented in this encounter [employer] Phone: 08-20-2022 History of Present illness Narrative Prescription called in to [facility] for Macrobid 100 mg po BID x 7 days as provider requested/ordered. Discharge instructions given to pt. Pt agreeable with POC and denies further questions/concerns at this time. Wheelchair offered to pt, pt denies need. Pt and FOB left unit ambulatory at this time. Ultrasound at bedside at this time. Radiology phoned with verification for ultrasound technologist to be called from Dr. Saavedra with [facility]. Tech states she will call sanitation director tech at this time. documented in this encounter [facility] Phone: 08-20-2022 Hospital Discharge instructions Itzel Hudson RN - 08/20/2022 1:41 AM EST OUTPATIENT DISCHARGE Dr. Adarsh Sequeira [facility] Dr. Chencho Matta [facility] [address] [facility] [address] [address] [place] ACTIVITY LIMITATIONS: ( x )Up and about [...] hour Keep your scheduled follow up appointment. delivery supervisor Macrobid from [facility] pharmacy in am and take as prescribed IN CASE OF EMERGENCY CONTACT LABOR AND DELIVERY . documented in this encounter [employer] Phone: Evaluation note Diagnosis PROM (premature rupture of membranes)- Primary Premature rupture of membranes in , unspecified as to episode of care documented in this encounter [employer] Phone: evaluation note* Diagnosis Normal labor- Primary [...] of antepartum condition documented in this encounter [employer] Phone: evaluation note* Diagnosis History of section- Primary Other postprocedural status Encounter for supervision of other normal , second trimester related condition in second trimester [facility] Postoperative examination Follow-up examination, following unspecified surgery [facility] Diagnosis Status post D&C Other postprocedural status [facility] Diagnosis examination or test, positive result- Primary Encounter for supervision of other normal , first trimester Amenorrhea Absence of menstruation [facility] Diagnosis History of section- Primary Other postprocedural status Encounter for supervision of other normal , first trimester examination or test, positive result Amenorrhea Absence of menstruation [facility] Diagnosis Encounter for supervision of other normal , second trimester- Primary History of section Other postprocedural status Fibroid Leiomyoma of uterus, unspecified [facility] Diagnosis Encounter for supervision of other normal , second trimester- Primary History of section Other postprocedural status [facility] Diagnosis Tachycardia- Primary Unspecified tachycardia Encounter for supervision of other normal , third trimester History of section Other postprocedural status [facility] Diagnosis Encounter for supervision of other normal , third trimester- Primary History of section Other postprocedural status [facility] Diagnosis Encounter for supervision of other normal , third trimester- Primary History of section Other postprocedural status documented in this encounter [facility] StepLeaderReason for visit Narrative* Maternity Services (Routine) - Closed Specialty Diagnoses / Procedures Referred By Diogo house Referred To Contact Obstetrics and Gynecology Diagnoses Encounter for supervision of other normal , first trimester examination or test, positive result Amenorrhea Procedures [place] OFFICE/OUTPATIENT [facility] 60 MINUTES Amy Delgado CNM [address] [place] [address] Phone: tel: fax: Amy Delgado CNM [address] [place] [address] Phone: tel: fax: Referral ID Status Reason Start Date Expiration Date V isits Requested Visits Authorized [id number] Closed Specialty Services Required 05/01/2024 10/28/2024 1 1 [facility] Summary Purpose Family History No Family History Records FoundNo Family History Records FoundNo Family History Records FoundNo Family History Records FoundNo Family History Records Found Advance Directives Latest Code Status on File Code Status Date Activated Date Inactivated Comments Full Code 08/19/2022 10:51 PM Latest Code Status on File Code Status Date Activated Date Inactivated Comments Full Code 09/27/2022 2:43 AM 09/27/2022 10:32 PM Full Code 08/19/2022 10:51 PM 08/20/2022 4:18 AM Additional Source Comments INFORMATION SOURCE (unrecogn ized section and content) DATE CREATED AUTHOR 05/05/2022 [facility] dical Specialist DATE CREATED AUTHOR AUTHOR'S ORGANIZ ATION 09/30/2022 [facility] DATE CREATED AUTHOR AUTHOR'S ORGANIZ ATION 10/12/2024 [facility] DATE CREATED AUTHOR AUTHOR'S ORGANIZ ATION 11/17/2024 [facility] DATE CREATED AUTHOR AUTHOR'S ORGANIZ ATION 11/25/2024 [facility] dical Specialists EPIC Care Teams (unrecognized sec tion and content) Respiratory Therapy Technician Relationship Specialty Start Date End Date Raquel Sharpe [address] [place] [id number] PCP - General Nurse Practitioner 07/14/20 Respiratory Therapy Technician Relationship Specialty Start Date End Date Raquel Sharpe [address] [place] [phone] PCP - General Nurse Practitioner 07/14/20 Reason for Visit (unrecogniz ed section and content) Reason Comments Rupture of Membranes Pt states she felt a gush around 12 a.m. Specialty Diagnoses / Procedures Referred By Diogo house Referred To Contact Diagnoses Normal labor Term Failure to progress in labor Amy Delgado APRN - MICHELINE [address] [place] [address] [facility] [address] [place] [address] Referral ID Status Reason Start Date Expiration Date Visits Re quested Visits Authorized [id number] 1 1 Reason Comments Post-op Visit Reason [...] mL IVPB (mini-bag) (COMPLETED) 2,000 mg, IntraVENous, ELECTRONICS TECHNICIAN TO O.R., 1 dose, On Tue09/27/22 at 2044, Antimicrobial Indications: Surgical Prophylaxis, Administer within 1 hour of incision., Labor and Delivery 2102 (New Bag - Provider: Bel Matta ACCOUNTING SPECIALIST - LOG RAFTER) citric acid-sodium citrate (BICITRA) solution 30 mL [...] later time)09 (Given - Provider: Suzanna Menjivar RN)2043 (Given - Provider: Sindhu Muñoz RN) 0814 (Given - Provider: Jose Perez, ITZEL)2100 (Due) enoxaparin (LOVENOX) injection 40 mg 40 mg, SubCUTAneous, EVERY 24 HOURS, First dose on Tue09/28/22 at 0915, Until Discontinued, Indication of Use: Prophylaxis-DVT/PE, 09 (Given - Provider: Suzanna Menjivar RN) 1021 (Given - Provider: Jose Perez, RN) famotidine (PEPCID) 20 mg in sodium [...] IntraVENous, ONCE, 1 dose, On Tue09/27/22 at 204, Give 60 minutes before surgery., Labor and Delivery 2031 (Given - Provider: Carin Arvizu RN) vitamin 27-1 MG tablet 1 tablet 1 tablet, Oral, DAILY, First dose on Tue09/28/22 at 0900, Until Discontinued, Begin when normal bowel activity resumes., 0903 (Given - Provider: Suzanna Menjivar RN) 0814 (Given - Provider: Jose Perez, ITZEL) sodium chloride flush 0.9 % injection 5-40 [...] Provider: Sindhu Muñoz RN) 0900 (Due)2100 (Due) sippjej-mfectj-djtgj pertussis (BOOSTRIX) injection 0.5 mL 0.5 mL, [...] Quintero RN)0952 (NoRateChange - Provider: KASIE Ruiz LOG RAFTER)1113 (Rate/Dose Change - Provider: Elva Quintero RN)1130 (Rate/Dose Change - Provider: Elva Quintero, ITZEL)1232 (New Bag - Provider: Elva Quintero RN)1437 (Rate/Dose Change - Provider: Elva Quintero RN)1500 (Rate/Dose Change - Provider: Elva Quintero RN)210 (Paused - Provider: KASIE Ruiz CRNA - Comment: Switch to gravity)210 (Restarted - Provider: KASIE Ruiz CRNA - Comment: 400 ml remaining in bag)2141 (New Bag - Provider: KASIE Ruiz CRNA) [...] every 2-3 minutes with cervical changes or Madison units (MVU) greater than 200 in a [...] Provider: Carin Arvizu RN)0952 (NoRateChange - Provider: KASIE Ruiz CRNA)1230 (Rate/Dose Change - Provider: Elva Quintero RN)1230 [...] Elva Quintero RN - Comment: per V. Natalio CN order)184 (Rate/Dose Change - Provider: Elva Quintero RN - Comment: per V. Floro CN verbal order)2019 (Stopped - Provider: Carin Arvizu RN)2133 (Given - Provider: KASIE Ruiz CRNA - Comment: pitocin infusion was off prior to transport to OR, discontinued at 2019 per stated by OB RN) ropivacaine (NAROPIN) 0.2% injection 0.2% (CANCELED) 10 mL/hr, Epidural, CONTINUOUS, Starting on Tue09/27/22 at 1130, Until Tue09/27/22 at 2232, Until delivery., Labor and Delivery 1010 (Given - Provider: KASIE Garcia LOG RAFTER)1012 (Given - Provider: KASIE Garcia CRNA)1013 (New [...] Suzanna Menjivar, ITZEL)1735 (Given - Provider: Suzanna Menjivar, ITZEL) 0118 (Given - Provider: Sindhu Muñoz RN)0814 [...] Menjivar RN)[phone] (Given - Provider: Suzanna Menjivar RN)204 (Given - Provider: Sindhu Muñoz RN) 0119 (Given - Provider: Snidhu Muñoz RN)1000 (Given - Provider: Jose Perez [...] RN)1609 (See Alternative - Provider: Suzanna Menjivar RN)204 (See Alternative - Provider: Sindhu Muñoz RN) [...] BE BASED ON THE PRIMARY CLINICAL RECORDS. [facility]. provides no warranty or guarantee of the accuracy or completeness of information in this document.
[2024-11-28] MEDS: LACTATED RINGER'S SOLUTION 1,000 ML 1000 ML IV ×2 (05:56→06:37)
[2024-11-28 06:06] LABS: Basophils Percent Auto 0.4 % (0.2-2.0); Eosinophils Absolute Auto 0.1 10^3/uL (0.0-0.7); Hematocrit 33.1 % (36.0-48.0); Hemoglobin 10.8 g/dL (12.0-16.0); Immature Granulocytes Abs Auto 0.02 10^3/uL (0.00-0.03); Immature Granulocytes Pct Auto 0.3 % (0.0-0.5); Lymphocytes Absolute Auto 2.3 10^3/uL (1.2-3.8); Lymphocytes Percent Auto 32.6 % (20.5-60.0); Mean Corpuscular HGB Conc 32.6 g/dL (29.9-35.2); Mean Corpuscular Hemoglobin 26.8 pg (26.7-34.0); Mean Corpuscular Volume 82.1 fL (81.0-99.0); Mean Platelet Volume 11.6 fL (9.5-13.5); Monocytes Absolute Auto 0.6 10^3/uL (0.3-0.8); Monocytes Percent Auto 8.9 % (1.7-12.0); Neutrophils Percent Auto 56.8 % (43.0-75.0); Platelet Count 224 10^3/uL (150-450); Red Blood Count 4.03 10^6/uL (4.20-5.40); Red Cell Distribution Width 14.6 % (11.0-15.0); White Blood Count 7.1 10^3/uL (4.0-11.0)
[2024-11-28 06:14] LABS: Bilirubin Urine NEGATIVE (NEGATIVE); Clarity Urine CLEAR (CLEAR); Color Urine YELLOW (YELLOW); Glucose Urine UA NEGATIVE (NEGATIVE); Protein Urine TRACE mg/dL (NEG/TRACE); Specific Gravity Urine >=1.030 (1.005-1.025)
[2024-11-28 06:15] LABS: Blood Urine NEGATIVE (NEGATIVE); Ketones Urine NEGATIVE (NEGATIVE); Leukocyte Esterase Urine TRACE (NEGATIVE); Nitrite Urine NEGATIVE (NEGATIVE); Urobilinogen Urine 0.2 EU/dL (0.2-1.0)
[2024-11-28 06:16] LABS: Amphetamine Screen Urine NEGATIVE (NEGATIVE); Barbiturates Screen Urine NEGATIVE (NEGATIVE); Benzodiazepines Screen Urine NEGATIVE (NEGATIVE); Buprenorphine Screen Urine NEGATIVE (NEGATIVE); Cannabinoid Screen Urine NEGATIVE (NEGATIVE); Cocaine Screen Urine NEGATIVE (NEGATIVE); Methadone Screen Urine NEGATIVE (NEGATIVE); Methamphetamines Screen Urine NEGATIVE (NEGATIVE); Opiate Screen Urine NEGATIVE (NEGATIVE); Oxycodone Screen Urine NEGATIVE (NEGATIVE); Phencyclidine Screen Urine NEGATIVE (NEGATIVE); Tricyclic Antidepressant Urine NEGATIVE (NEGATIVE)
[2024-11-28 06:20] LABS: Bacteria Urine MODERATE #/HPF (NONE SEEN); Cast Seen? NONE SEEN #/LPF (NONE SEEN); Crystals Seen? None Seen #/HPF (None Seen); Mucus Urine MODERATE (NONE SEEN); RBC Urine 0-2 #/HPF (0-2); Squamous Epithelial Cell Urine FEW #/LPF (NONE/RARE)
[2024-11-28 06:21] LABS: Urine Culture Indicated YES-LC
[2024-11-28] MEDS: FAMOTIDINE/PF 20 MG/2 ML VIAL IV (07:00)
[2024-11-28] MEDS: CITRIC ACID/SODIUM CITRATE 30 ML SOLUTION ORACIT SHOHL'S SOLN PO (07:00)
[2024-11-28] MEDS: METOCLOPRAMIDE HCL 10 MG/2 ML VIAL IVP (07:00)
[2024-11-28] MEDS: CEFAZOLIN SODIUM/DEXTROSE,ISO 2 GM/50 ML PIGGYBACK IV ×2 (07:01→13:09)
--- NOTE | 2024-11-28 07:19 | P.OBHP_ITS ---
OB - H&P: HPI History of Present Illness Chief complaint: C SECTION PARTNERS : 3 Para: 1 Gestational age based on last menstrual period: 40 History of Present Dating criteria: LMP confirmed by 1st trimester US care: good care Ultrasounds: normal 1st trimester US and normal mid trimester US complications comment: anemia, saw MFM for anemia and tachycardia Medical complications OB: none Labs Blood type: O (+) positive Rubella: immune RPR/VDLR: nonreactive GBS status: negative HBsAG: negative Review of Systems ROS Status of ROS: 10 or more systems reviewed and unremarkable except as noted in history and below 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 - Papillomavirus as the cause of diseases classified elsewhere (ICD- 10) Pelvic pain ?R10.2 - Pelvic and perineal pain (ICD-10) Fibroid ?D21.9 - Benign neoplasm of connective and other soft tissue, unspecified (ICD-10) Surgical History H/O wisdom tooth extraction ?K08.409 - Partial loss of teeth, unspecified cause, unspecified class (ICD- 10) Hx of tonsillectomy ?Z90.89 - Acquired absence of other organs (ICD-10) H/O section ?Z98.891 - History of uterine scar from previous surgery (ICD-10) H/O cervical biopsy ?Z98.890 - Other specified postprocedural states (ICD-10) Family History (Updated 12/20/23 @ 15:08 by Tita Harley, ITZEL) Other No pertinent family history in first degree relatives Social History (Updated 12/20/23 @ 14:46 by Tita Harley RN) Within the past year, how often did you have a drink containing alcohol: 2-3 times a week Smoking status: Former smoker Second hand tobacco smoke exposure: No Non-prescribed substance use: denies use 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 Highest level of school completed/degree received: Master's degree Little interest or pleasure in doing things: not at all Feeling down, depressed, or hopeless: not at all Meds Home Medications and Allergies Home Medications ?Medication ?Instructions ?Recorded ?Confirmed ?Type No Known Home Medications 12/20/23 08/0 01/31 History Allergies Allergy/AdvReac Type Severity Reaction Status Date / Time No Known Drug Allergies Allergy Verified 02/15/24 12:41 Exam Constitutional Vital Signs, click to edit/add: Last Vital Signs Pulse 82 11/28/24 06:03 BP 132/70 11/28/24 06:03 O2 Del Method Room Air 11/28/24 06:00 Documenting provider has reviewed patient's vital signs: yes Common normals: no apparent distress and oriented x3 Exam limitations: altered mental status General appearance: cooperative, comfortable, well kempt and well developed Orientation/consciousness: Yes awake, Yes oriented to person, Yes oriented to place and Yes oriented to time HENMT Common normals: normocephalic Eye Common normals: EOMs intact bilaterally General eye: normal appearance of both eyes Neck & C-Spine Common normals: full ROM and no lymphadenopathy Lymph Lymphatic: no lymphadenopathy noted Chest Common normals: inspection of chest normal Respiratory Common normals: normal respiratory effort, no retractions, no use of accessory muscles, clear to auscultation bilaterally and percussion normal Effort & inspection: able to speak in complete sentences Auscultation: clear to auscultation bilaterally Cardio Common normals: regular rate and regular rhythm Rate: regular rate Rhythm: regular rhythm GI Common normals: Normal to inspection, nondistended, normoactive bowel sounds present Inspection: normal to inspection Auscultation: normoactive bowel sounds Palpation: soft Rectal Exam - Female: deferred Common normals: no CVA tenderness External Female Exam: normal appearance of the urethra OB/external & speculum: deferred Manual OB Exam: deferred Back & Pelvis Common normals: no CVA tenderness Thoracic spine/upper back: normal to inspection Lumbar spine/lower back: normal to inspection Extremity Common normals: normal to inspection General: normal exam except as noted Neuro Common normals: oriented x3 Sensorium/orientation: awake, alert, oriented to person, oriented to place and oriented to time Psych Common normals: mental status grossly normal, thought process normal, cooperative, affect normal, speech normal, activity/motor behavior normal, denies hallucinations, denies homicidal ideation and denies suicidal ideation Appearance: grossly normal and well kempt Attitude: calm Activity/motor behavior: appropriate eye contact Speech: normal speech Thought process: normal thought process Thought content: normal thought content Results Labs Labs: Short CBC 11/28/24 Range/Units 05:30 WBC 7.1 (4.0-11.0) 10^3/uL Hgb 10.8 L (12.0-16.0) g/dL Hct 33.1 L (36.0-48.0) % Plt Count 224 (150-450) 10^3/uL Urine 11/28/24 Range/Units 05:30 Urine Color Yellow (YELLOW) Urine Clarity Clear (CLEAR) Urine pH 6.0 (5.0-9.0) Ur Specific [place] >=1.030 A (1.005-1.025) Urine Protein Trace (NEG/TRACE) mg/dL Urine Glucose (UA) Negative (NEGATIVE) mg/dL OB - A/P Assessment and Plan (1) Term :
[2024-11-28] MEDS: LACTATED RINGER'S SOLUTION 1,000 ML 50 ML IV ×2 (08:23→08:57)
--- NOTE | 2024-11-28 09:37 | PM.ONB ---
Brief Operative Note Date of procedure: 11/28/24 Pre-op diagnosis general: iup at 39wks, previous c/s Post-op diagnosis: same as pre-op Procedure: NAME OF PROCEDURE: [ section ] PROCEDURE: Patient was taken back to the Operating Room where she was given a spinal anesthesia with Duramorph without difficulty. She was prepped and draped in the normal sterile fashion. A Pfannenstiel skin incision was then made 2 cm above the symphysis pubis and carried down to underlying rectus fascia using a Bovie. The fascia was incised in the midline and extended laterally using Esquivel scissors. Two Emmett clamps were placed on the superior aspect of the fascia and dissected off the underlying rectus muscles. The same was performed on the inferior aspect as well. The muscles were then in the midline. Peritoneum was identified and entered bluntly. The peritoneum was then extended superiorly and inferiorly with good visualization of the bladder. The bladder blade was inserted. A low transverse incision was made on the patient's uterus and extended laterally digitally. The was then delivered atraumatically after the bladder blade was removed in the cephalic position. The cord was clamped and cut. Cord blood was obtained. The was handed off to awaiting team. The patient's placenta was spontaneously delivered. The uterus was then exteriorized. The uterus was cleared of all clots and debris. The bladder blade was reinserted. The patient's uterine incision was closed using #0 Vicryl in a running lock fashion. Excellent hemostasis was assured. The uterus was then returned to the patient's abdomen. The patient's abdomen was copiously irrigated using warm saline. Peritoneal gutters were cleared of all clots and debris. Again excellent hemostasis was assured. The patient's peritoneum was closed using 3-0 Vicryl in a running fashion. The patient's fascia was closed using #0 Vicryl in a running fashion. The patient's skin was closed using 4-0 Vicryl subcuticularly. The patient tolerated the procedure well. Sponge, lap, and needle counts were correct x2. The patient was taken to the Recovery Room in stable condition. Anesthesia: spinal Surgeon: Roger Rowley Computer Numerical Control Operator: AMY SAAVEDRA Estimated blood loss (mL): 575 Pathology: none sent Condition: stable Disposition: PACU Urinary Catheter Management Urinary Catheter Management Urethral: Cath placed during this visit: no
--- NOTE | 2024-11-28 09:38 | PM.OBPRCCS ---
Procedure Pre-op/Post-op diagnoses: Pre-Op/Post-Op Diagnoses Operation Date: 11/28/24 07:30 <No data on this case meets the specified criteria> Procedure: Procedures Operation Date: 11/28/24 07:30 Actual Procedure Side Surgeon p Repeat (Vals patient) Not Applicable Roger Rowley DO Sales Support Engineer: AMY SAAVEDRA Estimated blood loss (mL): 575 Disposition: PACU Anesthesia type: Spinal
--- NOTE | 2024-11-28 10:16 | P.EN_ITS ---
Event Note Event Note: Wastewater Treatment Supervisor note: I first assisted Dr Rowley with repeat section. I assisted as directed by physician. I independently closed the SQ layer with 3-0 vicryl and then I independently closed the incision with 4-0 vicryl without difficulty. Hemostasis was noted at the completion of the case. Patient scarlett ated procedure well.
[2024-11-28] MEDS: ACETAMINOPHEN 500 MG TABLET 1000 MG PO ×2 (15:17→22:13)
[2024-11-28] MEDS: KETOROLAC TROMETHAMINE 30 MG/ML VIAL IVP ×2 (16:27→22:13)
[2024-11-28] MEDS: ENOXAPARIN SODIUM 40 MG/0.4 ML SYRINGE SUBQ (22:13)
[2024-11-29] VITALS (7 sets, daily range): BP systolic 106–132; BP diastolic 61–74; PULSE 68–117; TEMP 36.5–36.8
[2024-11-29] MEDS: ACETAMINOPHEN 500 MG TABLET 1000 MG PO ×3 (04:32→22:39)
[2024-11-29] MEDS: KETOROLAC TROMETHAMINE 30 MG/ML VIAL IVP (04:32)
[2024-11-29] MEDS: IBUPROFEN 400 MG TABLET 800 MG PO ×3 (05:22→22:39)
[2024-11-29 06:35] LABS: Basophils Percent Auto 0.1 % (0.2-2.0); Immature Granulocytes Abs Auto 0.06 10^3/uL (0.00-0.03); Immature Granulocytes Pct Auto 0.5 % (0.0-0.5); Lymphocytes Absolute Auto 1.9 10^3/uL (1.2-3.8); Lymphocytes Percent Auto 14.9 % (20.5-60.0); Mean Corpuscular Hemoglobin 26.5 pg (26.7-34.0); Mean Corpuscular Volume 82.8 fL (81.0-99.0); Mean Platelet Volume 11.3 fL (9.5-13.5); Monocytes Absolute Auto 1.1 10^3/uL (0.3-0.8); Monocytes Percent Auto 8.7 % (1.7-12.0); Neutrophils Absolute Auto 9.5 10^3/uL (1.4-6.5); Neutrophils Percent Auto 75.8 % (43.0-75.0); Platelet Count 207 10^3/uL (150-450); Red Blood Count 3.02 10^6/uL (4.20-5.40); Red Cell Distribution Width 14.6 % (11.0-15.0); White Blood Count 12.5 10^3/uL (4.0-11.0)
--- NOTE | 2024-11-29 08:55 | P.OBPN_ITS ---
OB - PN: Subj Subjective Patient comments: no complaints [place] status: doing well [place] feeding status: exclusively Exam Constitutional Vital Signs, click to edit/add: Last Vital Signs Temp 98.2 F 11/29/24 04:34 Pulse 82 11/29/24 04:34 Resp 18 11/29/24 04:34 BP 118/67 11/29/24 04:34 Pulse Ox 97 11/28/24 12:00 O2 Del Method Room Air 11/29/24 04:34 Documenting provider has reviewed patient's vital signs: yes Common normals: no apparent distress Exam limitations: altered mental status General appearance: cooperative, comfortable, well kempt and well developed Orientation/consciousness: Yes awake, Yes oriented to person, Yes oriented to place and Yes oriented to time HENMT Common normals: normocephalic Head and scalp: normal to inspection Face and sinus: normal facial exam Eye Common normals: EOMs intact bilaterally General eye: normal appearance of both eyes Neck & C-Spine Common normals: full ROM and no lymphadenopathy General: normal visual inspection Lymph Lymphatic: no lymphadenopathy noted Chest Common normals: inspection of chest normal Chest: abnormal inspection of the chest Respiratory Common normals: normal respiratory effort, no retractions, no use of accessory muscles, clear to auscultation bilaterally and percussion normal Effort & inspection: able to speak in complete sentences Auscultation: clear to auscultation bilaterally Cardio Common normals: regular rate and regular rhythm Rate: regular rate Rhythm: regular rhythm GI Common normals: Normal to inspection, nondistended, normoactive bowel sounds present, soft to palpation and non-tender Inspection: normal to inspection Auscultation: normoactive bowel sounds Palpation: soft Common normals: no CVA tenderness Back & Pelvis Common normals: no CVA tenderness Extremity Common normals: normal to inspection Neuro Common normals: oriented x3 Sensorium/orientation: awake, alert, oriented to person, oriented to place and oriented to time Psych Common normals: mental status grossly normal, thought process normal, cooperative, affect normal, speech normal, activity/motor behavior normal, denies hallucinations, denies homicidal ideation and denies suicidal ideation Appearance: grossly normal Attitude: calm Thought process: normal thought process Results Labs Labs: Short CBC 11/29/24 Range/Units 06:20 WBC 12.5 H (4.0-11.0) 10^3/uL Hgb 8.0 L (12.0-16.0) g/dL Hct 25.0 L (36.0-48.0) % Plt Count 207 (150-450) 10^3/uL Urinary Catheter Management Urinary Catheter Management Urethral: Cath placed during this visit: yes, but has since been removed by the nurse Insertion date: 11/28/24 Insertion time: 08:20 Removal date: 11/28/24 Removal time: 17:55 OB - PN: A/P Assessment and Plan (1) Term : Plan - day: 1 Plan: routine postop care Time Spent with Patient Time: Total time spent is greater than 50% in coordination of care (as documented) at patient's floor/unit and/or counseling patient: Total time spent with greater than 50% in coordination of care (as documented) at patient's floor/unit and/or counseling patient: less than 15 minutes
[2024-11-29] MEDS: DOCUSATE SODIUM 100 MG CAPSULE PO ×2 (09:18→22:40)
--- NOTE | 2024-11-29 12:53 | PC.NURSE ---
LC into room, mother in bed attempting to latch baby. Encouraged to be out of bed to couch or chair. Pt moves to couch. Places in football hold, attempts to latch. [place] roll under breast for support. Infant is noted to have tongue tie. Discussed with parents and states our 1st child was too Given information and referral list. not interested in feeding as just had circ. Lays skin to skin on mom's chest
[2024-11-29] MEDS: OXYCODONE HCL/ACETAMINOPHEN 5MG/325MG 1 TAB PO (16:14)
--- NOTE | 2024-11-29 20:02 | W.PC.ACHO ---
Registration Status: ADM IN Primary Language: Preferred Language: Luxembourgish Report given at 1900 to Aurora ROBBINS. Care relinquished. Active Medications Generic Name Dose Route Start Last Admin Trade Name Freq PRN Reason Stop Dose Admin Acetaminophen 1,000 mg 11/28/24 15:00 11/29/24 16:13 Acetaminophen 500 Mg Tablet PO Not Given Q6H LACI Al Hydroxide/Mg Hydroxide 2,400 mg 11/28/24 09:38 Magnesium Hydroxide 2,400 Mg/10 Ml Oral.Susp PO Q6H PRN Dyspepsia Diphtheria/Pertussis/Tetanus Vacc 0.5 ml 11/30/24 09:00 Adacel Diph,Pertuss(Acell),Tet Vac/Pf 0.5 Ml Adult Syringe IM 11/30/24 09:01 .ONCE ONE Docusate Sodium 100 mg 11/29/24 09:00 11/29/24 09:18 Docusate Sodium 100 Mg Capsule PO 100 mg BID LACI Administration Enoxaparin Sodium 40 mg 11/28/24 21:00 11/28/24 22:13 Enoxaparin Sodium 40 Mg/0.4 Ml Syringe SUBQ 40 mg Q24H LACI Administration Oxytocin/Sodium Chloride 20 units in 1,000 mls @ 125 mls/hr 11/28/24 05:22 Pitocin 20 Unit/1,000 Ml-Ns IV Q8H PRN POST DELIVERY Sodium Chloride 1,000 mls @ 125 mls/hr 11/28/24 09:38 Sodium Chloride 0.9% 1,000 Ml IV .Q8H PRN IF NOT TOLERATING PO FLUIDS OR Ibuprofen 800 mg 11/29/24 05:00 11/29/24 14:12 Ibuprofen 400 Mg Tablet PO 800 mg Q8H LACI Administration Measles/Mumps/Rubella Vaccine Live 0.5 ml 11/30/24 09:00 Measles,Mumps,Rubella Vacc/Pf 0.5 Ml Vial SQ 11/30/24 09:01 .ONCE ONE Ondansetron HCl 4 mg 11/28/24 09:38 Ondansetron Pf 4 Mg/2 Ml Vial IV Q6H PRN Nausea And Vomiting Ondansetron HCl 4 mg 11/28/24 09:38 Ondansetron 4 Mg Rapdis Tablet PO Q6H PRN Nausea And Vomiting Oxycodone/Acetaminophen 1 tab 11/28/24 09:38 11/29/24 16:14 Oxycodone Hcl/Acetaminophen 5mg/325mg PO 1 tab Q4H PRN Administration Pain Scale 4-6 Oxycodone/Acetaminophen 2 tab 11/28/24 09:38 Oxycodone Hcl/Acetaminophen 5mg/325mg PO Q4H PRN Pain Scale 7-10 Senna 17.2 mg 11/28/24 20:00 Sennosides 8.6 Mg Tablet PO QHS PRN Constipation Simethicone 80 mg 11/28/24 09:38 Simethicone 80 Mg Tab.Chew PO QID PRN Abdominal Distention Respiratory Oxygen Delivery Method Room Air Oxygen Delivery Method Room Air Oxygen Delivery Method Room Air Oxygen Delivery Method Room Air Cardiology Heart Sounds Strong,Regular Heart Sounds Strong,Regular Heart Sounds Strong,Regular Bowels Bowel Pattern No Bowel Movement Renal Bladder Pattern Continent Bladder Pattern Continent Bladder Pattern Continent Bladder Pattern Continent Catheter Urinary Catheter Date of 11/28/24 Insertion [Urethral] Urinary Catheter Time of 08:20 Insertion [Urethral] Date Urinary Catheter Removed 11/28/24 [Urethral] Time Urinary Catheter 17:55 Discontinued [Urethral]
[2024-11-29] MEDS: ENOXAPARIN SODIUM 40 MG/0.4 ML SYRINGE SUBQ (22:39)
[2024-11-30 00:29] VITALS: BP 118/63; PULSE 93
[2024-11-30] MEDS: OXYCODONE HCL/ACETAMINOPHEN 5MG/325MG 1 TAB PO (05:22)
[2024-11-30] MEDS: IBUPROFEN 400 MG TABLET 800 MG PO (06:27)
[2024-11-30 07:10] VITALS: BP 112/55; PULSE 95; TEMP 36.7
[2024-11-30 07:14] VITALS: BP 112/55; PULSE 95
--- NOTE | 2024-11-30 07:40 | PM.OBPN ---
OB - PN: Subj Subjective Patient comments: no complaints and pain well controlled [place] status: doing well Exam Constitutional Vital Signs, click to edit/add: Last Vital Signs Temp 98.1 F 11/30/24 07:10 Pulse 95 H 11/30/24 07:14 Resp 16 11/30/24 07:10 BP 112/55 11/30/24 07:14 Pulse Ox 97 11/28/24 12:00 O2 Del Method Room Air 11/30/24 00:30 Documenting provider has reviewed patient's vital signs: yes Common normals: no apparent distress Respiratory Common normals: normal respiratory effort and clear to auscultation bilaterally Cardio Common normals: regular rate and regular rhythm GI Common normals: Normal to inspection, nondistended, normoactive bowel sounds present Extremity Common normals: normal to inspection and no clubbing, cyanosis or edema Urinary Catheter Management Urinary Catheter Management Urethral: Cath placed during this visit: yes, but has since been removed by the nurse Insertion date: 11/28/24 Insertion time: 08:20 Removal date: 11/28/24 Removal time: 17:55 OB - PN: A/P Assessment and Plan (1) Term : Plan - day: 2 Plan: routine postop care, discharge home and other (fu 1wk) Time Spent with Patient Time: Total time spent is greater than 50% in coordination of care (as documented) at patient's floor/unit and/or counseling patient: Total time spent with greater than 50% in coordination of care (as documented) at patient's floor/unit and/or counseling patient: less than 15 minutes
[2024-11-30] MEDS: ACETAMINOPHEN 500 MG TABLET 1000 MG PO (08:11)
[2024-11-30] MEDS: DOCUSATE SODIUM 100 MG CAPSULE PO (08:11)
--- NOTE | 2024-11-30 09:04 | PC.NURSE ---
Mom out of bed to feed baby. Able to latch independently in football position. Infant has burst and pauses in [id number]. Nipples intact, slightly tender,
== END 2024-11-30 11:15 | disposition home or self-care (01) | DRG 788 ==
PROVIDERS: Admitting Provider Midwife; Visit Provider Obstetrics & Gynecology
PROC: 10D00Z1 Extraction of Products of Conception, Low, Open Approach (ICD-10-PCS; CPT 59514; principal; 2024-11-28 07:30)
DX: O34.211 Maternal care for low transverse scar from previous cesarean delivery (principal); Z3A.39 39 weeks gestation of pregnancy; Z37.0 Single live birth; Z86.16 Personal history of COVID-19; Z87.891 Personal history of nicotine dependence
CPT/HCPCS: 36415; 59050; 64488; 80307; 81001; 85025; 86850; 86900; 86901; 87086; 94667; 94668; J0131; J0665; J0690; J1100; J1650; J1885; J2274; J2371; J2405; J2590; J2765; J3490

== ENCOUNTER 2024-12-03 11:03 | Outpatient (OUT) | payer OTHER, SELFPAY ==
--- OUTSIDE RECORDS SUMMARY | 2024-02-09 05:13 | XMS_ITS ---
Author Organization BILLING FACILITY [employer] Address [address] [place] [address] Care Team Providers Care Hood Maker Name Role Phone Charo Hanley Primary Care Provider Edwin COLLAZO, Mark Caicedo [phone] Encounters Encounter Location Date Provider Diagnosis [facility] N 4 I15[address] [facility] [address] [place], [place] [id number] 02/09/2024 Mark Pineda MD PLAN OF TREATMENT No Information
--- OUTSIDE RECORDS SUMMARY | 2024-02-09 10:45 | XMS_ITS ---
Author Organization BILLING FACILITY [employer] [facility] Address [address] [place] [address] Care Team Providers Care Hearing Aid Assistant Name Role Phone Dayan Charo Primary Care Provider [phone] Shruthi Love Unavailable [phone] ALLERGIES No Known Allergies REASON FOR VISIT [...] 02/09/2024 Encounters Encounter Location Date Provider Diagnosis [place] [address] [place] [address] 02/09/2024 Shruthi Nationlivan Acute folliculitis L73.9 ASSESSMENTS [...] by Tuesday, May need to see a chief librarian extension department if no resolution. We did discuss possibility [...] by Tuesday, May need to see a chief librarian extension department if no resolution. We did discuss possibility [...] * Honorio MATTAOB:1990 ( 34 yo F)Acc No.[id number]:02/09/2024 Patient: Nicholas MATTA Provider: Shruthi Love NP :1990 Age:34 Y Sex:Female Date:02/09/2024 Address:[address] [place] [address] Pcp:Charo Hanley Subjective: * Chief Complaints: * [...] with a hot tub, was also at [facility] a few weeks before the most recent [...] as scabies which she has had in [facility]. HEr or child neither have a similiar [...] dizziness, headache, weakness. 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 control [...] Tuesday) * Billing Information: * Visit Code: 87352 Level 4 New Patient Acute Care. * [...] with a hot tub, was also at [facility] a few weeks before the most recent [...] as scabies which she has had in [facility]. HEr or child neither have a [...]
--- OUTSIDE RECORDS SUMMARY | 2024-11-20 15:30 | XMS_ITS | Encounter Summary ---
Author Organization [facility] Address [address] [place] [address] Care Team Providers Care Hair Baler Name Role Phone Unavailable Primary Care Provider Unavailabl e Encounter Details Date Type Department Care Team (Latest Contact Info) Description 11/20/2024 3:30 PM EDT Routine [facility] [address] [place] [address] Saba Delgado, CNM [address] [place], [place] [id number] Encounter for supervision of other normal , third trimester (Primary Dx); History of section; Fibroid Social History Tobacco Use Types Packs/Day Years Used Date Smoking Tobacco: Never Smokeless Tobacco: Never Alcohol Use Standard Drinks/Week Comments Not Currently 0 (1 standard drink = 0.6 oz pur e alcohol) Estimated Date of Delivery Comme nts Yes 12/04/2024 Based on last me nstrual period of 02/28/2024 (Exact Date) Sex and Gender Information Value Date Recorded Sex Assigned at Not on file Legal Sex Female 6:57 PM EDT Gender Identity Not on file Sexual Orientation Not on file documented as of this encounter Last Filed Vital Signs Vital Sign Reading Time Taken Comments Blood Pressure 120/70 11/20/2024 3:44 PM EDT Pulse - - Temperature - - Respiratory Rate - - Oxygen Saturation - - Inhaled Oxygen Concentration - - Weight 97.1 kg (214 lb) 11/20/2024 3:44 PM EDT Height - - Body Mass Index 40.43 03/05/2024 9:27 AM EDT documented in this encounter Plan of Treatment Upcoming Encounters Date Type Department Care Team (Late st Contact Info) Description 12/05/2024 2:30 PM EDT Visit [facility] [address] [place] [address] Saba Delgado, MICHELINE [address] [place] [address] documented as of this encounter Visit Diagnoses Diagnosis Encounter for supervision of other normal , third trimester- Primary History of section Other postprocedural status Fibroid Leiomyoma of uterus, unspecified documented in this encounter
--- OUTSIDE RECORDS SUMMARY | 2024-11-27 10:25 | XMS_ITS ---
Author Name Auto Generated Organization OH[facility] Care Team Providers Care Spool Sander Name Role Phone JOHNATHAN RENNER Attending Unavailable FLOROAMY Attending Unavailable FLORO, AMY Shila Attending Unavailable FLORO, AMY Shila Attending Unavailable FLORO, AMY L Attending Unavailable FLORO, AMY L Attending Unavailable FLORO, AMY L Attending Unavailable FLORO, AMY L Attending Unavailable AYAKADOYLE Attending Unavailable FLORO, MAY L Referring Unavailable AYAKA, DOYLE Attending Unavailable KAMILLE SABA Attending Unavailable FLORO, AMY L Referring Unavailable FLORO, AMY L Attending Unavailable FLORO, AMY L Attending Unavailable FLORO, AMY L Referring Unavailable FLORO, AMY L Attending Unavailable FLORO, AMY L Attending Unavailable FLORO, AMY L Attending Unavailable FLORO, AMY Attending Unavailable FLORO, AMY Referring Unavailable FLORO, AMY Referring Unavailable PROBLEMS DATE TYPE CONDITION / CODE ATTENDING STATUS [facility] 10/10/2024 Admitting Diagnosis Shortness of breath / R06.02(ICD-10) [facility] 10/10/2024 Admitting Diagnosis 32 weeks gestation of / Z3A.32(ICD-10) [facility] 10/10/2024 Admitting Diagnosis Palpitations / R00.2(ICD-10) [facility] 10/09/2024 Unknown Tachycardia, unspecified / R00.0(ICD-10) NA [facility] 09/26/2024 Unknown relate d conditions, unspecified, second trimester / O26.92(ICD-10) AMY SAAVEDRA [facility] PROCEDURES No Procedure Records Found RESULTS 36 Observed: 11/14/2024 12:01 PM Status: COMPLETED Source: [facility] Regarding testing results: MD Marleen Ramirez MA Echo, holter and blood testing are normal. No further cardiac testing, follow up with OB as planned. Follow up with us in 1 year. Spoke with patient and made her aware. She verbalized understanding. 36 Observed: 10/26/2024 11:17 AM Status: COMPLETED Source: [facility] Spoke with patient and infor med her of normal Holter monitor report per Dr. Renner. She verbalized understanding. Patient is scheduled for echo next week and I advised we will call with results. 36 Observed: 10/15/2024 4:02 PM Status: COMPLETED Source: [facility] Regarding lab results from : MD Marleen Ramirez MA Blood test is within normal limits. LM on patient's VM letting her know. TELEPHONE Observed: 10/15/2024 12:00 AM Status: COMPLETED Source: [facility] [id number] Mohan Matta 07/1989 F Date Provider Department Center 10/15/2024 JosueMARLEEN GREENFIELD [facility] Family History Problem Relation Age of Onset Other Mother Other Father Other Sister Other Brother Family Status - Relation Status Age at Mother Alive Father Alive Sister Alive Brother Alive OFFICE VISIT Observed: 10/10/2024 11:00 AM Status: COMPLETED Source: [facility] [id number] Mohan Matta 07/1989 Date Provider Department Center 10/10/2024 KAITLINMEREJOHNATHAN DOLAN [facility] Family History Problem Relation Age of Onset Other Mother Other Father Other Sister Other Brother Family Status - Relation Status Age at Mother Alive Father Alive Sister Alive Brother Alive Level of Service:10292 [place] OFFICE/OUTPATIENT NEW MODERATE MDM 45 MINUTES PROGRESS Observed: 10/10/2024 11:00 AM Status: COMPLETED Source: [facility] Subjective Mohan Matta is a 34 y.o. year old female New patient being seen for elevated heart rate and SOB with and without exertion. Patient is 32 weeks . Patient Active Problem List Diagnosis Fibroid Pelvic pain in female Pre-op evaluation Family History Problem Relation Name Age of Onset Other (healthy) Mother Other (healthy) Father Other (healthy) Sister Other (healthy) Brother Social History Tobacco Use Smoking status: Former Types: Cigarettes Smokeless tobacco: Never Substance Use Topics Alcohol use: Not Currently Drug use: Not Currently HPI This is a 34-year-old woman who is seen as a new patient due to shortness of breath and palpitations. she is 32-week . This is her second . She has noted worsening symptoms of shortness of breath on exertion recently. She feels chest heaviness. She has to stop physical activity and rest for the symptoms to resolve. She also has noticed elevated heart rate and she wears a smart watch that tells her that her heart rate is around 120 most of the times with activity. She denies syncope, leg edema. 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 Review of Systems Cardiovascular: Positive for chest pain (chest heaviness every day), dyspnea on exertion and palpitations. Respiratory: Positive for shortness of breath (with activity and sitting). Objective Visit Vitals BP 104/67 (BP Location: Left arm, Patient Position: Sitting) Pulse 98 Ht 1.549 m (5' 1 ) Wt 90.7 kg (200 lb) SpO2 98% BMI 37.79 kg/m??? OB Status Smoking Status Former BSA 1.98 m??? Physical Exam Constitutional: Appearance: She is well-developed. She is not ill-appearing. HENT: Head: Normocephalic and atraumatic. Nose: Nose normal. Eyes: General: No scleral icterus. Pupils: Pupils are equal, round, and reactive to light. Neck: Thyroid: No thyromegaly. Vascular: No JVD. Cardiovascular: Rate and Rhythm: Regular rhythm. Tachycardia present. Pulses: Radial pulses are 2+ on the right side and 2+ on the left side. Heart sounds: Normal heart sounds. No murmur heard. No friction rub. No gallop. Pulmonary: Effort: Pulmonary effort is normal. No respiratory distress. Breath sounds: Normal breath sounds. No wheezing or rales. Chest: Chest wall: No tenderness. Abdominal: General: Bowel sounds are normal. There is no distension. Palpations: Abdomen is soft. Tenderness: There is no abdominal tenderness. Musculoskeletal: General: No swelling. Cervical back: Neck supple. Skin: General: Skin is warm and dry. Neurological: General: No focal deficit present. Mental Status: She is alert and oriented to person, place, and time. Psychiatric: Mood and Affect: Mood normal. Behavior: Behavior is cooperative. Judgment: Judgment normal. Allergies No Known Allergies Medications Current Outpatient Medications: docusate sodium (Colace) 100 mg capsule, Take 100 mg by mouth twice a day., Disp: , Rfl: ferrous sulfate 325 (65 Fe) MG EC tablet, Take 325 mg by mouth twice a day., Disp: , Rfl: loratadine (Claritin) 10 mg tablet, Take 1 tablet by mouth in the morning., Disp: , Rfl: Recent Labs Blood testing 09/11/2024: Hemoglobin 10.9, platelets 233. Imaging and other tests ECG 10/09/2024: Sinus rhythm, normal ECG. Assessment/Plan Diagnoses and all orders for this visit: Shortness of breath - Transthoracic echo (TTE) complete; Future - Comprehensive metabolic panel; Future 32 weeks gestation of Palpitations - Holter monitor - 48 hour; Future She has shortness of breath and palpitation symptoms. I reviewed her ECG that was done yesterday and it showed normal sinus rhythm without abnormalities. I explained to her that these could be related to the however I am going to investigate further with an echocardiogram and a Holter monitor. I will also check CMP as there has not been any check of renal function in over a year. If the testing does not show significant abnormalities then she can follow up with her OPERATIONS ANALYST physician as planned. No follow-ups on file. Johnathan Renner MD US PREG TRANSABD FU PER FETU Observed: 09/26/2024 8:18 AM Status: COMPLETED Source: [facility] PREG TRANSABD FU PER FETU US PREG TRANSABD FU PER FETU: 09/26/2024 8:18 AM Clinical: Second trimester growth. Real-time sonography fetus performed There is a single intrauterine in a cephalic presentation. Cardiac activity: 132 bpm. Growth parameters are as follows. BPD- 8.1 cm, 32 week 3 day. Head circumference 28.2 cm, 31 week 0 day. Abdomen circumference 27.4 cm, 31 weeks 3 day. Femur length 5.7 cm, 29 week 6 day. Average gestational age is 31 week 1 day. Estimated weight is 73%, 3 lbs. 11 oz., 1681 g.. Amniotic fluid volume: MASHA measures 13.3 cm. DVT 4.0 cm The placenta is anterior, away from cervical os. anatomic survey not performed. Maternal Adnexa: No masses seen. Impression: * Single intrauterine cephalic presentation with cardiac activity. * Average gestational age 31 weeks 1 day. * Ultrasound MONIQUE 11/27/2024. * Estimated growth 73%. This is a standard (Level I) ultrasound, which cannot exclude all anomalies with certainty. Finalized by Antoine Mahoney MD on 09/26/2024 10:12 AM US OB < 14 WEEKS EARLY Observed: 024 3:47 PM Status: F Source: [facility] TITLE OF EXAM: OB Ultrasound : REASON FOR EXAM: Dating. TECHNIQUE: Grayscale imaging [...] report is generated using voice recognition reporting (Alaris Royalty). On occasion, [employer] erroneously drops words from the report or replaces the spoken word with a similar sounding word. Please call with any questions/concerns regarding the report. Dictated and transcribed 04/19/24/dpd This report has been electronically signed and approved by the interpreting radiologist. Electronically Signed Chava Toussaint II, M.D. 2024-04-19 14:27:55 ALLERGIES DATE TYPE / CODE NAME / CODE REACTION SEVERITY SOURCE 12/14/2016 Drug Class/941106972 (SNOMED CT) NO KNOWN DRUG ALLERGIES [facility]/212988 006(SNOMED CT) NO KNOWN ALLERGIES [facility] ENCOUNTERS ADMIT/DISCHARGE ACCOUNT NUMBER ADMITTING ENCOUNTER CLASS LOCATION SOURCE 11/27/2024/11/28/19 [id number] Ambulatory Building:[facility]NR OB [facility] 11/20/2024/11/21/19 [id number] Ambulatory Building:[facility]NR OB [facility] 11/13/2024/11/14/19 [id number] Ambulatory Building:[facility]NR OB [facility] 11/06/2024/11/07/19 [id number] Ambulatory Building:[facility]NR OB [facility] 10/23/2024/04/15 [id number] Ambulatory Building:[facility]NR OB [facility] 10/10/2024/10/11/19 25 [id number] Ambulatory Building:CCB [facility] 10/09/2024/10/10/19 [id number] Ambulatory Building:PF _CV [facility] 10/09/2024/10/10/19 25 [id number] Ambulatory Building:[facility]NR OB [facility] 09/26/2024/09/27/19 25 [id number] [facility] 09/11/2024/09/12/19 25 [id number] Ambulatory Building:[facility] FNR OB [facility] 08/15/2024/08/15/19 25 [id number] Ambulatory Building:[facility] FNR OB [facility] 07/16/2024/07/16/19 25 [id number] Ambulatory Building:N[facility]NR OB [facility] 06/13/2024/06/13/20 24 [id number] Ambulatory Building:[facility]NR OB [facility] 05/16/2024/05/16/20 24 [id number] Ambulatory Building:N[facility] FNR OB [facility] 04/18/2024/04/18/20 24 [id number] Ambulatory Building:N[facility] FNR OB [facility] 04/18/2024/04/18/20 24 [id number] Ambulatory Building:NOM SFNRUS [facility] 03/05/2024/03/05/20 24 [id number] Ambulatory Building:NOM S BCP OB [facility] 12/15/2023/12/15/19 24 [id number] Ambulatory Building:NOM S BCP OB [facility] 12/08/2023/12/08/19 24 [id number] Ambulatory Building:N[facility] S BCP OB [facility] PAYERS ENCOUNTER GUARANTOR PAYER SUBSCRIBER SOURCE 11/27/2024 MOHAN MATTAKELLEY: [id number] [address] [address]Rya: () Primary Insurance:FRONTPATHPolic y Number: [id number] Date:2023-07-11 ALEJA PERSAUD: [id number] [address] [address] [facility] EP[facility] 11/27/2024 Secondary Insurance:FRONTPATHPolic y Number: [id number] Date:2023-07-11 MOHAN MATTAB: [id number] [address] [address] [facility] EPIC 11/20/2024 MOHAN MATTAB: [address] [address]Urt: (HP) Primary Insurance:FRONTPATHPolic y Number: [id number] Date:2023-07-11 ALEJA KAPADIAB: [id number] [address] [address] [place] [address] [facility] 11/20/2024 Secondary Insurance:FRONTPATHPolic y Number: [id number] Date:2023-07-11 MOHAN MATTAB: [id number] [address] [address] [facility] EPIC 11/13/2024 MOHANHortensia MATTAB: [address] [address]Ssn: (HP) Primary Insurance:FRONTPATHPolic y Number: [id number] Date:2023-07-11 ALEJA PERSAUD: [id number] [address] [address] [facility] EP[facility] 11/13/2024 Secondary Insurance:FRONTPATHPolic y Number: [id number] Date:2023-07-11 MOHAN BIBIB: [id number] [address] [address] [facility] EPIC 11/06/2024 MOHAN MATTAB: [address] [address]Tpt: (HP) Primary Insurance:FRONTPATHPolic y Number: [id number] Date:2023-07-11 ALEJA Eladio STEFFIB: [id number] [address] [address] [facility] [facility] 11/06/2024 Secondary Insurance:FRONTPATHPolic y Number: [id number] Date:2023-07-11 MOHAN MATTADOB: [id number] [address] [address] [facility] 10/23/2024 MOHAN MATTADOB: [address] [address]Ufo: (HP) Primary Insurance:FRONTPATHPolic y Number: [id number] Date:2023-07-11 ALEJA SunshineDeshawn KAPADIAB: [id number] [address] [address] [place] [address] [facility] 10/23/2024 Secondary Insurance:FRONTPATHPolic y Number: [id number] Date:2023-07-11 MOHAN MATTAB: [id number] [address] [address] [facility] [facility] 10/10/2024 Primary Insurance:MEDBENPolicy Number: [id number] Date:[id number] [address]YS: MOHAN Gonsalez STEFFIB: [id number] [address] [facility] 10/10/2024 Secondary Insurance:FRONTPATHPolic y Number: [id number] Date:2024-07-11 MOHAN A STEFFIB: [id number] [address] [facility] 10/09/2024 MOHAN ANN STEFFIB: [address] [address]Qrf: (HP) Primary Insurance:MEDBENPolicy Number: [id number] Date:2024-09-18 MOHAN BUCK KAPADIAB: [id number] [address] [address]Oga: (HP) (WP) [facility] 10/09/2024 Secondary Insurance:MULTICARE HEALTH PLUMBERS & PIPEFITTERSPolicy Number: [id number] Date:2022-01-02 MOHAN JANE STEFFIB: [id number] [address] [address]Phh: (HP) (WP) [facility] 10/09/2024 MOHAN STEFFIB: [place] [address]Tel: (HP) Primary Insurance:FRONTPATHPolic y Number: [id number] Date:2023-07-11 ALEJA PERSAUD: [id number] [address] [address] [place] [address] [facility] 10/09/2024 Secondary Insurance:FRONTPATHPolic y Number: [id number] Date:2023-07-11 MOHAN STEFFIB: [id number] [address] [address] [facility] 09/26/2024 MOHAN BUCK KAPADIAB: [address] [address]Krw: (HP) Primary Insurance:MEDBENPolicy Number: [id number] Date:2024-09-18 MOHAN JANE STEFFIB: [id number] [address] [address]Fbn: (HP) (WP) [facility] 09/26/2024 Secondary Insurance:MULTICARE HEALTH PLUMBERS & PIPEFITTERSPolicy Number: [id number] Date:2022-01-02 MOHAN BUCK KAPADIAB: [id number] [address] [address]Hqt: (HP) () [facility] 09/11/2024 MOHAN MATTAB: [address] [address]Kub: (HP) Primary Insurance:FRONTPATHPolic y Number: [id number] Date:2023-07-11 ALEJA PERSAUD: [id number] [address] [facility] 09/11/2024 Secondary Insurance:FRONTPATHPolic y Number: [id number] Date:2023-07-11 MOHAN MATTAB: [id number] [address] [address] [place] [address] [facility] 08/15/2024 MOHAN MATTAB: [address] [address]Ojn: (HP) Primary Insurance:FRONTPATHPolic y Number: [id number] Date:2023-07-11 ALEJA PERSAUD: [id number] [address] [address] [place] [address] [facility] 08/15/2024 Secondary Insurance:FRONTPATHPolic y Number: [id number] Date:2023-07-11 MOHAN MATTAB: [id number] [address] [address] [place] [address] [facility] 07/16/2024 MOHAN MATTAB: [address] [address]Zjs: (HP) Primary Insurance:FRONTPATHPolic y Number: [id number] Date:2023-07-11 ALEJA PERSAUD: [id number] [address] [address] [facility] 07/16/2024 Secondary Insurance:FRONTPATHPolic y Number: [id number] Date:2023-07-11 MOHAN KAPADIAB: [id number] [address] [address] [facility] 06/13/2024 MOHAN KAPADIAB: [address] [address]Lfc: (HP) Primary Insurance:FRONTPATHPolic y Number: [id number] Date:2023-07-11 ALEJA KAPADIAB: [id number] [address] [address] [facility] 06/13/2024 Secondary Insurance:FRONTPATHPolic y Number: [id number] Date:2023-07-11 MOHAN KAPADIAB: [id number] [address] [address] [place] [address] [facility] 05/16/2024 MOHAN KAPADIAB: [address] [address]Cnk: (HP) Primary Insurance:FRONTPATHPolic y Number: [id number] Date:2023-07-11 ALEJA PERSAUD: [id number] [address] [address] [facility] 05/16/2024 Secondary Insurance:FRONTPATHPolic y Number: [id number] Date:2023-07-11 MOHAN MATTAB: [id number] [address] [address] [facility] 04/18/2024 MOHAN KAPADIAB: [address] [address]Hiz: (HP) Primary Insurance:FRONTPATHPolic y Number: [id number] Date:2023-07-11 AELJA PERSAUD: [id number] [address] [address] [facility] 04/18/2024 Secondary Insurance:FRONTPATHPolic y Number: [id number] Date:2023-07-11 MOHAN KAPADIAB: [id number] [address] [address] [facility] 04/18/2024 MOHAN KAPADIAB: [address] [address]Vlt: (HP) Primary Insurance:FRONTPATHPolic y Number: [id number] Date:2023-07-11 ALEJA KAPADIAB: [id number] [address] [address] [facility] 04/18/2024 Secondary Insurance:FRONTPATHPolic y Number: [id number] Date:2023-07-11 MOHAN KAPADIAB: [id number] [address] [address] [place] [address] [facility] 03/05/2024 MOHAN KAPADIAB: [address] [address]Csl: (HP) Primary Insurance:FRONTPATHPolic y Number: [id number] Date:2023-07-11 ALEJA PERSAUD: [id number] [address] [address] [facility] 03/05/2024 Secondary Insurance:FRONTPATHPolic y Number: [id number] Date:2023-07-11 MOHAN MATTAB: [id number] [address] [address] [facility] 12/15/2023 MOHAN KAPADIAB: [address] [address]Vjk: (HP) Primary Insurance:FRONTPATHPolic y Number: [id number] Date:2023-07-11 ALEJA PERSAUD: [id number] [address] [facility] 12/15/2023 Secondary Insurance:FRONTPATHPolic y Number: [id number] Date:2023-07-11 MOHAN STEFFIB: [id number] [facility] 12/08/2023 MOHAN KAPADIAB: [id number] [place] [address]Tel: () Primary Insurance:FRONTPATHPolic y Number: [id number] Date:2023-07-11 ALEJA KAPADIAB: [id number] [facility] 12/08/2023 Secondary Insurance:FRONTPATHPolic y Number: [id number] Date:2023-07-11 MOHAN STEFFIB: [id number] [address] [facility] EPIC
--- OUTSIDE RECORDS SUMMARY | 2024-11-27 10:30 | XMS_ITS | Encounter Summary ---
Author Organization [facility] Address [address] [place] [address] Care Team Providers Care Timber Management Technician Name Role Phone Unavailable Primary Care Provider Unavailabl e Encounter Details Date Type Department Care Team (Latest Contact Info) Description 11/27/2024 10:30 AM EDT Routine [facility] [address] [place] [phone] Saba Delgado CNM [address] [place], [place] [id number] Encounter for supervision of other normal , [...] Description 12/05/2024 2:30 PM EDT Visit [facility] [address] [place] [address] Saba Delgado CNM [facility] [place] [address] documented as of this encounter Visit Diagnoses Diagnosis Encounter for supervision of other normal , third trimester- Primary History of section Other postprocedural status documented in this encounter
[2024-12-03 11:03] VITALS: BP 117/79; PULSE 100; TEMP 36.7; O2SAT 98
--- OUTSIDE RECORDS SUMMARY | 2024-12-03 11:06 | XMS_ITS | Patient Health Record ---
Author Organization [facility] [facility] Address [address] [place] [address] Care Team Providers Care Cost Recovery Technician Name Role Phone Charo Hanley Primary Care Provider [phone] Edwin COLLAZO, [facility] Unavailable Shruthi Love Unavailable [phone] ALLERGIES No Known Allergies REASON FOR REFERRAL No Information MEDICATIONS Medication SIG (Take, Route, Fr equency, [...] 02/09/2024 Oximetry 96 % 02/09/2024 Blood pressure diastolic 79 mm Hg 02/09/2024 Weight-kg 87.54 kg 02/09/2024 Height 61 in 02/09/2024 Blood pressure systolic 120 mm Hg 02/09/2024 Weight 193.0 lbs 02/09/2024 BMI 36.46 02/09/2024 Encounters Encounter Location Date Provider Diagnosis [place] [address] [place] [address] 02/09/2024 Shruthi Love Acute folliculitis L73.9 [facility] [id number] [facility] [address] [place], [place] [id number] 02/09/2024 Mark Pineda MD ASSESSMENTS Encounter Date Diagnosis Assessment Notes Treatment [...] by Tuesday, May need to see a rrt if no resolution. 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
--- OUTSIDE RECORDS SUMMARY | 2024-12-03 11:06 | XMS_ITS | Clinical Summary ---
Author Organization [facility] Address [address] [place] [address] Care Team Providers Care Payroll Director Name Role Phone Melba Sharpe FISCAL ECONOMIST - ACIDITY TESTER Primary Care Provid er Allergies No known active allergies Medications ibuprofen (ADVIL;MOTRIN) 800 MG tablet Take 1 tablet by mouth every 8 hours as needed for Pain 60 tablet 1 09/29/2022 Active Vit-Fe Fumarate-FA ( VITAMIN) 27-1 MG TABS tablet Take 1 tablet by mouth daily 30 tablet 09/30/2022 Active Active Problems Problem Noted Date Diagnosed Date delivery delivered 09/28/2022 Normal labor 09/27/2022 Term 09/27/2022 Failure to progress in labor 09/27/2022 40 weeks gestation of 09/27/2022 PROM (premature rupture of membranes) 08/19/2022 Social History Tobacco Use Types Packs/Day Years Used Date Smoking Tobacco: Former Cigarettes Passive Smoke Exposure: Past Smokeless Tobacco: Never Tobacco Cessation:Counseling Given: Not Answered Alcohol Use Standard Drinks/Week Comments Not Currently 0 (1 standard drink = 0.6 oz pur e alcohol) Java Depression Scale Answer Date Recorded Last EPDS Total Score Not on file 09/29/2022 The thought of harming myself has occurred to me . Never 09/29/2022 Comments No Sex and Gender Information Value Date Recorded Sex Assigned at Not on file Legal Sex Female 2:19 PM EST Gender Identity Not on file Sexual Orientation Not on file Last Filed Vital Signs Vital Sign Reading Time Taken Comments Blood Pressure 122/67 09/29/2022 2:15 PM EDT Pulse 103 09/29/2022 2:15 PM EDT Temperature 36.7 C (98.1 F) 09/29/2022 2:15 PM EDT Respiratory Rate 16 09/29/2022 2:15 PM EDT Oxygen Saturation 98% 09/28/2022 12:23 AM EDT Inhaled Oxygen Concentration - - Weight 93 kg (205 lb) 09/27/2022 2:20 AM EDT Height 154.9 cm (5' 1 ) 09/27/2022 2:20 AM EDT Body Mass Index 38.73 09/27/2022 2:20 AM EDT Plan of Treatment Health Maintenance Due Date Last Done Comments Depression Screen 2003 Varicella vaccine (1 of 2 - 13+ 2-dose series) 02/09/2004 Hepatitis C screen 2009 DTaP/Tdap/Td vaccine (1 - Tdap) 2010 Hepatitis B vaccine (1 of 3 - 19+ 3-dose series) 2010 Pap smear 02/09/2012 Cervical cancer screen 2021 HPV (without or with Pap) 2021 COVID-19 Vaccine (2023-2 5 season) 2024 Flu vaccine (Season Ended) 2025 HIV screen Completed 03/04/2022 HPV vaccine Aged Out No longer eligi ble based on patient's age to complete this topic Hepatitis A vaccine Aged Out No longe r eligible based on patient's age to complete this topic Hib vaccine Aged Out No longer eligi ble based on patient's age to complete this topic Meningococcal (ACWY) vaccine Aged Out No longer eligible based on patient's age to complete this topic Meningococcal B vaccine Aged Out No l onger eligible based on patient's age to complete this topic Pneumococcal 0-49 years Vaccine Aged Out No longer eligible based on patient's age to complete this topic Polio vaccine Aged Out No longer elig ible based on patient's age to complete this topic Procedures Procedure Name Priority Date/Time Associated Diagnosis Comments HIV, EXTERNAL RESULT Routine 03/04/2022 from Last 3 Months or Most Recently Relevant to Health Maintenance Results * HIV, External Result (03/04/2022) HIV, External Result non-reacti ve OUTSIDE LAB, SEE SCANNED ORDERS us Historical Provider IMMUNOLOGY ORDERABLES Fin al Result OUTSIDE LAB, SEE SCANNED ORDERS from Last 3 Months or Most Recently Relevant to Health Maintenance Insurance FRONTPATH FRONTPATH Advance Directives * Full Code (Latest Code Status on File) Date Activated Date Inactivated Comments 09/27/2022 2:43 AM 09/27/2022 10:32 PM * Full Code Date Activated Date Inactivated Comments 08/19/2022 10:51 PM 08/20/2022 4:18 AM Care Teams Payroll Director Relationship Specialty Start Date End Date Melba Sharpe APRN - ACIDITY TESTER PCP - General Nurse Practitioner 07/14/20
--- OUTSIDE RECORDS SUMMARY | 2024-12-03 11:06 | XMS_ITS | Encounter Summary ---
Author Organization [facility] Address [address] [place] [address] Care Team Providers Care Structural Fitter Name Role Phone Unavailable Primary Care Provider Unavailabl e Encounter Details Date Type Department Care Team (Late st Contact Info) Description 11/27/2024 Bamboo flowsheet [facility] [address] [place] [address] Saba Delgado CNM [address] [place], [place] [id number] Social History Tobacco Use Types Packs/Day Years [...] on file documented as of this encounter Plan of Treatment Upcoming Encounters Date Type Department Care Team (Late st Contact Info) Description 12/05/2024 2:30 PM EDT Visit [facility] [address] [place] [address] Saba Delgado CNM [address] [place], [place] [id number] documented as of this encounter Visit Diagnoses Not on filedocumented in this encounter
--- OUTSIDE RECORDS SUMMARY | 2024-12-03 11:06 | XMS_ITS | Encounter Summary ---
Author Organization [facility] tem Address [id number] [address] [place] [address] Care Team Providers Care It Business Process Architect Name Role Phone Melba Sharpe PIT INSPECTOR-GRADE FOREMAN Primary Care Provider + Encounter Details Date Type Department Care Team (Late st Contact Info) Description 10/06/2021 Telephone [facility] [address] [place] [address] [place] [address] Alis Bishop CMA Social History Tobacco Use Types Packs/Day Years Used Date Smoking Tobacco: Former Cigarettes Q uit: 06/11/2018 Smokeless Tobacco: Never Alcohol Use Standard Drinks/Week Comments Yes 0 (1 standard drink = 0.6 oz pur e alcohol) Occasionally Social Connection and Isolat ion Panel [NHANES] Answer Date Recorded In a typical week, how many times do you talk on the phone with family, friends, or neighbors? More than three times a week 07/19/2021 How often do you get togethe r with friends or relatives? Once a week 07/19/2021 How often do you attend chur or hindu services? Never 07/19/2021 Do you belong to any clubs o r organizations such as alevism groups, unions, fraternal or athletic groups, or school groups? No 07/19/2021 How often do you attend meet ings of the clubs or organizations you belong to? Never 07/19/2021 Are you , , di vorced, , never , or living with a partner? Living with partner 07/19/2021 AUDIT-C Answer Date Recorded Q1: How often do you have a drink containing alc ohol? 2-3 times a week 07/19/2021 Q2: How many drinks containi ng alcohol do you have on a typical day when you are drinking? 3 or 4 07/19/2021 Q3: How often do you have si x or more drinks on one occasion? Monthly 07/19/2021 Overall Financial Resource Strain (CARDIA) Answe r Date Recorded How hard is it for you to pa y for the very basics like food, housing, medical care, and heating? Not hard at all 07/19/2021 PHQ-2 Answer Date Recorded Total Score 0 09/23/2021 [facility] - Occupational Stress Questionnaire Answer Date Recorded Do you feel stress - tense, restless, nervous, or anxious, or unable to sleep at night because your mind is troubled all the time - these days? Rather much 07/19/2021 Exercise Vital Sign Answer Date Recorde d On average, how many days pe r week do you engage in moderate to strenuous exercise (like a brisk walk)? 2 days 07/19/2021 On average, how many minutes do you engage in exercise at this level? 30 min 07/19/2021 PRAPARE - Transportation Answer Date Re corded In the past 12 months, has l ack of transportation kept you from medical appointments or from getting medications? No 03/2022 In the past 12 months, has l ack of transportation kept you from meetings, work, or from getting things needed for daily living? No 07/19/2021 Childcare Answer Date Recorded Do problems getting child ca re make it difficult for you to work or study? No 07/19/2021 Employment Answer Date Recorded Do you need help finding a l ocal career center and/or a training program? No 07/19/2021 Purpose - Life Answer Date Recorded I have a purpose and direction in my life. Stron gly Agree 07/19/2021 Education Answer Date Recorded What is the highest level of school you have completed or the highest degree you have received? Bachelor's degree (e.g., BA, AB, BS) 07/19/2021 Comments No Sex and Gender Information Value Date Recorded Sex Assigned at Not on file Legal Sex Female 11:44 AM EDT Gender Identity Not on file Sexual Orientation Not on file COVID-19 Exposure Response Date Recorded In the last 10 days, have domonique u been in contact with someone who was confirmed or suspected to have Coronavirus/COVID-19? 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 documented in this encounter Plan of Treatment Not on file documented as of this encounter Visit Diagnoses Not on filedocumented in this encounter Additional Health Concerns Assessment Noted Time PHQ-9 Depression Total Score: 0 09/24/19 22 9:27 AM EDT A Body Mass Index follow-up plan has been documented for the patient 07/22/2021 2:29 PM EST documented as of this encounter Care Teams It Business Process Architect Relationship Specialty Start Date End Date Melba Sharpe APRN-NEGAR PCP - General Family Medicine 04/17/19 01/07/23 documented as of this encounter
--- OUTSIDE RECORDS SUMMARY | 2024-12-03 11:06 | XMS_ITS | Encounter Summary ---
Author Organization [facility] Address [address] [place] [address] Care Team Providers Care Play Back Operator Name Role Phone Unavailable Primary Care Provider Unavailabl e Encounter Details Date Type Department Care Team (Late st Contact Info) Description 03/29/2024 Orders Only [facility] [address] [place] [address] Saba Delgado, CN [address] [place], [place] [id number] examination or test, positive result Social History Tobacco Use Types Packs/Day Years Used Date Smoking Tobacco: Never Smokeless Tobacco: Never Alcohol Use Standard Drinks/Week Comments Not Currently 0 (1 standard drink = 0.6 oz pur e alcohol) Comments No Sex and Gender Information Value Date Recorded Sex Assigned at Not on file Legal Sex Female 6:57 PM EDT Gender Identity Not on file Sexual Orientation Not on file documented as of this encounter Plan of Treatment Upcoming Encounters Date Type Department Care Team (Late st Contact Info) Description 12/05/2024 2:30 PM EDT Visit [facility] [address] [place] [address] Saba Delgado, CN [address] [place], [place] [id number] Scheduled Orders Name Type Priority Associated Diagnoses Orde r Schedule hCG, quantitative, Lab Routine examination or test, positive result Expected: 03/29/2024 (Approximate), Expires: 03/29/2025 hCG, quantitative, Lab Routine examination or test, positive result Expected: 03/29/2024 (Approximate), Expires: 03/29/2025 hCG, quantitative, Lab Routine examination or test, positive result Expected: 03/29/2024 (Approximate), Expires: 03/29/2025 documented as of this encounter Visit Diagnoses Diagnosis examination or test, positive result documented in this encounter
--- OUTSIDE RECORDS SUMMARY | 2024-12-03 11:06 | XMS_ITS | Encounter Summary ---
Author Organization [facility] Address [address] [place] [address] Care Team Providers Care Electrophysiologist Name Role Phone Unavailable Primary Care Provider Unavailabl e Encounter Details Date Type Department Care Team (Late st Contact Info) Description 09/26/2024 External Result Encounter [facility] [address] [place] [address] Saba Delgado CNM [address] [place] [address] Social History Tobacco Use Types Packs/Day Years [...] PM EDT Visit [facility] [address] [place] [address] Saba Delgado, CARROLM [address] [place], [place] [id number] documented as of this encounter Procedures Procedure Name Priority Date/Time Associated Diagnosis Comments US OB FOLLOW UP TRANSABDOMINAL APPROACH 09/26/2024 10:13 AM EDT documented in this encounter Results * US OB follow up transabdominal approach (09/26/2024 10:13 AM EDT) Anatomical Region Laterality Modality Body Ultrasound 09/26/2024 10:1 3 AM EDT Narrative 09/26/2024 10:12 AM EDT THIS EXAM WAS PERFORMED AT [facility] US PREG TRANSABD FU PER FETU: 09/26/2024 [...] Antoine Mahoney MD on 09/26/2024 10:12 AM Procedure Note Radiology, Radiologist, - 09/26/2024 THIS EXAM WAS PERFORMED AT [facility] PREG TRANSABD FU PER FETU: 09/26/2024 8:18 [...] Impression: * Single intrauterine cephalic presentation with cardiacactivity. * Average gestational age 31 weeks 1 day. * Ultrasound MONIQUE 11/27/2024. * Estimated growth 73%. This is a standard (Level I) ultrasound, which cannot exclude allfetal anomalies with certainty. Finalized by Antoine Mahoney MD on 09/26/2024 10:12 AM us Saba Delgado CNM IMG OB US PROCEDURES Final R esult documented in this encounter Visit Diagnoses Not on filedocumented in this encounter
--- OUTSIDE RECORDS SUMMARY | 2024-12-03 11:06 | XMS_ITS | Encounter Summary ---
Author Organization [facility] Address [address] [place] [address] Care Team Providers Care Special Procedures Tech Name Role Phone Unavailable Primary Care Provider Unavailabl e Encounter Details Date Type Department Care Team (Late st Contact Info) Description 11/20/2024 Bamboo flowsheet [facility] [address] [place] [address] Saba Delgado CNM [address] [place], [place] [phone] Social History Tobacco Use Types Packs/Day Years [...] PM EDT Visit [facility] [address] [place] [address] Saba Delgado CNM [address] [place], [place] [phone] documented as of this encounter Visit Diagnoses Not on filedocumented in this encounter
--- OUTSIDE RECORDS SUMMARY | 2024-12-03 11:06 | XMS_ITS | Encounter Summary ---
Author Organization [facility] Address [address] [place] [address] Care Team Providers Care Home Office Claims Examiner Name Role Phone Unavailable Primary Care Provider Unavailabl e Encounter Details Date Type Department Care Team (Late st Contact Info) Description 11/14/2024 Results Follow-Up [facility] [address] [place] [address] Saba Delgado, MICHELINE [address] [place], [place] [phone] Social History Tobacco Use Types Packs/Day Years [...] PM EDT Visit [facility] [address] [place] [address] Saba Delgado, CARRLOM [address] [place], [place] [phone] documented as of this encounter Visit Diagnoses Not on filedocumented in this encounter
--- OUTSIDE RECORDS SUMMARY | 2024-12-03 11:06 | XMS_ITS | Clinical Summary ---
Author Organization [facility] tem Address [facility] [id number] [address] [place] [address] Care Team Providers Care Junior Linux Systems Administrator Name Role Phone Unavailable Primary Care Provider Unavailabl e Allergies Active Allergy Reactions Criticality Noted Date Comments No Known Drug Allergies 12/14/2016 Medications * This document contains information received from the source organization and may not represent a complete record from that organization. TRI-SPRINTEC, 28, 0.18/0.215/0.25 mg-35 mcg (28) per tabletIndications: Encounter for annual routine gynecological examination Take 1 tablet by mouth daily. 28 tablet 12 1 Active citalopram (CeleXA) 20 mg tabletIndications: Anxiety and depression Take 1 tablet (20 mg total) by mouth daily. 90 tablet 1 2 Active phentermine 37.5 MG capsuleIndications :Obesity (BMI 30-39.9) Take 1 capsule (37.5 mg total) by mouth every morning before breakfast. 30 capsule 2 Active Active Problems Problem Noted Date Diagnosed Date Anxiety and depression 01/28/2020 Resolved Problems Problem Noted Date Diagnosed Date Resolved Date Low grade intrepith lesion c yto smr crvx (LGSIL) 02/06/2019 01/29/2021 Overview (04/13/2019): HISL --> No GARETT on LEEP 04/2019 --> cytology with cotesting 04/2020 Encounters Date Type Department Care Team Description 10/09/2024 12:40 PM EDT - 10/09/2024 11:59 PM EDT Hospital Encounter [facility] - Cardiovascular [address] [address] Tachycardia Discharge Disposition: Home 10/09/2024 Travel 09/26/2024 8:17 AM EDT - 09/26/2024 11:59 PM EDT [facility] [address] [place] [place] [address] Saba Delgado APRN-CNM related condition in second trimester Discharge Disposition: Home 09/26/2024 Travel from Last 3 Months Immunizations Immunization Administration Dates Next Due Influenza, Injectable, quadr ivalent (PF) 07/23/2020(Deferred: Patient decision) Family History Medical History Relation Name Comments Lung cancer Maternal Grandfather Breast cancer Neg Hx Colon cancer Neg Hx Ovarian cancer Neg Hx Relation Name Status Comments Maternal Grandfather Social History Tobacco Use Types Packs/Day Years [...] How often do you attend chur or sabianist services? Never 07/19/2021 Do you belong to any clubs o r organizations such as hoahaoism groups, unions, fraternal or athletic groups, or [...] Answer Date Recorded Total Score 0 09/23/2021 [facility] - Occupational Stress Questionnaire Answer Date Recorded [...] Recorded Do you need help finding a [facility] career center and/or a training program? No [...] Sign Reading Time Taken Comments Blood Pressure 102/68 09/23/2021 9:25 AM EDT Pulse 91 09/23/2021 9:25 AM EDT Temperature 36.5 C (97.7 F) 12/31/2020 11:05 AM EDT Respiratory Rate 19 04/11/2019 8:15 AM EDT Oxygen Saturation 98% 09/23/2021 9:25 AM EDT Inhaled Oxygen Concentration - - Weight 77.6 kg (171 lb) 09/23/2021 9:25 AM EDT Height 154.9 cm (5' 1 ) 09/23/2021 9:25 AM EDT Body Mass Index 32.31 09/23/2021 9:25 AM EDT Plan of Treatment Health Maintenance Due Date Last Done Comments Depression Screening 2003 Tobacco Screening 2003 Adult BMI Screening 2009 DTaP,Tdap and Td Vaccines (1 - Tdap) 2010 Pap Smear 01/30/2024 01/29/2021, 01/09, 01/28/2020, Additional history exists Influenza Vaccine Discontinued Medical Devices Not on file Procedures Procedure Name Priority Date/Time Associated Diagnosis Comments ECG 12-LEAD Routine 10/09/2024 12:50 PM EDT Tachycardia US PREG TRANSABD FU PER FETU Routine 09/26/2024 8:41 AM EDT related condition in second trimester HIGH RISK HPV W/NEETA Routine 01/29/2021 5:48 AM EDT from Last 3 Months or Most Recently Relevant to Health Maintenance Results * ECG 12 lead (10/09/2024 12:50 PM EDT) 10/09/2024 12:5 0 PM EDT Narrative TRACEMASTERVUE - 10/09/2024 1:33 PM EDT us Saba MCCURDY ECG ORDERABLES Final Res ult TRACEMASTERVUE * Ultrasound transabdominal follow up per fetus (09/26/2024 8:41 AM EDT) Anatomical Region Laterality Modality OB-MED AIDE Ultrasound 09/26/2024 10:1 0 AM EDT Narrative 09/26/2024 10:12 AM EDT US PREG TRANSABD FU PER FETU: 09/26/2024 [...] MD on 09/26/2024 10:12 AM Procedure Note Antoine Mahoney MD - 09/26/2024 US PREG TRANSABD FU PER FETU: 09/26/2024 [...] on 09/26/2024 10:12 AM us Saba Delgado APRN-CNM IMG US ORDERABLES Final R esult * High risk HPV w/neeta (01/29/2021 5:48 AM EDT) Hpv specimen type ThinPrep 02/09/2021 5:49 AM EDT [facility] Hpv 16 Negative Negative^N egative 02/09/2021 3:01 PM EDT [facility] Hpv 18 Negative Negative^N egative 02/09/2021 3:01 PM EDT [facility] Other high risk hpv Negative Negative^N egative 02/09/2021 3:01 PM EDT [facility] Comment: HPV types 31,33,35,39,45,52,56,58,59,66 and 68 DNA were undetectable. THINP 01/29/2021 5:48 AM EDT 02/09/2021 5:48 AM EDT us Kelly Reed FLIGHT LINE MECHANIC-AUDIT OFFICER LAB BLOOD ORDERABLES F inal Result [facility] [address] [facility], [address] [place] [address] from Last 3 Months or Most Recently Relevant to Health Maintenance Insurance [address] [place] [address] FRONTPATH FRONTPATH
--- OUTSIDE RECORDS SUMMARY | 2024-12-03 11:06 | XMS_ITS | Encounter Summary ---
Author Organization [facility] Address [address] [place] [address] Care Team Providers Care Threat Monitoring Analyst Name Role Phone Unavailable Primary Care Provider Unavailabl e Encounter Details Date Type Department Care Team (Late st Contact Info) Description 01/04/2024 Abstract [facility] [address] [place] [id number] Roger Rowley, DO [address] [place], [place] [id number] Social History Tobacco Use Types Packs/Day Years [...] PM EDT Visit [facility] [address] [place] [address] Saba Delgado, CARROLM [address] [place] [address] documented as of this encounter Visit Diagnoses Not on filedocumented in this encounter
--- OUTSIDE RECORDS SUMMARY | 2024-12-03 11:06 | XMS_ITS | Encounter Summary ---
Author Organization [facility] Address [address] [place] [address] Care Team Providers Care Process Mold Technician Name Role Phone Unavailable Primary Care Provider Unavailabl e Encounter Details Date Type Department Care Team (Late st Contact Info) Description 11/20/2024 Results Follow-Up [facility] [address] [place] [address] Saba Delgado, MICHELINE [address] [place], [place] [phone] Social History Tobacco Use Types Packs/Day Years [...] PM EDT Visit [facility] [address] [place] [address] Saba Delgado, CARROLM [address] [place], [place] [phone] documented as of this encounter Visit Diagnoses Not on filedocumented in this encounter
--- OUTSIDE RECORDS SUMMARY | 2024-12-03 11:06 | XMS_ITS | Encounter Summary ---
Author Organization [facility] Address [address] [place] [address] Care Team Providers Care Commercial Fisher Name Role Phone Unavailable Primary Care Provider Unavailabl e Encounter Details Date Type Department Care Team (Late st Contact Info) Description 11/28/2024 Clinisync Result Encounter [facility] External Department Unsolicited Roger Rowley, DO [address] [facility] [place] [address] Social History Tobacco Use Types Packs/Day Years [...] PM EDT Visit [facility] [address] [place] [address] Saba Delgado, CARROLM [address] [place] [address] documented as of this encounter Procedures Procedure Name Priority Date/Time Associated Diagnosis Comments TBH DRUG SCREEN RAPID (URINE) Routine 11/28/2024 5:30 AM EDT HMHP URINALYSIS, WITH MICROSCOPIC Routine 11/28/2024 5:30 AM EDT ALL CBC WITH AUTO DIFF Routine 11/28/2024 5:30 AM EDT documented in this encounter Results * (ABNORMAL) HP URINALYSIS, WITH MICROSCOPIC (11/28/2024 5:30 AM EDT) COLOR URINE YELLOW YELLOW TBH CLARITY URINE CLEAR CLEAR TBH SPECIFIC GRAVITY URINE >=1.030(A) 1.005 - 1.025 TBH PH URINE 6.0 5.0 - 9.0 TBH PROTEIN URINE TRACE NEG/TRACE mg/dL TBH GLUCOSE URINE UA NEGATIVE NEGATIVE mg/dL TBH BILIRUBIN URINE NEGATIVE NEGATIVE TBH KETONES URINE NEGATIVE NEGATIVE mg/dL TBH BLOOD URINE NEGATIVE NEGATIVE TBH NITRITE URINE NEGATIVE NEGATIVE TBH UROBILINOGEN URINE 0.2 0.2 - 1.0 EU/dL TBH LEUKOCYTE ESTERASE URINE TRACE(A) NEGATIVE TBH TBH WBC 5-10(A) NONE SEEN #/HPF TBH TBH RBC 0-2 0 - 2 #/HPF TBH BACTERIA URINE MODERATE(A) NONE SEEN #/HPF TBH MUCUS URINE MODERATE(A) NONE SEEN TBH SQUAMOUS EPITHELIAL CELL URINE FEW(A) NONE/RARE #/LPF TBH CRYSTALS SEEN? None Seen None Seen #/HPF TBH CAST SEEN? NONE SEEN NONE SEEN #/LPF TBH URINE CULTURE INDICATED YES-LC TBH 11/28/2024 5:30 AM EDT 11/28/2024 6:02 AM EDT Narrative CLINISYNC - 11/28/2024 6:21 AM EDT us Roger Halley DO CLINISYNC Final Result [facility]IN[facility] TB * TBH DRUG SCREEN RAPID (URINE) (11/28/2024 5:30 AM EDT) CANNABINOID SCREEN URINE NEGATIVE NEGATIVE TBH PHENCYCLIDINE SCREEN URINE NEGATIVE NEGATIVE TBH COCAINE SCREEN URINE NEGATIVE NEGATIVE TBH METHAMPHETAMINES SCREEN URINE NEGATIVE NEGATIVE TBH OPIATE SCREEN URINE NEGATIVE NEGATIVE TBH AMPHETAMINE SCREEN URINE NEGATIVE NEGATIVE TBH BENZODIAZEPINES SCREEN URINE NEGATIVE NEGATIVE TBH TRICYCLIC ANTIDEPRESSANT URINE NEGATIVE NEGATIVE TBH METHADONE SCREEN URINE NEGATIVE NEGATIVE TBH BARBITURATES SCREEN URINE NEGATIVE NEGATIVE TBH OXYCODONE SCREEN URINE NEGATIVE NEGATIVE TBH BUPRENORPHINE SCREEN URINE NEGATIVE NEGATIVE TBH Comment: DRUG CLASS TEST SYSTEM CUT-OFF CONCENTRATIONS ARE FOLLOWS: AMP (Amphetamine): 500 ng/mL BAR (Barbiturates): 200 ng/mL BZO (Benzodiazepines): 150 ng/mL BUP (Buprenorphine): 10 ng/mL FIONA (Cocaine): 150 ng/mL mAMP (Methamphetamine): 500 ng/mL MTD (Methadone): 200 ng/mL OPI (Opiates): 100 ng/mL OXY (Oxycodone): 100 ng/mL PCP (Phencyclidine): 25 ng/mL THC (Cannabinoids): 50 ng/mL TCA (Trycyclic Antidepressants): 300 ng/mL 11/28/2024 5:30 AM EDT 11/28/2024 6:02 AM EDT Narrative CLINISYNC - 11/28/2024 6:17 AM EDT us Roger Halley DO CLINISYNC Final Result [facility] * (ABNORMAL) ALL CBC WITH AUTO DIFF (11/28/2024 5:30 AM EDT) [facility] TB WBC 7.1 4.0 - 11.0 10 3/uL TBH TBH RBC 4.03(L) 4.20 - 5.40 10 6/uL TBH TBH HGB 10.8(L) 12.0 - 16.0 g/dL TBH TBH HCT 33.1(L) 36.0 - 48.0 % TBH TBH MCV 82.1 81.0 - 99.0 fL TBH TBH MCH 26.8 26.7 - 34.0 pg TBH TBH MCHC 32.6 29.9 - 35.2 g/dL TBH TBH RDW 14.6 11.0 - 15.0 % TBH TBH PLT 224 150 - 450 10 3/uL TBH TBH MPV 11.6 9.5 - 13.5 fL TBH NEUTROPHILS PERCENT AUTO 56.8 43.0 - 75.0 % TBH LYMPHOCYTES PERCENT AUTO 32.6 20.5 - 60.0 % TBH MONOCYTES PERCENT AUTO 8.9 1.7 - 12.0 % TBH TBH EO % 1.0 0.9 - 7.0 % TBH BASOPHILS PERCENT AUTO 0.4 0.2 - 2.0 % TBH IMMATURE GRANULOCYTES PCT AUTO 0.3 0.0 - 0.5 % TBH NEUTROPHILS ABSOLUTE AUTO 4.0 1.4 - 6.5 10 3/uL TBH LYMPHOCYTES ABSOLUTE AUTO 2.3 1.2 - 3.8 10 3/uL TBH MONOCYTES ABSOLUTE AUTO 0.6 0.3 - 0.8 10 3/uL TBH TBH EO # 0.1 0.0 - 0.7 10 3/uL TBH BASOPHILS ABSOLUTE AUTO 0.0 0.0 - 0.1 10 3/uL TBH IMMATURE GRANULOCYTES ABS AUTO 0.02 0.00 - 0.03 10 3/uL TBH 11/28/2024 5:30 AM EDT 11/28/2024 6:02 AM EDT Narrative CLINISYNC - 11/28/2024 6:13 AM EDT us Roger Rowley DO CLINIS[facility]NC [facility] documented in this encounter Visit Diagnoses Not on filedocumented in this encounter
--- OUTSIDE RECORDS SUMMARY | 2024-12-03 11:06 | XMS_ITS | Encounter Summary ---
Author Organization [facility] Address [address] [place] [address] Care Team Providers Care Crawler Tractor Operator Name Role Phone Unavailable Primary Care Provider Unavailabl e Encounter Details Date Type Department Care Team (Late st Contact Info) Description 07/19/2024 Clinisync Result Encounter [facility] External Department Unsolicited Amy Delgado CNM [address] [place] [address] Social History Tobacco Use Types [...] PM EDT Visit [facility]NR OB [address] [place] [address] Amy Delgado CNM [address] [place], [place] [phone] documented as of this encounter Procedures Procedure Name Priority Date/Time Associated Diagnosis Comments US OB ANATOMY 07/19/2024 7:22 AM EST documented in this encounter Results * US OB ANATOMY (07/19/2024 7:22 AM EST) Anatomical Region Laterality Modality Other 07/19/2024 7:22 AM EST Narrative 07/19/2024 7:24 AM EST The [address] [address] Ultrasound Report Signed Patient: MOHAN MATTA MR#: [id number] : 1990 Acct:[id number] Age/Sex: 34 / F ADM Date: 07/18/24 Loc: US Attending Dr: AMY DELGADO APRN, CNM Ordering Physician: AMY DELGADO APRN, CNM Date of Service: 07/18/24 Procedure(s): US OB anatomy Accession Number(s): [id number] cc: AMY DELGADO APRN, CNM; Physician,Non-Staff M.DDeshawn The [address] [id number] Patient Name: MOHAN MATTA MRN: [id number] date: 1990 Sex: F Assigned Patient Location: US Current Patient Location: Accession/Order Number: [id number] Exam Date: 07/18/2024 16:05 Report Date: 07/19/2024 07:22 At the request of: AMY DELGADO Procedure: US OB anatomy EXAMINATION: US OB anatomy HISTORY: anatomic survey COMPARISON: No relevant comparison available. TECHNIQUE: Transabdominal sonographic examination was performed for obstetrical and evaluation. FINDINGS: Number: 1 Heart Rate: 149.17 bpm H.B. /min Amniotic Fluid Volume: Subjectively normal position: Cephalic presentation, variable lie Placental Location: ANTERIOR, grade 0, the placental edge is 6.9 cm from the internal os. A nonspecific 9 mm hypoechogenic lesion is identified at the placental myometrial junction, nonspecific Cervix Length: 3.96 cm , closed Normal anatomy: Lateral ventricles, cerebellum, posterior fossa, nose, lips, orbits, four-chamber heart, RVOT, LVOT, diaphragm, stomach, kidneys, abdominal cord insertion, bladder, umbilical arteries, three-vessel cord, extremities Suboptimal visualization: Spine secondary to position BIOMETRY: BPD: 4.81 cm; 20 weeks 4 days; 66.70 % HC: 17.32 cm; 19 weeks 6 days; 29.30 % AC: 14.74 cm; 20 weeks 0 days; 40 % FL: 3.18 cm; 19 weeks 6 days; 33.30 % EFW:324.64 g; 36 %, 11 ounces FL/AC: 21.59 FL/BPD: 66.17 HC/AC: 1.17 GESTATIONAL AGE: Age by EDC: 20 weeks 1 day MONIQUE by EDC: 2024-12-04 Age by current US: 20 weeks 1 day MONIQUE by current US: 2024-12-04 US/US OB anatomy IMPRESSION: Suboptimal visualization of the spine 9 mm hypoechoic lesion at the placental myometrial junction, nonspecific *Reference: [employer] Practice Guideline for the performance of Obstetric Ultrasound Examinations, April 10, 2007. Electronically authenticated by: CANDIDA JOSÉ Date: 07/19/2024 07:22 Dictated By: Candida José M.D. Signed By: 07/19/24723 DD/ 1 TD/TT: Pulmonary Specialist: Procedure Note Radiology, Radiologist, MD - 07/19/2024 [place] [address] Ultrasound Report Signed Patient: FITZ MATTA#: [id number] : 1990Acct:[id number] Age/Sex: 34 / FADM Date: 07/18/24 Loc: US Attending Dr: AMY DELGADO APRN, CNM Ordering Physician: AMY DELGADO APRN, CNM Date of Service: 07/18/24 Procedure(s): US OB anatomy Accession Number(s): [id number] cc: AMY DELGADO APRN, CNM; Physician,Non-Staff M.DDeshawn The [address] [address] Patient Name: MOHAN MATTA MRN: [id number] date: 1990 Sex: F Assigned Patient Location: US Current Patient Location: Accession/Order Number: [id number] Exam Date: 07/18/2024 16:05 Report Date: 07/19/2024 07:22 At the request of: AMY DELGADO Procedure: US OB anatomy EXAMINATION: US OB anatomy HISTORY: anatomic survey COMPARISON: No relevant comparison available. TECHNIQUE: Transabdominal sonographic examination was performed for obstetrical and evaluation. FINDINGS: Number: 1 Heart Rate: 149.17 bpm H.B. /min Amniotic Fluid Volume: Subjectively normal position: Cephalic presentation, variable lie Placental Location: ANTERIOR, grade 0, the placental edge is 6.9 cm fromthe internal os. A nonspecific 9 mm hypoechogenic lesion is identified at the placental myometrial junction, nonspecific Cervix Length: 3.96 cm , closed Normal anatomy: Lateral ventricles, cerebellum, posterior fossa, nose,lips, orbits, four-chamber heart, RVOT, LVOT, diaphragm, stomach, kidneys,abdominal cord insertion, bladder, umbilical arteries, three-vessel cord,extremities Suboptimal visualization: Spine secondary to position BIOMETRY: BPD: 4.81 cm; 20 weeks 4 days; 66.70 % HC: 17.32 cm; 19 weeks 6 days; 29.30 % AC: 14.74 cm; 20 weeks 0 days; 40 % FL: 3.18 cm; 19 weeks 6 days; 33.30 % EFW:324.64 g; 36 %, 11 ounces FL/AC: 21.59 FL/BPD: 66.17 HC/AC: 1.17 GESTATIONAL AGE: Age by EDC: 20 weeks 1 day MONIQUE by EDC: 2024-12-04 Age by current US: 20 weeks 1 day MONIQUE by current US: 2024-12-04 US/US OB anatomy IMPRESSION: Suboptimal visualization of the spine 9 mm hypoechoic lesion at the placental myometrial junction, nonspecific *Reference: [employer] Practice Guideline for the performance of Obstetric Ultrasound Examinations, April 10, 2007. Electronically authenticated by: CANDIDA JOSÉ Date: 07/19/2024 07:22 Dictated By: Candida José M.D. Signed By:07/19/2424 DD/ 1 TD/TT: Pulmonary Specialist: us Amy Delgado CNM [facility] Final Resu lt documented in this encounter Visit Diagnoses Not on filedocumented in this encounter
--- OUTSIDE RECORDS SUMMARY | 2024-12-03 11:06 | XMS_ITS | Clinical Summary ---
Author Organization [facility] Address [address] [place] [address] Care Team Providers Care Diffusion Operator Name Role Phone Unavailable Primary Care Provider Unavailabl e Allergies No known active allergies Medications ferrous sulfate (Fe Tabs) 325 (65 Fe) MG EC tabletIndicatio ns:Anemia affecting in third trimester Take 1 tablet (325 mg) by mouth in the morning and 1 tablet (325 mg) before bedtime. Do not crush, chew, or split.. 60 tablet 11 09/13/2024 6 Active docusate sodium (Colace) 100 MG capsuleIndicati ons:Anemia affecting in third trimester Take 1 capsule (100 mg) by mouth in the morning and 1 capsule (100 mg) before bedtime. 60 capsule 11 09/13/2024 6 Active Active Problems Problem Noted Date Diagnosed Date Pre-op evaluation 12/15/2023 Fibroid 12/15/2023 Pelvic pain in female 12/15/2023 Estimated Date of Delivery Comme nts Yes 12/04/2024 Based on last me nstrual period of 02/28/2024 (Exact Date) Encounters Date Type Department Care Team Description 11/29/2024 Clinisync Result Encounter [facility] External Department Unsolicited Roger Rowley DO 11/28/2024 Clinisync Result Encounter [facility]OMS External Department Unsolicited Roger Rowley DO 11/27/2024 10:30 AM EDT Routine [facility] OB [address] [place] [address] Saba Delgado CNM Encounter for supervision of other normal , third trimester (Primary Dx); History of section 11/27/2024 Bamboo flowsheet [facility] OB [address] [facility] [place] [address] Saba Delgado, CARROLM 11/20/2024 3:30 PM EDT Routine [facility] OB [address] [facility] [place] [address] Saba Delgado, CNM Encounter for supervision of other normal , third trimester (Primary Dx); History of section; Fibroid 11/20/2024 Results Follow-Up [facility] OB [address] [facility] [place] [address] Saba Delgado, CNM 11/20/2024 Bamboo flowsheet [facility] OB [address] [facility] [place] [address] Saba Delgdao, CNM 11/14/2024 Results Follow-Up [facility] OB [address] [facility] [place] [address] Saba Delgado, CNM 11/13/2024 3:30 PM EDT Routine [facility] OB [address] [facility] [place] [address] Saba Delgado, MICHELINE Encounter for supervision of other normal , third trimester (Primary Dx); History of section 11/13/2024 Bamboo flowsheet [facility] OB [address] [facility] [place] [address] Saba Delgado, CNM 11/06/2024 3:45 PM EDT Routine [facility] OB [address] [facility] [place] [address] Saba Delgado, MICHELINE Encounter for supervision of other normal , third trimester (Primary Dx); History of section; screening for streptococcus B 10/23/2024 3:30 PM EDT Routine [facility] OB [address] [facility] [place] [address] FlorSaba mata CNM Tachycardia (Primary Dx); Encounter for supervision of other normal , third trimester; History of section 10/23/2024 Bamboo flowsheet [facility] OB [address] [facility] [place] [address] Saba Delgado CNM 10/09/2024 11:30 AM EDT Routine [facility] OB [address] [facility] [place] [address] Saba Delgado CNM Tachycardia 10/09/2024 Bamboo flowsheet [facility] OB [address] [facility] [place] [address] Saba Delgado CNM 09/26/2024 External Result Encounter [facility] OB [address] [facility] [place] [address] Saba Delgado CNM 09/13/2024 Refill [facility] OB [address] [facility] [place] [address] Lacey Fagan MA Anemia affecting in third trimester 09/11/2024 1:00 PM EST Routine [facility] OB [address] [facility] [place] [address] Saba Delgado CNM Screening for diabetes mellitus (DM); Screening for iron deficiency anemia; related condition in second trimester 09/11/2024 Bamboo flowsheet [facility] OB [address] [facility] [place] [address] Saba Delgado CNM from Last 3 Months Family History Relation Name Status Comments Father Alive Mother Alive Social History Tobacco Use Types Packs/Day Years Used Date Smoking Tobacco: Never Smokeless Tobacco: Never Tobacco Cessation:Counseling Given: Not [...] (217 lb) 11/27/2024 10:31 AM EDT Height 154.9 cm (5' 1 ) 03/05/2024 9:27 AM EDT Body Mass Index 41 03/05/2024 9:27 AM EDT Plan of Treatment Upcoming Encounters Date Type Department Care Team (Late st Contact Info) Description 12/05/2024 2:30 PM EDT Visit [facility] OB [address] [place] [address] Saba Delgado CNM [address] [place] [address] Procedures Procedure Name Priority Date/Time Associated Diagnosis Comments ALL CBC WITH AUTO DIFF Routine 6:20 AM EDT [facility] URINALYSIS, WITH MICROSCOPIC Routine 11/28/2024 5:30 AM EDT TBH DRUG SCREEN RAPID (URINE) Routine 11/28/2024 5:30 AM EDT ALL CBC WITH AUTO DIFF Routine 5:30 AM EDT CHLAMYDIA/N. GONORRHOEAE RNA, TMA, UROGENITAL Routine 11/14/2024 7:57 AM EDT Amenorrhea examination or test, positive result URINALYSIS MICROSCOPIC Routine 7:57 AM EDT Amenorrhea examination or test, positive result DRUG TOX MONITORIGN 6 W/ CONF,URINE Routine 11/14/2024 7:57 AM EDT Amenorrhea examination or test, positive result CULTURE, URINE, ROUTINE Routine 11/14/2024 7:57 AM EDT Amenorrhea examination or test, positive result STREPTOCCOUS, GROUP B CULTURE Routine 11/06/2024 5:00 PM EDT screening for streptococcus B US OB FOLLOW UP TRANSABDOMINAL APPROACH 09/26/2024 10:13 AM EDT CBC Routine 09/11/2024 1:27 PM EST Screening for iron deficiency anemia GLUCOSE, GESTATIONAL SCREEN (50G)-135 CUTOFF Routine 09/11/2024 1:27 PM EST Screening for diabetes mellitus (DM) from Last 3 Months Results * (ABNORMAL) ALL CBC WITH AUTO DIFF (11/29/2024 6:20 AM EDT) Only the most recent of2 resultswithin the time period is included. TBH WBC 12.5(H) 4.0 - 11.0 10 3/uL TBH TBH RBC 3.02(L) 4.20 - 5.40 10 6/uL TBH TBH HGB 8.0(L) 12.0 - 16.0 g/dL TBH TBH HCT 25.0(L) 36.0 - 48.0 % TBH TBH MCV 82.8 81.0 - 99.0 fL TBH TBH MCH 26.5(L) 26.7 - 34.0 pg TBH TBH MCHC 32.0 29.9 - 35.2 g/dL TBH TBH RDW 14.6 11.0 - 15.0 % TBH TBH PLT 207 150 - 450 10 3/uL TBH TBH MPV 11.3 9.5 - 13.5 fL TBH NEUTROPHILS PERCENT AUTO 75.8(H) 43.0 - 75.0 % TBH LYMPHOCYTES PERCENT AUTO 14.9(L) 20.5 - 60.0 % TBH MONOCYTES PERCENT AUTO 8.7 1.7 - 12.0 % TBH TBH EO % 0.0(L) 0.9 - 7.0 % TBH BASOPHILS PERCENT AUTO 0.1(L) 0.2 - 2.0 % TBH IMMATURE GRANULOCYTES PCT AUTO 0.5 0.0 - 0.5 % TBH NEUTROPHILS ABSOLUTE AUTO 9.5(H) 1.4 - 6.5 10 3/uL TBH LYMPHOCYTES ABSOLUTE AUTO 1.9 1.2 - 3.8 10 3/uL TBH MONOCYTES ABSOLUTE AUTO 1.1(H) 0.3 - 0.8 10 3/uL TBH TBH EO # 0.0 0.0 - 0.7 10 3/uL TBH BASOPHILS ABSOLUTE AUTO 0.0 0.0 - 0.1 10 3/uL TBH IMMATURE GRANULOCYTES ABS AUTO 0.06(H) 0.00 - 0.03 10 3/uL TBH 11/29/2024 6:20 AM EDT 11/29/2024 6:30 AM EDT Narrative [facility] - 11/29/2024 6:38 AM EDT Roger Halley DO [facility] Final Result Performing Organization Address City/State/[facility] Co de Phone Number [facility] * TB DRUG SCREEN RAPID (URINE) (11/28/2024 5:30 AM [...] Roger Halley DO [facility] Final Result [facility] * (ABNORMAL) HMHP URINALYSIS, WITH MICROSCOPIC (11/28/2024 5:30 AM EDT) [...] Roger Halley DO [facility] Final Result [facility] * (ABNORMAL) URINALYSIS MICROSCOPIC (11/14/2024 7:57 AM EDT) WBC 0-5 < OR = 5 /HPF [facility] SQUAMOUS EPITHELIAL CELLS 6-10(A) < OR = 5 /HPF [facility] BACTERIA MANY(A) NONE SEEN /HPF [facility] NOTE [facility] Comment: This urine was analyzed for the presence of WBC, RBC, bacteria, casts, and other formed elements. Only those elements seen were reported. 11/14/2024 7:57 AM EDT 11/14/2024 2:24 PM EDT Narrative Resulting Agency Comment Performing Organization Information Site ID: QTW Name: [facility] Address: [address] [place] [phone] Director: Alisa Harris Saba [facility] BLOOD ORDERABLES Final R esult [facility] * DRUG TOX MONITORIGN 6 W/ CONF,URINE (11/14/2024 7:57 AM EDT) AMPHETAMINES NEGATIVE <500 ng/mL [facility] BARBITURATES NEGATIVE <300 ng/mL [facility] BENZODIAZEPINES NEGATIVE <100 ng/mL [facility] COCAINE METABOLITES NEGATIVE <150 ng/mL [facility] MARIJUANA METABOLITE 20 NEGATIVE <20 ng/mL [facility] METHADONE METABOLITE NEGATIVE <100 ng/mL [facility] OPIATES NEGATIVE <100 ng/mL [facility] OXYCODONE NEGATIVE <100 ng/mL [facility] PHENCYCLIDINE NEGATIVE <25 ng/mL [facility] (ALWAYS MESSAGE) [facility] Comment: See Note 1 Note 1 This drug testing is for medical treatment only. Analysis was performed as non-forensic testing and these results should be used only by healthcare providers to render diagnosis or treatment, or to monitor progress of medical conditions. For assistance with interpreting these drug results, please contact a [facility]ist: [phone] ( ), M-F, 8am-6pm EST. 11/14/2024 7:57 AM EDT 11/14/2024 2:24 PM EDT Narrative Resulting Agency Comment Performing Organization Information Site ID: QPT Name: [facility] Address: [address] [facility], [address] [place] [phone] Director: Milton Landers MD [facility] BODY FLUIDS AND STOOLS O RDERABLES Final Result Performing Organization Address City/[facility]/ZIP Co de Phone Number [facility] * C. trachomatis / N. gonorrhoeae, DNA probe (11/14/2024 7:57 AM EDT) CHLAMYDIA TRACHOMATIS RNA, TMA, UROGENITAL NOT DETECTED NOT DETECTED [facility] NEISSERIA GONORRHOEAE RNA, TMA, UROGENITAL NOT DETECTED NOT DETECTED [facility] (ALWAYS MESSAGE) [facility] Comment: The analytical performance characteristics of this assay, when used to test SurePath(TM) specimens have been determined by [facility]. The modifications have not been cleared or approved by the FDA. This assay has been validated pursuant to the CLIA regulations and is used for clinical purposes. For additional information, please refer to https://education.[employer]/faq/ZFW228 (This link is being provided for information/ educational purposes only.) Swab Urine specimen obtained by clean catch procedure / Unknown 11/14/2024 7:57 AM EDT 11/14/2024 2:24 PM EDT Narrative Resulting Agency Comment Performing Organization Information Site ID: QPT Name: [facility] Address: [address] [place] [address], [address] [place] [phone] Director: Milton Landers MD [facility] PATHOLOGY ORDERABLES Fin al Result Performing Organization Address [facility] Co de Phone Number [facility] * Urine culture (11/14/2024 7:57 AM EDT) MICRO NUMBER [id number] [facility] SPECIMEN QUALITY Adequate [facility] SOURCE: ([facility]) URINE [facility] STATUS FINAL [facility] RESULT SEE NOTE [facility] Comment: Mixed genital bella isolated. These superficial bacteria are not indicative of a urinary tract infection. No further organism identification is warranted on this specimen. If clinically indicated, recollect clean-catch, mid-stream urine and transfer immediately to Urine Culture Transport Tube. Urine Urine specimen obtained by clean catch procedure / Unknown 11/14/2024 7:57 AM EDT 11/14/2024 2:24 PM EDT Narrative Resulting Agency Comment Performing Organization Information Site ID: QPT Name: [facility] Address: [address] [place] [address], [address] [place] [phone] Director: Milton Landers MD us Saba Delgado CNM LAB MICROBIOLOGY - GENERAL O RDERABLES Final Result Performing Organization Address [facility] de Phone Number [facility] * STREPTOCCOUS, GROUP B CULTURE (11/06/2024 5:00 PM EDT) MICRO NUMBER [id number] [facility] SPECIMEN QUALITY Adequate [facility] SOURCE VAGINAL/ANOR ECTAL [facility] STATUS FINAL [facility] RESULT SEE NOTE [facility] Comment: No group B Streptococcus isolated COMMENT SEE NOTE [facility] Comment: Note per CDC guidelines optimal recovery is achieved by swabbing both the lower vagina and rectum (through the anal sphincter). 11/06/2024 5:00 PM EDT 11/07/2024 7:53 AM EDT Narrative Resulting Agency Comment Performing Organization Information Site ID: QPT Name: [facility] Address: [address] [place] [address], [address] [place] [phone] Director: Milton Landers MD Saba Delgado CNM LAB BODY FLUIDS AND STOOLS O RDERABLES Final Result Performing Organization Address [facility] de Phone Number [facility] * US OB follow up transabdominal approach (09/26/2024 10:13 AM EDT) Anatomical Region Laterality Modality Body Ultrasound 09/26/2024 10:1 3 AM EDT Narrative 09/26/2024 10:12 AM EDT THIS EXAM WAS PERFORMED AT [facility] PREG TRANSABD FU PER FETU: 09/26/2024 8:18 [...] - 09/26/2024 THIS EXAM WAS PERFORMED AT [facility] TRANSABD FU PER FETU: 09/26/2024 8:18 AM [...] Mahoney MD on 09/26/2024 10:12 AM us Sabaearlene Delgado CNM IMG OB US PROCEDURES Final R esult * GLUCOSE, GESTATIONAL SCREEN (50G)-135 CUTOFF (09/11/2024 1:27 PM EST) GLUCOSE, GESTATIONAL SCREEN (50G)-135 CUTOFF 133 <135 mg/dL [facility] 09/11/2024 1:27 PM EST 09/11/2024 1:28 PM EST Narrative Resulting Agency Comment Performing Organization Information Site ID: QPT Name: [facility] Address: [place] [facility], [address] [place] [phone] Director: Milton Landers MD Saba [facility] BLOOD ORDERABLES Final R esult [facility] * (ABNORMAL) CBC (09/11/2024 1:27 PM EST) Pathologist [facility] [place] WHITE BLOOD CELL COUNT 7.4 3.8 - 10.8 Thousand/u L [facility] RED BLOOD CELL COUNT 3.69(L) 3.80 - 5.10 Million/uL [facility] HEMOGLOBIN 10.9(L) 11.7 - 15.5 g/dL [facility] HEMATOCRIT 32.7(L) 35.0 - 45.0 % [facility] MCV 88.6 80.0 - 100.0 fL [facility] MCH 29.5 27.0 - 33.0 pg [facility] MCHC 33.3 32.0 - 36.0 g/dL [facility] Comment: For adults, a slight decrease in the calculated MCHC value (in the range of 30 to 32 g/dL) is most likely not clinically significant; however, it should be interpreted with caution in correlation with other red cell parameters and the patient's clinical condition. RDW 12.9 11.0 - 15.0 % [facility] PLATELET COUNT 233 140 - 400 Thousand/u L [facility] MPV 10.4 7.5 - 12.5 fL [facility] Blood Venous blood specimen / Unknown 09/11/2024 1:27 PM EST 09/11/2024 1:28 PM EST Narrative Resulting Agency Comment Performing Organization Information Site ID: QPT Name: [facility] Address: [address] [place] [address], [address] [place] [phone] Director: Milton Landers MD us Saba Delgado CNM LAB BLOOD ORDERABLES Final R esult [facility] from Last 3 Months Insurance FRONTPATH FRONTPATH
--- OUTSIDE RECORDS SUMMARY | 2024-12-03 11:06 | XMS_ITS | Encounter Summary ---
Author Organization [facility] Address [address] [place] [address] Care Team Providers Care Threshing Department Supervisor Name Role Phone Unavailable Primary Care Provider Unavailabl e Encounter Details Date Type Department Care Team (Late st Contact Info) Description 12/29/2023 Abstract [facility] B[facility] OB [address] [place] [id number] Roger Rowley, DO [address] [place], [place] [id number] Social History Tobacco Use Types Packs/Day Years [...] PM EDT Visit [facility] FNR OB [address] [place] [address] Saba Delgado, CARROLM [address] [place] [address] documented as of this encounter Visit Diagnoses Not on filedocumented in this encounter
--- OUTSIDE RECORDS SUMMARY | 2024-12-03 11:06 | XMS_ITS | Referral Summary ---
Author Organization [facility] Address [address] [place] [address] Care Team Providers Care Card Runner Name Role Phone Saba Delgado [facility] Primary Care Provider + [phone] Encounters Date Type Department Care Team Description 11/14/2024 Telephone [facility] [address] [place] [address] Samina Modi MA 10/15/2024 Telephone [facility] [address] [place] [address] Samina Modi [place] 10/10/2024 11:00 AM EDT Office Visit [facility] [address] [place] [address] Jordan Renner MD Shortness of breath (Primary Dx); 32 weeks gestation of ; Palpitations from Last 3 Months Allergies No known active allergies Medications Medication Sig Dispensed Refills Start Date End Date Status docusate sodium (Colace) 100 mg capsule Take 100 mg by mouth twice a day. 09/13/2024 09/13/2025 Active ferrous sulfate 325 (65 Fe) MG EC tablet Take 325 mg by mouth twice a day. 09/13/2024 09/13/2025 Active loratadine (Claritin) 10 mg tablet Take 1 tablet by mouth in the morning. 02/12/2024 Active Active Problems Problem Noted Date Diagnosed Date Fibroid 12/15/2023 Pelvic pain in female 12/15/2023 Pre-op evaluation 12/15/2023 Comments Yes Social History Tobacco Use Types Packs/Day Years Used Date Smoking Tobacco: Former Cigarettes Smokeless Tobacco: Never Tobacco Cessation:Counseling Given: Not Answered Alcohol Use Standard Drinks/Week Comments Not Currently 0 (1 standard drink = 0.6 oz pur e alcohol) Comments Yes Sex and Gender Information Value Date Recorded Sex Assigned at Not on file Gender Identity Not on file Sexual Orientation Not on file Last Filed Vital Signs Vital Sign Reading Time Taken Comments Blood Pressure 104/67 10/10/2024 11:25 AM EDT Pulse 98 10/10/2024 11:25 AM EDT Temperature - - Respiratory Rate - - Oxygen Saturation 98% 10/10/2024 11:25 AM EDT Inhaled Oxygen Concentration - - Weight 90.7 kg (200 lb) 10/10/2024 11:25 AM EDT Height 154.9 cm (5' 1 ) 10/10/2024 11:25 AM EDT Body Mass Index 37.79 10/10/2024 11:25 AM EDT Plan of Treatment Not on file Care Teams Card Runner Relationship Specialty Start Date End Date Saba Delgado CNM [address] [place] [address] PCP - General Obstetrics and Gynecology 10/10/24
--- OUTSIDE RECORDS SUMMARY | 2024-12-03 11:06 | XMS_ITS | Encounter Summary ---
Author Organization [facility] Address [address] [place] [address] Care Team Providers Care Harness Builder Name Role Phone Unavailable Primary Care Provider Unavailabl e Encounter Details Date Type Department Care Team (Late st Contact Info) Description 11/29/2024 Clinisync Result Encounter [facility] External Department Unsolicited Roger Rowley, DO [address] [facility] [place] [address] Social History Tobacco Use Types [...] PM EDT Visit [facility] [address] [place] [address] Saba Delgado, CARROLM [address] [place] [address] documented as of this encounter Procedures Procedure Name Priority Date/Time Associated Diagnosis Comments ALL CBC WITH AUTO DIFF Routine 11/29/2024 6:20 AM EDT documented in this encounter Results * (ABNORMAL) ALL CBC WITH AUTO DIFF (11/29/2024 6:20 AM EDT) [facility] WBC 12.5(H) 4.0 - 11.0 10 [...] Narrative CLINIS[facility] - 11/29/2024 6:38 AM EDT us Roger Rowley DO [facility] documented in this encounter Visit Diagnoses Not on filedocumented in this encounter
--- OUTSIDE RECORDS SUMMARY | 2024-12-03 11:06 | XMS_ITS | Clinical Summary ---
Author Organization [facility] Address [address] [place] [address] Care Team Providers Care Information Assurance Name Role Phone Saba Delgado CARROL Primary Care Provider + [phone] Allergies No known active allergies Medications Medication [...] female 12/15/2023 Pre-op evaluation 12/15/2023 Comments Yes Encounters Date Type Department Care Team Description 11/14/[address] [facility] [address] [place] [address] Samina Modi MA 10/15/[address] [facility] [address] [place] [address] Samina Modi MA 10/10/2024 11:00 AM EDT Office Visit [facility] [address] [place] [phone] Jordan Renner MD Shortness of breath (Primary Dx); 32 weeks gestation of ; Palpitations from Last 3 Months Family History Medical History Relation Name Comments healthy Brother healthy Father healthy Mother healthy Sister Relation Name Status Comments Brother Alive Father Alive Mother Alive Sister Alive Social History Tobacco Use Types Packs/Day [...] 10/10/2024 11:25 AM EDT Plan of Treatment Health Maintenance Due Date Last Done Comments Depression Screening 2003 Varicella Vaccines (1 of 2 - 13+ 2-dose series) 02/09/2004 Hepatitis B Vaccines (1 of 3 - 19+ 3-dose series) 2010 Pap Smear 02/09/2012 Adult Tetanus 2013 Cervical Cancer Screening 2021 HPV/Cotest 2021 COVID-19 Vaccine ( - 2023-2 5 season) 2024 Influenza Vaccine (Season Ended) 2025 Zoster Vaccines (1 of 2) 2041 HIB Vaccines Aged Out No longer eligi ble based on patient's age to complete this topic HPV Vaccines Aged Out No longer eligi ble based on patient's age to complete this topic IPV Vaccines Aged Out No longer eligi ble based on patient's age to complete this topic Meningococcal B Vaccine Aged Out No l onger eligible based on patient's age to complete this topic Meningococcal Vaccine Aged Out No mila kosta eligible based on patient's age to complete this topic Pneumococcal Vaccine: Pediat rics (0 to 5 Years) and At-Risk Patients (6 to 64 Years) Aged Out No longer eligible b ased on patient's age to complete this topic Rotavirus Vaccines Aged Out No longer eligible based on patient's age to complete this topic Care Teams Information Assurance Relationship Specialty Start Date End Date Saba Delgado CNM [address] [place] [address] PCP - General Obstetrics and Gynecology 10/10/24
--- OUTSIDE RECORDS SUMMARY | 2024-12-03 11:07 | XMS_ITS | Encounter Summary ---
Author Organization [facility] tem Address [id number] [address] [place] [address] Care Team Providers Care Hospice Manager Name Role Phone Melba Sharpe DELINQUENCY COUNSELOR-COLOR MAKING SUPERVISOR Primary Care Provider + Encounter Details Date Type Department Care Team (Late st Contact Info) Description 07/16/2020 Orders Only [facility] [address] [place] [address] [place] [phone] Allyson Riggins CMA Cough in adult; Head congestion Social History Tobacco Use Types Packs/Day Years Used Date Smoking Tobacco: Former Cigarettes Q uit: 06/11/2018 Smokeless Tobacco: Never Alcohol Use Standard Drinks/Week Comments Yes 0 (1 standard drink = 0.6 oz pur e alcohol) Occasionally PHQ-2 Answer Date Recorded PHQ-2 Score 8 06/19/2020 Childcare Answer Date Recorded Childcare Unknown 12/20/2018 Employment Answer Date Recorded Employment Unknown 12/20/2018 Comments No Sex and Gender Information Value Date Recorded Sex Assigned at Not on file Legal Sex Female 11:44 AM EDT Gender Identity Not on file Sexual Orientation Not on file COVID-19 Exposure Response Date Recorded In the last month, have you been in contact with someone who was confirmed or suspected to have Coronavirus / COVID-19? No / Unsure 06/19/2020 7:55 AM EST documented as of this encounter Plan of Treatment Not on file documented as of this encounter Procedures Procedure Name Priority Date/Time Associated Diagnosis Comments SARS COV 2 (COVID-19) Routine 07/15/2020 Cough in adult Head congestion documented in this encounter Results * (ABNORMAL) SARS COV 2 (COVID-19)[Lab Collect] (07/15/2020) EXTERNAL SARS COV 2 Positive(A ) Negative SUNQUEST NASOPHARYNGEAL 07/15/2020 Melba DODGE MICROBIOLOGY - GENERAL O RDERABLES Final Result SUNQUEST documented in this encounter Visit Diagnoses Diagnosis Cough in adult Head congestion documented in this encounter Additional Health Concerns Infection Onset Date Last Indicated Resolved Time COVID-19 Positive 07/15/2020 07/15/2020 08/05/2020 11:14 PM EST COVID-19 Rule-Out 07/16/2020 07/15/2020 07/16/2020 2:06 PM EST Assessment Noted Time PHQ-9 Depression Total Score: 8 06/19/20 20 8:00 AM EST A Body Mass Index follow-up plan has been documented for the patient 01/28/2020 9:45 AM EDT documented as of this encounter Care Teams Hospice Manager Relationship Specialty Start Date End Date Melba Sharpe APRN-CNP PCP - General Family Medicine 04/17/19 01/07/23 documented as of this encounter
--- OUTSIDE RECORDS SUMMARY | 2024-12-03 11:07 | XMS_ITS | Encounter Summary ---
Author Organization [facility] Address [address] [place] [address] Care Team Providers Care Jumbo Operator Name Role Phone Unavailable Primary Care Provider Unavailabl e Encounter Details Date Type Department Care Team (Late st Contact Info) Description 03/06/2024 Abstract [facility] [address] [place] [id number] Roger Rowley, DO [address] [place], [place] [id number] Social History Tobacco Use Types Packs/Day Years [...] PM EDT Visit [facility] [address] [place] [address] Saba Delgado, CARROLM [address] [place] [address] documented as of this encounter Visit Diagnoses Not on filedocumented in this encounter
--- OUTSIDE RECORDS SUMMARY | 2024-12-03 11:07 | XMS_ITS | Encounter Summary ---
Author Organization [facility] Address [address] [place] [address] Care Team Providers Care Bpm Solution Architect Name Role Phone Unavailable Primary Care Provider Unavailabl e Encounter Details Date Type Department Care Team (Late st Contact Info) Description 12/17/2022 Abstract [facility] [address] [place] [address] Saba Delgado, CN [address] [place], [place] [id number] Social History Tobacco Use Types Packs/Day Years Used Date Smoking Tobacco: Never Assessed Comments Unknown Sex and Gender Information Value Date Recorded Sex Assigned at Not on file Legal Sex Female 6:57 PM EDT Gender Identity Not on file Sexual Orientation Not on file documented as of this encounter Plan of Treatment Upcoming Encounters Date Type Department Care Team (Late st Contact Info) Description 12/05/2024 2:30 PM EDT Visit [facility] [address] [place] [address] Saba Delgado, [facility] [address] [place], [place] [phone] documented as of this encounter Visit Diagnoses Not on filedocumented in this encounter
--- OUTSIDE RECORDS SUMMARY | 2024-12-03 11:07 | XMS_ITS | Encounter Summary ---
Author Organization [facility] Address [address] [place] [address] Care Team Providers Care Software Testing Specialist Name Role Phone Unavailable Primary Care Provider Unavailabl e Encounter Details Date Type Department Care Team (Late st Contact Info) Description 03/06/2024 Abstract [facility] [address] [place] [phone] Roger Rowley, DO [address] [place], [place] [id number] Social History Tobacco Use Types Packs/Day Years [...] PM EDT Visit [facility] [address] [place] [address] Saba Delgado, CARROLM [address] [place] [address] documented as of this encounter Visit Diagnoses Not on filedocumented in this encounter
--- OUTSIDE RECORDS SUMMARY | 2024-12-03 11:07 | XMS_ITS | Encounter Summary ---
Author Organization [facility] Address [id number] [address] [place] [address] Care Team Providers Care Health Consultant Name Role Phone Melba Sharpe ORIGINATION SPECIALIST-HULL SORTER Primary Care Provider + Reason for Visit * Reason Comments Med Refill Encounter Details Date Type Department Care Team (Late st Contact Info) Description 08/26/2019 Refill [facility] [address] [place] [address] [place] [phone] Melba Sharpe APRN-CNP [address] [place], [place] [id number] Anxiety and depression Social History Tobacco Use Types Packs/Day Years Used Date Smoking Tobacco: Former Cigarettes Q uit: 06/11/2018 Smokeless Tobacco: Never Alcohol Use Standard Drinks/Week Comments Yes 0 (1 standard drink = 0.6 oz pur e alcohol) weekends PHQ-2 Answer Date Recorded PHQ-2 Score 4 08/15/2019 Childcare Answer Date Recorded Childcare Unknown 12/20/2018 [...] as of this encounter Visit Diagnoses Diagnosis Anxiety and depression documented in this encounter Additional Health Concerns Infection Onset Date Last Indicated Resolved Time COVID-19 Positive 07/15/2020 07/15/2020 08/05/2020 11:14 PM EST COVID-19 Rule-Out 07/16/2020 07/15/2020 07/16/2020 2:06 PM EST Assessment Noted Time PHQ-9 Depression Total Score: 4 08/15/19 20 9:00 AM EST A Body Mass Index follow-up plan has been documented for the patient 08/15/2019 1:06 PM EST documented as of this encounter Care Teams Health Consultant Relationship Specialty Start Date End Date Melba Sharpe APRN-NEGAR PCP - General Family Medicine 04/17/19 01/07/23 documented as of this encounter
--- OUTSIDE RECORDS SUMMARY | 2024-12-03 11:07 | XMS_ITS | Encounter Summary ---
Author Organization [facility] Address [address] [place] [address] Care Team Providers Care Utility Systems Repairer Operator Name Role Phone Unavailable Primary Care Provider Unavailabl e Encounter Details Date Type Department Care Team (Late st Contact Info) Description 12/17/2022 Abstract [facility] [address] [place] [address] Saba Delgado, CN [address] [place], [place] [phone] Social History Tobacco Use Types Packs/Day Years [...] PM EDT Visit [facility] [address] [place] [address] Saba Delgado, [facility] [address] [place], [place] [phone] documented as of this encounter Visit Diagnoses Not on filedocumented in this encounter
--- NOTE | 2024-12-03 11:50 | PC.NURSE ---
1035- Pt arrives to [facility] for LC visit at this time w/ . Pt states feeding is going well other then infant having occasional emesis following feeds and feeds at breast for hours at times. RN discusses maternal diet practices and decresing feeding time if infant feeding for over an hour at a time. Pt states her milk is in and in the mornings she pumps off excess prior to feedings d/t discomfort. Pt states she pumped 4oz this morning. Joao RN also discusses feeding time, positions, and pumping to assist with infant feeding and decrease emesis with feeding. Pt expresses no pain with feeding. Pt states feeding Q2-3 hours and adequate outputs for age w/ transitional stool. Infant follow-up appointment with supervisor fish hatchery this Tuesday and infant tongue tie revision next week. Pt states overall she is feeling well and pain is well managed with motrin and tylenol. Incision intact. Lochia WNLs per pt. VS WNLs. 1100- Pt taken to private room to initiate d/t hunger cues. Pt denies need for assistance with latch. Infant feeds for 15mins without difficulties. LAtch WNLs; pt denies pain with latch in football position. RN addresses if pt has any other concerns or need for return LC visit. Pt denies need for further follow-ups. RN offers [facility] number if any questions or concerns arise in the future. 1125-Mother and infant discharged home at this time.
== END 2024-12-03 11:25 | disposition home or self-care (01) ==
LOC: FBCO 11:04
PROVIDERS: Visit Provider Obstetrics & Gynecology
DX: Z39.1 Encounter for care and examination of lactating mother (principal)

== ENCOUNTER 2024-12-05 16:56 | Observation (INO) | payer OTHER, SELFPAY ==
--- OUTSIDE RECORDS SUMMARY | 2024-02-09 05:13 | XMS_ITS ---
Author Organization BILLING FACILITY [employer] Address [address] [place] [address] Care Team Providers Care Sales Office Coordinator Name Role Phone Charo Hanley Primary Care Provider [phone] Edwin COLLAZO, Mark Caicedo Encounters Encounter Location Date Provider Diagnosis [facility] N [address] [id number] [facility] [address] [place], [place] [id number] 02/09/2024 Mark Pineda MD PLAN OF TREATMENT No Information
--- OUTSIDE RECORDS SUMMARY | 2024-02-09 10:45 | XMS_ITS ---
Author Organization BILLING FACILITY [employer] [facility] Address [address] [place] [address] Care Team Providers Care Door To Door Selling Distributor Name Role Phone Dayan Charo Primary Care Provider Shruthi Love Unavailable [phone] ALLERGIES No Known Allergies REASON FOR VISIT [...] 02/09/2024 Encounters Encounter Location Date Provider Diagnosis [place] [address] [place] [address] 02/09/2024 Shruthi Nationlivan Acute folliculitis L73.9 ASSESSMENTS [...] by Tuesday, May need to see a tester operator helper if no resolution. We did discuss possibility [...] by Tuesday, May need to see a tester operator helper if no resolution. We did discuss possibility [...] * Honorio MATTAOB:1990 ( 34 yo F)Acc No.[id number]:02/09/2024 Patient: Nicholas MATTA Provider: Shruthi Love NP :1990 Age:34 Y Sex:Female Date:02/09/2024 Address:[address] [place] [address] Pcp:Charo Hanley Subjective: * Chief Complaints: * [...] with a hot tub, was also at [place] a few weeks before the most recent [...] as scabies which she has had in [facility]. HEr or child neither have a [...] dizziness, headache, weakness. 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 control [...] Tuesday) * Billing Information: * Visit Code: 20260 Level 4 New Patient Acute Care. * [...] with a hot tub, was also at [place] a few weeks before the most recent [...] as scabies which she has had in [facility]. HEr or child neither have a similiar [...]
--- OUTSIDE RECORDS SUMMARY | 2024-11-27 10:30 | XMS_ITS | Encounter Summary ---
Author Organization [facility] Address [address] [place] [address] Care Team Providers Care Medical Bill Processor Name Role Phone Unavailable Primary Care Provider Unavailabl e Encounter Details Date Type Department Care Team (Latest Contact Info) Description 11/27/2024 10:30 AM EDT Routine [facility] [address] [place] [address] Saba Delgado CNM [address] [place], [place] [id number] Encounter for supervision of other normal , third trimester (Primary Dx); History of section Social History Tobacco Use Types Packs/Day Years Used Date Smoking Tobacco: Never Smokeless Tobacco: Never Alcohol Use Standard Drinks/Week Comments Not Currently 0 (1 standard drink = 0.6 oz pur e alcohol) Comments Yes Sex and Gender Information Value Date Recorded Sex Assigned at Not on file Legal Sex Female 6:57 PM EDT Gender Identity Not on file Sexual Orientation Not on file documented as of this encounter Last Filed Vital Signs Vital Sign Reading Time Taken Comments Blood Pressure 120/82 11/27/2024 10:31 AM EDT Pulse - - Temperature - - Respiratory Rate - - Oxygen Saturation - - Inhaled Oxygen Concentration - - Weight 98.4 kg (217 lb) 11/27/2024 10:31 AM EDT Height - - Body Mass Index 41 03/05/2024 9:27 AM EDT documented in this encounter Progress Notes * Saba Delgado CNM - 11/27/2024 10:30 AM EDT Subjective No chief complaint on file. Nicholas Matta is a 34 y.o. at 39w0d with a working estimated date of delivery [...] 2B 1 AB Her is complicated by: cramping Objective Physical Exam Weight: 217 lb Expected Total Weight Gain: 11 lb-19 lb Pregravid BMI: 36.49 BP: 120/82 Urine protein-negative Urine glucose-negative Assessment/Plan Continue vitamin. Labs reviewed. GBS taken. Expected mode of delivery Follow up in 1 week for a routine visit. documented in this encounter Plan of Treatment Upcoming Encounters Date Type Department Care Team (Late st Contact Info) Description 12/10/2024 1:30 PM EDT Visit [facility] [address] [place] [address] Saba Delgado CNM [address] [place], [place] [id number] documented as of this encounter Visit Diagnoses Diagnosis Encounter for supervision of other normal , third trimester- Primary History of section Other postprocedural status documented in this encounter
--- OUTSIDE RECORDS SUMMARY | 2024-12-04 14:30 | XMS_ITS | Encounter Summary ---
Author Organization [facility] Address [address] [place] [address] Care Team Providers Care Door Installer Name Role Phone Unavailable Primary Care Provider Unavailabl e Encounter Details Date Type Department Care Team (Latest Contact Info) Description 12/04/2024 2:30 PM EDT Visit [facility] [address] [place] [address] Saba Delgado CNM [address] [place], [place] [phone] Elevated blood pressure reading (Primary Dx); examination following delivery Social History Tobacco Use Types Packs/Day Years [...] Sign Reading Time Taken Comments Blood Pressure 150/90 12/04/2024 2:45 PM EDT rec heck 140/82 Pulse - - Temperature - - Respiratory Rate - - Oxygen Saturation - - Inhaled Oxygen Concentration - - Weight - - Height - - Body Mass Index - - documented in this encounter Progress Notes * Saba Delgado CNM - 12/04/2024 2:30 PM EDT Nicholas Matta is here for visit. She is 1 weeks . Complaints: headache x2 days since Tuesday Weeks at delivery: 39 week Type of delivery: , Low Transverse; repeat Gender: male Baby is healthy: yes Breast or bottle feeding: breast Complaints or complications: headaches mood: well, happy, and fatigued Contraception: Resumed Sexual activity: no Resumed Menses: no EXAM: GENERAL APPEARANCE: alert, well appearing, in no apparent distress ASSESSMENT/PLAN: 1. Elevated blood pressure reading (Primary) Patient states she is not sleeping and is laying in the recliner. Her breasts are extremely large, and she states they're so heavy she is not sleeping but 2 hours per night. She has had a headache since Tuesday ( 2 days ago) and taking Motrin/Tylenol rotating with no relief. BP 150/90 now. She was here for baby appt with Mark Angel NP and she expressed to Mark about her headache. Patient ambulated down to my pod and we put her in a room and assessed blood pressure and urine. She does have a trace of protein, approx 15. She denies SOB, chest pain, epigastric pain, and no visual disturbance. Discussed medications with her and we will start her on labetalol 200 mg BID and I will see her tomorrow. She does have a BP cuff at home and I discussed taking her blood pressure 1 hour after taking the medication. She should report to me or go to the hospital for elevations of 150/90 or higher or symptoms. PVU RX sent to pharmacy - labetalol (Normodyne) 200 MG tablet; Take 1 tablet (200 mg) by mouth in the morning and 1 tablet (200 mg) before bedtime. Dispense: 60 tablet; Refill: 1 normal exam documented in this encounter Plan of Treatment Upcoming Encounters Date Type Department Care Team (Late st Contact Info) Description 12/10/2024 1:30 PM EDT Visit [facility] [address] [place] [address] Saba Delgado CNM [address] [place] [address] documented as of this encounter Visit Diagnoses Diagnosis Elevated blood pressure reading- Primary Elevated blood pressure reading without diagnosis of hypertension examination following delivery documented in this encounter
[2024-12-05] VITALS (17 sets, daily range): BP systolic 109–138; BP diastolic 57–69; PULSE 76–88; TEMP 36.2–36.6; O2SAT 91–95
--- OUTSIDE RECORDS SUMMARY | 2024-12-05 14:30 | XMS_ITS | Encounter Summary ---
Author Organization [facility] Address [address] [place] [address] Care Team Providers Care Auto Parts Delivery Driver Name Role Phone Unavailable Primary Care Provider Unavailabl e Reason for Visit * Reason Comments Care Encounter Details Date Type Department Care Team (Latest Contact Info) Description 12/05/2024 2:30 PM EDT Visit [facility] [address] [place] [address] Sbaa Delgado CNM [address] [place], [place] [phone] Elevated blood pressure reading (Primary Dx); History of section; examination following delivery Social History Tobacco Use [...] Sign Reading Time Taken Comments Blood Pressure 142/90 12/05/2024 2:25 PM EDT Pulse - - Temperature - - Respiratory Rate - - Oxygen Saturation - - Inhaled Oxygen Concentration - - Weight 93 kg (205 lb) 12/05/2024 2:25 PM EDT Height - - Body Mass Index 38.73 03/05/2024 9:27 AM EDT documented in this encounter Progress Notes * Saba Delgado CNM - 12/05/2024 2:30 PM EDT Nicholas Matta is here for visit. She is 1 weeks . Complaints: has no unusual complaints Weeks at delivery: 39 week Type of delivery: , Low Transverse; repeat Gender: male Baby is healthy: yes Breast or bottle feeding: breast Complaints or complications: headaches mood: well EPDS score at 6 weeks pp Contraception: none Resumed Sexual activity: no Resumed Menses: no EXAM: GENERAL APPEARANCE: alert, well appearing, in no apparent distress LUNGS: clear to auscultation, no wheezes, rales or rhonchi, symmetric air entry HEART: regular rate and rhythm, no murmurs ABDOMEN : benign non-tender, without masses or organomegaly palpable ASSESSMENT/PLAN: There are no diagnoses linked to this encounter. Patient has elevated blood pressure since yesterday. I started Labetalol 200 mg BID yesterday, patient here today and blood pressure was 142/90. Patient was also taking her blood pressure at home. Last evenin:00 pm 142/84 10p 161/89 and then this morning at 8a 143/81 and at 2p 141/95 and in my office as above 142/90. I discussed readmitting patient for magnesium sulfate IV and patient is verytearful and worried about the baby. Can he go with me? Can I breastfeed still because he's never had a bottle.? All questions answered and I also updated Dr Rowley with care plan for Nicholas. Orders called to ITZEL Marroquin at [place]. I did also explain to patient we have Dr Cooper covering for us this weekend and she will manage her over the weekend. PVU and is in agreement with the plan of care. Patient going to go home first and pack a bag and some things needed for the baby and get her and then she will go to the hospital. normal exam documented in this encounter Plan of Treatment Upcoming Encounters Date Type Department Care Team (Late st Contact Info) Description 12/10/2024 1:30 PM EDT Visit [facility] [address] [place] [address] Saba Delgado CNM [address] [place] [address] documented as of this encounter Visit Diagnoses Diagnosis Elevated blood pressure reading- Primary Elevated blood pressure reading without diagnosis of hypertension History of section Other postprocedural status examination following delivery documented in this encounter
--- OUTSIDE RECORDS SUMMARY | 2024-12-05 17:00 | XMS_ITS | Encounter Summary ---
Author Organization [facility] Address [id number] [address] [place] [address] Care Team Providers Care Insulation Technician Name Role Phone Melba Sharpe SALES RELATIONSHIP MANAGER-LIFE SKILLS TEACHER Primary Care Provider + Reason for Visit * Reason Comments Med Refill Encounter Details Date Type Department Care Team (Late st Contact Info) Description 08/26/2019 Refill [facility] [address] [place] [address] [place] [phone] Melba Sharpe APRN-CNP [address] [place], [place] [id number] Anxiety and depression Social History Tobacco Use [...] documented as of this encounter Care Teams Insulation Technician Relationship Specialty Start Date End Date Melba Sharpe APRN-NEGAR PCP - General Family Medicine 04/17/19 01/07/23 documented as of this encounter
--- OUTSIDE RECORDS SUMMARY | 2024-12-05 17:00 | XMS_ITS | Encounter Summary ---
Author Organization [facility] Address [address] [place] [address] Care Team Providers Care Gerontological Nurse Practitioner Name Role Phone Unavailable Primary Care Provider Unavailabl e Encounter Details Date Type Department Care Team (Late st Contact Info) Description 03/06/2024 Abstract [facility] [address] [place] [phone] Roger Rowley, DO [address] [place], [place] [phone] Social History Tobacco Use Types Packs/Day Years [...] PM EDT Visit [facility] [address] [place] [address] Saba Delgado, CARROLM [address] [place] [address] documented as of this encounter Visit Diagnoses Not on filedocumented in this encounter
--- OUTSIDE RECORDS SUMMARY | 2024-12-05 17:00 | XMS_ITS | Clinical Summary ---
Author Organization [facility] Address [address] [place] [address] Care Team Providers Care Belt Loop Cutter Name Role Phone Saba Delgado CARROL Primary Care Provider + [phone] Allergies No known active allergies Medications Medication [...] Type Department Care Team Description 11/14/2024 Telephone [facility] [address] [place] [address] Samina Modi MA 10/15/2024 Telephone [facility] [address] [place] [address] Samina Modi MA 10/10/2024 11:00 AM EDT Office Visit [facility] [address] [place] [address] Jordan Renner MD Shortness of breath (Primary [...] age to complete this topic Care Teams Belt Loop Cutter Relationship Specialty Start Date End Date Saba Delgado CNM [address] [place] [address] PCP - General Obstetrics and Gynecology 10/10/24
--- OUTSIDE RECORDS SUMMARY | 2024-12-05 17:00 | XMS_ITS | Clinical Summary ---
Author Organization [facility] tem Address [id number] [address] [place] [address] Care Team Providers Care Salesperson Fashion Accessories Name Role Phone Unavailable Primary Care Provider [...] - 10/09/2024 11:59 PM EDT Hospital Encounter [facility] - Cardiovascular [address] [address] Tachycardia Discharge Disposition: Home 10/09/2024 Travel 09/26/2024 8:17 AM EDT - 09/26/2024 11:59 PM EDT [facility] [address] [place] [address] Saba Delgado APRN-CNM related condition in second [...] How often do you attend chur or temple services? Never 07/19/2021 Do you belong to any clubs o r organizations such as rastafarian groups, unions, fraternal or athletic groups, or [...] Date Recorded Total Score 0 09/23/2021 [facility] - Occupational Stress Questionnaire Answer Date [...] Recorded Do you need help finding a [facility] career center and/or a training program? [...] 8:41 AM EDT) Anatomical Region Laterality Modality OB-MONTESSORI TODDLER TEACHER Ultrasound 09/26/2024 10:1 0 AM EDT Narrative [...] Negative Negative^N egative 02/09/2021 3:01 PM EDT [facility] Hpv 18 Negative Negative^N egative 02/09/2021 3:01 PM EDT [facility] Other high risk hpv Negative Negative^N egative 02/09/2021 3:01 PM EDT [facility] Comment: HPV types 31,33,35,39,45,52,56,58,59,66 and 68 DNA were undetectable. THINP 01/29/2021 5:48 AM EDT 02/09/2021 5:48 AM EDT us Kelly Reed VACCINE MANAGER-COMMUNITY OUTREACH [employer] LAB BLOOD ORDERABLES F inal Result [facility] [address] [place] [address] from Last 3 Months or Most Recently Relevant to Health Maintenance Insurance [address] [place] [address] FRONTPATH FRONTPATH
--- OUTSIDE RECORDS SUMMARY | 2024-12-05 17:00 | XMS_ITS | Encounter Summary ---
Author Organization [facility] Address [address] [place] [address] Care Team Providers Care Steam Hoist Operator Name Role Phone Unavailable Primary Care Provider Unavailabl e Encounter Details Date Type Department Care Team (Late st Contact Info) Description 12/29/2023 Abstract [facility] BCP OB [address] [place] [phone] Roger Rowley, DO [address] [place], [place] [id number] Social History Tobacco Use Types Packs/Day Years [...] PM EDT Visit [facility]NR OB [address] [place] [address] Saba Delgado, CARROLM [address] [place] [address] documented as of this encounter Visit Diagnoses Not on filedocumented in this encounter
--- OUTSIDE RECORDS SUMMARY | 2024-12-05 17:00 | XMS_ITS | Encounter Summary ---
Author Organization [facility] tem Address [id number] [address] [place] [address] Care Team Providers Care Stunt Double Name Role Phone Melba Sharpe PATIENT INFORMATION COORDINATOR-DISBURSING AGENT Primary Care Provider + Encounter Details Date Type Department Care Team (Late st Contact Info) Description 07/16/2020 Orders Only [facility] [address] [place] [address] [place] [phone] Allyson Riggins CMA Cough in adult; Head [...] documented as of this encounter Care Teams Stunt Double Relationship Specialty Start Date End Date Melba Sharpe APRN-CNP PCP - General Family Medicine 04/17/19 01/07/23 documented as of this encounter
--- OUTSIDE RECORDS SUMMARY | 2024-12-05 17:00 | XMS_ITS | Encounter Summary ---
Author Organization [facility] Address [address] [place] [address] Care Team Providers Care Clinical Engineering Director Name Role Phone Unavailable Primary Care Provider Unavailabl e Encounter Details Date Type Department Care Team (Late st Contact Info) Description 11/14/2024 Results Follow-Up [facility]NR [address] [place] [address] Saba Delgado, CARROL [address] [place], [place] [phone] Social History Tobacco Use Types Packs/Day Years [...] PM EDT Visit [facility] [address] [place] [address] Saba Delgado CN [address] [place], [place] [phone] documented as of this encounter Visit Diagnoses Not on filedocumented in this encounter
--- OUTSIDE RECORDS SUMMARY | 2024-12-05 17:00 | XMS_ITS | Encounter Summary ---
Author Organization [facility] Address [address] [place] [address] Care Team Providers Care Fisheries Manager Name Role Phone Unavailable Primary Care Provider Unavailabl e Encounter Details Date Type Department Care Team (Late st Contact Info) Description 11/27/2024 Bamboo flowsheet [facility]NR OB [address] [place] [address] Saba Delgado, CARROL [address] [place], [place] [phone] Social History Tobacco Use Types Packs/Day Years [...] PM EDT Visit [facility] OB [address] [place] [address] Saba Delgado CN [address] [place], [place] [phone] documented as of this encounter Visit Diagnoses Not on filedocumented in this encounter
--- OUTSIDE RECORDS SUMMARY | 2024-12-05 17:00 | XMS_ITS | Clinical Summary ---
Author Organization [facility] Address [address] [place] [address] Care Team Providers Care E Commerce Project Manager Name Role Phone Unavailable Primary Care [...] bedtime. 60 capsule 11 09/13/2024 6 Active labetalol (Normodyne) 200 MG tabletIndicatio ns:Elevated blood pressure reading Take 1 tablet (200 mg) by mouth in the morning and 1 tablet (200 mg) before bedtime. 60 tablet 1 12/04/2024 6 Active Active Problems Problem Noted Date Diagnosed Date Pre-op evaluation 12/15/2023 Fibroid 12/15/2023 Pelvic pain in female 12/15/2023 Encounters Date Type Department Care Team Description 12/05/2024 2:30 PM EDT Visit [facility] FNR OB [address] [place] [address] Saba Delgado CNM Elevated blood pressure reading (Primary Dx); History of section; examination following delivery 12/04/2024 2:30 PM EDT Visit [facility] OB [address] [facility] [place] [address] Saba Delgado, CNM Elevated blood pressure reading (Primary Dx); examination following delivery 11/29/2024 Clinisync Result Encounter [facility] External Department Unsolicited Roger Rowley, DO 11/28/2024 Clinisync Result Encounter [facility] External Department Unsolicited Roger Rowley, DO 11/27/2024 10:30 AM EDT Routine [facility] [address] [place] [address] Saba Delgado, CNM Encounter for supervision of other normal , third trimester (Primary Dx); History of section 11/27/2024 Bamboo flowsheet [facility] FNR OB [facility] [place] [address] Saba Delgado, CNM 11/20/2024 3:30 PM EDT Routine [facility] [address] [place] [place] [address] Saba Delgado, CNM Encounter for supervision of other normal , third trimester (Primary Dx); History of section; Fibroid 11/20/2024 Results Follow-Up [facility] OB [address] [place] [address] Saba Delgado L, CNM 11/20/2024 Bamboo flowsheet [facility] FNR OB [facility] [place] [address] Saba Delgado L, CNM 11/14/2024 Results Follow-Up [facility] [address] [place] [address] Saba Delgado, CNM 11/13/2024 3:30 PM EDT Routine [facility] [address] [place] [address] Saba Delgado, CNM Encounter for supervision of other normal , third trimester (Primary Dx); History of section 11/13/2024 Bamboo flowsheet [facility] [address] [place] [address] Saba Delgado, MICHELINE 11/06/2024 3:45 PM EDT Routine [facility] OB [address] [place] [address] Saba Delgado, MICHELINE Encounter for supervision of other normal , third trimester (Primary Dx); History of section; screening for streptococcus B 10/23/2024 3:30 PM EDT Routine [facility] OB [address] [place] [address] Saba Delgado CNM Tachycardia (Primary Dx); Encounter for supervision of other normal , third trimester; History of section 10/23/2024 Bamboo flowsheet [facility] [address] [place] [address] Saba Delgado CNM 10/09/2024 11:30 AM EDT Routine [facility] OB [address] [place] [address] Saba Delgado, MICHELIEN Tachycardia 10/09/2024 Bamboo flowsheet [facility] [address] [place] [address] Saba Delgado, CARROLM 09/26/2024 External Result Encounter [facility] [address] [place] [address] Saba Delgado, MICHELINE 09/13/2024 Refill [facility] [address] [place] [address] Lacey Fagan MA Anemia affecting in third trimester 09/11/2024 1:00 PM EST Routine [facility] OB [address] [place] [address] Saba Delgado, MICHELINE Screening for diabetes mellitus (DM); Screening for iron deficiency anemia; related condition in second trimester 09/11/2024 Bamboo flowsheet [facility] [address] [place] [address] Saba Delgado CNM from Last 3 Months [...] (205 lb) 12/05/2024 2:25 PM EDT Height 154.9 cm (5' 1 ) 03/05/2024 9:27 AM EDT Body Mass Index 38.73 03/05/2024 9:27 AM EDT Plan of Treatment Upcoming Encounters Date Type Department Care Team (Late st Contact Info) Description 12/10/2024 1:30 PM EDT Visit [facility] OB [address] [place] [address] Saba Delgado CNM [address] [place] [address] Procedures Procedure Name Priority Date/Time Associated Diagnosis [...] - 11/29/2024 6:38 AM EDT us Roger Halley DO CLINIS[facility]NC Final Result [facility] * TB DRUG SCREEN RAPID (URINE) (11/28/2024 5:30 AM EDT) Pathologist [facility] CANNABINOID SCREEN URINE NEGATIVE NEGATIVE TBH PHENCYCLIDINE [...] us Roger Halley DO [facility] * (ABNORMAL) [facility] URINALYSIS, WITH MICROSCOPIC (11/28/2024 5:30 AM EDT) [...] - 11/28/2024 6:21 AM EDT us Roger Rowley DO CLINISYNC Final Result Performing Organization Address [facility]/ZIP Co de Phone Number CLINISYNC [facility] * (ABNORMAL) URINALYSIS MICROSCOPIC (11/14/2024 [...] Performing Organization Information Site ID: QTW Name: [facility] Address: [address] [place] [phone] Director: Alisa Harris us Saba [facility] LAB BLOOD ORDERABLES Final R esult Performing Organization Address [facility] Co de Phone Number [facility] * DRUG TOX MONITORIGN 6 W/ [...] interpreting these drug results, please contact a [facility] Toxicology Specialist: [phone] ( ), M-F, 8am-6pm EST. 11/14/2024 7:57 AM EDT 11/14/2024 2:24 PM EDT Narrative Resulting Agency Comment Performing Organization Information Site ID: QPT Name: [facility] Address: [address] [place] [address], [address] [place] [phone] Director: Milton Landers MD Saba Shila [facility] LAB BODY FLUIDS AND STOOLS O RDERABLES Final Result Performing Organization Address [facility]/ZIP Co de Phone Number [facility] * C. trachomatis / N. gonorrhoeae, DNA probe (11/14/2024 7:57 AM EDT) Pathologist [facility] CHLAMYDIA TRACHOMATIS RNA, TMA, UROGENITAL NOT DETECTED NOT DETECTED [facility] NEISSERIA GONORRHOEAE RNA, TMA, UROGENITAL NOT DETECTED NOT DETECTED [facility] (ALWAYS MESSAGE) [facility] Comment: The analytical performance characteristics of this assay, when used to test SurePath(TM) specimens have been determined by [facility]. The modifications have not been cleared or approved by the FDA. This assay has been validated pursuant to the CLIA regulations and is used for clinical purposes. For additional information, please refer to https://education.Celsense/faq/XGG599 (This link is being provided for information/ educational purposes only.) Swab Urine specimen obtained by clean catch procedure / Unknown 11/14/2024 7:57 AM EDT 11/14/2024 2:24 PM EDT Narrative Resulting Agency Comment Performing Organization Information Site ID: QPT Name: [facility] Address: [address] [place] [address], [address] [place] [phone] Director: Milton Landers MD Sabajerry [facility] LAB PATHOLOGY ORDERABLES Fin al Result Performing Organization Address City/[facility]/ZIP Co de Phone Number [facility] * Urine culture (11/14/2024 7:57 AM EDT) [facility] MICRO NUMBER [id number] [facility] SPECIMEN QUALITY Adequate [facility] SOURCE: (QUEST) [...] Performing Organization Information Site ID: QPT Name: [facility] Address: [address] [place] [address], [address] [place] [phone] Director: Milton Landers MD us Saba Shila Delgado CNM LAB MICROBIOLOGY - GENERAL O RDERABLES Final Result Performing Organization Address [facility] de Phone Number [facility] * STREPTOCCOUS, GROUP B CULTURE (11/06/2024 5:00 PM EDT) MICRO NUMBER [id number] [facility] SPECIMEN QUALITY Adequate [facility] SOURCE VAGINAL/ANOR [...] Performing Organization Information Site ID: QPT Name: [facility] Address: [address] [place] [address], [address] [place] [phone] Director: Milton Landers MD us Saba Shila Delgado CNM LAB BODY FLUIDS AND STOOLS O RDERABLES Final Result Performing Organization Address [facility] Co de Phone Number [facility] * US OB follow up transabdominal approach (09/26/2024 10:13 AM EDT) Anatomical Region Laterality Modality Body Ultrasound 09/26/2024 10:1 3 AM EDT Narrative 09/26/2024 10:12 AM EDT THIS EXAM WAS PERFORMED AT [facility] PREG TRANSABD FU PER FETU: 09/26/2024 8:18 [...] - 09/26/2024 THIS EXAM WAS PERFORMED AT [facility] PREG TRANSABD FU PER FETU: 09/26/2024 8:18 [...] Performing Organization Information Site ID: QPT Name: [facility] Address: [address] [place] [address], [address] [place] [phone] Director: Milton Landers MD us Saba Delgado CNM LAB BLOOD ORDERABLES Final R esult [facility] * (ABNORMAL) CBC (09/11/2024 1:27 PM EST) WHITE BLOOD CELL COUNT 7.4 3.8 - [...] Performing Organization Information Site ID: QPT Name: [employer] [facility] Address: [address] [facility], [address] [place] [phone] Director: Milton Landers MD Saba Delgado CNM LAB BLOOD ORDERABLES Final R esult [facility] from Last 3 Months Insurance FRONTPATH FRONTPATH
--- OUTSIDE RECORDS SUMMARY | 2024-12-05 17:00 | XMS_ITS | Encounter Summary ---
Author Organization [facility] Address [address] [place] [address] Care Team Providers Care Customs Manager Name Role Phone Unavailable Primary Care Provider Unavailabl e Encounter Details Date Type Department Care Team (Late st Contact Info) Description 11/28/2024 Clinisync Result Encounter [facility] External Department Unsolicited Roger Rowley, [address] [facility] [address] [place], [place] [phone] Social History Tobacco Use Types Packs/Day Years [...] PM EDT Visit [facility] OB [address] [place] [address] Saba Delgado CNM [address] [place] [address] documented as of this encounter Procedures Procedure Name Priority Date/Time Associated Diagnosis Comments TBH DRUG SCREEN RAPID (URINE) Routine 11/28/2024 5:30 AM EDT [facility] URINALYSIS, WITH MICROSCOPIC Routine 11/28/2024 5:30 AM EDT ALL CBC WITH AUTO DIFF Routine 11/28/2024 5:30 AM EDT documented in this encounter Results * (ABNORMAL) [facility] URINALYSIS, WITH MICROSCOPIC (11/28/2024 [...] Narrative CLINISYNC - 11/28/2024 6:21 AM EDT Roger Halley DO CLINISYNC Final Result [facility]INIS[facility]NC TBH * TBH DRUG SCREEN RAPID (URINE) (11/28/2024 [...] - 11/28/2024 6:17 AM EDT us Roger Rowley DO [facility] * (ABNORMAL) ALL CBC WITH AUTO DIFF (11/28/2024 5:30 AM EDT) TB WBC 7.1 4.0 - 11.0 10 [...] us Roger Rowley DO [facility] documented in this encounter Visit Diagnoses Not on filedocumented in this encounter
--- OUTSIDE RECORDS SUMMARY | 2024-12-05 17:00 | XMS_ITS | Clinical Summary ---
Author Organization [facility] Address [address] [place] [address] Care Team Providers Care Button Bradder Name Role Phone Melba Sharpe PRODUCTION ASSEMBLY SUPERVISOR - RUSSIAN RUBBER Primary Care Provid er Allergies No known [...] drink = 0.6 oz pur e alcohol) Vanleer Depression Scale Answer Date Recorded Last EPDS [...] 10:51 PM 08/20/2022 4:18 AM Care Teams Button Bradder Relationship Specialty Start Date End Date Melba Sharpe APRN - RUSSIAN RUBBER PCP - General Nurse Practitioner 07/14/20
--- OUTSIDE RECORDS SUMMARY | 2024-12-05 17:00 | XMS_ITS | Encounter Summary ---
Author Organization [facility] Address [address] [place] [address] Care Team Providers Care Art Display Maker Name Role Phone Unavailable Primary Care Provider Unavailabl e Encounter Details Date Type Department Care Team (Late st Contact Info) Description 11/20/2024 Results Follow-Up [facility] FNR OB [address] [place] [address] Saba Delgado, CARROL [address] [place], [place] [phone] Social History Tobacco Use Types Packs/Day Years [...] PM EDT Visit [facility] OB [address] [place] [address] Saba Delgado CN [address] [place], [place] [phone] documented as of this encounter Visit Diagnoses Not on filedocumented in this encounter
--- OUTSIDE RECORDS SUMMARY | 2024-12-05 17:00 | XMS_ITS | Encounter Summary ---
Author Organization [facility] Address [address] [place] [address] Care Team Providers Care Public Records Officer Name Role Phone Unavailable Primary Care Provider Unavailabl e Encounter Details Date Type Department Care Team (Late st Contact Info) Description 11/29/2024 Clinisync Result Encounter [facility] External Department Unsolicited Roger Rowley, [address] [facility] [place] [address] Social History Tobacco Use Types [...] PM EDT Visit [facility] FNR OB [address] [place] [address] Saba Delgado, CARROLM [address] [place] [address] documented as of this encounter Procedures Procedure Name Priority Date/Time Associated Diagnosis Comments ALL CBC WITH AUTO DIFF Routine 11/29/2024 6:20 AM EDT documented in this encounter Results * (ABNORMAL) ALL CBC WITH AUTO DIFF (11/29/2024 6:20 AM EDT) [facility] WBC 12.5(H) 4.0 - 11.0 10 3/uL [...] CLINISYNC - 11/29/2024 6:38 AM EDT Roger Rowley DO CL[facility] Final [facility] documented in this encounter Visit Diagnoses Not on filedocumented in this encounter
--- OUTSIDE RECORDS SUMMARY | 2024-12-05 17:00 | XMS_ITS | Encounter Summary ---
Author Organization [facility] Address [address] [place] [address] Care Team Providers Care Refinery Technician Name Role Phone Unavailable Primary Care Provider Unavailabl e Encounter Details Date Type Department Care Team (Late st Contact Info) Description 09/26/2024 External Result Encounter [facility] OB [address] [place] [address] Saba Delgado CN [address] [place], [place] [phone] Social History Tobacco Use Types Packs/Day Years [...] PM EDT Visit [facility] OB [address] [place] [address] Saba Delgado CN [address] [place], [place] [phone] documented as of this encounter Procedures Procedure Name Priority Date/Time Associated Diagnosis Comments US OB FOLLOW UP TRANSABDOMINAL APPROACH 09/26/2024 10:13 AM EDT documented in this encounter Results * US OB follow up transabdominal approach (09/26/2024 10:13 AM EDT) Anatomical Region Laterality Modality Body Ultrasound 09/26/2024 10:1 3 AM EDT Narrative 09/26/2024 10:12 AM EDT THIS EXAM WAS PERFORMED AT [facility] PREG TRANSABD FU PER FETU: [...] - 09/26/2024 THIS EXAM WAS PERFORMED AT [facility] TRANSABD FU PER FETU: 09/26/2024 8:18 AM [...]
--- OUTSIDE RECORDS SUMMARY | 2024-12-05 17:00 | XMS_ITS | Referral Summary ---
Author Organization [facility] Address [address] [place] [address] Care Team Providers Care Edge Bander Operator Name Role Phone Saba Delgado [facility] Primary Care Provider + [phone] Encounters Date Type Department Care Team Description 11/14/2024 Telephone [facility] [address] [place] [address] Samina Modi MA 10/15/2024 Telephone [facility] [address] [place] [address] Samina Modi [place] 10/10/2024 11:00 AM EDT Office Visit [facility] [address] [place] [address] Jordan Renner MD Shortness of breath (Primary [...] of Treatment Not on file Care Teams Edge Bander Operator Relationship Specialty Start Date End Date Saba Delgado CNM [address] [place] [address] PCP - General Obstetrics and Gynecology 10/10/24
--- OUTSIDE RECORDS SUMMARY | 2024-12-05 17:00 | XMS_ITS | Patient Health Record ---
Author Organization [facility] Address [address] [place] [address] Care Team Providers Care Compliance Field Technician Name Role Phone Charo Hanley Primary Care Provider [phone] Edwin COLLAZO, [facility] Unavailable Shruthi Love Unavailable [phone] ALLERGIES No Known Allergies REASON FOR REFERRAL [...] 02/09/2024 Encounters Encounter Location Date Provider Diagnosis [place] [address] [place] [address] 02/09/2024 Shruthi Love Acute folliculitis L73.[address] [facility] [id number] [facility] [address] [place], [place] [phone] 02/09/2024 Mark Pineda MD ASSESSMENTS Encounter Date [...] by Tuesday, May need to see a aircraft body repairer if no resolution. 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
--- OUTSIDE RECORDS SUMMARY | 2024-12-05 17:00 | XMS_ITS | Encounter Summary ---
Author Organization [facility] tem Address [id number] [address] [place] [address] Care Team Providers Care Construction Plant Operator Name Role Phone Melba Sharpe LOAN SERVICING SPECIALIST-WILLOW ANALYST Primary Care Provider + Encounter Details Date Type Department Care Team (Late st Contact Info) Description 10/06/2021 Telephone [facility] Family Medicine [address] [place] [address] [place] [address] Alis Bishop CMA Social History [...] How often do you attend chur or episcopalian services? 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
--- OUTSIDE RECORDS SUMMARY | 2024-12-05 17:00 | XMS_ITS | Encounter Summary ---
Author Organization [facility] Address [address] [place] [address] Care Team Providers Care Imaging Clerk Name Role Phone Unavailable Primary Care Provider Unavailabl e Encounter Details Date Type Department Care Team (Late st Contact Info) Description 01/04/2024 Abstract [facility] OB [address] [place] [id number] Roger Rowley, DO [address] [place], [place] [id number] Social History Tobacco Use Types Packs/Day Years [...] PM EDT Visit [facility] OB [address] [place] [address] Saba Delgado, CARROLM [address] [place] [address] documented as of this encounter Visit Diagnoses Not on filedocumented in this encounter
--- OUTSIDE RECORDS SUMMARY | 2024-12-05 17:00 | XMS_ITS | Encounter Summary ---
Author Organization [facility] Address [address] [place] [address] Care Team Providers Care Trainer Name Role Phone Unavailable Primary Care Provider Unavailabl e Encounter Details Date Type Department Care Team (Late st Contact Info) Description 07/19/2024 Clinisync Result Encounter [facility] External Department Unsolicited Amy Delgado CNM [address] [place], [place] [phone] Social History Tobacco Use Types Packs/Day Years [...] PM EDT Visit [facility] OB [address] [place] [address] Amy Delgado CNM [address] [place], [place] [phone] documented as of this encounter Procedures Procedure Name Priority Date/Time Associated Diagnosis Comments US OB ANATOMY 07/19/2024 7:22 AM EST documented in this encounter Results * US OB ANATOMY (07/19/2024 7:22 AM EST) Anatomical Region Laterality Modality Other 07/19/2024 7:22 AM EST Narrative 07/19/2024 7:24 [place] [address] Ultrasound Report Signed Patient: MOHAN MATTA MR#: [id number] : 1990 Acct:[id number] Age/Sex: 34 / F ADM Date: 07/18/24 Loc: US Attending Dr: AMY DELGADO APRN, CNM Ordering Physician: AMY DELAGDO APRN, CNM Date of Service: 07/18/24 Procedure(s): US OB anatomy Accession Number(s): [id number] cc: AMY DELGADO APRN, CNM; Physician,Non-Staff M.D. [facility] [place] [id number] Patient Name: MOHAN MATTA MRN: [id number] date: 1990 Sex: F Assigned Patient Location: US Current Patient Location: Accession/Order Number: [id number] Exam Date: 07/18/2024 16:05 Report Date: 07/19/2024 [...] Age by EDC: 20 weeks 1 day MOINQUE by EDC: 2024-12-04 Age by current US: [...] M.D. Signed By: 07/19/24723 DD/ 1 TD/TT: Business Excellence Leader: Procedure Note Radiology, Radiologist, MD - 07/19/2024 [place] [address] Ultrasound Report Signed Patient: YURI MATTAYMR#: [id number] : 1990Acct:[id number] Age/Sex: 34 / FADM Date: 07/18/24 Loc: US Attending Dr: AMY DELGADO APRN, CNM Ordering Physician: AMY DELGADO APRN, CNM Date of Service: 07/18/24 Procedure(s): US OB anatomy Accession Number(s): [id number] cc: AMY DELGADO APRN, CNM; Physician,Non-Staff [place] [facility] [place] [id number] Patient Name: MOHAN MATTA MRN: [facility]:[id number] date: 1990 Sex: F Assigned Patient Location: US Current Patient Location: Accession/Order Number: [id number] Exam Date: 07/18/2024 16:05 Report Date: 07/19/2024 [...] 07:22 Dictated By: Candida José M.D. Signed By:07/19/24 0724 DD/ 1 TD/TT: Business Excellence Leader: Amy Delgado CNM [facility] Final Resu lt documented in this encounter Visit Diagnoses Not on filedocumented in this encounter
--- OUTSIDE RECORDS SUMMARY | 2024-12-05 17:00 | XMS_ITS | Encounter Summary ---
Author Organization [facility] Address [address] [place] [address] Care Team Providers Care Supervisor Dog License Officer Name Role Phone Unavailable Primary Care Provider Unavailabl e Encounter Details Date Type Department Care Team (Late st Contact Info) Description 03/29/2024 Orders Only [facility] OB [address] [place] [address] Saba Delgado, CN [address] [place], [place] [phone] examination or test, positive result Social History [...] PM EDT Visit [facility] OB [address] [place] [address] Saba Delgado, CN [address] [place], [place] [phone] Scheduled Orders Name Type Priority Associated Diagnoses [...]
--- OUTSIDE RECORDS SUMMARY | 2024-12-05 17:00 | XMS_ITS | Encounter Summary ---
Author Organization [facility] Address [address] [place] [address] Care Team Providers Care Plastic Frame Inserter Name Role Phone Unavailable Primary Care Provider Unavailabl e Encounter Details Date Type Department Care Team (Late st Contact Info) Description 03/06/2024 Abstract [facility] OB [address] [place] [phone] Roger Rowley, DO [address] [place], [place] [phone] Social History Tobacco Use Types Packs/Day Years [...] PM EDT Visit [facility] OB [address] [place] [address] Saba Delgado, CARROLM [address] [place] [address] documented as of this encounter Visit Diagnoses Not on filedocumented in this encounter
--- OUTSIDE RECORDS SUMMARY | 2024-12-05 17:01 | XMS_ITS | Encounter Summary ---
Author Organization [facility] Address [address] [place] [address] Care Team Providers Care Ride Operator Name Role Phone Unavailable Primary Care Provider Unavailabl e Encounter Details Date Type Department Care Team (Late st Contact Info) Description 12/17/2022 Abstract [facility] OB [address] [place] [address] Saba Delgado, CN [address] [place], [place] [phone] Social History Tobacco Use Types Packs/Day Years [...] PM EDT Visit [facility] OB [address] [place] [address] Saba Delgado, CN [address] [place] [address] documented as of this encounter Visit Diagnoses Not on filedocumented in this encounter
--- OUTSIDE RECORDS SUMMARY | 2024-12-05 17:01 | XMS_ITS | Encounter Summary ---
Author Organization [facility] Address [address] [place] [address] Care Team Providers Care Dipper Fish Name Role Phone Unavailable Primary Care Provider Unavailabl e Encounter Details Date Type Department Care Team (Late st Contact Info) Description 12/17/2022 Abstract [facility] OB [address] [place] [address] Saba Delgado, CN [address] [place], [place] [phone] Social History Tobacco Use Types Packs/Day Years [...] PM EDT Visit [facility] OB [address] [place] [address] Saba Delgado, CN [address] [place] [address] documented as of this encounter Visit Diagnoses Not on filedocumented in this encounter
--- NOTE | 2024-12-05 17:06 | PC.NURSE ---
Pt. arrives with post- 1 week, sent from office due to headache for 2 days, and increase blood pressures. Plan of care reviewed, patient request to feed prior to starting magnesium and admission.
[2024-12-05] MEDS: 0.9 % SODIUM CHLORIDE 1,000 ML 75 ML IV (18:10)
[2024-12-05] MEDS: MAGNESIUM-BOLUS FROM THE BAG- 40 GM/1,000 ML IV.SOLN IV (18:10)
--- NOTE | 2024-12-05 18:21 | PC.NURSE ---
pt refuses catheter placement at this time
[2024-12-05 18:36] LABS: Basophils Percent Auto 0.2 % (0.2-2.0); Eosinophils Absolute Auto 0.2 10^3/uL (0.0-0.7); Eosinophils Percent Auto 1.9 % (0.9-7.0); Hematocrit 25.9 % (36.0-48.0); Hemoglobin 8.2 g/dL (12.0-16.0); Immature Granulocytes Abs Auto 0.05 10^3/uL (0.00-0.03); Immature Granulocytes Pct Auto 0.6 % (0.0-0.5); Lymphocytes Absolute Auto 1.7 10^3/uL (1.2-3.8); Mean Corpuscular HGB Conc 31.7 g/dL (29.9-35.2); Mean Corpuscular Hemoglobin 26.4 pg (26.7-34.0); Mean Corpuscular Volume 83.3 fL (81.0-99.0); Mean Platelet Volume 10.1 fL (9.5-13.5); Monocytes Absolute Auto 0.6 10^3/uL (0.3-0.8); Monocytes Percent Auto 6.2 % (1.7-12.0); Neutrophils Absolute Auto 6.4 10^3/uL (1.4-6.5); Neutrophils Percent Auto 72.1 % (43.0-75.0); Platelet Count 326 10^3/uL (150-450); Red Blood Count 3.11 10^6/uL (4.20-5.40); Red Cell Distribution Width 15.5 % (11.0-15.0); White Blood Count 8.8 10^3/uL (4.0-11.0)
[2024-12-05] MEDS: MAGNESIUM SULFATE IN WATER 40 GM/1,000 ML IV.SOLN IV (18:37)
[2024-12-05 18:50] LABS: Alanine Aminotransferase 31 U/L (14-59); Albumin Globulin Ratio 0.7; Albumin Level 2.3 g/dL (3.4-5.0); Alkaline Phosphatase 100 U/L (46-116); Anion Gap 14.5; Aspartate Amino Transferase 21 U/L (15-37); BUN Creatinine Ratio 30.5; Bilirubin Total 0.3 mg/dL (0.2-1.0); Calcium 8.6 mg/dL (8.5-10.1); Carbon Dioxide 24.3 mmol/L (21.0-32.0); Chloride 108 mmol/L (98-107); Estimated GFR (African America >60 (>=60 mL/min/1.73m^2); Estimated GFR (Non-African Ame >60 (>=60 mL/min/1.73m^2); Globulin 3.5 g/dL; Glucose 82 mg/dL (74-106); Lactate Dehydrogenase 230 U/L (81-234); Potassium 3.8 mmol/L (3.5-5.1); Sodium 143 mmol/L (136-145); Total Protein 5.8 g/dL (6.4-8.2)
[2024-12-05] MEDS: IBUPROFEN 400 MG TABLET 800 MG PO (19:22)
--- NOTE | 2024-12-05 19:53 | PC.NURSE ---
Report is received. Pump settings verified with Arnav Jarquin RN. Care is assumed.
[2024-12-05] MEDS: LABETALOL HCL 100 MG TABLET 200 MG PO (20:49)
[2024-12-05] MEDS: ACETAMINOPHEN 500 MG TABLET 1000 MG PO (22:49)
[2024-12-06] VITALS (9 sets, daily range): BP systolic 115–119; BP diastolic 56–62; PULSE 83–96; TEMP 36.3–36.4; O2SAT 92–95
[2024-12-06 01:45] LABS: Creatinine Urine Random 35.01 mg/dL (20.00-300.00); Protein Creatinine Ratio Urine 3.45; Total Protein Urine Random 120.8 mg/dL (<=11.9)
[2024-12-06 01:54] LABS: Uric Acid 5.4 mg/dL (2.6-6.0)
[2024-12-06] MEDS: IBUPROFEN 400 MG TABLET 800 MG PO ×2 (03:07→12:44)
[2024-12-06] MEDS: ACETAMINOPHEN 500 MG TABLET 1000 MG PO ×2 (05:13→12:44)
[2024-12-06] MEDS: 0.9 % SODIUM CHLORIDE 1,000 ML 75 ML IV (07:48)
--- NOTE | 2024-12-06 08:10 | PM.OBHP ---
OB - H&P: HPI History of Present Illness Chief complaint: magnesium : 2 Para: 2 Gestational age based on last menstrual period: s/p c/s po day 8 Narrative: 34 yo s/p po day 8 c/s presented with elevated bp in office with headaches, pt was admitted for observation and magnesium prophylaxis, pt was on labetalol started on 12/04, pt denies cp sob ct, Review of Systems ROS Status of ROS: 10 or more systems reviewed and unremarkable except as noted in history and below [facility] Medical History (Updated 12/06/24 @ 08:14 by Roger Rowley DO) Migraine ?G43.909 - Migraine, unspecified, not intractable, without status migrainosus (ICD-10) Heartburn ?R12 - Heartburn (ICD-10) Miscarriage ?O03.9 - Complete or unspecified spontaneous without complication (ICD-10) Uterine fibroid ?D25.9 - Leiomyoma of uterus, unspecified (ICD-10) Anxiety ?F41.9 - Anxiety disorder, unspecified (ICD-10) COVID-19 ?U07.1 - COVID-19 (ICD-10) Heart murmur ?R01.1 - Cardiac murmur, unspecified (ICD-10) 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 - Papillomavirus as the cause of diseases classified elsewhere (ICD-10) Pelvic pain ?R10.2 - Pelvic and perineal pain (ICD-10) Fibroid ?D21.9 - Benign neoplasm of connective and other soft tissue, unspecified (ICD-10) Surgical History H/O wisdom tooth extraction ?K08.409 - Partial loss of teeth, unspecified cause, unspecified class (ICD-10) Hx of tonsillectomy ?Z90.89 - Acquired absence of other organs (ICD-10) H/O section ?Z98.891 - History of uterine scar from previous surgery (ICD-10) H/O cervical biopsy ?Z98.890 - Other specified postprocedural states (ICD-10) Family History Other No pertinent family history in first degree relatives Social History Within the past year, how often did you have a drink containing alcohol: 2-3 times a week Smoking status: Former smoker Second hand tobacco smoke exposure: No Non-prescribed substance use: denies use 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 Highest level of school completed/degree received: Master's degree Little interest or pleasure in doing things: not at all Feeling down, depressed, or hopeless: not at all Meds Home Medications and Allergies Home Medications ?Medication ?Instructions ?Recorded ?Confirmed ?Type ibuprofen 800 mg tablet 800 mg PO Q8H PRN pain 14 days #40 11/30/24 Rx tabs ibuprofen 800 mg tablet 800 mg PO Q8H PRN pain 14 days #40 11/30/24 Rx tabs oxycodone-acetaminophen 5 mg-325 1 tab PO Q6H PRN pain 7 days #28 11/30/24 Rx mg tablet (Percocet) tabs oxycodone-acetaminophen 5 mg-325 1 tab PO Q6H PRN pain 7 days #11/30/24 Rx mg tablet (Percocet) tabs Allergies Allergy/AdvReac Type Severity Reaction Status Date / Time No Known Drug Allergies Allergy Verified 02/15/24 12:41 Exam Constitutional Vital Signs, click to edit/add: Last Vital Signs Temp 97.3 F L 12/06/24 02:09 Pulse 96 H 12/06/24 07:48 Resp 20 12/06/24 00:39 BP 117/58 12/06/24 07:48 Pulse Ox 92 L 12/06/24 05:06 O2 Del Method Room Air 12/06/24 01:40 Results Labs Labs: Short CBC 12/05/24 Range/Units 18:06 WBC 8.8 (4.0-11.0) 10^3/uL Hgb 8.2 L (12.0-16.0) g/dL Hct 25.9 L (36.0-48.0) % Plt Count 326 (150-450) 10^3/uL BMP 12/05/24 18:06 Sodium 143 Potassium 3.8 Chloride 108 H Carbon Dioxide 24.3 BUN 18.0 Creatinine 0.59 Glucose 82 Calcium 8.6 Liver Function 12/05/24 Range/Units 18:06 Total Bilirubin 0.3 (0.2-1.0) mg/dL AST 21 (15-37) U/L ALT 31 (14-59) U/L Alkaline Phosphatase 100 (46-116) U/L Albumin 2.3 L (3.4-5.0) g/dL OB - A/P Assessment and Plan (1) hypertension: (2) S/P : Assessment and Plan: will dc magnesium at 24hrs, cont labetalol, labs reviewed, precautions given, dc home 3hrs after magnesium has been stopped if good bp control
[2024-12-06] MEDS: LABETALOL HCL 100 MG TABLET 200 MG PO (10:42)
[2024-12-06] MEDS: MAGNESIUM SULFATE IN WATER 40 GM/1,000 ML IV.SOLN IV (12:39)
[2024-12-06] MEDS: OXYCODONE HCL/ACETAMINOPHEN 5MG/325MG 1 TAB PO (14:53)
[2024-12-10 17:09] LABS: Alpha-2-Globulin, U 8.2 % (.); Beta Globulin, U 49.7 % (.); Gamma Globulin, U 6.1 % (.); M-Spike, % Comment: % (Not Observed); Protein,Total,Urine 67.8 mg/dL (Not Estab.)
== END 2024-12-06 19:55 | disposition home or self-care (01) ==
PROVIDERS: Admitting Provider Midwife; Visit Provider Midwife
DX: O16.5 Unspecified maternal hypertension, complicating the puerperium (principal); Z87.891 Personal history of nicotine dependence
CPT/HCPCS: 36415; 80053; 82570; 83615; 84156; 84550; 84560; 85025; 94667; 96365; 96366; 96376; G0378; G0379; J3475

== ENCOUNTER 2024-12-14 08:06 | Outpatient (OUT) | payer OTHER, SELFPAY ==
--- OUTSIDE RECORDS SUMMARY | 2024-02-09 05:13 | XMS_ITS ---
Author Organization BILLING FACILITY [employer] Address [address] [place] [address] Care Team Providers Care Asbestos Brake Lining Finisher Name Role Phone Charo Hanley Primary Care Provider [phone] Edwin COLLAZO, Mark Caicedo Encounters Encounter Location Date Provider Diagnosis [facility] N [address] [id number] [facility] [address] [place], [place] [id number] 02/09/2024 Mark Pineda MD PLAN OF TREATMENT No Information
--- OUTSIDE RECORDS SUMMARY | 2024-02-09 10:45 | XMS_ITS ---
Author Organization BILLING FACILITY [employer] [facility] Address [address] [place] [address] Care Team Providers Care Tire Bladder Maker Name Role Phone Dayan Charo Primary Care Provider Shruthi Love Unavailable [phone] ALLERGIES No Known Allergies REASON FOR VISIT rash in pubic area MEDICATIONS Medication SIG (Take, Route, Fr equency, Duration) Notes Start Date End Date Status Loratadine 10 MG 1 tablet Orally Once a day for 30 days 02/09/2024 Active Vibramycin 100 MG 1 capsule Orally twi ce a day for 10 days 02/09/2024 Active SOCIAL HISTORY Tobacco Use: Social History Observation Description Date Details (start date - stop date) Former Smoker 07/11/2008 - 07/11/2021 Sex Assigned At : Social History Observation Description Sex Assigned At Unknown Tobacco Use/Smoking Question Answer Notes Are you a former user When did you start using? 07/11/2008 When did you stop using? 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 VITAL SIGNS Heart Rate 93 /min 02/09/2024 Oximetry 96 % 02/09/2024 Blood pressure systolic 120 mm Hg 02/09/20 24 Blood pressure diastolic 79 mm Hg 024 Weight 193.0 lbs 02/09/2024 Height 61 in 02/09/2024 BMI 36.46 02/09/2024 Weight-kg 87.54 kg 02/09/2024 Encounters Encounter Location Date Provider Diagnosis [place] [address] [place] [address] 02/09/2024 Shruthi Nationlivan Acute folliculitis L73.9 ASSESSMENTS Encounter Date Diagnosis Assessment Notes Treatment Notes Treatment Clinical Notes Section Notes 02/09/2024 Acute folliculitis (ICD-10 - L73.9) encouraged to keep skin clean and dry, may use coconut oil with tea tree oil and lavendar essential oil or teja,ine lotion for itching, may take claritin as directed for otching, call with any concerns, RTO if no better by Tuesday, May need to see a crust sorter if no resolution. We did discuss possibility of scabies but pt states she has had scabies in past but that rash was much itchier thnan this rash. She feels like it is some kind of rash from the hot tub. She states when she has used her hot tub at home she has had a similiar rash in the past. Avoid scratching, take Claitin as dir for itching, call office if no better or RTO Tuesday if no better. She did no better by Tuesday, PT here approx 45 minutes PLAN OF TREATMENT Medication Medication Name Sig Start Date Stop Date Notes Loratadine 10 MG 1 tablet Orally Once a day for 30 days Vibramycin 100 MG 1 capsule Orally twice a day for 10 days 02/09/2024 Treatment Notes Assessment Notes Acute folliculitis encouraged to keep s kin clean and dry, may use coconut oil with tea tree oil and lavendar essential oil or teja,ine lotion for itching, may take claritin as directed for otching, call with any concerns, RTO if no better by Tuesday, May need to see a crust sorter if no resolution. We did discuss possibility of scabies but pt states she has had scabies in past but that rash was much itchier thnan this rash. She feels like it is some kind of rash from the hot tub. She states when she has used her hot tub at home she has had a similiar rash in the past. Avoid scratching, take Claitin as dir for itching, call office if no better or RTO Tuesday if no better. She did no better by Tuesday, PT here approx 45 minutes Next Appt Details Follow Up: prn, Reason: call with any concerns and if no better by Tuesday Progress Notes * Honorio MATTAOB:1990 ( 34 yo F)Acc No.[id number]:02/09/2024 Patient: Nicholas MATTA Provider: Shruthi Love NP :1990 Age:34 Y Sex:Female Date:02/09/2024 Address:[address] [place] [address] Pcp:Charo Hanley Subjective: * Chief Complaints: * Rash in pubic area * HPI: Depression/Anxiety Screening: PHQ-2 (2015 Edition)* Little interest or pleasure in doing things? Not at all, Feeling down, depressed or hopeless? Not at all, Total score: 0. rash x2 weeks after hot tub use- some on her hands, feets, buttocks looks like welts and pubic area is itchy rash. She also has the rash on her trunk, no vafinal drainage, LMP 01/31/24 has no concerns, Has used no no products, no new detergent, no recent travel, not out of the country, was at a hotel with a hot tub, was also at [place] a few weeks before the most recent get away and was in a hot tub there too. She denies a sore throat, no fever chills, pain, no nausea or vomiting. Denies any known drug allergies. HAs used OTC antifungal products with no relief. She states the rash starts as a small dot over the hair follicle then enlarge and flake off. Not painful, itchy but not as bad as scabies which she has had in [facility]. HEr or child neither have a similiar rash and she has not come in contact with anyone with a rash she knows of. She did stay in a hotel where ehot tub was and maybe came into contact there but this does not look like bed bug bits. She does shave her pubic hairs and there are several itchy areas there and on her buttocks but she has zero concerns about a sexually transmitted disease.She states she does have HPV but no recent problems. HAs no concerns about a sexual problem or infection. She refused STD testing. Depression Screening: JETT-7 (2018 Edition) Feeling nervous, anxious, or on edge Several days, Not being able to stop or control worrying Not at all, Worrying too much about different things Not at all, Trouble relaxing Not at all, Being so restless that it is hard to sit still Not at all, Becoming easily annoyed or irritable Not at all, Feeling afraid as if something awful might happen Not at all, Total JETT-7 Score 1, Interpretation of Total (0 to 4) No Anxiety. * ROS: General/Constitutional: General Denies:, chills, fatigue, fever. Eyes Denies:, blurred vision. ENT DENIES: , ear(s) pain, hearing decreased, nose congestion/drainage. Cardiovascular DENIES: , chest pain or tightness, irregular heartbeat, palpitations. Respiratory DENIES: , cough, shortness of breath, wheezing. Breast DENIES: , breast lump, breast pain. Gastrointestinal DENIES: , abdominal pain, constipation, diarrhea, nausea, vomiting. Genitourinary DENIES: , dysuria, polyuria. Skin REPORTS:, itching, rash on hands, feet, trunk, buttocks, pubic hairs (she shaves and states it is occassionally itchy there but there is usually no rash like there is now) Absolutely no STD concerns, refuses testing, 2 years, had a baby in 2022, had a missacarriage December 2022 and a normal period 01/31/2024. Musculoskeletal DENIES: , back pain, muscle aches. Peripheral Vascular DENIES: , claudication, varicose veins. Neurologic DENIES: , dizziness, headache, weakness. 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 control none. * OB History: Total pregnancies 1. Total living children 1. Miscarriage(s) 10 December 2023. C section(s) 2022. # 1: Primary . * Surgical History: tonsillectomy 2019c-section 09/2022 * Hospitalization/Major Diagno stic Procedure: child brith * Family History: Father: alive. Mother: alive 65 yrs. 1 son(s) . . Non-Contributory. 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 * Social History: Tobacco Use: Tobacco Use/Smoking Are you a former user, When did you start using? 07/11/2008, When did you stop using? 07/11/2021. * Medications: None * Allergies: N.K.A.no[Allergies Verified] Objective: * Vitals: HR:93, Oxygen sat:96%, BP:120/79mm Hg, Wt:193.0lbs, Ht:61in, BMI:36.46, Wt-k.54 kg. * Examination: General Examination *: GENERAL APPEARANCE: alert and oriented, no acute distress, pleasant, well nourished. HEAD: atraumatic, normocephalic. ORAL CAVITY: no lesions, mucosa moist, normal dentition. THROAT: no erythema, no exudate, pharynx normal,clear voice, u vula midline . NECK/THYROID: neck supple, no thyromegaly. LYMPH NODES: no anterior cervical adenopathy. HEART: S1/S2 normal, regular rate and rhythm, no murmurs, no rubs, no gallops. LUNGS: clear to auscultation, good air movement, no respiratory distress. ABDOMEN: soft, non-tender, normal bowel sounds, non-distended. BACK: non-tender, full range of motion. SKIN: Warm and dry, good turgor, n o suspicious lesions peeling red, Rash on trunk, back and abdomen, bilateral feet, hands, forarms, pubic area.. EXTREMITIES: no edema, capillary refill normal. PERIPHERAL PULSES: 2+ throughout. NEUROLOGIC: alert, cooperative, moving all extremities spontaneously, non-focal. MUSCULOSKELETAL: no swelling or deformity. PSYCH: affect normal, cognitive function intact, mood normal, *SPEECH/LANGUAGE, clear. Assessment: * Assessment: 1. Acute folliculitis - L73.9 (Primary) Plan: * Treatment: * Procedure Codes: * Follow Up: prn (Reason: call with any concerns and if no better by Tuesday) * Billing Information: * Visit Code: 15078 Level 4 New Patient Acute Care. * Procedure Codes: * Sign off status: Completed true * Provider: Shruthi Love NP Date: 02/09/2024 History and Physical Notes * HPI (History of Present Illness) Category Sub-Category Detail Notes Category Not es Depression/Anxiety Screening PHQ-2 (2015 Edition)* Little interest or pleasure in doing things?: Not at all rash x2 weeks after hot tub use- some on her hands, feets, buttocks looks like welts and pubic area is itchy rash. She also has the rash on her trunk, no vafinal drainage, LMP 01/31/24 has no concerns, Has used no no products, no new detergent, no recent travel, not out of the country, was at a hotel with a hot tub, was also at [place] a few weeks before the most recent get away and was in a hot tub there too. She denies a sore throat, no fever chills, pain, no nausea or vomiting. Denies any known drug allergies. HAs used OTC antifungal products with no relief. She states the rash starts as a small dot over the hair follicle then enlarge and flake off. Not painful, itchy but not as bad as scabies which she has had in [facility]. HEr or child neither have a similiar rash and she has not come in contact with anyone with a rash she knows of. She did stay in a hotel where th ehot tub was and maybe came into contact there but this does not look like bed bug bits. She does shave her pubic hairs and there are several itchy areas there and on her buttocks but she has zero concerns about a sexually transmitted disease.She states she does have HPV but no recent problems. HAs no concerns about a sexual problem or infection. She refused STD testing. Feeling down, depressed or hopeless?: No t at all Total score:: 0 Depression Screening JETT-7 (2018 Edition) Feelin g nervous, anxious, or on edge: Several days Not being able to stop or control worryi ng: Not at all Worrying too much about different things : Not at all Trouble relaxing: Not at all Being so restless that it is hard to sit still: Not at all Becoming easily annoyed or irritable: No t at all Feeling afraid as if something awful jodi ht happen: Not at all Total JETT-7 Score: 1 Interpretation of Total: (0 to 4) No Anx iety Examination Category Sub-Category Detail Notes Category Not es General Examination * GENERAL APPEARANCE: alert and oriented, no acute distress, pleasant, well nourished HEAD: atraumatic, normocep halic ORAL CAVITY: no lesions, mucosa m oist, normal dentition THROAT: no erythema, no exud ate, pharynx normal,clear voice, uvula midline NECK/THYROID: neck supple, no thyr omegaly LYMPH NODES: no anterior cervical adenopathy SKIN: Warm and dry, good t urgor, no suspicious lesions peeling red, Rash on trunk, back and abdomen, bilateral feet, hands, forarms, pubic area. HEART: S1/S2 normal, regula r rate and rhythm, no murmurs, no rubs, no gallops LUNGS: clear to auscultatio n, good air movement, no respiratory distress ABDOMEN: soft, non-tender, no rmal bowel sounds, non-distended BACK: non-tender, full ran ge of motion MUSCULOSKELETAL: no swelling or defor mity EXTREMITIES: no edema, capillary refill normal PERIPHERAL PULSES: 2+ throughout NEUROLOGIC: alert, cooperative, moving all extremities spontaneously, non-focal PSYCH: affect normal, cogni tive function intact, mood normal, *SPEECH/LANGUAGE, clear
--- OUTSIDE RECORDS SUMMARY | 2024-12-04 14:30 | XMS_ITS | Encounter Summary ---
Author Organization [facility] Address [address] [place] [address] Care Team Providers Care Glass Bender Name Role Phone Unavailable Primary Care Provider Unavailabl e Encounter Details Date Type Department Care Team (Latest Contact Info) Description 12/04/2024 2:30 PM EDT Visit [facility] [address] [place] [address] Saba Delgado CNM [address] [place], [place] [phone] Elevated blood pressure reading (Primary Dx); examination [...] Care Team (Late st Contact Info) Description 12/18/2024 10:30 AM EDT Visit [facility] [address] [place] [address] Saba Delgado CNM [address] [place] [address] documented as of this encounter Visit Diagnoses Diagnosis Elevated blood pressure reading- Primary Elevated blood pressure reading without diagnosis of hypertension examination following delivery documented in this encounter
--- OUTSIDE RECORDS SUMMARY | 2024-12-05 14:30 | XMS_ITS | Encounter Summary ---
Author Organization [facility] Address [address] [place] [address] Care Team Providers Care Methods Engineer Name Role Phone Unavailable Primary Care Provider Unavailabl e Reason for Visit * Reason Comments Care Encounter Details Date Type Department Care Team (Latest Contact Info) Description 12/05/2024 2:30 PM EDT Visit [facility] [address] [place] [address] Saba Delgado CNM [address] [place], [place] [phone] Elevated blood pressure reading (Primary Dx); History [...] Nicholas. Orders called to ITZEL Marroquin at [place]. I did also explain to patient we [...] AM EDT Visit [facility] [address] [place] [address] Saba Delgado CNM [address] [place] [address] documented as of this encounter Visit Diagnoses Diagnosis Elevated blood pressure reading- Primary Elevated blood pressure reading without diagnosis of hypertension History of section Other postprocedural status examination following delivery documented in this encounter
--- OUTSIDE RECORDS SUMMARY | 2024-12-10 13:30 | XMS_ITS | Encounter Summary ---
Author Organization [facility] Address [address] [place] [address] Care Team Providers Care Lithographic Camera Operator Name Role Phone Unavailable Primary Care Provider Unavailabl e Reason for Visit * Reason Comments Care Encounter Details Date Type Department Care Team (Latest Contact Info) Description 12/10/2024 1:30 PM EDT Visit [facility] OB [address] [place] [address] Saba Delgado CNM [address] [place], [place] [phone] Elevated blood pressure reading (Primary Dx); examination [...] Sign Reading Time Taken Comments Blood Pressure 120/80 12/10/2024 1:33 PM EDT Pulse - - Temperature - - Respiratory Rate - - Oxygen Saturation - - Inhaled Oxygen Concentration - - Weight 83 kg (183 lb) 12/10/2024 1:33 PM EDT Height - - Body Mass Index 34.58 03/05/2024 9:27 AM EDT documented in this encounter Progress Notes * Saba Delgado CNM - 12/10/2024 1:30 PM EDT Nicholas Matta is here for visit. She is 2 weeks . Complaints: has no unusual complaints Weeks at delivery: 39 week Type of delivery: , Low Transverse; repeat Gender: male Baby is healthy: yes Breast or bottle feeding: breast Complaints or complications: chronic hypertension mood: well Contraception: noen Resumed Sexual activity: no Resumed Menses: no EXAM: GENERAL APPEARANCE: alert, well appearing, in no apparent distress Incision: healing nicely, all edges approximated, no discharge, redness, odor noted Patient is down 20 lbs since delivery, looks great and swelling is gone in her legs and feet. She states she feels good. She will continue labetalol 200 mg BID for another week. I will see her next week for blood pressure check Patient inquires about when she can get in a pool. I did advise her 3-4 weeks ASSESSMENT/PLAN: There are no diagnoses linked to this encounter. normal exam documented in this encounter Plan of Treatment Upcoming Encounters Date Type Department Care Team (Late st Contact Info) Description 12/18/2024 10:30 AM EDT Visit [facility] OB [address] [place] [address] Saba Delgado CNM [address] [place], [place] [phone] documented as of this encounter Visit Diagnoses Diagnosis Elevated blood pressure reading- Primary Elevated blood pressure reading without diagnosis of hypertension examination following delivery documented in this encounter
--- OUTSIDE RECORDS SUMMARY | 2024-12-14 08:11 | XMS_ITS | Patient Health Record ---
Author Organization [facility] Address [address] [place] [address] Care Team Providers Care Director Money Name Role Phone Charo Hanley Primary Care Provider Edwin COLLAZO, [facility] Unavailable Shruthi Love Unavailable [phone] ALLERGIES No Known Allergies REASON FOR REFERRAL [...] 02/09/2024 Encounters Encounter Location Date Provider Diagnosis [place] [address] [place] [address] 02/09/2024 Shruthi Love Acute folliculitis L73.9 [facility] [id number] [facility] [address] [place], [place] [phone] 02/09/2024 Mark Pineda MD ASSESSMENTS Encounter Date [...] by Tuesday, May need to see a acoustical tile drill press operator if no resolution. We did discuss possibility [...] Coverage Start Date Coverage End Date [facility] [employer]BE[employer] [address] [place] [address] [id number] Nicholas Matta Self - patient is the insured MEDICAL (GENERAL) HISTORY Medical History History ICD Code HPV in female A63.0 Surgical History Surgery Date(Month/Year) 09/2022 tonsillectomy 2019 Hospitalization History Reason Date(Month/Year) gucci jiang
--- OUTSIDE RECORDS SUMMARY | 2024-12-14 08:11 | XMS_ITS | Encounter Summary ---
Author Organization [facility] Address [address] [place] [address] Care Team Providers Care Integrity Assessor Name Role Phone Unavailable Primary Care Provider Unavailabl e Encounter Details Date Type Department Care Team (Late st Contact Info) Description 09/26/2024 External Result Encounter [facility] OB [address] [place] [address] Saba Delgado CN [address] [place], [place] [phone] Social History Tobacco Use Types Packs/Day Years [...] AM EDT Visit [facility] OB [address] [place] [address] Saba Delgado CN [address] [place], [place] [phone] documented as of this encounter Procedures Procedure Name Priority Date/Time Associated Diagnosis Comments US OB FOLLOW UP TRANSABDOMINAL APPROACH 09/26/2024 10:13 AM EDT documented in this encounter Results * US OB follow up transabdominal approach (09/26/2024 10:13 AM EDT) Anatomical Region Laterality Modality Body Ultrasound 09/26/2024 10:1 3 AM EDT Narrative 09/26/2024 10:12 AM EDT THIS EXAM WAS PERFORMED AT [facility] PREG TRANSABD FU PER FETU: 09/26/2024 8:18 [...] - 09/26/2024 THIS EXAM WAS PERFORMED AT [facility] TRANSABD FU PER FETU: 09/26/2024 8:18 [...] Mahoney MD on 09/26/2024 10:12 AM us aSba Delgado CNM IMG OB US PROCEDURES Final R esult documented in this encounter Visit Diagnoses Not on filedocumented in this encounter
--- OUTSIDE RECORDS SUMMARY | 2024-12-14 08:11 | XMS_ITS | Encounter Summary ---
Author Organization [facility] Address [address] [place] [address] Care Team Providers Care Lining Scrubber Name Role Phone Unavailable Primary Care Provider Unavailabl e Encounter Details Date Type Department Care Team (Late st Contact Info) Description 11/14/2024 Results Follow-Up [facility] OB [address] [place] [address] Saba Delgado, CARROL [address] [place], [place] [phone] Social History Tobacco Use Types Packs/Day Years [...] AM EDT Visit [facility] OB [address] [place] [address] Saba Delgado CN [address] [place], [place] [phone] documented as of this encounter Visit Diagnoses Not on filedocumented in this encounter
--- OUTSIDE RECORDS SUMMARY | 2024-12-14 08:11 | XMS_ITS | Clinical Summary ---
Author Organization [facility] Healthcare Address [address] [place] [address] Care Team Providers Care Airline Pilot Name Role Phone Unavailable Primary Care Provider [...] Encounters Date Type Department Care Team Description 12/10/2024 1:30 PM EDT Visit [facility] [address] [place] [address] Saba Delgado CNM Elevated blood pressure reading (Primary Dx); examination following delivery 12/05/2024 2:30 PM EDT Visit [facility] [address] [place] [address] Saba Delgado CNM Elevated blood pressure reading (Primary Dx); History of section; examination following delivery 12/05/2024 Clinisync Result Encounter NOMS External Department Unsolicited Saba Delgado CNM 12/04/2024 2:30 PM EDT Visit [facility] [address] [place] [address] Saba Delgado CNM Elevated blood pressure reading (Primary Dx); examination following delivery 11/29/2024 Clinisync Result Encounter NOMS External Department Unsolicited Roger Rowley, DO 11/28/2024 Clinisync Result Encounter NOMS External Department Unsolicited Roger Rowley, DO 11/27/2024 10:30 AM EDT Routine [facility] [address] [place] [address] Saba Delgado CNM Encounter for supervision of other normal , third trimester (Primary Dx); History of section 11/27/2024 Bamboo flowsheet [facility] [address] [place] [address] Saba Delgado CNM 11/20/2024 3:30 PM EDT Routine [facility] [address] [place] [address] Saba Delgado CNM Encounter for supervision of other normal , third trimester (Primary Dx); History of section; Fibroid 11/20/2024 Results Follow-Up [facility] [address] [place] [address] Saba Delgado CNM 11/20/2024 Bamboo flowsheet [facility] [address] [place] [address] Saba Delgado CNM 11/14/2024 Results Follow-Up [facility] [address] [place] [address] Saba Delgado CNM 11/13/2024 3:30 PM EDT Routine [facility] [address] [place] [address] Saba Delgado, MICHELINE Encounter for supervision of other normal , third trimester (Primary Dx); History of section 11/13/2024 Bamboo flowsheet [facility] [address] [place] [address], [place] [address] Saba Delgado, CARROLM 11/06/2024 3:45 PM EDT Routine [facility] [address] [place] [address], [place] [address] Saba Delgado, MICHELINE Encounter for supervision of other normal , third trimester (Primary Dx); History of section; screening for streptococcus B 10/23/2024 3:30 [place] [address] [place] [address], [place] [address] Saba Delgado, MICHELINE Tachycardia (Primary Dx); Encounter for supervision of other normal , third trimester; History of section 10/23/2024 Bamboo flowsheet [facility] [address] [place] [address], [place] [address] Saba Delgado, MICHELINE 10/09/2024 11:30 AM EDT Routine [facility] [address] [place] [address] Saba Delgado, MICHELINE Tachycardia 10/09/2024 Bamboo flowsheet [facility] [address] [place] [address], [place] [address] Saba Delgado, MICHELINE 09/26/2024 External Result Encounter [facility] [address] [place] [address] Saba Delgado CNM 09/13/2024 Refill [facility] [address] [place] [address], [place] [address] Lacey Fagan MA Anemia affecting in third trimester from Last 3 Months Family History Relation [...] (183 lb) 12/10/2024 1:33 PM EDT Height 154.9 cm (5' 1 ) 03/05/2024 9:27 AM EDT Body Mass Index 34.58 03/05/2024 9:27 AM EDT Plan of Treatment Upcoming Encounters Date Type Department Care Team (Late st Contact Info) Description 12/18/2024 10:30 AM EDT Visit [facility] [address] [place] [address] Saba Delgado, CNM [address] [place], [place] [id number] Procedures Procedure Name Priority Date/Time Associated Diagnosis Comments ALL URIC ACID Routine 12/05/2024 6:06 PM EDT ALL LDH Routine 12/05/2024 6:06 PM EDT [facility] CMP (CMP) (FOR REMOTE [facility] USE) Routine 12/05/2024 6:06 PM EDT ALL CBC WITH AUTO DIFF Routine 6:06 PM EDT PROTEIN ELECTRO, RANDOM URINE Routine 12/05/2024 5:15 PM EDT TBH URINE T PROTEIN CREAT RATIO Routine 12/05/2024 5:15 PM EDT ALL CBC WITH AUTO DIFF Routine 6:20 [...] UP TRANSABDOMINAL APPROACH 09/26/2024 10:13 AM EDT from Last 3 Months Results * (ABNORMAL) [facility] CMP (CMP) (FOR REMOTE [facility] USE) (12/05/2024 6:06 PM EDT) SODIUM 143 136 - 145 mmol/L TBH POTASSIUM 3.8 3.5 - 5.1 mmol/L TBH CHLORIDE 108(H) 98 - 107 mmol/L TBH CARBON DIOXIDE 24.3 21.0 - 32.0 mmol/L TBH ANION GAP 14.5 TBH GLUCOSE 82 74 - 106 mg/dL TBH BLOOD UREA NITROGEN 18.0 7.0 - 18.0 mg/dL TBH CREATININE 0.59 0.55 - 1.02 mg/dL TBH TBH EGFR-AF EGYPTIAN >60 >=60 mL/min/1. 73m 2 TBH TBH EGFR-NON AF EGYPTIAN >60 >=60 mL/min/1. 73m 2 TBH BUN CREATININE RATIO 30.5 TBH CALCIUM 8.6 8.5 - 10.1 mg/dL TBH BILIRUBIN TOTAL 0.3 0.2 - 1.0 mg/dL TBH ASPARTATE AMINO TRANSFERASE 21 15 - 37 U/L TBH ALANINE AMINOTRANSFERASE 31 14 - 59 U/L TBH ALKALINE PHOSPHATASE 100 46 - 116 U/L TBH TOTAL PROTEIN 5.8(L) 6.4 - 8.2 g/dL TBH ALBUMIN LEVEL 2.3(L) 3.4 - 5.0 g/dL TBH GLOBULIN 3.5 g/dL TBH ALBUMIN GLOBULIN RATIO 0.7 TBH 12/05/2024 6:06 PM EDT 12/05/2024 6:12 PM EDT Narrative CLINISYNC - 12/05/2024 7:01 PM EDT Saba BRANHAM CLINISYNC Final Result Performing Organization Address [facility] Co de Phone Number [facility] * ALL URIC ACID (12/05/2024 6:06 PM EDT) URIC ACID 5.4 2.6 - 6.0 mg/dL TB 12/05/2024 6:06 PM EDT 12/06/2024 1:38 AM EDT Narrative CLINISYNC - 12/06/2024 1:58 AM EDT Saba Delgado [facility] CLINISYNC Final Result Performing Organization Address [facility] Co de Phone Number [facility] * ALL LDH (12/05/2024 6:06 PM EDT) LACTATE DEHYDROGENASE 230 81 - 234 U/L TB 12/05/2024 6:06 PM EDT 12/05/2024 6:12 PM EDT Narrative CLINISYNC - 12/05/2024 7:01 PM EDT Saba Delgado CNM CLINISYNC Final Result CLINISYNC TB * (ABNORMAL) ALL CBC WITH AUTO DIFF (12/05/2024 6:06 PM EDT) Only the most recent of3 resultswithin the time period is included. TBH WBC 8.8 4.0 - 11.0 10 3/uL TBH TBH RBC 3.11(L) 4.20 - 5.40 10 6/uL TBH TBH HGB 8.2(L) 12.0 - 16.0 g/dL TBH TBH HCT 25.9(L) 36.0 - 48.0 % TBH TBH MCV 83.3 81.0 - 99.0 fL TBH TBH MCH 26.4(L) 26.7 - 34.0 pg TBH TBH MCHC 31.7 29.9 - 35.2 g/dL TBH TBH RDW 15.5(H) 11.0 - 15.0 % TBH TBH PLT 326 150 - 450 10 3/uL TBH TBH MPV 10.1 9.5 - 13.5 fL TBH NEUTROPHILS PERCENT AUTO 72.1 43.0 - 75.0 % TBH LYMPHOCYTES PERCENT AUTO 19.0(L) 20.5 - 60.0 % TBH MONOCYTES PERCENT AUTO 6.2 1.7 - 12.0 % TBH TBH EO % 1.9 0.9 - 7.0 % TBH BASOPHILS PERCENT AUTO 0.2 0.2 - 2.0 % TBH IMMATURE GRANULOCYTES PCT AUTO 0.6(H) 0.0 - 0.5 % TBH NEUTROPHILS ABSOLUTE AUTO 6.4 1.4 - 6.5 10 3/uL TBH LYMPHOCYTES ABSOLUTE AUTO 1.7 1.2 - 3.8 10 3/uL TBH MONOCYTES ABSOLUTE AUTO 0.6 0.3 - 0.8 10 3/uL TBH TBH EO # 0.2 0.0 - 0.7 10 3/uL TBH BASOPHILS ABSOLUTE AUTO 0.0 0.0 - 0.1 10 3/uL TBH IMMATURE GRANULOCYTES ABS AUTO 0.05(H) 0.00 - 0.03 10 3/uL TBH 12/05/2024 6:06 PM EDT 12/05/2024 6:12 PM EDT Narrative CLINISYNC - 12/05/2024 6:37 PM EDT Saba Delgado [facility] CLINISYNC Final Result Performing Organization Address City/[facility]/ZIP Co de Phone Number CLINISYWV TB * PROTEIN ELECTRO, RANDOM URINE (12/05/2024 5:15 PM EDT) PROTEIN,TOTAL,URINE 67.8 Not Estab. mg/dL TBH ALBUMIN, U 32.0 . % TBH DIWEZ-4-DIVEVMLI, U 4.0 . % TBH RQUDT-5-MJXSGGTS, U 8.2 . % TBH BETA GLOBULIN, U 49.7 . % TBH GAMMA GLOBULIN, U 6.1 . % TBH M-SPIKE, % Comment: Not Observed % TBH Comment: UPE shows asymmetrical beta. Suggest urine BHARAT, Serum PE/BHARAT, and free light chain analysis for further evaluation. PLEASE NOTE: Comment . TBH Comment: Protein electrophoresis scan will follow via computer, mail, or automobile club travel counselor delivery. Performed at: [address] [id number] Pharmacy Associate: Franklyn Troy PhD, Phone: [phone] 12/05/2024 5:15 PM EDT 12/05/2024 6:12 PM EDT Narrative CLINISYNC - 12/10/2024 5:09 PM EDT Saba Delgado [facility] LAB BLOOD ORDERABLES Final R esult [facility] * (ABNORMAL) TBH URINE T PROTEIN CREAT RATIO (12/05/2024 5:15 PM EDT) TOTAL PROTEIN URINE RANDOM 120.8(H) <=11.9 mg/dL TBH CREATININE URINE RANDOM 35.01 20.00 - 300.00 mg/dL TBH PROTEIN CREATININE RATIO URINE 3.45 TB 12/05/2024 5:15 PM EDT 12/06/2024 1:38 AM EDT Narrative CLINISYNC - 12/06/2024 1:47 AM EDT us Saba BRANHAMM CLINISYNC Final Result CLINISYNC TBH * TBH [...] - 11/28/2024 6:17 AM EDT us Roger Sotoo DO CLINISYNC Final Result CLINISYNC TBH * [...] CLINISYNC - 11/28/2024 6:21 AM EDT Roger Rowley DO CLINISYNC Final Result [facility] * (ABNORMAL) URINALYSIS MICROSCOPIC (11/14/2024 7:57 AM [...] Performing Organization Information Site ID: QTW Name: [facility] Address: [address] [place] [phone] Director: Alisa Harris Saba Delgado CNM LAB BLOOD ORDERABLES Final R esult Performing Organization Address [facility]/ZIP Co de Phone Number [facility] * DRUG [...] interpreting these drug results, please contact a [facility] Toxicology Specialist: [phone] ( ), M-F, 8am-6pm EST. 11/14/2024 7:57 AM EDT 11/14/2024 2:24 PM EDT Narrative Resulting Agency Comment Performing Organization Information Site ID: QPT Name: [facility] Address: [address] [place] [address], [address] [place] [phone] Director: Milton Landers MD Saba Delgado CNM LAB BODY FLUIDS AND STOOLS O RDERABLES Final Result Performing Organization Address [facility]/ZIP Co de Phone Number [facility] * C. trachomatis / N. gonorrhoeae, DNA probe (11/14/2024 7:57 AM EDT) CHLAMYDIA TRACHOMATIS RNA, TMA, UROGENITAL NOT DETECTED NOT DETECTED [facility] NEISSERIA GONORRHOEAE RNA, TMA, UROGENITAL NOT DETECTED NOT DETECTED [facility] (ALWAYS MESSAGE) [facility] Comment: The analytical performance characteristics of this assay, when used to test SurePath(TM) specimens have been determined by [facility]. The modifications have not been cleared or approved by the FDA. This assay has been validated pursuant to the CLIA regulations and is used for clinical purposes. For additional information, please refer to https://education.[employer]/faq/IST493 (This link is being provided for information/ educational purposes only.) Swab Urine specimen obtained by clean catch procedure / Unknown 11/14/2024 7:57 AM EDT 11/14/2024 2:24 PM EDT Narrative Resulting Agency Comment Performing Organization Information Site ID: QPT Name: [facility] Address: [address] [place] [address], [address] [place] [phone] Director: Milton Landers MD Saba Delgado CNM LAB PATHOLOGY ORDERABLES Fin al Result Performing Organization Address [facility] de Phone Number [facility] * Urine culture (11/14/2024 7:57 AM EDT) MICRO NUMBER [id number] [facility] SPECIMEN QUALITY Adequate [facility] SOURCE: ([facility]) [...] Performing Organization Information Site ID: QPT Name: [facility] Address: [address] [place] [address], [address] [place] [phone] Director: Milton Landers MD Saba Delgado CNM LAB MICROBIOLOGY - GENERAL O RDERABLES Final Result Performing Organization Address [facility] de Phone Number [facility] * STREPTOCCOUS, GROUP B CULTURE (11/06/2024 5:00 PM EDT) MICRO NUMBER [id number] [facility] SPECIMEN QUALITY Adequate [facility] SOURCE VAGINAL/ANOR [...] Performing Organization Information Site ID: QPT Name: [facility] Address: [address] [place] [address], [address] [place] [phone] Director: Milton Landers MD Saba Delgado CNM LAB BODY FLUIDS AND STOOLS O RDERABLES Final Result [facility] * OB follow up transabdominal approach (09/26/2024 10:13 AM EDT) Anatomical Region Laterality Modality Body Ultrasound 09/26/2024 10:1 3 AM EDT Narrative 09/26/2024 10:12 AM EDT THIS EXAM WAS PERFORMED AT [facility] PREG TRANSABD FU PER FETU: 09/26/2024 8:18 [...] - 09/26/2024 THIS EXAM WAS PERFORMED AT [facility] TRANSABD FU PER FETU: 09/26/2024 [...] MD on 09/26/2024 10:12 AM us Saba BRANHAM IMG OB US PROCEDURES Final R esult from Last 3 Months Insurance FRONTPATH FRONTPATH
--- OUTSIDE RECORDS SUMMARY | 2024-12-14 08:11 | XMS_ITS | Encounter Summary ---
Author Organization [facility] Address [address] [place] [address] Care Team Providers Care Guillotine Operator Name Role Phone Unavailable Primary Care Provider Unavailabl e Encounter Details Date Type Department Care Team (Late st Contact Info) Description 11/20/2024 Results Follow-Up [facility] [address] [place] [address] Saba Delgado, CARROL [address] [place], [place] [phone] Social History Tobacco Use Types Packs/Day Years [...] [place] [address] Saba Delgado CN [address] [place], [place] [phone] documented as of this encounter Visit Diagnoses Not on filedocumented in this encounter
--- OUTSIDE RECORDS SUMMARY | 2024-12-14 08:11 | XMS_ITS | Referral Summary ---
Author Organization [facility] Address [address] [place] [address] Care Team Providers Care Machine Gun Mechanic Name Role Phone Saba Delgado [facility] Primary Care Provider [phone] Encounters Date Type Department Care Team Description 11/14/2024 Telephone [facility] [address] [place] [address] Samina Modi MA 10/15/2024 Telephone [facility] [address] [place] [address] Samina Modi OR 10/10/2024 11:00 AM EDT Office Visit [facility] [address] [place] [address] Jordan Renner MD Shortness of breath (Primary [...] of Treatment Not on file Care Teams Machine Gun Mechanic Relationship Specialty Start Date End Date Saba Delgado CNM [address] [place] [address] PCP - General Obstetrics and Gynecology 10/10/24
--- OUTSIDE RECORDS SUMMARY | 2024-12-14 08:12 | XMS_ITS | Clinical Summary ---
Author Organization [facility] tem Address [id number] [address] [place] [address] Care Team Providers Care Automobile Service Station Attendant Name Role Phone Unavailable Primary Care Provider [...] - 10/09/2024 11:59 PM EDT Hospital Encounter [facility] - Cardiovascular [address] [facility] [place] [address] Tachycardia Discharge Disposition: Home 10/09/2024 Travel 09/26/2024 8:17 AM EDT - 09/26/2024 11:59 PM EDT Hospital [facility] [address] [place] [address] Saba Delgado APRN-CNM related condition in second [...] How often do you attend chur or bahai services? Never 07/19/2021 Do you belong to any clubs o r organizations such as hinduism groups, unions, fraternal or athletic groups, or [...] Answer Date Recorded Total Score 0 09/23/2021 [facility] of Occupat ional [facility] - Occupational Stress Questionnaire Answer Date Recorded [...] 8:41 AM EDT) Anatomical Region Laterality Modality OB-ENTRY LEVEL SOFTWARE ENGINEER Ultrasound 09/26/2024 10:1 0 AM EDT Narrative [...] Negative Negative^N egative 02/09/2021 3:01 PM EDT [facility] Hpv 18 Negative Negative^N egative 02/09/2021 3:01 PM EDT [facility] Other high risk hpv Negative Negative^N egative 02/09/2021 3:01 PM EDT [facility] Comment: HPV types 31,33,35,39,45,52,56,58,59,66 and 68 DNA were undetectable. THINP 01/29/2021 5:48 AM EDT 02/09/2021 5:48 AM EDT us Kelly Reed HEAD TENNIS COACH-TOPPIECE CUTTER LAB BLOOD ORDERABLES F inal Result [facility] [address] [place] [address] from Last 3 Months or Most Recently Relevant to Health Maintenance Insurance [address] [place] [address] FRONTPATH FRONTPATH
--- OUTSIDE RECORDS SUMMARY | 2024-12-14 08:12 | XMS_ITS | Encounter Summary ---
Author Organization [facility] Address [address] [place] [address] Care Team Providers Care Dry House Operator Name Role Phone Unavailable Primary Care Provider Unavailabl e Encounter Details Date Type Department Care Team (Late st Contact Info) Description 03/06/2024 Abstract [facility] [address] [place] [address] Roger Rowley, DO [address] [place], [place] [phone] Social History Tobacco Use Types Packs/Day Years [...] AM EDT Visit [facility] [address] [place] [address] Saba Delgado, CARROLM [address] [place] [address] documented as of this encounter Visit Diagnoses Not on filedocumented in this encounter
--- OUTSIDE RECORDS SUMMARY | 2024-12-14 08:12 | XMS_ITS | Encounter Summary ---
Author Organization [facility] Address [id number] [address] [place] [address] Care Team Providers Care Second Facing Baster Name Role Phone Melba Sharpe AIRCRAFT PAINTER APPRENTICE-VICE PRESIDENT SALES AND MARKETING Primary Care Provider + Reason for Visit * Reason Comments Med Refill Encounter Details Date Type Department Care Team (Late st Contact Info) Description 08/26/2019 Refill [facility] [address] [place] [address] [address] [phone] Melba Sharpe APRN-CNP [address] [place], [place] [phone] Anxiety and depression Social History Tobacco Use [...] documented as of this encounter Care Teams Second Facing Baster Relationship Specialty Start Date End Date Melba Sharpe APRN-NEGAR PCP - General Family Medicine 04/17/19 01/07/23 documented as of this encounter
--- OUTSIDE RECORDS SUMMARY | 2024-12-14 08:12 | XMS_ITS | Encounter Summary ---
Author Organization [facility] Address [address] [place] [address] Care Team Providers Care Aircraft Sales Representative Name Role Phone Unavailable Primary Care Provider Unavailabl e Encounter Details Date Type Department Care Team (Late st Contact Info) Description 12/29/2023 Abstract [facility] [address] [place] [phone] Roger Rowley, DO [address] [place], [place] [phone] Social History Tobacco Use Types Packs/Day Years [...] AM EDT Visit [facility] [address] [place] [address] Saba Delgado, CARROLM [address] [place] [address] documented as of this encounter Visit Diagnoses Not on filedocumented in this encounter
--- OUTSIDE RECORDS SUMMARY | 2024-12-14 08:12 | XMS_ITS | Clinical Summary ---
Author Organization [facility] Address [address] [place] [address] Care Team Providers Care Executive Cyber Leader Name Role Phone Melba Sharpe INSERTING OPERATOR - MACHINE RECORDS UNITS SUPERVISOR Primary Care Provid er Allergies No known [...] drink = 0.6 oz pur e alcohol) [place] Depression Scale Answer Date Recorded Last EPDS [...] 10:51 PM 08/20/2022 4:18 AM Care Teams Executive Cyber Leader Relationship Specialty Start Date End Date Melba Sharpe APRN - MACHINE RECORDS UNITS SUPERVISOR PCP - General Nurse Practitioner 07/14/20
--- OUTSIDE RECORDS SUMMARY | 2024-12-14 08:12 | XMS_ITS | Encounter Summary ---
Author Organization [facility] tem Address [id number] [address] [place] [address] Care Team Providers Care Laundry Machine Operator Name Role Phone Melba Sharpe VIDEO GAME MAKER-TREATMENT SPECIALIST Primary Care Provider + Encounter Details Date Type Department Care Team (Late st Contact Info) Description 10/06/2021 Telephone [facility] [address] [place] [address] [place] [address] Alis Bishop CMA Social History [...] How often do you attend chur or christian services? 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
--- OUTSIDE RECORDS SUMMARY | 2024-12-14 08:12 | XMS_ITS | Encounter Summary ---
Author Organization [facility] Address [address] [place] [address] Care Team Providers Care Milk Inspector Name Role Phone Unavailable Primary Care Provider Unavailabl e Encounter Details Date Type Department Care Team (Late st Contact Info) Description 01/04/2024 Abstract [facility] [address] [place] [phone] Roger Rowley, DO [address] [place], [place] [phone] Social History Tobacco Use Types Packs/Day Years [...] AM EDT Visit [facility] [address] [place] [address] Saba Delgado, CARROLM [address] [place] [address] documented as of this encounter Visit Diagnoses Not on filedocumented in this encounter
--- OUTSIDE RECORDS SUMMARY | 2024-12-14 08:12 | XMS_ITS | Encounter Summary ---
Author Organization [facility] tem Address [id number] [address] [place] [address] Care Team Providers Care Business Executive Name Role Phone Melba Sharpe COMMERCIAL PROPERTY ADMINISTRATOR-PORCELAIN FINISH SPRAYER Primary Care Provider + Encounter Details Date Type Department Care Team (Late st Contact Info) Description 07/16/2020 Orders Only [facility] [address] [facility] [facility] [place] [phone] Allyson Riggins CMA Cough in adult; Head [...] documented as of this encounter Care Teams Business Executive Relationship Specialty Start Date End Date Melba Sharpe APRN-CNP PCP - General Family Medicine 04/17/19 01/07/23 documented as of this encounter
--- OUTSIDE RECORDS SUMMARY | 2024-12-14 08:12 | XMS_ITS | Encounter Summary ---
Author Organization [facility] Address [address] [place] [address] Care Team Providers Care Frog Farmer Name Role Phone Unavailable Primary Care Provider Unavailabl e Encounter Details Date Type Department Care Team (Late st Contact Info) Description 03/29/2024 Orders Only [facility] [address] [place] [address] Saba Delgado, CN [address] [place], [place] [phone] examination or test, positive result Social History [...] AM EDT Visit [facility] [address] [place] [address] Saba Delgado, CN [address] [place], [place] [phone] Scheduled Orders Name Type Priority Associated Diagnoses [...]
--- OUTSIDE RECORDS SUMMARY | 2024-12-14 08:12 | XMS_ITS | Encounter Summary ---
Author Organization [facility] Address [address] [place] [address] Care Team Providers Care Residential Electrician Name Role Phone Unavailable Primary Care Provider Unavailabl e Encounter Details Date Type Department Care Team (Late st Contact Info) Description 12/05/2024 Clinisync Result Encounter [facility] External Department Unsolicited Saba Delgado CNM [address] [place], [place] [phone] Social History Tobacco Use Types Packs/Day Years [...] AM EDT Visit [facility]NR OB [address] [place] [address] Saba Delgado CNM [address] [place], [place] [id number] documented as of this encounter Procedures Procedure Name Priority Date/Time Associated Diagnosis Comments [facility] CMP (CMP) (FOR REMOTE [facility] USE) Routine 12/05/2024 6:06 PM EDT ALL URIC ACID Routine 12/05/2024 6:06 PM EDT ALL LDH Routine 12/05/2024 6:06 PM EDT ALL CBC WITH AUTO DIFF Routine 12/05/2024 6:06 PM EDT PROTEIN ELECTRO, RANDOM URINE Routine 12/05/2024 5:15 PM EDT TB[facility] URINE T PROTEIN CREAT RATIO Routine 12/05/2024 5:15 PM EDT documented in this encounter Results * ALL URIC ACID (12/05/2024 6:06 PM EDT) URIC ACID 5.4 2.6 - 6.0 mg/dL [facility] 12/05/2024 6:06 PM EDT 12/06/2024 1:38 AM EDT Narrative CLINISYNC - 12/06/2024 1:58 AM EDT Saba L [facility] CN CLINISYNC Final Result Performing Organization Address [facility]/ZIP Co de Phone Number CLINISYNC TB * ALL LDH (12/05/2024 6:06 PM EDT) LACTATE DEHYDROGENASE 230 81 - 234 U/L [facility] 12/05/2024 6:06 PM EDT 12/05/2024 6:12 PM EDT Narrative CLINISYNC - 12/05/2024 7:01 PM EDT Saba [facility] CLINISYNC Final Result Performing Organization Address [facility]/State/ZIP Co de Phone Number CLINISYNC TB * (ABNORMAL) [facility] CMP (CMP) (FOR REMOTE [facility] USE) (12/05/2024 6:06 PM EDT) SODIUM 143 136 - 145 mmol/L [facility] POTASSIUM 3.8 3.5 - 5.1 mmol/L [facility] CHLORIDE 108(H) 98 - 107 mmol/L TBH CARBON DIOXIDE 24.3 21.0 - 32.0 mmol/L [facility] ANION GAP 14.5 TBH GLUCOSE 82 74 - 106 mg/dL [facility] BLOOD UREA NITROGEN 18.0 7.0 - 18.0 mg/dL [facility] CREATININE 0.59 0.55 - 1.02 mg/dL [facility] TBH EGFR-AF [place] >60 >=60 mL/min/1. 73m 2 TB[facility] TBH EGFR-NON AF [place] >60 >=60 mL/min/1. 73m 2 [facility] BUN [...] Saba Delgado CNM CLINISYNC Final Result [facility]NC [facility] * (ABNORMAL) ALL CBC WITH AUTO DIFF (12/05/2024 6:06 PM EDT) TB WBC 8.8 4.0 - 11.0 10 3/uL [...] Narrative CLINISYNC - 12/05/2024 6:37 PM EDT us Saba [place] CLINISYNC Final Result [facility] * PROTEIN ELECTRO, RANDOM URINE (12/05/2024 5:15 PM EDT) PROTEIN,TOTAL,URINE 67.8 Not Estab. mg/dL [facility] ALBUMIN, U 32.0 . % [facility] IYUJV-4-QFMNJHIS, U 4.0 . % [facility] LFTVG-4-JDAJERGM, U 8.2 . % [facility] BETA GLOBULIN, U 49.7 . % [facility] GAMMA GLOBULIN, U 6.1 . % TBH M-SPIKE, % Comment: Not Observed % TBH Comment: UPE shows asymmetrical beta. Suggest urine BHARAT, Serum PE/BHARAT, and free light chain analysis for further evaluation. PLEASE NOTE: Comment . [facility] Comment: Protein electrophoresis scan will follow via computer, mail, or make up worker delivery. Performed at: [address] [id number] Social Work Administrator: Franklyn Troy PhD, Phone: [phone] 12/05/2024 5:15 PM EDT 12/05/2024 6:12 PM EDT Narrative CLINISYNC - 12/10/2024 5:09 PM EDT us Saba Delgado CNM LAB BLOOD ORDERABLES Final R esult CLINISYNC TB * (ABNORMAL) [facility] URINE T PROTEIN CREAT RATIO (12/05/2024 5:15 PM EDT) TOTAL PROTEIN URINE RANDOM 120.8(H) <=11.9 mg/dL TBH CREATININE URINE RANDOM 35.01 20.00 - 300.00 mg/dL TBH PROTEIN CREATININE RATIO URINE 3.45 [facility] 12/05/2024 5:15 PM EDT 12/06/2024 1:38 AM EDT Narrative CLINISYNC - 12/06/2024 1:47 AM EDT us Saba Delgado CNM CLINISYNC Final Result CLINISYNC TB documented in this encounter Visit Diagnoses Not on filedocumented in this encounter"
--- OUTSIDE RECORDS SUMMARY | 2024-12-14 08:12 | XMS_ITS | Encounter Summary ---
Author Organization [facility] Address [address] [place] [address] Care Team Providers Care Bank Worker Name Role Phone Unavailable Primary Care Provider Unavailabl e Encounter Details Date Type Department Care Team (Late st Contact Info) Description 07/19/2024 Clinisync Result Encounter [facility] External Department Unsolicited Amy Delgado CNM [address] [place], [place] [phone] Social History Tobacco Use Types Packs/Day Years [...] AM EDT Visit [facility] FNR OB [address] [place] [address] Amy Delgado CNM [address] [place], [place] [phone] documented as of this encounter Procedures Procedure Name Priority Date/Time Associated Diagnosis Comments US OB ANATOMY 07/19/2024 7:22 AM EST documented in this encounter Results * US OB ANATOMY (07/19/2024 7:22 AM EST) Anatomical Region Laterality Modality Other 07/19/2024 7:22 AM EST Narrative 07/19/2024 7:24 [place] [address] Ultrasound Report Signed Patient: MOHAN MATTA MR#: [id number] : 1990 Acct:[id number] Age/Sex: 34 / F ADM Date: 07/18/24 Loc: US Attending Dr: AMY DELGADO APRN, CNM Ordering Physician: AMY DELGADO APRN, CNM Date of Service: 07/18/24 Procedure(s): US OB anatomy Accession Number(s): [id number] cc: AMY DELGADO APRN, CNM; Physician,Non-Staff M.D. [facility] [place] [id number] Patient Name: MOHAN MATTA MRN: [facility]:[id number] date: 1990 Sex: F Assigned Patient Location: US Current Patient Location: Accession/Order Number: [id number] Exam Date: 07/18/2024 16:05 Report Date: 07/19/2024 [...] M.D. Signed By: 07/19/24723 DD/ 1 TD/TT: House Father: Procedure Note Radiology, Radiologist, MD - 07/19/2024 [place] [address] Ultrasound Report Signed Patient: YURI MATTAYMR#: [id number] : 1990Acct:[id number] Age/Sex: 34 / FADM Date: 07/18/24 Loc: US Attending Dr: AMY DELGADO APRN, CNM Ordering Physician: AMY DELGADO APRN, CNM Date of Service: 07/18/24 Procedure(s): US OB anatomy Accession Number(s): [id number] cc: AMY DELGADO APRN, CNM; Physician,Non-Staff [place] [facility] [place] [id number] Patient Name: MOHAN MATTA MRN: [facility]:[id number] date: 1990 Sex: F Assigned Patient Location: US Current Patient Location: Accession/Order Number: [id number] Exam Date: 07/18/2024 16:05 Report Date: 07/19/2024 [...] M.D. Signed By:07/19/24 0724 DD/ 1 TD/TT: House Father: Amy Delgado CNM CLINISYNC IMAGING Final Resu lt documented in this encounter Visit Diagnoses Not on filedocumented in this encounter
--- OUTSIDE RECORDS SUMMARY | 2024-12-14 08:12 | XMS_ITS | Encounter Summary ---
Author Organization [facility] Address [address] [place] [address] Care Team Providers Care City Superintendent Of Schools Name Role Phone Unavailable Primary Care Provider Unavailabl e Encounter Details Date Type Department Care Team (Late st Contact Info) Description 03/06/2024 Abstract [facility] OB [address] [place] [phone] Roger Rowley, DO [address] [place], [place] [phone] Social History Tobacco Use Types Packs/Day Years [...] AM EDT Visit [facility] FNR OB [address] [place] [address] Saba Delgado, CARROLM [address] [place] [address] documented as of this encounter Visit Diagnoses Not on filedocumented in this encounter
--- OUTSIDE RECORDS SUMMARY | 2024-12-14 08:13 | XMS_ITS | Encounter Summary ---
Author Organization [facility] Address [address] [place] [address] Care Team Providers Care Medical Historian Name Role Phone Unavailable Primary Care Provider Unavailabl e Encounter Details Date Type Department Care Team (Late st Contact Info) Description 12/17/2022 Abstract [facility] FNR OB [address] [place] [address] Saba Delgado, CARROL [address] [place], [place] [phone] Social History Tobacco Use Types Packs/Day Years [...] AM EDT Visit [facility] FNR OB [address] [place] [address] Saba Delgado, CN [address] [place], [place] [phone] documented as of this encounter Visit Diagnoses Not on filedocumented in this encounter
--- OUTSIDE RECORDS SUMMARY | 2024-12-14 08:13 | XMS_ITS | Encounter Summary ---
Author Organization [facility] Address [address] [place] [address] Care Team Providers Care Granite Installer Name Role Phone Unavailable Primary Care Provider Unavailabl e Encounter Details Date Type Department Care Team (Late st Contact Info) Description 12/17/2022 Abstract [facility] FNR OB [address] [place] [address] Saba Delgado, CARROL [address] [place], [place] [phone] Social History Tobacco Use Types Packs/Day Years [...] AM EDT Visit [facility] FNR OB [address] [place] [address] Saba Delgado, CN [address] [place], [place] [phone] documented as of this encounter Visit Diagnoses Not on filedocumented in this encounter
--- OUTSIDE RECORDS SUMMARY | 2024-12-14 08:29 | XMS_ITS | CCD ---
Author Organization [facility] Care Team Providers Care Motor Scooter Repairer Name Role Phone Raquel Sharpe Primary Care Provider YANCY LAMBERT Admitting Unavailable POOL, YANCY Moore Attending Unavailable RAQUEL SHARPE Primary Care Unavailable FLORO, AMY Admitting Unavailable FLORO, AMY Attending Unavailable CASSRAQUEL Primary Care Unavailable Unavailable Primary Care Provider Unavailabl e FLORO, AMY Attending Unavailable FLORO, AMY Referring Unavailable FLORO, AMY Referring Unavailable JOHNATHAN RENNER Attending Unavailable FLORO, AMY L Attending Unavailable FLORO, AMY L Attending Unavailable FLORO, AMY L Attending Unavailable FLORO, AMY L Attending Unavailable FLORO, AMY L Attending Unavailable FLORO, AMY L Attending Unavailable HALLEYROGER Attending Unavailable JAYANTNEL Attending Unavailable FLORO, AMY L Referring Unavailable [...] Oral, EVERY 8 HOURS PRN, Starting on 09/27/22 at 2232, Until Discontinued, Other, Pain (1-10) [...] usion docusate sodium 100 mg oral capsule (20 sources) Start: 09-13-2024 End: 09-13-2025 take 1 [...] sulfate 325 mg delayed release oral tablet (20 sources) Start: 09-13-2024 End: 09-13-2025 take 1 [...] Pain 60 tablet 1 09/29/2022 10/02/2022 Active labetalol hydrochloride 200 mg oral tablet (7 sources) beta-Adrenergic Colette Start: 12-04-2024 End: 12-04-2025 take 1 tablet by mouth in the morning labetalol (Normodyne) 200 MG tablet Indications: Elevated blood pressure reading Take 1 tablet (200 mg) by mouth in the morning and 1 tablet (200 mg) before bedtime. 60 tablet 1 12/04/2024 12/04/2025 Active lanolin 1000 mg/ml topical cream (1 [...] Hives, docusate sodium 50 mg / sennosides, half-way 8.6 mg oral tablet (1 source) Start: [...] Amenorrhea; Translations: [Amenorrhea, unspecified] 07-07-2024 Chronic Other circulatory disease (6 sources) Elevated blood pressure; Translations: [Elevated blood-pressure reading, without diagnosis of hypertension] 12-04-2024 Episodic Other complications of ; puerperium affecting [...] Test Name Value Interpretation Reference Range Facility ALL CBC WITH AUTO DIFFon BASOPHILS ABSOLUTE AUTO 0 [facility] Basophils/100 WBC (Bld) 0.2 % 0.2 - 2.0 % [facility] Eosinophils/100 WBC (Bld) 1.9 % 0.9 - 7.0 % [facility] Erythrocyte distribution width (RBC) [Ratio] 15.5 % High 11.0 - 15.0 % [facility] Hematocrit (Bld) [Volume fraction] 25.9 % Low 36.0 - 48.0 % [facility] Hemoglobin (Bld) [Mass/Vol] 8.2 g/dL Low 12.0 - 16.0 g/dL [facility] IMMATURE GRANULOCYTES ABS AUTO 0.05 High [facility] Immature granulocytes/100 WBC (Bld) 0.6 % High 0.0 - 0.5 % [facility] Interpretation and review of laboratory results Abnormal [facility] LYMPHOCYTES ABSOLUTE AUTO 1.7 [facility] Lymphocytes/100 WBC (Bld) 19 % Low 20.5 - 60.0 % [facility] MCH (RBC) [Entitic mass] 26.4 pg Low 26.7 - 34.0 pg [facility] MCHC (RBC) [Mass/Vol] 31.7 g/dL 29.9 - 35.2 g/dL [facility] MCV (RBC) [Entitic vol] 83.3 fL 81.0 - 99.0 fL [facility] MONOCYTES ABSOLUTE AUTO 0.6 [facility] Monocytes/100 WBC (Bld) 6.2 % 1.7 - 12.0 % [facility] NEUTROPHILS ABSOLUTE AUTO 6.4 [facility] Neutrophils/100 WBC (Bld) 72.1 % 43.0 - 75.0 % [facility] Platelet mean volume (Bld) [Entitic vol] 10.1 fL 9.5 - 13.5 fL [facility] EO # 0.2 [facility] PLT [address] [facility] RBC 3.11 Low [facility] WBC 8.8 [facility] ALL CBC WITH AUTO DIFFon BASOPHILS ABSOLUTE AUTO 0 [facility] Basophils/100 WBC (Bld) 0.1 % Low 0.2 - 2.0 % [facility] Eosinophils/100 WBC (Bld) 0 % Low 0.9 - 7.0 % [facility] Erythrocyte distribution width (RBC) [Ratio] 14.6 % 11.0 - 15.0 % [facility] Hematocrit (Bld) [Volume fraction] 25 % Low 36.0 - 48.0 % [facility] Hemoglobin (Bld) [Mass/Vol] 8 g/dL Low 12.0 - 16.0 g/dL [facility] IMMATURE GRANULOCYTES ABS AUTO 0.06 High [facility] Immature granulocytes/100 WBC (Bld) 0.5 % 0.0 - 0.5 % [facility] Interpretation and review of laboratory results Abnormal [facility] LYMPHOCYTES ABSOLUTE AUTO 1.9 [facility] Lymphocytes/100 WBC (Bld) 14.9 % Low 20.5 - 60.0 % [facility] MCH (RBC) [Entitic mass] 26.5 pg Low 26.7 - 34.0 pg [facility] MCHC (RBC) [Mass/Vol] 32 g/dL 29.9 - 35.2 g/dL [facility] MCV (RBC) [Entitic vol] 82.8 fL 81.0 - 99.0 fL [facility] MONOCYTES ABSOLUTE AUTO 1.1 High [facility] Monocytes/100 WBC (Bld) 8.7 % 1.7 - 12.0 % [facility] NEUTROPHILS ABSOLUTE AUTO 9.5 High [facility] Neutrophils/100 WBC (Bld) 75.8 % High 43.0 - 75.0 % [facility] Platelet mean volume (Bld) [Entitic vol] 11.3 fL 9.5 - 13.5 fL [facility] EO # 0 [facility] PLT 207 [facility] RBC 3.02 Low [facility] WBC 12.5 High [facility] ALL CBC WITH AUTO DIFFon BASOPHILS ABSOLUTE AUTO 0 [facility] Basophils/100 WBC (Bld) 0.4 % 0.2 - 2.0 % [facility] Eosinophils/100 WBC (Bld) 1 % 0.9 - 7.0 % [facility] Erythrocyte distribution width (RBC) [Ratio] 14.6 % 11.0 - 15.0 % [facility] Hematocrit (Bld) [Volume fraction] 33.1 % Low 36.0 - 48.0 % [facility] Hemoglobin (Bld) [Mass/Vol] 10.8 g/dL Low 12.0 - 16.0 g/dL [facility] IMMATURE GRANULOCYTES ABS AUTO 0.02 [facility] Immature granulocytes/100 WBC (Bld) 0.3 % 0.0 - 0.5 % [facility] Interpretation and review of laboratory results Abnormal [facility] LYMPHOCYTES ABSOLUTE AUTO 2.3 [facility] Lymphocytes/100 WBC (Bld) 32.6 % 20.5 - 60.0 % [facility] MCH (RBC) [Entitic mass] 26.8 pg 26.7 - 34.0 pg [facility] MCHC (RBC) [Mass/Vol] 32.6 g/dL 29.9 - 35.2 g/dL [facility] MCV (RBC) [Entitic vol] 82.1 fL 81.0 - 99.0 fL [facility] MONOCYTES ABSOLUTE AUTO 0.6 [facility] Monocytes/100 WBC (Bld) 8.9 % 1.7 - 12.0 % [facility] NEUTROPHILS ABSOLUTE AUTO 4 [facility] Neutrophils/100 WBC (Bld) 56.8 % 43.0 - 75.0 % [facility] Platelet mean volume (Bld) [Entitic vol] 11.6 fL 9.5 - 13.5 fL [facility] EO # 0.1 [facility] PLT 224 [facility] RBC 4.03 Low [facility] WBC 7.1 [facility] 36on 11-14-2024 36 Regarding testing results: MD Samina Ramirez MA Echo, holter and blood testing are normal. No further cardiac testing, follow up with OB as planned. Follow up with us in 1 year. Spoke with patient and made her aware. She verbalized understanding. [facility] 36on 10-26-2024 36 Spoke with patient a nd informed her of normal Holter monitor report per Dr. Renner. She verbalized understanding. Patient is scheduled for echo next week and I advised we will call with results. [facility] 36on 10-15-2024 36 Regarding lab result s from 10/10/2024: MD Samina Ramirez MA Blood test is within normal limits. LM on patient's VM letting her know. [facility] Telephoneon 10-15-2024 Telephone [phone] Dakota Matta A 1990 F Date Provider Department Center 10/15/2024 SAMINA [place] Family History Problem Relation Age of Onset Other Mother Other Father Other Sister Other Brother Family Status - Relation Status Age at Mother Alive Father Alive Sister Alive Brother Alive [facility] Office Visiton 10-10-2024 Follow-up visit [id number] Dakota Matta A 1990 F Date Provider Department Center 10/10/2024 [facility]OHN[facility] REN[facility] Family History Problem Relation Age of Onset Other Mother Other Father Other Sister Other Brother Family Status - Relation Status Age at Mother Alive Father Alive Sister Alive Brother Alive Level of Service:45906 ID OFFICE/OUTPATIENT NEW MODERATE MDM 45 MINUTES Normal [facility] US PREG TRANSABD FU PER FETU on [...] Antoine Mahoney MD on 09/26/2024 10:12 AM [facility] US OB INCOMPLETE ANATOMYon 0 08-15-2024 [place] [address] Ultrasound Report Signed Patient: NICHOLAS MATTA MR#: [id number] : 1990 Acct:[id number] Age/Sex: 34 / F ADM Date: 08/15/24 Loc: US Attending Dr: AMY DELGADO APRN, CNM Ordering Physician: AMY DELGADO APRN, CNM Date of Service: 08/15/24 Procedure(s): US OB incomplete anatomy Accession Number(s): [id number] cc: AMY DELGADO APRN, CNM; Physician,Non-Staff M.D. The [address] [address] Patient Name: NICHOLAS MATTA MRN: [id number] date: 1990 Sex: F Assigned Patient Location: US Current Patient Location: US Accession/Order Number: [id number] Exam Date: 08/15/2024 09:00 Report Date: 08/15/2024 [...] represent a leiomyoma. Electronically authenticated by: EULA LOMBARDO Date: 08/15/2024 13:01 Dictated By: Eula Lombardo M.D. Signed By: 08/15/24 1304 DD/ 1301 TD/TT: Exchange Clerk: [facility] Radiology, Radiologist, MD - 08/15/2024 [place] [address] Ultrasound Report Signed Patient: NICHOLAS MATTA MR#: [id number] : 1990 Acct:[id number] Age/Sex: 34 / F ADM Date: 08/15/24 Loc: US Attending Dr: AMY DELGADO APRN, CNM Ordering Physician: AMY DELGADO APRN, CNM Date of Service: 08/15/24 Procedure(s): US OB incomplete anatomy Accession Number(s): [id number] cc: AMY DELGADO APRN, CNM; Physician,Non-Staff M.DDeshawn The [place] [id number] Patient Name: NICHOLAS MATTA MRN: [facility]:[id number] date: 1990 Sex: F Assigned Patient Location: US Current Patient Location: US Accession/Order Number: [id number] Exam Date: 08/15/2024 09:00 Report Date: 08/15/2024 [...] represent a leiomyoma. Electronically authenticated by: EULA LOMBARDO Date: 08/15/2024 13:01 Dictated By: Eula Lombardo M.D. Signed By: 08/15/24 1304 DD/ 1301 TD/TT: Exchange Clerk: [facility] Radiology Study observation (narrative) [facility] US OB INCOMPLETE ANATOMYOrde red By: Radiologist Radiology on 08-15-2024 [facility] [employer] Work Phone: Laboratoryon 06-22-2024 associate director of biostatistics review Ty (Unsp spec) [Interp] SEE NOTE [facility] Comment on above: A portion of the testing [place] [facility] Laboratory results and submitted clinical information reviewed by Aminata Roy, Ph.D., [facility]. METHODOLOGY Fragile X testing is performed using [...] number is detected by quantitative PCR. The g.03406B>G variant ([id number]), assessed by quantitative PCR, is reported when the SMN1 copy is equal to two. SMN2 copy number is assessed by quantitative PCR when SMN1 copy number is equal to zero or one, or when SMN1 is equal to two in the presence of the g.40801K>G variant. All other gene variations are detected by multiplex-PCR amplification of specific gene regions, followed by nucleotide sequence analysis on a massively parallel sequencing platform. Although rare, false positive or false negative results may occur. All results should be interpreted in the context of clinical findings, relevant history, and other laboratory data. Visit [email or web address] for additional clinical information and references. Health care providers, please contact your local [employer]' genetic counselor or call [phone] ( ) for assistance with the interpretation of these results. These tests were developed and their analytical performance characteristics have been determined by [employer] [facility]. They have not been cleared or approved by the FDA. These assays have been validated pursuant to the CLIA regulations and are used for clinical purposes. Narrative diagnostic report [facility] (Bld/Tiss) [Interp] SEE NOTE [facility] Comment on above: NEGATIVE FOR ALL VARIANTS TESTED (SEE BELOW) Laboratory - Molecular patho logyon 06-22-2024 FMR1 gene CGG repeats [facility] (Bld/Tiss) SEE NOTE [facility] Comment on above: Fragile X: FEMALE, 20 and 30 CGG repeats in the FMR1 gene detected (NEGATIVE) Genetic variant assessment [facility] (Bld/Tiss) SEE NOTE [facility] Comment on above: DISEASES / VARIANTS TESTED DISEASE (GENE) [REFERENCE SEQUENCE] - VARIANTS ALPHA-THALASSEMIA (HBA1 and HBA2) [NM 445636.3 and NM 289766.4] -alpha3.7, -alpha4.2, -alpha20.5, --SEA, --MED, -MERCED, --JOCELYNN, [place] (c.427T>C) BETA HEMOGLOBINOPATHIES (INCLUDING SICKLE CELL DISEASE) (HBB) [NM 712580.4] c.*111A>G, c.*110T>C, Hb D-[place] (c.364G>C), Hb O-[place] (c.364G>A), c.321 322insG, c.316-2A>C, c.316-2A>G, c.316-3C>A, c.316-106C>G, [...] c.-138C>A, c.-140C>T, c.-151C>T PEREZ SYNDROME (BLM) [NM 736604.3] 1232mff1/ins7 (c.2207 2212delATCTGAinsTAGATTC) TOM DISEASE (ASPA) [NM 955156.2] IVS2-2A>G (c.433-2A>G), Y231* (c.693C>A), E285A (c.854A>C), A305E (c.914C>A) CYSTIC FIBROSIS (CFTR) [NM 400144.3] M1V (c.1A>G), CFTRdele2,3, Q39X (c.115C>T), 296+2T>A (c.164+2T>A), [...] (c.595C>T), P205S (c.613C>T), L206W (c.617T>G), Q220X (c.658C>T), 223jwc88 (c.728btt66), 935delA (c.803delA), 936delTA (c.805delAT), B850adh (c.933delCTT), 1078delT (c.948delT), G330X (c.988G>T), R334W (c.1000C>T), I336K (c.1007T>A), T338I (c.1013C>T), S341P (c.1021T>C), 1154insTC (c.1022insTC), 1161delC (c.1029delC), R347P (c.1040G>C), R347H(c.1040G>A), R352Q (c.1055G>A), 1213delT (c.1081delT), 1248+1G>A (c.1116+1G>A), 1259insA (c.1127insA), 1288insTA (c.1153insAT), W401X (c.1202G>A or c.1203G>A), 1341+1G>A (c.1209+1G>A), 9252yvq5 (c.1329insAGAT), A455E (c.1364C>A), 1525-1G>A (c.1393-1G>A), S466X (c.1397C>A or c.1397C>G), L467P (c.1400T>C), 1548delG (c.1418delG), G480C (c.1438G>T), S489X (c.1466C>A), S492F (c.1475C>T), 1609delCA (c.1477delCA), Q493X (c.1477C>T), G710qgf (c.1519delATC), C391ywe (c.1521delCTT), 1677delTA (c.1545delTA), V520F (c.1558G>T), C524X (c.1572C>A), Q525X (c.1573C>T), 1717-1G>A (c.1585-1G>A), 1717-8G>A (c.1585-8G>A), G542X (c.1624G>T), S549R (c.1645A>C or c.1647T>G), S549N (c.1646G>A), G551D (c.1652G>A), Q552X (c.1654C>T), R553X (c.1657C>T), A559T (c.1675G>A), R560K (c.1679G>A), R560T (c.1679G>C), 1811+1.6kbA>G (c.1679+1.6kbA>G), 1812-1G>A (c.1680-1G>A), P574H (c.1721C>A), D579G (c.1736A>G), E585X (c.1753G>T), 1898+1G>T (c.1766+1G>T), 1898+1G>A (c.1766+1G>A), 1898+3A>G (c.1766+3A>G), 1898+5G>T (c.1766+5G>T), 2043delG (c.1911delG), 3128slb1>A (c.2337psu7iqgT), 4878xgc22sqq1 (c.1124ubs76dilIAJFX), 2108delA (c.1975delA), 2143delT (c.2012delT), 2183AA>G (c.2051delAAinsG), 2184insA (c.205insA), 2184delA (c.2052delA), R709X (c.2125C>T), K710X (c.2128A>T), 2307insA (c.2175insA), L732X (c.2195T>G), 2347delG (c.2215delG), R764X (c.2290C>T), 2585delT (c.2453delT), E822X (c.2464G>T), 2622+1G>A (c.2490+1G>A), E831X (c.2491G>T),W846X (c.2537G>A or c.2538G>A), R851X (c.2551C>T), 2711delT (c.2583delT), 2789+5G>A (c.2657+5G>A), Q890X (c.2668C>T), 2869insG (c.2737insG), L927P (c.2780T>C), S945L (c.2834C>T), 3007delG (c.2875delG), G970R (c.2908G>C), 3120G>A (c.2988G>A), 3120+1G>A (c.2988+1G>A), 3121-1G>A (c.2989-1G>A), 3171delC (c.3039delC), 2982qgu4 (c.3067delATAGTG), 3272-26A>G (c.3140-26A>G), T6019W (c.3194T>C), L3699G (c.3196C>T), E7146D (c.3197G>A), N3350S (c.3230T>C), G0831L (c.3266G>A), E2226D (c.3276C>A or c.3276C>G), M8670M (c.3278T>C), C6077Q (c.3302T>A), A0173P (c.3310G>T), X1884H (c.3382A>T), D2208A (c.3435G>A), V9732O (c.3472C>T), A4367S (c.3484C>T), 3659delC (c.3528delC), 7363qlh1 (c.3535delACCA), E7713L (c.3587C>G), M5013P (c.3611G>A or c.3612G>A), 3791delC (c.3659delC), 3821delT (c.3691delT), H5422C (c.3700A>G), Z9157F (c.3712C>T), 3849+10kbC>T (c.3717+24893N>T), S3882F (c.3731G>A), 3876delA (c.3744delA), M9560N (c.3752G>A), Y8517M (c.3764C>A), 3905insT (c.3773insT), X6617P (c.3846G>A), L0833J (c.3848G>T), 4005+1G>A ( (more content not included)... SMN1 gene targeted mutation analysis [employer] (Bld/Tiss) 2 COPIES [facility] No Panel Informationon 06-22 2+0 RISK VARIANT Not detected [facility] NEGATIVE SUMMARY STATEMENT SEE NOTE [facility] Comment on above: This carrier test in [...] risks after a negative result. Race C [facility] RESIDUAL RISK TABLE SEE NOTE [facility] Comment on above: RESIDUAL CARRIER RIS K TABLE - FOR USE ONLY AFTER RESULTS ARE NEGATIVE (ASSUMES FAMILY HISTORY IS NEGATIVE) Disease Ethnicity Detection Prior Risk Rate % Risk After Negative Result Alpha- Thalassemia Mediterranean, Up to 94 Varies Reduced [facility] [place] Ethnicity Aime Marmolejo, Harlan Marshall Beta-Hemoglobinopathies (Including Sickle Cell Disease) Mediterranean, 99 Varies Reduced [place], by [place] , Ethnicity Aime Marmolejo, Harlan Marshall Perez Syndrome Ashkenazi Zoroastrian 99 07/23,301 Tom Disease Ashkenazi Zoroastrian >97 <07/11,801 Non-Ashkenazi 50 Not Zoroastrian known Cystic Fibrosis Ashkenazi Zoroastrian 95 08/03461 Non- 90 08/04 Austrian 88 78 Austrian 53 Dihydrolipoamide Dehydrogenase Deficiency [facility] >95 1 <07/12,121 Familial Dysautonomia [facility] [place] >99 08/10 <07/13,001 Familial Hyperinsulinism [facility] [place] 90 Fanconi Anemia [facility] [place] 99 07/19,90 Fragile X Females 99 08/04,801 Gaucher Disease [facility] 95 07/25 Glycogen Storage Disease Type Ia Ashkenazi Zoroastrian 95 1/1,261 51 1177 1/360 Rocael Syndrome 2 [facility] 99 07/20,601 Maple Syrup Urine Disease [facility] Zoroastrian 95 07/11,921 Mucolipidosis Type IV [facility] 95 07/11,761 Nemaline Myopathy [facility] [place] >95 <07/13,341 Brandi-Pick Disease Types A&B [facility] 97 1 07/13,801 Phillip-Sachs Disease [facility] [place] 98 08/06 07/11,301 [facility] 70 08/10 1 General Population 46 1/300 1/555 Usher Syndrome, Type IF Ashkenazi Zoroastrian >75 /147 <585 Usher Syndrome, Type IIIA [facility] >95 120 <07/12,381 Walker-Warburg Syndrome [facility] [place] [place] 99 801 SMA INTERPRETATION Negative [facility] Comment on above: INTERPRETATION: This analysis identified two (2) copies of the SMN1 gene. The g.45371T>G variant was not detected (NEGATIVE). The revised carrier risk for an individual with two (2) copies of the SMN1 gene and the absence of the g.03364T>G variant is dependent on ethnicity and is provided in the table below (Cassandra et al., 2012. PMID: 11367416; Brennan et al., 2017. PMID: 42148899). LIMITATIONS OF ANALYSIS: This negative result does [...] and ethnicity. SMA RESIDUAL RISK RISK BELOW [facility] Comment on above: Revised carrier risk for individuals with no family history of SMA Carrier Population Detection Carrier Revised Risk/ Ethnicity Rate Risk Variant Absent 95% 1:47 1:921 Ashkenazi 93% 1:67 1:918 Zoroastrian 94% 1:59 1:907 90% 1:72 1:375 Austrian 93% 1:68 1:906 MULTIPLE TESTING PRIORITIES; ROUTINE TESTING TO FOLLOW. Campus Sponsorship Organization Information Site ID: EZ Name[facility], Address: [facility] [place] [address] Director: Nayely Bertrand MD,PhD,NANI [facility] Laboratoryon 05-23-2024 Chr X and Y aneuploidy Dosage of chromosome-specific cfDNA Ql (cfDNA) No aneuploidy [facility] Narrative diagnostic report [employer] [facility] (Bld/Tiss) [Interp] SEE NOTE [facility] Comment on above: This specimen showed an expected representation of chromosome 21, 18, and 13 material. See Limitations below. Laboratory - Miscellaneous t estson 05-23-2024 Laboratory comment Ty (Report) SEE NOTE [facility] Comment on above: QNatal(R) Advanced i s [...] assessment. Reference Lab Test Method SEE NOTE [facility] [employer] Comment on above: Circulating cell-eric e (cf) [...] performed pursuant to a license agreement with [employer]. QNatal Advanced is a laboratory developed test that has been developed and validated, pursuant to the Clinical Laboratory Improvements Amendments of 1988 (CLIA), and as such it has not been reviewed by FDA. Service comment (Unsp spec) [Interp] SEE NOTE [facility] [employer] Comment on above: Laboratory testing supervised and results monitored by Luis M Aceves, Ph.D., FACMG, HCLD, CGMB. Laboratory - Molecular patho logyon 05-23-2024 Cell-free DNA./Cell-free DNA.total Dosage of chromosome-specific cfDNA Ty (cfDNA) 7.80% [facility] Chr 13 trisomy Dosage of chromosome-specific cfDNA Ql (cfDNA) Negative [facility] Chr 18 trisomy Dosage of chromosome-specific cfDNA Ql (cfDNA) Negative [facility] Chr 21 trisomy Dosage of chromosome-specific cfDNA Ql (cfDNA) Negative [facility] Chr X and Y aneuploidy Dosage of chromosome-specific cfDNA (cfDNA) [Interp] SEE NOTE [facility] Comment on above: No apparent abnormal ity was detected. See Limitations below. Microdels risk Sequencing Ql (cfDNA) [Interp] Not detected [facility] Microdels risk Sequencing Ql (cfDNA) [Interp] SEE NOTE [facility] Comment on above: No apparent abnormal ity was detected. See Limitations below. Y chromosome Sequencing (cfDNA) [Interp] SEE NOTE [facility] Comment on above: Consistent with a ma le fetus. Y chromosome Sequencing Ql (cfDNA) Detected [facility] No Panel Informationon 05-23 ABNORMAL DEANNA? NO [facility] ABNORMAL US? NO [facility] ADVANCED MATERNAL AGE? NO [facility] Gestational age in days 1 [facility] Gestational age in weeks 11 [facility] Number of fetuses by US 1 [facility] SPLIT 05/16/2024 FRO [id number] [facility] Sponsorship Organization Information Site ID: EZ Name: Prior Knowledge/[facility], Address: [address] [place] [phone] Director: Nayely Bertrand MD,PhD,NANI [facility] CBC panel Auto (Bld)on 05-17 Erythrocyte distribution width (RBC) [Ratio] 12.8 % 11.0 - 15.0 % [facility] Hematocrit (Bld) [Volume fraction] 40.9 % 35.0 - 45.0 % [facility] Hemoglobin (Bld) [Mass/Vol] 13.5 g/dL 11.7 - 15.5 g/dL [facility] MCH (RBC) [Entitic mass] 30.1 pg 27.0 - 33.0 pg [facility] MCHC (RBC) [Mass/Vol] 33 g/dL 32.0 - 36.0 g/dL [facility] Comment on above: For adults, a slight decrease in the calculated MCHC value (in the range of 30 to 32 g/dL) is most likely not clinically significant; however, it should be interpreted with caution in correlation with other red cell parameters and the patient's clinical condition. MCV (RBC) [Entitic vol] 91.3 fL 80.0 - 100.0 fL [facility] Platelet mean volume (Bld) [Entitic vol] 11.2 fL 7.5 - 12.5 fL [facility] Platelets (Bld) [#/Vol] 263 10*3/uL [facility] RBC (Bld) [#/Vol] 4.48 10*6/uL [facility] WBC (Bld) [#/Vol] 5.9 10*3/uL [facility] Performing Organization Information Site ID: QTW Name: [facility] Address: [address] [place] [phone] Director: Alisa Harris [facility] Laboratory - Blood bankon ABO group Nom (Bld) O [facility] Blood group antibody screen Ql Detected [facility] Comment on above: Reference range No antibodies detected This assay is a screening test for the detection of red blood cell antibodies. The test is not to be used for pretransfusion screening or for the medical management of an alloimmunized . Rh Nom (Bld) Positive [facility] Comment on above: For additional information, please refer to http://education.CO-Value/faq/IPA429 (This link is being provided for informational/ educational purposes only.) Laboratory - Chemistry and C hemistry - challengeon 05-17-2024 TSH Qn 0.72 m[IU]/L mIU/L [facility] Comment on above: Reference Range > or = 20 Years 0.40-4.50 Ranges First trimester 0.26-2.66 Second trimester 0.55-2.73 Third trimester 0.43-2.91 Laboratory - Hematology and Cell countson 05-17-2024 HbA1c (Bld) [Mass fraction] 5.1 % NINF [facility] Comment on above: For the purpose of s creening for the presence of diabetes: <5.7% Consistent with the absence of diabetes 5.7-6.4% Consistent with increased risk for diabetes (prediabetes) > or =6.5% Consistent with diabetes This assay result is consistent with a decreased risk of diabetes. Currently, no consensus exists regarding use of hemoglobin A1c for diagnosis of diabetes in children. According to [place] Diabetes Association (ADA) guidelines, hemoglobin A1c <7.0% represents optimal control in non- diabetic patients. Different metrics may apply to specific patient populations. Standards of Medical Care in Diabetes(ADA). Laboratory - Microbiology clara d [facility] yris 05-17-2024 HBV surface Ag IA Ql Non-Reactive NON-REACTIVE [facility] Comment on above: For additional information, please refer to http://eSnips.Mobilligy/faq/OSC081 (This link is being provided for informational/ educational purposes only.) HCV Ab IA Ql Non-Reactive NON-REACTIVE [facility] Comment on above: HCV antibody was non-reactive. There is no laboratory evidence of HCV infection. In most cases, no further action is required. However, if recent HCV exposure is suspected, a test for HCV RNA (test code 72263) is suggested. For additional information please refer to http://eSnips.Mobilligy/faq/CTI03d3 (This link is being provided for informational/ educational purposes only.) HIV 1+2 Ab+HIV1 p24 Ag IA Ql Non-Reactive NON-REACTIVE [facility] Comment on above: HIV-1 antigen and HI [...] purpose. For additional information please refer to http://eSnips.Mobilligy/faq/OQK288 (This link is being provided for informational/ educational purposes only.) The performance of this assay has not been clinically validated in patients less than 2 years old. Reagin Ab RPR Ql (S) Non-Reactive NON-REACTIVE [facility] Rubella virus IgG Qn (S) 9.23 [IU]/mL Index [facility] Comment on above: Index Interpretation ----- <0.90 Not consistent with immunity 0.90-0.99 Equivocal > or = 1.00 Consistent with immunity The presence of rubella IgG antibody suggests immunization or past or current infection with rubella virus. No Panel Informationon 05-17 PATIENT UNABLE TO VOID; ADVISED TO RETURN FOR COLLECTION. Campus Sponsorship Organization Information Site ID: QPT Name: Prior Knowledge [facility] Address: [address] [place] [address], [address] [place] [phone] Director: Milton Landers MD [facility] HCG ( test) Ql (U)o n 05-01-2024 Interpretation and review of laboratory results Abnormal [facility] Preg Test, Ur Positive [facility] US OB < 14 WEEKS EARLYon US [...] report is generated using voice recognition reporting (QuantHouse). On occasion, MOBi-LEARNe erroneously drops words from the report or replaces the spoken word with a similar sounding word. Please call with any questions/concerns regarding the report. Dictated and transcribed 04/19/24/dpsincere This report has been electronically signed and approved by the interpreting radiologist. Electronically Signed Chava Toussaint II, M.D. 2024-04-19 14:27:55 Normal Not Available [facility] PREG QUANT HCGon 024 HCG QUANTITATIVE 370 mIU/mL [facility] Comment on above: 5-50 0.2-1 WEEK 50-500 1-2 WEEKS 100-5,000 2-3 WEEKS 500-10,000 3-4 WEEKS 1,000-50,000 4-5 WEEKS 10,000-100,000 5-6 WEEKS 15,000-200,000 6-8 WEEKS 10,000-100,000 2-[address] [facility] PREG QUANT HCGon 024 HCG QUANTITATIVE 154 mIU/mL [facility] Comment on above: 5-50 0.2-1 WEEK 50-500 1-2 WEEKS 100-5,000 2-3 WEEKS 500-10,000 3-4 WEEKS 1,000-50,000 4-5 WEEKS 10,000-100,000 5-6 WEEKS 15,000-200,000 6-8 WEEKS 10,000-100,000 2-[address] [facility] PREG QUANT HCGon 024 HCG QUANTITATIVE 78 mIU/mL [facility] Comment on above: 5-50 0.2-1 WEEK 50-500 1-2 WEEKS 100-5,000 2-3 WEEKS 500-10,000 3-4 WEEKS 1,000-50,000 4-5 WEEKS 10,000-100,000 5-6 WEEKS 15,000-200,000 6-8 WEEKS 10,000-100,000 2-[address] [facility] Hemoglobinon 09-28-2022 Hemoglobin (Bld) [Mass/Vol] 10.7 g/dL Low 11.9-15.1 [facility] Comment on above: Performed By: #### H GB #### [facility] [address] [place] [address] Diabetic Educator: Deven Kumar MD Hemoglobin (Bld) [Mass/Vol] 10.7 g/dL Low 11.9 - 15.1 g/dL [facility] Interpretation and review of laboratory results Abnormal [facility] CBC auto differentialon 09-09 Absolute Eos # 0.05 [facility] SECOUR S [facility] Absolute Immature Granulocyte 0.05 [facility] Absolute Lymph # 2.59 [facility] Absolute [facility] # 0.69 [facility] SEC[facility] RS [facility] Basophils Absolute [facility] Basophils/100 WBC (Bld) 0 % 0 - [...] NRBC Automated 0.0 0.0 per 100 WBC [facility] Platelet distribution width (Bld) [Ratio] 14.5 % [...] (Bld) [#/Vol] 9.8 10*3/uL [facility] CBC with Diffon 09-27-2022 Abs. Basophil <0.03 Normal 0.00-0.20 [facility] Comment on above: Performed By: #### C DP #### [facility] [address] [place] [address] [place], [place] [id number] Diabetic Educator: Deven Kumar MD Abs.Imm.Granulocyte 0.05 k/uL Normal 0.00-0.30 [facility] Comment on above: Performed By: #### C DP #### [address] [place] [address] Diabetic Educator: Deven Kumar MD Abs.Neutrophil (Seg) 6.36 k/uL Normal 1.50-8.10 [facility] Comment on above: Performed By: #### C DP #### [address] [place] [address] Diabetic Educator: Deven Kumar MD Basophils/100 WBC (Bld) 0 % Normal 0-2 [facility] Comment on above: Performed By: #### C DP #### [address] [place], [place] [id number] Diabetic Educator: Deven Kumar MD Eosinophils (Bld) [#/Vol] 0.05 10*3/uL Normal 0.00-0.44 [facility] Comment on above: Performed By: #### C DP #### [facility] [address] [place] [address] [place] [address] Diabetic Educator: Deven Kumar MD Eosinophils/100 WBC (Bld) 1 % Normal 1-4 [facility] Comment on above: Performed By: #### C DP #### [facility] [address] [place] [address] [place], [place] [id number] Diabetic Educator: Deven Kumar MD Erythrocyte distribution width (RBC) [Ratio] 14.5 % High 11.8-14.4 [facility] Comment on above: Performed By: #### C DP #### [facility] [address] [place] [address] [place] [address] Diabetic Educator: Deven Kumar MD Hematocrit (Bld) [Volume fraction] 35.9 % Low 36.3-47.1 [facility] Comment on above: Performed By: #### C DP #### [facility] [address] [place] [address] Dr[place], [facility] Diabetic Educator: Deven Kumar MD Hemoglobin (Bld) [Mass/Vol] 11.9 g/dL Normal 11.9-15.1 [facility] Comment on above: Performed By: #### C DP #### [facility] [address] [place] [address] Dr[place], [facility] Diabetic Educator: Deven Kumar MD Immature granulocytes/100 WBC (Bld) 1 % High 0 [facility] Comment on above: Performed By: #### C DP #### [address] [place] [address] Diabetic Educator: Deven Kumar MD Lymphocytes (Bld) [#/Vol] 2.59 10*3/uL Normal 1.10-3.70 [facility] Comment on above: Performed By: #### C DP #### [facility] [address] [place] [address] Dr[place], [facility]83 Diabetic Educator: Deven Kumar MD Lymphocytes/100 WBC (Bld) 27 % Normal 24-43 [facility] Comment on above: Performed By: #### C DP #### [facility] [address] [place] [address] [place] [address] Diabetic Educator: Deven Kumar MD MCH (RBC) [Entitic mass] 29.7 pg Normal 25.2-33.5 [facility] Comment on above: Performed By: #### C DP #### [facility] [address] [place], [facility]83 Diabetic Educator: Deven Kumar MD MCHC (RBC) [Mass/Vol] 33.1 g/dL Normal 28.4-34.8 [facility] Comment on above: Performed By: #### C DP #### [facility] [address] [place], [facility]83 Diabetic Educator: Deven Kumar MD MCV (RBC) [Entitic vol] 89.5 fL Normal 82.6-102.9 [facility] Comment on above: Performed By: #### C DP #### [facility] [address] [place], [place] [address] Diabetic Educator: Deven Kumar MD Monocytes (Bld) [#/Vol] 0.69 10*3/uL Normal 0.10-1.20 [facility] Comment on above: Performed By: #### C DP #### [facility] [address] [place], [facility]83 Diabetic Educator: Deven Kumar MD Monocytes/100 WBC (Bld) 7 % Normal 3-12 [facility] Comment on above: Performed By: #### C DP #### [facility] [address] [place], [place] [address] Diabetic Educator: Deven Kumar MD Neutrophil (Seg) 64 % Normal 36-65 [facility] Comment on above: Performed By: #### C DP #### [facility] [address] [place], [facility]83 Diabetic Educator: Deven Kumar MD NRBC Automated 0.0 per 100 WBC Normal 0.0 [facility] Comment on above: Performed By: #### C DP #### [facility] [address] [place] [facility]83 Diabetic Educator: Deven Kumar MD Platelet mean volume (Bld) [Entitic vol] 11.7 fL Normal 8.1-13.5 [facility] Comment on above: Performed By: #### C DP #### [facility] [address] [place] [address] Diabetic Educator: Deven Kumar MD Platelets (Bld) [#/Vol] 223 10*3/uL Normal 138-453 [facility] Comment on above: Performed By: #### C DP #### [facility] [address] [place] [address] Diabetic Educator: Deven Kumar MD RBC (Bld) [#/Vol] 4.01 10*6/uL Normal 3.95-5.11 [facility] Comment on above: Performed By: #### C DP #### [facility] [address] [place], [facility]83 Diabetic Educator: Deven Kumar MD WBC (Bld) [#/Vol] 9.8 10*3/uL Normal 3.5-11.3 [facility] Comment on above: Performed By: #### C DP #### [facility] [address] [place] [address] Diabetic Educator: Deven Kumar MD DRUG SCREEN MULTI URINEon Amphetamine Screen, Ur Negative NEGATIVE [facility] Comment on above: (Positive cutoff 1000 ng/mL) Barbiturate Screen, Ur Negative NEGATIVE [facility] Comment on above: (Positive cutoff 200 ng/mL) Benzodiazepine Screen, Urine Negative NEGATIVE [facility] Comment on above: (Positive cutoff 200 ng/mL) Buprenorphine Urine Negative NEGATIVE [facility] Comment on above: (Positive cutoff 5 ng/ml) Cannabinoid Scrn, Ur Negative NEGATIVE [facility] Comment on above: (Positive cutoff 50 ng/mL) Cocaine Metabolite, Urine Negative NEGATIVE [facility] Comment on above: (Positive cutoff 300 ng/mL) Fentanyl, Ur Negative NEGATIVE [facility] Comment on above: (Positive cutoff 5 ng/ml) Methadone Screen, Urine Negative NEGATIVE [facility] Comment on above: (Positive cutoff 300 ng/mL) Opiates, Urine Negative NEGATIVE [facility] Comment on above: (Positive cutoff 300 ng/mL) Oxycodone Screen, Ur Negative NEGATIVE [facility] Comment on above: (Positive cutoff 100 ng/mL) Phencyclidine, Urine Negative NEGATIVE [facility] Comment on above: (Positive cutoff 25 ng/mL) [facility] Drug Scr, Abuse, Uron 2022 Amphetamine(s),Ur Negative Normal NEG [facility] Comment on above: Result Comment: (Positive cutoff 1000 ng/mL) Performed By: #### D AU #### [address] [place] [id number] Diabetic Educator: Deven Kumar MD Barbiturate(s),Ur Negative Normal NEG [facility] Comment on above: Result Comment: (Positive cutoff 200 ng/mL) Performed By: #### D AU #### [address] [place], [place] [id number] Diabetic Educator: Deven Kumar MD Benzodiazepine(s) Negative Normal NEG [facility] Comment on above: Result Comment: (Positive cutoff 200 ng/mL) Performed By: #### D AU #### [address] [place], [place] [id number] Diabetic Educator: Deven Kumar MD Buprenorphrine, Ur Negative Normal NEG [facility] Comment on above: Result Comment: (Positive cutoff 5 ng/ml) Performed By: #### D AU #### [address] [place] [id number] Diabetic Educator: Deven Kumar MD Cannabinoid(s),Ur Negative Normal NEG [facility] Comment on above: Result Comment: (Positive cutoff 50 ng/mL) Performed By: #### D AU #### [address] [place], [facility]83 Diabetic Educator: Deven Kumar MD Cocaine Metabolite Negative Normal [facility] Comment on above: Result Comment: (Positive cutoff 300 ng/mL) Performed By: #### D AU #### [address] [place] [address] Diabetic Educator: Deven Kumar MD Fentanyl, Urine Negative Normal NEG [facility] Comment on above: Result Comment: (Positive cutoff 5 ng/ml) Performed By: #### D AU #### [facility] [address] [place] [address] [place] [address] Diabetic Educator: Deven Kumar MD Methadone Ql (U) Negative Normal [facility] Comment on above: Result Comment: (Positive cutoff 300 ng/mL) Performed By: #### D AU #### [address] [place], [place] [phone] Diabetic Educator: Deven Kumar MD Opiate(s), Ur Negative Normal [facility] Comment on above: Result Comment: (Positive cutoff 300 ng/mL) Performed By: #### D AU #### [address] [place] [address] Diabetic Educator: Deven Kumar MD Oxycodone, Urine Negative Normal [facility] Comment on above: Result Comment: (Positive cutoff 100 ng/mL) Performed By: #### D AU #### [address] [place] [address] Diabetic Educator: Deven Kumar MD Phencyclidine, Ur Negative Normal NEG [facility] Comment on above: Result Comment: (Positive cutoff 25 ng/mL) Performed By: #### D AU #### [address] [place], [place] [phone] Diabetic Educator: Deven Kumar MD TYPE AND SCREENon 09-27-2022 ABO/Rh Positive [facility] Arm Band Number [id number] [facility] Expiration Date 09/30/2022,2359 [facility] Type + Screenon 09-27-2022 Type + Screen Sample Expiration 09/30/2022,2359 Arm Band Number [id number] ABO/Rh(D) O POSITIVE Antibody Screen NEGATIVE Normal [facility] Comment on above: Performed By: #### T YS #### [facility] [address] [place] [address] [place] [address] Diabetic Educator: Deven Kumar MD No Panel Informationon 08-24 GBS, External Result Negative [facility] Work Phone: [facility] Work Phone: Cult,Urineon 08-21-2022 Cult,Urine Specimen Description .CLEAN CATCH URINE Culture NO SIGNIFICANT GROWTH Report Status FINAL 08/21/2022 [facility] Comment on above: Performed By: #### U RC #### [facility] [address] [place], [place] [id number] Diabetic Educator: Jesus Hill MD [facility] [address] [place] [address] [place] [address] Diabetic Educator: Deven Kumar MD OB 14 PLUS WEEKS [...] Deven Vaughan MD 08/20/22 Final result Normal [facility] Urinalysis, Routineon 2022 Bilirubin, SemiQt,Ur Negative Normal NEG [facility] Comment on above: Performed By: #### U A, UMICAO #### [facility] [address] [place], [place] [phone] Diabetic Educator: Deven Kumar MD Blood, Urine Negative Normal NEG [facility] Comment on above: Performed By: #### U A, UMICAO #### [facility] [address] [place] [address] Diabetic Educator: Deven Kumar MD Clarity (U) Clear Normal CLEAR [facility] Comment on above: Performed By: #### U A, UMICAO #### [facility] [address] [place] [address] [place], [place] [phone] Diabetic Educator: Deven Kumar MD Color (U) Yellow Normal YEL [facility] Comment on above: Performed By: #### U A, UMICAO #### [facility] [address] [place] [address] [place] [address] Diabetic Educator: Deven Kumar MD Glucose Ql (U) Negative Normal NEG [facility] Comment on above: Performed By: #### U A, UMICAO #### [facility] [address] [place] [address] [place] [address] Diabetic Educator: Deven Kumar MD Ketones Ql (U) TRACE Abnormal NEG [facility] Comment on above: Performed By: #### U A, UMICAO #### [facility] [address] [place] [address] Diabetic Educator: Deven Kumar MD Leukocyte esterase Test strip Ql (U) MODERATE Abnormal NEG [facility] Comment on above: Performed By: #### U A, UMICAO #### [facility] [address] [place] [address] [place] [address] Diabetic Educator: Deven Kumar MD Nitrite,Ur Negative Normal NEG [facility] Comment on above: Performed By: #### U A, UMICAO #### [facility] [address] [place] [address] [place] [address] Diabetic Educator: Deven Kumar MD PH,Ur 6.0 Normal 5.0-9.0 [facility] Comment on above: Performed By: #### U A, UMICAO #### [facility] [address] [place] [address] [place], [place] [id number] Diabetic Educator: Deven Kumar MD Protein Ql (U) Negative Normal NEG [facility] Comment on above: Performed By: #### U A, UMICAO #### [address] [place], [place] [phone] Diabetic Educator: Deven Kumar MD Spec. [place],Ur >1.030 High 1.010-1.020 [facility] Comment on above: Performed By: #### U A, UMICAO #### [facility] [address] [place] [address] [place] [address] Diabetic Educator: Deven Kumar MD Urobilinogen,Ur Normal Normal NORM [facility] Comment on above: Performed By: #### U A, UMICAO #### [facility] [address] [place] [address] [place] [address] Diabetic Educator: Deven Kumar MD Urinalysis,Microon 3 Epithelial cells LM Ql (Urine sed) 5 TO 10 Normal 0-25 [facility] Comment on above: Performed By: #### U A, UMICAO #### [facility] [address] [place] [address] [place], [place] [phone] Diabetic Educator: Deven Kumar MD Mucus Strands 3+ Abnormal NONE [facility] Comment on above: Performed By: #### U A, UMICAO #### [facility] [address] [place] [address] Diabetic Educator: Deven Kumar MD Urine RBC's None Normal 0-2 [facility] Comment on above: Performed By: #### U A, UMICAO #### [facility] [address] [place] [address] Diabetic Educator: Deven Kumar MD Urine WBC's 50 TO 100 Normal 0-5 [facility] Comment on above: Performed By: #### U A, GENEVIEVEO #### [facility] [address] [place] [address] Diabetic Educator: Deven Kumar MD Microscopic Urinalysison Epithelial Cells UA 5 TO 10 [facility] Interpretation and review of laboratory results Abnormal [facility] Mucus, UA 3+ Abnormal None [facility] RBC clumps Auto (Urine sed) [#/Area] None [facility] WBC, UA 50 TO 100 [facility] Urinalysison 08-19-2022 Bilirubin Urine Negative NEGATIVE [facility] Color, UA Yellow Yellow [facility] [Mass/Vol] Negative NEGATIVE [facility] Specific [place], UA High 1.010 - 1.020 [facility] Turbidity UA Clear Clear [facility] Urine Hgb Negative NEGATIVE [facility] Urobilinogen, Urine Normal Normal [facility] US OB 2nd/3rd Trimesteron US OB 2nd/3rd Trimester FINDINGS: Comparison made with [...] by Cole Mckeon on 05/04/2022 1555 Normal [facility] Spanish Linguist C. Trachomatis, External Res [facility] 03-04-2022 C. Trachomatis, External Result Negative [facility] Work Phone: HIV, External Resulton 03-04 HIV, External Result Non-Reactive [employer] Work Phone: Hepatitis B, External Result on 03-04-2022 Hep B, External Result Non-Reactive [employer] Phone: N. Gonorrhoeae, External Res [facility] 03-04-2022 N. Gonorrhoeae, External Result Negative [facility] Work Phone: No Panel Informationon 03-04 ABO, External Result O [facility] Work Phone: POI Work Phone: [facility]I Work Phone: RPR, External Labon 03-04-20 RPR, External Result Non-Reactive [employer] [employer] Work Phone: Rh Factor, External Resulton 03-04-2022 Rh Factor, External Result Positive [facility] [employer] [employer] Work Phone: Rubella Titer, External Resu lton 03-04-2022 Rub[employer], External Result immune [employer] Work Phone: US OB 1ST Trimesteron 2021 [...] by Cole Mckeon on 02/16/2022 1436 Normal [facility] Spanish Linguist Vital Signs Date Time Vital Sign Value Performing Clinician Facility 12-10-2024 13:33-0400 Body mass index (BMI) [Ratio] 34.58 kg/m2 Amy [facility] Work Phone: [facility] 12-10-2024 13:33-0400 Body weight 83.01 kg Amy [facility] Work Phone: [facility] 12-10-2024 13:33-0400 Diastolic blood pressure 80 mm[Hg] [facility] 12-10-2024 13:33-0400 Systolic blood pressure 120 mm[Hg] Amy Delgado [facility] Work Phone: [facility] 12-05-2024 14:25-0400 Body mass index (BMI) [Ratio] 38.73 kg/m2 Amy Floro CNM Work Phone: [facility] 12-05-2024 14:25-0400 Body weight 92.99 kg Amy Floro CNM Work Phone: [facility] 12-05-2024 14:25-0400 Diastolic blood pressure 90 mm[Hg] Amy Floro CNM Work Phone: [facility] 12-05-2024 14:25-0400 Systolic blood pressure 142 mm[Hg] Amy Floro CNM Work Phone: [facility] 12-04-2024 14:45-0400 Diastolic blood pressure 90 mm[Hg] Amy Floro CNM Work Phone: [facility] Comment on above: recheck 140/82 12-04-2024 14:45-0400 Systolic blood pressure 150 mm[Hg] Amy Floro CNM Work Phone: [facility] Comment on above: recheck 140/82 11-27-2024 10:31-0400 Body mass index (BMI) [Ratio] 41 kg/m2 Amy Floro CNM Work Phone: [facility] 11-27-2024 10:31-0400 Body weight 98.43 kg Amy Floro CNM Work Phone: [facility] 11-27-2024 10:31-0400 Diastolic blood pressure 82 mm[Hg] Amy Floro CNM Work Phone: [facility] 11-27-2024 10:31-0400 Systolic blood pressure 120 mm[Hg] Amy Floro CNM Work Phone: [facility] 11-13-2024 15:39-0400 Body mass index (BMI) [Ratio] 39.87 kg/m2 Amy Floro CNM Work Phone: [facility] 11-13-2024 15:39-0400 Body weight 95.71 kg Amy Floro CNM Work Phone: [facility] 11-13-2024 15:39-0400 Diastolic blood pressure 80 mm[Hg] Amy Floro CNM Work Phone: [facility] 11-13-2024 15:39-0400 Systolic blood pressure 118 mm[Hg] Amy Floro CNM Work Phone: [facility] 10-23-2024 15:39-0400 Body mass index (BMI) [Ratio] 38.73 kg/m2 Amy Floro CNM Work Phone: [facility] 10-23-2024 15:39-0400 Body weight 92.99 kg Amy Floro CNM Work Phone: [facility] 10-23-2024 15:39-0400 Diastolic blood pressure 80 mm[Hg] Amy Floro CNM Work Phone: [facility] 10-23-2024 15:39-0400 Systolic blood pressure 120 mm[Hg] Amy Floro CNM Work Phone: [facility] 08-15-2024 10:20-0500 Body mass index (BMI) [Ratio] 36.84 kg/m2 Amy Floro CNM Work Phone: [facility] 08-15-2024 10:20-0500 Body weight 88.45 kg Amy Floro CNM Work Phone: [facility] 08-15-2024 10:20-0500 Diastolic blood pressure 70 mm[Hg] Amy Floro CNM Work Phone: [facility] 08-15-2024 10:20-0500 Systolic blood pressure 112 mm[Hg] Amy Floro CNM Work Phone: [facility] 07-16-2024 14:58-0500 Body mass index (BMI) [Ratio] 36.28 kg/m2 Amy Floro CNM Work Phone: [facility] 07-16-2024 14:58-0500 Body weight 87.09 kg Amy Floro CNM Work Phone: [facility] 07-16-2024 14:58-0500 Diastolic blood pressure 80 mm[Hg] Amy Floro CNM Work Phone: [facility] 07-16-2024 14:58-0500 Systolic blood pressure 120 mm[Hg] Amy Floro CNM Work Phone: [facility] 06-13-2024 15:33-0500 Body mass index (BMI) [Ratio] 36.28 kg/m2 Amy Floro CNM Work Phone: [facility] 06-13-2024 15:33-0500 Body weight 87.09 kg Amy Floro CNM Work Phone: [facility] 06-13-2024 15:33-0500 Diastolic blood pressure 80 mm[Hg] Amy Floro CNM Work Phone: [facility] 06-13-2024 15:33-0500 Systolic blood pressure 120 mm[Hg] Amy Floro CNM Work Phone: [facility] 05-16-2024 08:28-0500 Body mass index (BMI) [Ratio] 36.47 kg/m2 Amy Floro CNM Work Phone: [facility] 05-16-2024 08:28-0500 Body weight 87.54 kg Amy Floro CNM Work Phone: [facility] 05-16-2024 08:28-0500 Diastolic blood pressure 70 mm[Hg] Amy Floro CNM Work Phone: [facility] 05-16-2024 08:28-0500 Systolic blood pressure 112 mm[Hg] Amy Floro CNM Work Phone: [facility] 03-05-2024 09:27-0400 Body height 154.9 cm Nel HUTCHINSON Work Phone: [facility] 03-05-2024 09:27-0400 Body mass index (BMI) [Ratio] 36.11 kg/m2 Nel HUTCHINSON Work Phone: [facility] 03-05-2024 09:27-0400 Body weight 86.69 kg Nel HUTCHINSON Work Phone: [facility] 03-05-2024 09:27-0400 Diastolic blood pressure 74 mm[Hg] Nel HUTCHINSON Work Phone: [facility] 03-05-2024 09:27-0400 Systolic blood pressure 116 mm[Hg] Nel HUTCHINSON Work Phone: [facility] 09-29-2022 14:15-0400 Body temperature 98.1 [degF] Amy Delgado APRN - CNM Work Phone: [facility] 09-29-2022 14:15-0400 Diastolic blood pressure 67 mm[Hg] Amy Delgado APRN - CNM Work Phone: [facility] 09-29-2022 14:15-0400 Heart rate 103 /min Amy Delgado APRN - CNM Work Phone: [facility] 09-29-2022 14:15-0400 Respiratory rate 16 /min Amy Delgado APRN - CNM Work Phone: [facility] 09-29-2022 14:15-0400 Systolic blood pressure 122 mm[Hg] Amy Delgado APRN - CNM Work Phone: [facility] 09-28-2022 00:23-0400 SaO2% (BldA) [Mass fraction] 98 % Amy Delgado APRN - CNM Work Phone: [facility] 09-27-2022 02:20-0400 Body height 154.9 cm Amy Delgado APRN - CNM Work Phone: [facility] 09-27-2022 02:20-0400 Body mass index (BMI) [Ratio] 38.73 kg/m2 Amy Delgado APRN - CNM Work Phone: [facility] 09-27-2022 02:20-0400 Body weight 92.99 kg Amy Delgado BOW MAKING MACHINE OPERATOR - CNM Work Phone: [facility] [employer] 08-19-2022 22:36-0500 Diastolic blood pressure 71 mm[Hg] Yancy Lambert BOW MAKING MACHINE OPERATOR - CNM Work Phone: [facility] [employer] 08-19-2022 22:36-0500 Heart rate 97 /min Yancy Lambert BOW MAKING MACHINE OPERATOR - CNM Work Phone: [facility] [employer] 08-19-2022 22:36-0500 Systolic blood pressure 118 mm[Hg] Yancy Lambert BOW MAKING MACHINE OPERATOR - CNM Work Phone: [facility] [employer] Encounters Encounter Date Encounter Type Care Provider Facility Start: 12-10-2024 End: 12-10-2024 Office outpatient visit 15 minutes Amy Shila Hursto CNM Work Phone: [facility] Comment on above: Elevated blood press ure reading (Primary Dx); examination following delivery Start: 12-10-2024 ambulatory AMY L FLORO Not Sonali ilable Start: 12-05-2024 End: 12-05-2024 Office outpatient visit 15 minutes Amy Shila Hursto CNM Work Phone: [facility] Comment on above: Elevated blood press ure reading (Primary Dx); History of section; examination following delivery Start: 12-05-2024 End: 12-05-2024 ambulatory AMY L FLORO Not Available Start: 12-05-2024 End: 12-05-2024 Clinisync Result Encounter Amy Shila Hursto CNM Work Phone: [facility] Unsolicited Start: 12-05-2024 End: 12-05-2024 Clinisync Result Encounter Amy Shila Floro CNM Work Phone: [facility] Unsolicited Start: 12-04-2024 End: 12-04-2024 ambulatory AMY L FLORO Not Available Start: 12-04-2024 End: 12-04-2024 Office outpatient visit 15 minutes Amy L Floro CNM Work Phone: [facility] Comment on above: Elevated blood press ure reading (Primary Dx); examination following delivery Start: 11-29-2024 End: 11-29-2024 Clinisync Result Encounter Roger Halley DO Work Phone: [facility] Unsolicited Start: 11-29-2024 End: 11-29-2024 Clinisync Result Encounter Roger Halley DO Work Phone: [facility] Unsolicited Start: 11-28-2024 End: 11-28-2024 Clinisync Result Encounter Roger Halley DO Work Phone: [facility] Unsolicited Start: 11-28-2024 End: 11-28-2024 Clinisync Result Encounter Roger Halley DO Work Phone: [facility] Unsolicited Start: 11-27-2024 End: 11-27-2024 Bamboo flowsheet Amy L Floro CNM Work Phone: [facility] Start: 11-27-2024 End: 11-27-2024 Bamboo flowsheet Amy L Floro CNM Work Phone: [facility] Start: 11-27-2024 End: 11-27-2024 Subsequent care visit Amy L Floro CNM Work Phone: [facility] Comment on above: Encounter for superv ision of other normal , third trimester (Primary Dx); History of section Start: 11-27-2024 End: 11-27-2024 ambulatory AMY L FLORO Not Available Start: 11-20-2024 End: 11-20-2024 ambulatory AMY L [...] [facility] Start: 10-10-2024 End: 10-10-2024 ambulatory [facility] Start: 10-09-2024 End: 10-09-2024 Bamboo flowsheet Amy L Floro CNM Work Phone: [facility] Start: 10-09-2024 End: 10-09-2024 Bamboo flowsheet Amy L Floro CNM Work Phone: [facility] Start: 10-09-2024 End: [facility] Start: 10-09-2024 End: 10-09-2024 ambulatory AMY L FLORO Not Available Start: 09-26-2024 End: 09-26-2024 ambulatory [facility] Start: 09-11-2024 End: 09-11-2024 Bamboo flowsheet Amy L Floro CNM Work Phone: [facility] Start: 09-11-2024 End: 09-11-2024 Bamboo flowsheet Amy L Floro CNM Work Phone: [facility] Start: 09-11-2024 End: 09-11-2024 ambulatory AMY L FLORO Not Available Start: 08-15-2024 End: 08-15-2024 Clinisync Result Encounter Amy L Natalio CNM Work Phone: [facility] Unsolicited Start: 08-15-2024 End: 08-15-2024 Clinisync Result Encounter Amy L Natalio CNM Work Phone: [facility] Unsolicited Start: 08-15-2024 End: 08-15-2024 Subsequent care visit Amy L Floro CNM Work Phone: [facility] Comment on above: Encounter for superv ision of other normal , second trimester (Primary Dx); History of section Start: 08-15-2024 End: 08-15-2024 ambulatory AMY L FLORO Not Available Start: 07-16-2024 End: 07-16-2024 Subsequent care visit Amy L Floro CNM [...] Start: 06-18-2024 End: 06-18-2024 Telephone encounter Amy L Floro CNM Work Phone: [facility] Start: 06-13-2024 End: 06-13-2024 ambulatory AMY L FLORO Not Available Start: 06-13-2024 End: 06-13-2024 Subsequent care visit Amy Shila Floro CNM Work Phone: [facility] [...] 05-16-2024 End: 05-16-2024 Subsequent care visit Amy L Floro CNM Work Phone: [facility] Comment on above: History of section (Primary Dx); Encounter for supervision of other normal , first trimester; examination or test, positive result; Amenorrhea Start: 05-16-2024 End: 05-16-2024 ambulatory AMY DELGADO Not Available Start: 04-18-2024 End: 04-18-2024 Initial care visit Amy Delgado CNM Work Phone: [facility] Comment on above: GA: 7w1d Start: 04-18-2024 End: 04-18-2024 ambulatory AMY HURSTO Not Available Start: 04-02-2024 End: 04-02-2024 Clinisync Result Encounter Amy Hursto CNM Work Phone: [facility] Unsolicited Start: 04-02-2024 End: 04-02-2024 Clinisync Result Encounter Amy Hursto CNM Work Phone: [facility] Unsolicited Start: 03-31-2024 End: 03-31-2024 Clinisync Result Encounter Amy Hursto CNM Work Phone: [facility] Unsolicited Start: 03-31-2024 End: 03-31-2024 Clinisync Result Encounter Amy Hursto CNM Work Phone: [facility] Unsolicited Start: 03-29-2024 End: 03-29-2024 Clinisync Result Encounter Amy Hursto CNM Work Phone: [facility] Unsolicited Start: 03-29-2024 End: 03-29-2024 Clinisync Result Encounter Amy Hursto CNM Work Phone: [facility] Unsolicited Start: 03-13-2024 End: 03-13-2024 Postop follow up visit related to original px Roger Rowley Work Phone: [facility] Comment on above: Status post D&C Start: 03-05-2024 End: 03-05-2024 Bamboo flowsclementine HUTCHINSON Work Phone: [facility] Start: 03-05-2024 End: 03-05-2024 Bamboo flowsheet Nel HUTCHINSON Work Phone: [facility] Start: 03-05-2024 End: 03-05-2024 Postop follow up visit related to original px Nel HUTCHINSON Work Phone: [facility] Comment on above: Postoperative examin ation Start: 03-05-2024 End: 03-05-2024 ambulatory NEL SAMPSON Not Available Start: 12-15-2023 Preprocedural examin ation done Nel HUTCHINSON Work Phone: [facility] Healthcare Start: 12-15-2023 End: 12-15-2023 ambulatory ROGER HALLEY Not Available Start: 09-27-2022 End: 09-29-2022 Evaluation and management of inpatient [facility] Start: 09-27-2022 End: 09-29-2022 [facility] Labor and Delivery Comment on above: delivery de livered (Primary Dx) Start: 08-20-2022 End: 08-20-2022 ambulatory YANCY Teresa LAMBERT [facility] Start: 08-19-2022 End: 08-20-2022 Subsequent hospital visit by physician Yancy Lambert BOW MAKING MACHINE OPERATOR - CNM Work Phone: [facility] Labor and Delivery Start: 07-15-2020 End: 07-15-2020 Subsequent hospital visit by physician [facility] Covid Screening Schedule [facility] Covid Screening Comment on above: Arrived Procedures Date Procedure Procedure Detail Performing Clinician Start: 12-05-2024 ALL CBC WITH AUTO DIFF Amy L Floro CNM Work Phone: Start: 11-29-2024 ALL CBC WITH AUTO DIFF Roger Halley DO Work Phone: Start: 11-28-2024 ALL CBC WITH AUTO DIFF Roger Halley DO Work Phone: Start: 08-15-2024 US OB INCOMPLETE ANATOMY Amy L Natalio CNM Work Phone: Start: 05-16-2024 QNATAL(R) ADVANCED Bety Delgado CN Work Phone: Start: 05-16-2024 QHERIT(TM) EXPANDED CARRIER SCREEN Amy Delgado CN Work Phone: Start: 05-16-2024 Antibody screen rbc each serum technique Amy Delgado CN Work Phone: Start: 05-16-2024 Hemoglobin glycosyla francine a1c Amy Delgado CN Work Phone: Start: 05-16-2024 Iaad ia hepatitis b surface antigen Amy Hursto CN Work Phone: Start: 05-16-2024 TSH W/REFLEX TO FT4 Mona Delgado CN Work Phone: Start: 05-01-2024 Urine test visual color cmprsn meths Amy Delgado CN Work Phone: Start: 04-02-2024 [facility] PREG QUANT HCG Bety Delgado CN Work Phone: Start: 03-31-2024 [facility] PREG QUANT HCG Bety Delgado CN Work Phone: Start: 03-29-2024 [facility] PREG QUANT HCG Bety Delgado CNM Work Phone: Start: 09-28-2022 Blood count hemoglobin Lauren F Walter Pinedo DO Work Phone: Start: 09-27-2022 Antibody screen Amy Delgado BOW MAKING MACHINE OPERATOR - CN Work Phone: Start: 09-27-2022 Blood count complete auto&auto difrntl wbc Amy Delgado APRN - CNM Work Phone: Start: 09-27-2022 End: 09-27-2022 Blood typing serologic abo Amy Delgado BOW MAKING MACHINE OPERATOR - CNM Work Phone: Start: 08-24-2022 GBS, EXTERNAL RESULT Hi storical Provider Start: 08-19-2022 Urinalysis microscop ic only Yancy Lambert BOW MAKING MACHINE OPERATOR - CN Work Phone: Start: 08-19-2022 Urnls dip stick/tabl et rgnt auto w/o microscopy Yancy Lambert BOW MAKING MACHINE OPERATOR - CN Work Phone: Start: 03-04-2022 ABO, EXTERNAL RESULT Hi storical Provider Start: 03-04-2022 C. TRACHOMATIS, EXTE RNAL RESULT Historical Provider Start: 03-04-2022 HEPATITIS B, EXTERNA L RESULT Historical Provider Start: 03-04-2022 HIV, EXTERNAL RESULT Hi storical Provider Start: 03-04-2022 N. GONORRHOEAE, EXTE RNAL RESULT Historical Provider Start: 03-04-2022 RH FACTOR, EXTERNAL RESULT Historical Provider Start: 03-04-2022 RPR, EXTERNAL RESULT La storical Provider Start: 03-04-2022 RUBELLA TITER, EXTER NAL RESULT Historical Provider H/O: section History of section Amy Shila Hursto CN Work Phone: H/O: section History of section Amy Shila Hursto CN Work Phone: H/O: section History of section Amy Shila Hursto CN Work Phone: H/O: section History of section Amy Shila Hursto CNM Work Phone: H/O: section History of section Amy Shila Hursto CN Work Phone: H/O: section History of section Amy Shila Hursto CNM Work Phone: H/O: section History of section Amy Shila Hursto CNM Work Phone: H/O: section History of section Amy Shila Hursto CNM Work Phone: H/O: surgery Status post D&C Roger Rowley DO Work Phone: Plan of Treatment Date Care Activity Detail Author Start: 12-18-2024 End: 12-18-2024 ambulatory 12/18/2024 10:30 AM EDT Visit [facility] [address] [place] [address] Amy Delgado, CNM [address] [place] [address] [facility] Start: 12-10-2024 End: 12-10-2024 ambulatory 12/10/2024 1:30 PM EDT Visit [facility] [address] [place] [address] Amy Delgado, CNM [address] [place] [address] [facility] Start: 12-05-2024 End: 12-05-2024 ambulatory 12/05/2024 2:30 PM EDT Visit [facility] [address] [place] [address] Amy Delgado, CNM [address] [place] [address] [facility] Start: 11-27-2024 End: 11-27-2024 Patient encounter procedure [facility] Comment on above: Arrived Start: 11-20-2024 End: 11-20-2024 Patient encounter procedure 11/20/2024 3:30 PM EDT Routine [facility] [address] [place] [address] Amy Delgado, CNM [address] [place] [address] [facility] Start: 11-13-2024 End: 11-13-2024 Patient encounter procedure 11/13/2024 3:30 PM EDT Routine [facility] [address] [place] [address] Amy Delgado, CNM [address] [place] [address] Arrived [facility] Comment on above: Arrived Start: 11-06-2024 End: 11-06-2024 Patient encounter procedure 11/06/2024 3:45 PM EDT Routine [facility] [address] [place] [address] Amy Delgado, CNM [address] [place] [address] [facility] Start: 10-09-2024 End: 10-09-2024 Patient encounter procedure 10/09/2024 11:30 AM EDT Routine [facility] [address] [place] [id number] Amy Delgado, CNM [address] [place] [address] Arrived [facility] Comment on above: Arrived Start: 09-11-2024 End: 09-11-2024 Patient encounter procedure [facility] Comment on above: Arrived Start: 08-15-2024 End: 08-15-2024 Patient encounter procedure 08/15/2024 10:30 AM EST Routine [facility] [address] [place] [id number] Amy Delgado, CN [address] [place] [address] [facility] Start: 07-16-2024 End: 07-16-2024 [...] AM EST Routine [facility] [address] [place] [address] Amy Delgado CNM [address] [place] [address] Encounter for supervision of other normal , first trimester; examination or test, positive result; Amenorrhea [facility] Comment on above: Encounter for superv ision of other normal , first trimester; examination or test, positive result; Amenorrhea Start: 05-01-2024 End: 05-01-2025 Bacteria identified in Urine by Culture Urine culture Microbiology Routine Amenorrhea examination or test, positive result Expected: 05/01/2024 (Approximate), Expires: 05/01/2025 [facility] Healthcare Comment on above: Expected: 05/01/2024 (Approximate), Expires: 05/01/2025 Start: 05-01-2024 End: 05-01-2025 DRUG TOX MONITORIGN 6 W/ CONF,URINE DRUG TOX MONITORIGN 6 W/ CONF,URINE Lab Routine Amenorrhea examination or test, positive result Expected: 05/01/2024 (Approximate), Expires: 05/01/2025 [facility] Healthcare Work Phone: Comment on above: Expected: 05/01/2024 (Approximate), Expires: 05/01/2025 Start: 05-01-2024 End: 05-01-2025 Neisseria gonorrhoeae DNA [Presence] in Cervical mucus by SRINIVAS with probe detection C. trachomatis / N. gonorrhoeae, DNA probe Pathology and Cytology Routine Amenorrhea examination or test, positive result Expected: 05/01/2024 (Approximate), Expires: 05/01/2025 [facility] Healthcare Comment on above: Expected: 05/01/2024 (Approximate), Expires: 05/01/2025 Start: 05-01-2024 End: 05-01-2025 URINALYSIS MICROSCOPIC URINALYSIS MICROSCOPIC Lab Routine Amenorrhea examination or test, positive result Expected: 05/01/2024 (Approximate), Expires: 05/01/2025 [facility] Healthcare Comment on above: Expected: 05/01/2024 (Approximate), Expires: 05/01/2025 Start: 03-13-2024 End: 03-13-2024 Patient encounter procedure 03/13/2024 8:10 AM EDT Office Visit [facility] [address] [place] [address] Roger Rowley DO [address] [place], [place] [address] [facility] Start: 03-05-2024 End: 03-05-2024 Patient encounter procedure 03/05/2024 9:30 AM EDT Office Visit [facility] [address] [place] [address] Nel Sampson, PA [address] [place], [facility] Arrived [facility] Comment on above: Arrived Start: 2022 Influenza vaccination Flu vaccine (# 1) [facility] Start: 2021 Screening for malign ant neoplasm of cervix [facility] Start: 03-11-2020 Influenza vaccination Flu vaccine (# 1) [place], [place] Start: 02-09-2012 Screening for malign ant neoplasm of cervix [facility] Start: 2010 DTaP/Tdap/Td vaccine (1 - Tdap) DTaP/Tdap/Td vaccine (1 - Tdap) [facility] Start: 2009 Hepatitis C screening Hepatitis C sc reen [facility] Start: 2006 HIV screening HIV screen [facility] Start: 2003 Depression Screen Depression Screen [facility] Start: 02-09-1992 Varicella vaccine (1 of 2 - 2-dose childhood series) Varicella vaccine (1 of 2 - 2-dose childhood series) [facility] Start: 1991 COVID-19 Vaccine (#1) COVID-19 Vacci ne (#1) [facility] Start: 1991 Hepatitis C screening Hepatitis C sc reen [facility] [place] End: 08-19-2022 Bacteria identified in Urine by Culture Urine culture Microbiology Routine One Time for 1 Occurrences starting 08/19/2022 until 08/19/2022 [employer] Phone: Comment on above: One Time for 1 Occur rences starting 08/19/2022 until 08/19/2022 End: 07-15-2020 COVID-19 COVID-19 Lab Routine Once for 1 Occurrences starting 07/15/2020 until 07/15/2020 [place], [place] Comment on above: Once for 1 Occurrenc es starting 07/15/2020 until 07/15/2020 COVID-19 COVID-19 Lab Rou sourav 07/15/2020 9:05 AM EST [place], [place] nonstress test nonst ress test OB Routine Daily until discontinued starting 08/20/2022 [employer] Phone: Comment on above: Daily until disconti nued starting 08/20/2022 Nonrebreather mask oxygen Nonrebreather mask oxygen Respiratory Care Routine As directed - RT (PRN) until discontinued starting 08/19/2022 [employer] Phone: Comment on above: As directed - RT (ID N) until discontinued starting 08/19/2022 Oxygen therapy [[facility] Data Set] Initiate Oxygen Therapy Protocol Respiratory Care Routine As Needed until discontinued starting 09/27/2022 [employer] Phone: Comment on above: As Needed until disc ontinued starting 09/27/2022 End: 09-27-2022 RHOGAM INJECTION ONLY RHOGAM INJECTION ONLY Blood Bank Routine One Time for 1 Occurrences starting 09/27/2022 until 09/27/2022 [employer] Phone: Comment on above: One Time for 1 Occur rences starting 09/27/2022 until 09/27/2022 Spirometry panel Incentive jessica metry Respiratory Care Routine Every 2hr while awake until discontinued starting 09/28/2022 [employer] Phone: Comment on above: Every 2hr while awak e until discontinued starting 09/28/2022 End: 08-19-2022 SVE SVE Point of Care Testing Routine One Time for 1 Occurrences starting 08/19/2022 until 08/19/2022 [employer] Phone: Comment on above: One Time for 1 Occur rences starting 08/19/2022 until 08/19/2022 End: 08-20-2022 US OB 14 PLUS WEEKS SINGLE OR FIRST GESTATION US OB 14 PLUS WEEKS SINGLE OR FIRST GESTATION Imaging STAT Once for 1 Occurrences starting 08/20/2022 until 08/20/2022 [employer] Phone: Comment on above: Once for 1 Occurrenc es starting 08/20/2022 until 08/20/2022 US OB 14 PLUS WEEKS SINGLE OR FIRST GESTATION US OB 14 PLUS WEEKS SINGLE OR FIRST GESTATION Imaging STAT 08/20/2022 1:07 AM EST [employer] Phone: Immunizations Immunization Date Immunization Notes Care Provider [facility] 09-27-2022 diphtheria, tetanus toxoids and acellular pertussis vaccine, unspecified formulation Amy Delgado [employer] Social [employer] Phone: [employer] Phone: 09-27-2022 measles, mumps and rubella virus vaccine Amy Floro [employer] Phone: [employer] Phone: Payers Date Payer Category Payer Private Health Insurance [id number] 2023 Unknown [id number] 2023 Unknown [id number] 2022 Unknown [id number] [id number] .7.3.793418.315 2014 Unknown [facility] [id number] 2014-Present [phone] [address] [address] [place] [address] [id number] 1.2.840.898518.1.13.239.2 .7.3.802499.315 1991 Unknown [id number] 2.16.840.1.114758.3.579.2 .173 1991 Unknown [id number] 2.16.840.1.773642.3.579.2 .173 1991 Unknown [id number] 2.16.840.1.776240.3.579.2 .1286 1991 Unknown [id number] 2.16.840.1.430158.3.579.2 .1286 1991 Unknown [id number] 2.16.840.1.797751.3.579.2 .1259 1991 Unknown [id number] 2.16.840.1.925256.3.579.2 .9 1991 Unknown [id number] 2.16.840.1.699445.3.579.2 .1259 1991 Unknown [id number] 2.16.840.1.995161.3.579.2 .1259 1991 Unknown [id number] 2.16.840.1.653664.3.579.2 .1259 1991 Unknown [id number] 2.16.840.1.538500.3.579.2 .1259 1991 Unknown [id number] 2.16.840.1.711606.3.579.2 .1259 1991 Unknown [id number] 2.16.840.1.157533.3.579.2 .1259 1991 Unknown [id number] 2.16.840.1.958543.3.579.2 .9 1991 Unknown [id number] 2.16.840.1.110548.3.579.2 .9 1991 Unknown [id number] 2.16.840.1.851033.3.579.2 .1258 1991 Unknown [id number] 2.16.840.1.007907.3.579.2 .9 1991 Unknown [id number] 2.16.840.1.327586.3.579.2 .9 1991 Unknown [id number] 2.16.840.1.743496.3.579.2 .1258 1991 Unknown [id number] 2.16.840.1.894630.3.579.2 .1258 1991 Unknown [id number] 2.16.840.1.402298.3.579.2 .9 1991 Unknown [id number] 2.16.840.1.013189.3.579.2 .1258 1991 Unknown [id number] 2.16.840.1.944926.3.579.2 .9 Social History Date Type Detail Facility Tobacco smoking stat [facility] Unknown if ever smoked [place], [place] Start: 1990 Sex Assigned At Not on file [place], [place] Start: 08-19-2022 [facility] [employer] Phone: History of tobacco use Current smoker [employer] Phone: History of tobacco use Cigarette Smoker B ON [employer] Phone: Start: 08-19-2022 End: 04-18-2024 Cigarettes smoked current (pack per day) - Reported 0.3 [employer] Phone: History of tobacco use Passive smoker [facility] [employer] Phone: Start: 08-19-2022 End: 11-09-2023 Tobacco use and exposure Smokeless tobacco non-user [employer] Phone: Start: 08-19-2022 End: 12-05-2024 Alcohol intake Ex-drinker (finding) [employer] Phone: Start: 08-09-2022 End: 09-27-2022 Exposure to SARS-CoV-2 (event) Not sure [employer] Phone: Start: 11-09-2023 Tobacco smoking stat [facility] Never smoked tobacco [facility] Start: 12-15-2023 End: 04-18-2024 Tobacco use panel [facility] Start: 03-13-2024 [facility] Clinical Notes 08-20-2022 to 12-10-2024 CARROL Gamboa - 12/10/2024 1:30 PM EDTAmy Delgado, CARROL - 12/05/2024 2:30 PM EDRicky Delgado, CARROL - 12/04/2024 2:30 PM EDTACRROL Gamboa - 11/27/2024 10:30 AM EDT Note Date & Type Note Facility 12-10-2024 History of Present illness Narrative Nicholas Matta is here for visit. She [...] encounter. normal exam documented in this encounter [facility] 12-05-2024 History of Present illness Narrative Nicholas Matta is here for visit. She [...] for magnesium sulfate IV and patient is very tearful and worried about the baby. Can he go with me? Can I breastfeed still because he's never had a bottle.? All questions answered and I also updated Dr Rowley with care plan for Nicholas. Orders called to ITZEL Marroquin at [facility]. I did also explain to patient we [...] hospital. normal exam documented in this encounter [facility] 12-04-2024 History of Present illness Narrative Nicholas Matta is here for visit. She [...] 1 normal exam documented in this encounter [facility] 11-27-2024 History of Present illness Narrative Subjective [...] a routine visit. documented in this encounter [facility] 11-13-2024 History of Present illness Narrative Subjective [...] a routine visit. documented in this encounter [facility] 10-23-2024 History of Present illness Narrative Subjective [...] a routine visit. documented in this encounter [facility] 10-10-2024 Note [place] [facility] Subjective Nicholas Matta is a 34 [...] denies syncope, leg edema. 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 Review of Systems Cardiovascular: [...] then she can follow up with her SAFETY INVESTIGATOR/CAUSE ANALYST physician as planned. No follow-ups on file. Johnathan Renner MD [facility] 08-15-2024 History of Present illness Narrative Subjective [...] a routine visit. documented in this encounter [facility] 07-16-2024 History of Present illness Narrative Subjective [...] a routine visit. documented in this encounter [facility] 06-18-2024 Telephone encounter Note Pt states that her US order needs faxed to [facility]. Patient is requesting her lab results from from last week. [facility] 06-18-2024 Miscellaneous Notes Pt states that her US order needs faxed to [facility]. Patient is requesting her lab results from from last week. documented in this encounter [facility] 06-13-2024 History of Present illness Narrative Subjective [...] a routine visit. documented in this encounter [facility] 05-16-2024 History of Present illness Narrative Subjective [...] a routine visit. documented in this encounter [facility] 04-18-2024 History of Present illness Narrative Subjective Nicholas Matta is a 34 y.o. at 7w1d with a working estimated date of delivery of 12/04/2024, by Last Menstrual Period who presents for an initial visit. This is planned. No care steamfitter to display OB History Para Term AB [...] also given office phone number and [facility] number to call in case of an emergency or after hours needs. PVU and all questions answered. We did discuss place of delivery. Patient should plan to go to [facility] for all services unless an emergency and they need to go to the closest ER. We can make other arrangements possibly if patient would like to deliver at another facility but I did explain I am now at [facility] 100% of the time and would like to do all deliveries there. documented in this encounter [facility] 03-13-2024 History of Present illness Narrative Reason for Appointment: Patient ID: Nicholas Matta is a 34 y.o. female who presents for Telehealth (Fertility and pathology review from D&C hysteroscopy) Patient presents today via telephone call for a telehealth appointment. Patients Phone #: [phone] (mobile) Current Medications: currently has no medications [...] Roger Rowley DO documented in this encounter [facility] 03-05-2024 History of Present illness Narrative Reason [...] having a D&C Hysteroscopy performed at [facility] with Dr. Rowley. Pathology results were not back at this time. We will reach out to pt with results. Patient doing well, all restrictions have been lifted. Follow Up: Patient is to return to the office for annual exam unless needed otherwise. Documented by JASPER Finch on behalf of: JASPER Finch documented in this encounter [facility] 09-29-2022 Hospital Discharge instructions Jose Perez RN - 09/29/2022 1:09 PM EDT Follow-up with your OB doctor as specified. [facility] OB Department phone: Dr. Adarsh Lambert CNM Dr. Chencho Matta CNM [address] [facility] [address] [place] Chencho Viveros CNM [address] [facility] [address] [phone] Mona Delgado, MSN, BOW MAKING MACHINE OPERATOR, CNM [facility] [address] [facility] [address] [address] [facility] [address] Celia Rosario CNM [address] [place] [address] [place] [address] Piedad Wiley CNM [address] [place] [address] [place] [address] [phone] DIET Eat a well balanced diet focusing on foods high in fiber and protein. Drink plenty of fluids especially water. To avoid constipation you may take a mild stool softener as recommended by your doctor or hand launderer. ACTIVITY Gradually increase your activity. Resume exercise regimen only after advice by your doctor or hand launderer. Avoid lifting anything heavier than a gallon of milk for SIX weeks. Avoid driving until your doctor or hand launderer has given their approval. Rise slowly from [...] of harming yourself or your infant. If will not stop crying, contact another [...] medications as recommended by your doctor or hand launderer for pain If you develop a warm, [...] vitamins as directed by your doctor or hand launderer. Refer to the booklet in the folder/binder for more information. If you feel you need more assistance or have questions, please call Rose Boyce IBCLC, senior management consultant, at or the OB department [...] they become loose or soiled. If used, Ullin should be removed by your care provider. [...] your calf. documented in this encounter [facility] [employer] Phone: 09-29-2022 Hospital course Narrative Obstetrical Discharge [...] 2.59 1.10 - 3.70 k/uL Absolute [facility] # 0.69 0.10 - 1.20 k/uL Absolute [...] Range Expiration Date 09/30/2022,2359 Arm Band Number [id number] ABO/Rh O POSITIVE Antibody Screen NEGATIVE ABO, [...] Your Medications These medications were sent to [place] [address] - P [phone] - F [phone] [address] [address] ibuprofen 800 MG tablet oxyCODONE 5 MG immediate release tablet vitamin 27-1 MG Tabs tablet Admit date: 09/27/2022 2:01 AM Discharge Date: 09/29/2022 Discharged to: Home in stable condition Plan: Follow upwith Mona Delgado CNM in 1 wk documented in this encounter [facility] [employer] Phone: 09-29-2022 History of Present illness Narrative [...] -- -- -- -- 99 % 09/27/22 1821 131/63 -- -- 96 18 -- 09/27/22 1820 -- -- -- -- -- 99 % 09/27/22 181 -- -- -- -- -- 99 % 09/27/22 181 -- -- -- -- -- 99 % 09/27/22 1805 120/78 -- -- (!) 106 16 99 % 09/27/221758 -- -- -- -- -- 99 % 09/27/22 175 -- -- -- -- -- 99 % 09/27/22 175 (!) 100/54 -- -- 74 18 98 % 09/27/22 174 -- -- -- -- -- 98 % 09/27/22 174 -- -- -- -- -- 97 % 09/27/22 1736 (!) 97/54 -- -- 78 16 -- [...] -- -- -- -- 99 % 09/27/22 165 -- -- -- -- -- 98 % 09/27/221648 -- -- -- -- -- 98 % 09/27/22 164 -- -- -- -- -- 99 % 09/27/221638 -- -- -- -- -- 98 % 09/27/22 163 115/66 -- -- (!) 110 16 -- 09/27/22 163 -- -- -- -- -- 98 % 09/27/22 162 -- -- -- -- -- 98 % [...] -- -- 98 % 09/27/22 1520 (!) 12558 -- -- 94 18 -- 09/27/22 1519 [...] # 1 PLAN: Routine instructions and orders Shop Foreman Note: I first assisted Dr Watson with [...] in bed watching tv OBJECTIVE: Vitals: 09/27/22 19209/27/22 1950 09/27/22195409/27/221999 BP: 123/67 Pulse: 93 Resp: 16 Temp: TempSrc: SpO2: 98% 98% 98% Weight: Height: heart rate: Baseline Heart Rate: 145 Accelerations: present Custodial Variability: moderate Decelerations: absent Contraction frequency: 4-5 [...] Watson when she calls back Dr. Zuñiga, wet mixer, in unit and was updated on maternal [...] FHR to baseline when contraction has ended. Link Trainer Maintenance Worker and Haresh Delgado CNM at bedside at this time. MICHELINE performs SVE, 7-8/90-0. CNM at bedside for variable deceleration at 1702 and again at 1706. CNM states to continue to increase pitocin infusion. Pt placed on left side with pillow between her legs. Strip reviewed with MICHELINE. Haresh Delgado CNM states she will come perform SVE. Link Trainer Maintenance Worker at bedside repositioning patient to right side [...] 140, moderate variability and accelerations noted before comic book writer left the room. Link Trainer Maintenance Worker at bedside to reposition patient. Pt placed on her left side with peanut ball at 1345. Variable deceleration noted into the 70's, pt placed on right side with peanut ball at 1355 Variable deceleration continue with contractions, pt placed in , tailor sitting at 1400. Link Trainer Maintenance Worker called Haresh Delgado CNM to updated on [...] infusion if FHR does not decelerate again. Link Trainer Maintenance Worker phones Haresh Delgado CNM at this time. Updated on FHR with variable decelerations and one late deceleration noted with all interventions that were done. Informed that pitocin infusion has not been increased since 0930 due to decelerations. VS, contraction pattern and SVE reviewed. Orders to leave pitocin infusion where it is and continue to perform frequent position changes. Later deceleration noted, pt placed in hands and knees from 8946-4722. Link Trainer Maintenance Worker hand held ultrasound to trace FHR, intermittently head in the 140's-150's. Pt reports she had 2 contraptions while in hands and knees. Variable decelerations noted with contractions. SVE performed and patient 4-5/80/-2. Pt positioned to left side with Pillow between her legs. Barnum and ultrasound adjusted. Contractions palpated by comic book writer and are tracing inverted on EFM starting at 1040. 0947- M. Ivana PIANO MECHANIC APPRENTICE at bedside at this time. Pt alert and oriented. supportive at bedside. 0850- Consent forms signed at this time. Link Trainer Maintenance Worker witnessed 0952- Timeout performed, all agree 0955-epidural placement begins at this time 1006-test dose administered per PIANO MECHANIC APPRENTICE, no side effects reported from patient 1015-epidural placement complete and patient laid back with right side tilt. Haresh Delgado CNM phones unit back at this time. Update provided on unchanged SVE, contraction pattern, FHR and variable noted with contraction. CNMarcie also updated on pitocin infusion rate and pt's request for an epidural. No further orders received at this time. Link Trainer Maintenance Worker called Haresh Delgado CNM at this time. No answer. Message left to phone unit back when available. IV fluids for pre epidural placement bolus started at 0912. Anesthesia notified at 0919. M. Ivana PIANO MECHANIC APPRENTICE states he will be over in roughly 20 minutes. Link Trainer Maintenance Worker at bedside palpating contractions. Barnum adjusted to properly trace contraction pattern. Pt [...] any further needs. documented in this encounter [facility] [employer] Phone: 08-20-2022 History of Present illness Narrative [...] this time. Radiology phoned with verification for boiler/chiller technician to be called from Dr. Saavedra with [facility]. Tech states she will call director of aviation tech at this time. documented in this encounter [facility] [employer] Phone: 08-20-2022 Hospital Discharge instructions Itzel Hudson RN - 08/20/2022 1:41 AM EST OUTPATIENT DISCHARGE Dr. Adarsh Lambert [facility] Dr. Chencho Matta [place] [address] [place] [address] [place] ACTIVITY LIMITATIONS: ( x )Up [...] hour Keep your scheduled follow up appointment. engine testing supervisor Macrobid from [facility] pharmacy in am and take as prescribed IN CASE OF EMERGENCY CONTACT LABOR AND DELIVERY . documented in this encounter [employer] Phone: Evaluation note Diagnosis PROM (premature rupture of membranes)- Primary Premature rupture of membranes in , unspecified as to episode of care documented in this encounter [employer] Phone: evaluation note* Diagnosis Normal labor- Primary [...] of antepartum condition documented in this encounter [employer] Phone: evaluation note* Diagnosis History of section- [...] [facility] Diagnosis Elevated blood pressure reading- Primary Elevated blood pressure reading without diagnosis of hypertension examination following delivery documented in this encounter [facility]* Diagnosis Elevated blood pressure reading- Primary Elevated blood pressure reading without diagnosis of hypertension History of section Other postprocedural status examination following delivery [facility] Diagnosis Elevated blood pressure reading- Primary Elevated blood pressure reading without diagnosis of hypertension examination following delivery documented in this encounter [facility] [employer] for visit Narrative* Maternity Services (Routine) - Closed Specialty Diagnoses / Procedures Referred By Diogo t Referred To Contact Obstetrics and Gynecology Diagnoses Encounter for supervision of other normal , first trimester examination or test, positive result Amenorrhea Procedures ID OFFICE/OUTPATIENT NEW HIGH MDM 60 MINUTES Amy Delgado, MICHELINE [address] [place] [address] Phone: tel: fax: Sandy Amy L, CNM [address] [place] [address] Phone: tel: fax: Referral ID Status Reason Start Date Expiration Date V isits Requested Visits Authorized [id number] Closed Specialty Services Required 05/01/2024 10/28/2024 1 [...] section and content) DATE CREATED AUTHOR 05/05/2022 [facility] dical Specialist DATE CREATED AUTHOR AUTHOR'S ORGANIZ ATION 09/30/2022 [facility] DATE CREATED AUTHOR AUTHOR'S ORGANIZ ATION 10/12/[address] [facility] DATE CREATED AUTHOR AUTHOR'S ORGANIZ ATION 11/17/2024 [facility] DATE CREATED AUTHOR AUTHOR'S ORGANIZ ATION 12/11/2024 [facility] dical Specialists EPIC Care Teams (unrecognized sec tion and content) Motor Scooter Repairer Relationship Specialty Start Date End Date Raquel Sharpe [address] [place] [id number] PCP - General Nurse Practitioner 07/14/20 Motor Scooter Repairer Relationship Specialty Start Date End Date Raquel Sharpe [address] [place], [place] [id number] PCP - General Nurse Practitioner 07/14/20 Reason for Visit (unrecogniz ed section and content) Reason Comments Rupture of Membranes Pt states she felt a gush around 12 a.m. Specialty Diagnoses / Procedures Referred By Diogo house Referred To Contact Diagnoses Normal labor Term Failure to progress in labor Amy Delgado APRN - [facility] [address] [place] [address] [facility] [address] [place] [address] Referral ID Status Reason Start Date Expiration Date Visits Re quested Visits Authorized [id number] 1 1 Reason Comments Post-op Visit Reason Comments Telehealth Fertility and pathol ogy review from D&C hysteroscopy Reason Comments Initial Visit Reason Comments Care Ordered Prescriptions (unrec ognized section and content) [...] mL IVPB (mini-bag) (COMPLETED) 2,000 mg, IntraVENous, ARROW POINT ATTACHER TO O.R., 1 dose, On Tue09/27/22 at 2044, Antimicrobial Indications: Surgical Prophylaxis, Administer within 1 hour of incision., Labor and Delivery 2102 (New Bag - Provider: Bel Matta APRN - PIANO MECHANIC APPRENTICE) citric acid-sodium citrate (BICITRA) solution 30 mL [...] Labor and Delivery 2031 (Given - Provider: Crain Arvizu RN) ketorolac (TORADOL) injection 30 mg [...] activity resumes., 0903 (Given - Provider: Suzanna Menjivar, ITZEL) 0814 (Given - Provider: Jose Perez RN) [...] Provider: Sindhu Muñoz RN) 0900 (Due)2100 (Due) xsquuys-ypdbrp-tbxel pertussis (BOOSTRIX) injection 0.5 mL 0.5 mL, IntraMUSCular, PRIOR TO DISCHARGE, 1 dose, Starting on Tue09/27/22 at 2232, Until Discontinued, If not previously administered during at 27-36 weeks as recommended by CDC., Continuous Medication Order 09/27/2022 09/28/2022 09/29/2022 lactated ringers IV soln infusion (CANCELED) IntraVENous, at 125 mL/hr, CONTINUOUS, Starting on Tue09/27/22 at 0300, Labor and Delivery 0337 (New Bag - Provider: Kristal [place]illa, ITZEL)0950 (Rate/Dose Change - Provider: Elva Quintero RN)0952 (NoRateChange - Provider: Bel Matta APRN - PIANO MECHANIC APPRENTICE)1113 (Rate/Dose Change - Provider: Elva Quintero, ITZEL)1130 (Rate/Dose Change - Provider: Elva Quintero, ITZEL)1232 (New Bag - Provider: Elva Quintero RN)1437 (Rate/Dose Change - Provider: Elva Quintero RN)1500 (Rate/Dose Change - Provider: Elva Quintero RN)2104 (Paused - Provider: KASIE Ruiz CRNA - [...] every 2-3 minutes with cervical changes or [place] units (MVU) greater than 200 in a [...] (NoRateChange - Provider: Bel Matta APRN - PIANO MECHANIC APPRENTICE)1230 (Rate/Dose Change - Provider: Elva Quintero RN)1230 [...] Quintero RN - Comment: per V. Natalio CNMarcie order)184 (Rate/Dose Change - Provider: Elva Quintero RN - Comment: per V. Floro CN verbal order)2019 (Stopped - Provider: Carin Arvizu RN)2133 (Given - Provider: Bel Matta APRN - PIANO MECHANIC APPRENTICE - Comment: pitocin infusion was off prior to transport to OR, discontinued at 2019 per stated by OB RN) ropivacaine (NAROPIN) 0.2% injection 0.2% (CANCELED) 10 mL/hr, Epidural, CONTINUOUS, Starting on Tue09/27/22 at 1130, Until Tue09/27/22 at 2232, Until delivery., Labor and Delivery 1010 (Given - Provider: Cristóbal Heath APRN - PIANO MECHANIC APPRENTICE)1012 (Given - Provider: KASIE Garcia PIANO MECHANIC APPRENTICE)1013 (New Bag - Provider: KASIE Garcia CRNA)1727 [...] Jose Perez RN)1444 (Given - Provider: Jose Perez, ITZEL) oxyCODONE [...] BE BASED ON THE PRIMARY CLINICAL RECORDS. [email or web address] [facility]. provides no warranty or guarantee of the accuracy or completeness of information in this document.
== END 2024-12-14 11:29 | disposition home or self-care (01) ==
PROVIDERS: Visit Provider Midwife
DX: Z39.1 Encounter for care and examination of lactating mother (principal)
CPT/HCPCS: G0463